=== PATIENT | female | born 1945 | race Caucasian/White ===

== ENCOUNTER 2019-06-15 16:19 | Inpatient (IN) | payer MEDICARE, OTHER ==
--- NOTE | 2019-06-15 16:42 | ED ---
General Adult HPI - General Chief complaint: Recheck/Abnormal Lab/Rx Stated complaint: Open wounds/sepsis Time Seen by Provider: 06/15/19 16:22 Source: patient, EMS Mode of arrival: EMS Limitations: physical limitation - History of Present Illness Initial comments: Dictation was produced using [employer] dictation software. please excuse any grammatical, word or spelling errors. Chief Complaint: 73-year-old with chronic debility presents with worsening decubitus ulcer. History of Present Illness: It is 73-year-old female she has past medical history of chronic debility. She was sent in for evaluation of decubitus ulcer. Patient is a history of cerebrovascular accident. She is bedbound. Patient is paraplegic secondary to cerebrovascular accident. She lives at home with his care with home healthcare nurse. Patient has no specific complaints at this time. She understands that she was sent from home for evaluation of decubitus ulcer wounds. He was reports that they were called for this concern. Chart review shows that patient was admitted to the hospital 3 years ago for decubitus ulcers of the oxygen area. The ROS documented in this emergency department record has been reviewed and confirmed by me. Those systems with pertinent positive or negative responses have been documented in the HPI. All other systems are other negative and/or noncontributory. PHYSICAL EXAM: General Impression: Alert and oriented x3, not in acute distress HEENT: Normocephalic atraumatic, extra-ocular movements intact, pupils equal and reactive to light bilaterally, mucous membranes moist. Cardiovascular: Tachycardic Chest: Lungs clear to auscultation bilaterally, no rhonchi, no wheeze, no rales Abdomen: Bowel sounds present, abdomen soft, non-tender, non-distended, no organomegaly Musculoskeletal: Pulses present and equal in all extremities, no peripheral edema Motor: no focal deficits noted Neurological: CN II-XII grossly intact, no focal motor or sensory deficits noted Skin: Intact with no visualized rashes Large area of pressure sores measuring approximately 12" x 12" with stage III and stage IV area of decubitus ulcers. There is stool that is contaminating the wound Psych: Normal affect and mood ED course: 73-year-old female with past medical history of decubitus ulcers, CVA chronic debility presents with concerns of worsening decubitus ulcer. Patient has no specific complaints upon initial evaluation. Upon arrival shows temperature 99.7, heart rate of 110, rest of vital signs are acceptable limits.Laboratory evaluation obtained. Leukocytosis of 18.6, rest of CBC unremarkable. Coag panel negative. Metabolic panel shows a patient of renal markers with a mild gap acidosis. She has a lactic acidosis 3.8 magnesium 1.3 C-reactive protein of 323.6 urinalysis is unremarkable. Pelvis x-ray showed findings concerning for possible osteomyelitis to the inferior right issue. Computed tomography scan of the abdomen and pelvis was obtained showing a large area of soft tissue air in the posterior sacral and buttock consistent with cellulitis and decubitus ulcer. At this point there is concern for significant stage IV decubitus ulcer. She does have findings to suggest sepsis. Given 1 L normal saline bolus. Patient given broad-spectrum antibiotics. Multiple attempts were made to contact Dr. Marr for inpatient admission he has not called back. Nonetheless patient will be admitted. We will place consult for general surgery and infectious disease. Decubitus ulcers was irrigated by nurse. Mon catheter was placed. EKG interpretation: Ventricular rate 112, sinus tachycardia,. Interval 150, QS 94, QTC 461. No [place] prolongation, no QTC prolongation, no ST or T-wave changes noted. Overall, this EKG is unremarkable - Related Data Home Medications Medication Instructions Recorded Confirmed Aspirin EC [Ecotrin] 325 mg PO DAILY 05/26/16 06/15/19 Lisinopril-Hctz 20-25 mg 1 tab PO DAILY 06/15/19 06/15/19 [Zestoretic 20-25] Loperamide HCl [Loperamide] 2 mg PO BID PRN 06/15/19 06/15/19 Metoprolol Succinate (ER) [Toprol 50 mg PO DAILY 06/15/19 06/15/19 Xl] hydrALAZINE HCL [Apresoline] 50 mg PO TID 06/15/19 06/15/19 Allergies Allergy/AdvReac Type Severity Reaction Status Date / Time No Known Allergies Allergy Verified 06/15/19 16:38 Review of Systems ROS Statement: Those systems with pertinent positive or pertinent negative responses have been documented in the HPI. ROS Other: All systems not noted in ROS Statement are negative. Past Medical History Past Medical History: CVA/TIA Additional Past Medical History / Comment(s): immobile History of Any Multi-Drug Resistant Organisms: None Reported Past Surgical History: No Surgical Hx Reported Past Psychological History: No Psychological Hx Reported Smoking Status: Never smoker Past Alcohol Use History: None Reported Past Drug Use History: None Reported - Past Family History Mother Family Medical History: Hypertension General Exam Limitations: physical limitation Course Vital Signs 06/15/19 06/15/19 06/15/19 16:21 17:30 18:37 Temperature 99.7 F H Pulse Rate 110 H 118 H 105 H Respiratory 18 18 18 Rate Blood Pressure 145/126 113/82 117/99 O2 Sat by Pulse 93 L 96 96 Oximetry 06/15/19 19:16 Temperature Pulse Rate 118 H Respiratory 20 Rate Blood Pressure 120/64 O2 Sat by Pulse 96 Oximetry Medical Decision Making - Lab Data Result diagrams: 06/15/19 16:52 06/15/19 16:52 Lab Results 06/15/19 06/15/19 06/15/19 Range/Units 16:52 16:52 16:52 WBC 18.6 H (3.8-10.6) k/uL RBC 3.77 L (3.80-5.40) m/uL Hgb 11.9 (11.4-16.0) gm/dL Hct 36.1 (34.0-46.0) % MCV 95.8 (80.0-100.0) fL MCH 31.5 (25.0-35.0) pg MCHC 32.8 (31.0-37.0) g/dL RDW 17.3 H (11.5-15.5) % Plt Count 416 (150-450) k/uL Neutrophils % 91 % Lymphocytes % 6 % Monocytes % 1 % Eosinophils % 0 % Basophils % 0 % Neutrophils # 17.0 H (1.3-7.7) k/uL Lymphocytes # 1.1 (1.0-4.8) k/uL Monocytes # 0.3 (0-1.0) k/uL Eosinophils # 0.1 (0-0.7) k/uL Basophils # 0.0 (0-0.2) k/uL Anisocytosis Slight Macrocytosis Slight ESR Cancelled PT (9.0-12.0) sec INR (<1.2) APTT (22.0-30.0) sec Sodium 136 L (137-145) mmol/L Potassium 4.5 (3.5-5.1) mmol/L Chloride 103 (98-107) mmol/L Carbon Dioxide 20 L (22-30) mmol/L Anion Gap 13 mmol/L BUN 61 H (7-17) mg/dL Creatinine 1.38 H (0.52-1.04) mg/dL Est GFR (CKD-EPI)AfAm 44 (>60 ml/min/1.73 sqM) Est GFR (CKD-EPI)NonAf 39 (>60 ml/min/1.73 sqM) Glucose 110 H (74-99) mg/dL Plasma Lactic Acid Jonathan 3.8 H* (0.7-2.0) mmol/L Calcium 7.8 L (8.4-10.2) mg/dL Magnesium 1.3 L (1.6-2.3) mg/dL Total Bilirubin 0.7 (0.2-1.3) mg/dL AST 40 H (14-36) U/L ALT 18 (9-52) U/L Alkaline Phosphatase 123 (38-126) U/L Creatine Kinase 220 H (30-135) U/L C-Reactive Protein 323.6 H (<10.0) mg/L Total Protein 6.4 (6.3-8.2) g/dL Albumin 2.8 L (3.5-5.0) g/dL Urine Color Urine Appearance (Clear) Urine pH (5.0-8.0) Ur Specific [place] (1.001-1.035) Urine Protein (Negative) Urine Glucose (UA) (Negative) Urine Ketones (Negative) Urine Blood (Negative) Urine Nitrite (Negative) Urine Bilirubin (Negative) Urine Urobilinogen (<2.0) mg/dL Ur Leukocyte Esterase (Negative) Urine WBC (0-5) /hpf Ur Squamous Epith Cells (0-4) /hpf Urine Bacteria (None) /hpf Urine Mucus (None) /hpf 06/15/19 06/15/19 Range/Units 16:52 17:28 WBC (3.8-10.6) k/uL RBC (3.80-5.40) m/uL Hgb (11.4-16.0) gm/dL Hct (34.0-46.0) % MCV (80.0-100.0) fL MCH (25.0-35.0) pg MCHC (31.0-37.0) g/dL RDW (11.5-15.5) % Plt Count (150-450) k/uL Neutrophils % % Lymphocytes % % Monocytes % % Eosinophils % % Basophils % % Neutrophils # (1.3-7.7) k/uL Lymphocytes # (1.0-4.8) k/uL Monocytes # (0-1.0) k/uL Eosinophils # (0-0.7) k/uL Basophils # (0-0.2) k/uL Anisocytosis Macrocytosis ESR PT 11.2 (9.0-12.0) sec INR 1.1 (<1.2) APTT 24.5 (22.0-30.0) sec Sodium (137-145) mmol/L Potassium (3.5-5.1) mmol/L Chloride (98-107) mmol/L Carbon Dioxide (22-30) mmol/L Anion Gap mmol/L BUN (7-17) mg/dL Creatinine (0.52-1.04) mg/dL Est GFR (CKD-EPI)AfAm (>60 ml/min/1.73 sqM) Est GFR (CKD-EPI)NonAf (>60 ml/min/1.73 sqM) Glucose (74-99) mg/dL Plasma Lactic Acid Jonathan (0.7-2.0) mmol/L Calcium (8.4-10.2) mg/dL Magnesium (1.6-2.3) mg/dL Total Bilirubin (0.2-1.3) mg/dL AST (14-36) U/L ALT (9-52) U/L Alkaline Phosphatase (38-126) U/L Creatine Kinase (30-135) U/L C-Reactive Protein (<10.0) mg/L Total Protein (6.3-8.2) g/dL Albumin (3.5-5.0) g/dL Urine Color Yellow Urine Appearance Cloudy H (Clear) Urine pH 5.0 (5.0-8.0) Ur Specific [place] 1.018 (1.001-1.035) Urine Protein Trace H (Negative) Urine Glucose (UA) Negative (Negative) Urine Ketones Negative (Negative) Urine Blood Negative (Negative) Urine Nitrite Negative (Negative) Urine Bilirubin Negative (Negative) Urine Urobilinogen 2.0 (<2.0) mg/dL Ur Leukocyte Esterase Moderate H (Negative) Urine WBC 3 (0-5) /hpf Ur Squamous Epith Cells 1 (0-4) /hpf Urine Bacteria Moderate H (None) /hpf Urine Mucus Rare H (None) /hpf Disposition Clinical Impression: Decubitus ulcer, Sepsis Disposition: ADMITTED IP TO THIS HOSP Condition: Fair Referrals: Charli Akbar MD [Primary Care Provider] - 1-2 days Decision Time: 20:13
[2019-06-15] MEDS ORDERED: SODIUM CHLORIDE 0.9% 1,000 ML IV STA (16:45)
[2019-06-15 17:18] LABS: Anisocytosis Slight; Basophils % (A) 0 %; Eosinophils # (A) 0.1 k/uL (0-0.7); Eosinophils % (A) 0 %; HCT 36.1 % (34.0-46.0); HGB 11.9 gm/dL (11.4-16.0); Lymphocytes # (A) 1.1 k/uL (1.0-4.8); Lymphocytes % (A) 6 %; MCH 31.5 pg (25.0-35.0); MCHC 32.8 g/dL (31.0-37.0); MCV 95.8 fL (80.0-100.0); Macrocytosis Slight; Mean Platelet Volume 8.2; Monocytes # (A) 0.3 k/uL (0-1.0); Monocytes % (A) 1 %; Neutrophils % (A) 91 %; Platelet Count 416 k/uL (150-450); RBC 3.77 m/uL (3.80-5.40); RDW 17.3 % (11.5-15.5); WBC 18.6 k/uL (3.8-10.6)
[2019-06-15 17:31] LABS: INR 1.1 (<1.2); Partial Thromboplastin Time 24.5 sec (22.0-30.0); Prothrombin Time 11.2 sec (9.0-12.0)
[2019-06-15 17:32] LABS: Albumin 2.8 g/dL (3.5-5.0); Calcium 7.8 mg/dL (8.4-10.2); Magnesium 1.3 mg/dL (1.6-2.3); Potassium 4.5 mmol/L (3.5-5.1); Total Bilirubin 0.7 mg/dL (0.2-1.3); Total Protein 6.4 g/dL (6.3-8.2)
[2019-06-15 17:47] LABS: Appearance,Urine Cloudy (Clear); Bacteria,Urine Moderate /hpf; Bilirubin,Urine Negative (Negative); Blood,Urine Negative (Negative); Color,Urine Yellow; Glucose,Urine (UA) Negative (Negative); Ketones,Urine Negative (Negative); Leukocyte Esterase,Urine Moderate (Negative); Mucus,Urine Rare /hpf; Nitrite,Urine Negative (Negative); Protein,Urine Trace (Negative); Specific Gravity,Urine 1.018 (1.001-1.035); Squamous Epithelial Cell,Urine 1 /hpf (0-4); WBC,Urine 3 /hpf (0-5)
[2019-06-15] MEDS ORDERED: VANCOMYCIN IV PER PHARMACY 1 EACH MISC MISCELLANE PRN (17:50)
--- NOTE | 2019-06-15 17:55 | XR ---
EXAMINATION TYPE: XR pelvis AP view DATE OF EXAM: 06/15/2019 COMPARISON: NONE HISTORY: Pain TECHNIQUE: Single view FINDINGS: Pelvic ring appears intact. I see no fracture. There is some lucency of the inferior right ischium that could relate to focal bone destruction. Proximal femurs are intact. IMPRESSION: Possible focal bone destruction of a small area of the inferior right ischium that could relate to focal osteomyelitis. No fracture.
[2019-06-15] MEDS ORDERED: CEFEPIME 2 GM in SODIUM CHLORIDE 0.9% 100 ML IVPB STA (17:57)
[2019-06-15] MEDS ORDERED: VANCOMYCIN 1,500 MG in SODIUM CHLORIDE 0.9% 250 ML IVPB STA (18:05)
[2019-06-15 18:14] LABS: C Reactive Protein 323.6 mg/L (<10.0)
[2019-06-15] MEDS: MAGNESIUM SULFATE-D5W PMX 1 GM in DEXTROSE/WATER 1 100ML.BAG IVPB SCH ×2 (19:05→20:19)
--- NOTE | 2019-06-15 19:06 | CT ---
EXAMINATION TYPE: CT abdomen pelvis wo con DATE OF EXAM: 06/15/2019 COMPARISON: None HISTORY: Pain, stage 4 decub ulscer w/sepsis. PT unable to raise arms. CT DLP: 1073.4 mGycm Automated exposure control for dose reduction was used. TECHNIQUE: Helical acquisition of images was performed from the lung bases through the pelvis. FINDINGS: Heart is enlarged. Lung bases are clear of consolidation. There is no pleural effusion. Exam is limit ed slightly by patient's size. There is small hiatal hernia. Liver shows no focal defect. Spleen is intact. There is no evidence of pancreatic mass. Gallbladder is not definitely seen. The bile ducts are not dilated. There is no adrenal mass. Kidneys have normal size. There is no hydronephrosis. There is no retroperi toneal adenopathy. There are multiple diverticula of the sigmoid colon. There is Mon catheter in th e urinary bladder. There is no free fluid in the pelvis. There is soft tissue air posteriorly extendi ng over a 15 cm area of the posterior sacrum and buttocks in the midline. There is no drainable fluid collection. There is subcutaneous mild edema. Air bubbles extend to the posterior perirectal soft ti ssues. I see no focal bone destruction. There is no evidence of pneumoperitoneum. There is no sign of a mechanical bowel obstruction. There is no ascites. Appendix appears to be present posteriorly and is not thickened. Lumbar spine is intact. Bony pelvis is intact. There is no evidence of a fracture. IMPRESSION: THERE IS LARGE AREA OF SOFT TISSUE AIR BUBBLES IN THE POSTERIOR SACRAL AND buttock REGION CONSISTENT WITH CELLULITIS AND DECUBITUS ULCERS. NO DRAINABLE ABSCESS.
[2019-06-15] MEDS ORDERED: ACETAMINOPHEN TAB 500 MG TAB PO STA (20:14)
[2019-06-15 21:38] LABS: Glucose,Whole Blood 150 mg/dL (75-99)
[2019-06-15] MEDS: HEPARIN SODIUM,PORCINE 5,000 UNIT/ML 1 ML VIAL SQ SCH (22:43)
[2019-06-15] MEDS ORDERED: LACTATED RINGERS 500 ML IV SCH (23:45)
[2019-06-16] MEDS: LACTATED RINGERS 1,000 ML IV SCH ×6 (00:11→23:51)
[2019-06-16] MEDS ORDERED: LACTATED RINGERS 1,000 ML IV SCH (02:45)
[2019-06-16] MEDS: NOREPINEPHRINE 4 MG in SODIUM CHLORIDE 0.9% 250 ML IV SCH ×2 (05:52→23:50)
[2019-06-16 07:22] LABS: Calcium 7.3 mg/dL (8.4-10.2); Potassium 3.1 mmol/L (3.5-5.1)
[2019-06-16] MEDS ORDERED: Potassium Replacement Protocol 1 EACH MISC MISCELLANE PRN (08:03)
[2019-06-16 08:13] LABS: Anisocytosis Slight; Basophils # (A) 0.1 k/uL (0-0.2); Basophils % (A) 1 %; Eosinophils # (A) 0.1 k/uL (0-0.7); Eosinophils % (A) 0 %; HCT 30.7 % (34.0-46.0); HGB 10.1 gm/dL (11.4-16.0); Lymphocytes # (A) 2.1 k/uL (1.0-4.8); Lymphocytes % (A) 11 %; MCH 31.5 pg (25.0-35.0); MCV 95.5 fL (80.0-100.0); Macrocytosis Slight; Monocytes # (A) 0.6 k/uL (0-1.0); Monocytes % (A) 3 %; Neutrophils # (A) 15.2 k/uL (1.3-7.7); Neutrophils % (A) 83 %; Platelet Count 314 k/uL (150-450); RBC 3.21 m/uL (3.80-5.40); RDW 17.6 % (11.5-15.5); WBC 18.4 k/uL (3.8-10.6)
[2019-06-16] MEDS: POTASSIUM CHLORIDE ER 20 MEQ TAB.ER PO SCH ×2 (08:43→09:53)
[2019-06-16] MEDS: HEPARIN SODIUM,PORCINE 5,000 UNIT/ML 1 ML VIAL SQ SCH ×3 (08:47→23:50)
[2019-06-16] MEDS: VANCOMYCIN 1,500 MG in SODIUM CHLORIDE 0.9% 250 ML IVPB SCH (13:39)
--- NOTE | 2019-06-16 13:39 | P.CNPUL ---
History of Present Illness Consult date: 06/16/19 Requesting physician: Ottoniel Marr Chief complaint: Stage IV decubitus ulcer wounds on sacrum with concern of infection History of present illness: This is a 73-year-old white female patient of Dr. Akbar, with past medical history of CVA, with impaired mobility, patient is basically bed bound, chronic sacral wounds, being followed by a home health care nurse and a visiting physician, who was brought into the emergency department on 06/15/2019 for evaluation of extensive stage IV decubitus ulcers on the sacrum, coccyx, bilateral posterior thighs, with evidence of extensive necrosis of subcutaneous tissues, and muscle tissues and possibly involving bony structures. Patient did not have any specific complaints, she does not have much feeling below the waist, denies any pain, no fever or chills. She is chronically incontinent of urine and bowel. Apparently she receives assistance from a healthcare nursing service, as well as [place] [facility] aging for ADLs. Lab work showed leukocytosis of 18.6, the rest of the CBC was unremarkable, coag panel was negative, metabolic panel showed elevated BUN and creatinine of 61 and 1.38 respectively, with a mild gap acidosis. Patient had a lactic acidosis of 3.8 on admission, urinalysis was unremarkable. CK was 220, CRP was 323 Pelvis x-ray showed a possible focal bone destruction of a small area of the inferior right ischium that could relate to focal osteomyelitis, no fracture. CT of abdomen and pelvis, showing a large area of soft tissue air bubbles in the posterior sacral and buttock region consistent with cellulitis and decubitus ulcers, no drainable abscess. Patient did become hypotensive in the emergency department after initially being normotensive, with the blood pressure down to 72/39, was tachycardic on presentation, EKG was negative for any acute ischemic changes, and febrile with a temp of 102F. She was fluid resuscitated, received a liter bolus, currently IV fluids are lactated Ringer's at a rate of 125 ML per hour, and she has been started on vancomycin and cefepime. Blood cultures and urine cultures have been sent, pending at this time. She denies any respiratory difficulty, denies any chest pain, denies any specific complaints, physical examination revealed extensive necrotic wounds involving sacrum, coccyx and posterior lower buttock area upper thigh. Surgical consultation has been requested for surgical debridement. ID service has been consulted, dietary and therapy department consulted Review of Systems All systems: negative Constitutional: Denies chills, Denies fever Eyes: denies blurred vision, denies pain Ears, nose, mouth and throat: Denies headache, Denies sore throat Cardiovascular: Denies chest pain, Denies shortness of breath Respiratory: Denies cough Gastrointestinal: Denies abdominal pain, Denies diarrhea, Denies nausea, Denies vomiting Genitourinary: Denies dysuria, Denies hematuria Musculoskeletal: Reports gait dysfunction, Reports limitation of motion, Denies myalgias Integumentary: Denies pruritus, Denies rash Neurological: Denies numbness, Denies weakness Psychiatric: Denies anxiety, Denies depression Endocrine: Denies fatigue, Denies weight change Past Medical History Past Medical History: CVA/TIA, Hypertension Additional Past Medical History / Comment(s): paraplegic History of Any Multi-Drug Resistant Organisms: None Reported Past Surgical History: No Surgical Hx Reported Past Anesthesia/Blood Transfusion Reactions: No Reported Reaction Past Psychological History: No Psychological Hx Reported Smoking Status: Never smoker Past Alcohol Use History: None Reported Past Drug Use History: None Reported - Past Family History Mother Family Medical History: Hypertension Medications and Allergies Home Medications Medication Instructions Recorded Confirmed Type Aspirin EC [Ecotrin] 325 mg PO DAILY 05/26/16 06/15/19 History Lisinopril-Hctz 20-25 mg 1 tab PO DAILY 06/15/19 06/15/19 History [Zestoretic 20-25] Loperamide HCl [Loperamide] 2 mg PO BID PRN 06/15/19 06/15/19 History Metoprolol Succinate (ER) [Toprol 50 mg PO DAILY 06/15/19 06/15/19 History Xl] hydrALAZINE HCL [Apresoline] 50 mg PO TID 06/15/19 06/15/19 History Allergies Allergy/AdvReac Type Severity Reaction Status Date / Time No Known Allergies Allergy Verified 06/15/19 16:38 Physical Exam Vitals: Vital Signs Temp Pulse Resp BP Pulse Ox 06/16/19 10:00 88 22 99/60 98 06/16/19 09:45 89 23 101/56 97 06/16/19 09:30 87 15 95/51 98 06/16/19 09:15 92 10 L 85/60 98 06/16/19 09:00 93 11 L 110/31 99 06/16/19 08:45 86 35 H 120/62 97 06/16/19 08:30 85 12 94/55 97 06/16/19 08:15 84 16 94/55 98 06/16/19 08:05 93 L 06/16/19 08:00 97.8 F 81 12 86/47 96 06/16/19 07:45 71 12 103/41 88 L 06/16/19 07:30 63 23 103/58 97 06/16/19 07:15 64 23 106/47 95 06/16/19 07:00 63 20 97/52 96 06/16/19 06:45 61 16 91/44 96 06/16/19 06:30 61 15 96/49 96 06/16/19 06:15 59 L 15 106/46 96 06/16/19 06:00 55 L 16 95/51 96 06/16/19 05:45 60 21 77/38 97 06/16/19 05:31 61 16 79/40 96 06/16/19 05:15 61 16 78/45 95 06/16/19 05:00 63 16 68/42 96 06/16/19 04:45 63 16 73/43 95 06/16/19 04:30 64 18 85/46 95 06/16/19 04:15 65 19 86/50 06/16/19 04:00 97.5 F L 64 12 83/50 06/16/19 03:45 65 18 84/48 96 06/16/19 03:30 65 16 85/53 06/16/19 03:15 68 15 89/49 95 06/16/19 03:00 68 10 L 82/52 96 06/16/19 02:45 68 14 88/48 94 L 06/16/19 02:30 70 12 92/47 95 06/16/19 02:15 72 11 L 81/46 06/16/19 02:00 74 21 77/45 94 L 06/16/19 01:45 73 14 87/46 86 L 06/16/19 01:30 98.5 F 76 18 80/44 95 06/16/19 01:15 74 24 97/37 95 06/16/19 01:00 78 22 90/37 95 06/16/19 00:45 80 35 H 86/35 94 L 06/16/19 00:30 80 22 80/39 92 L 06/16/19 00:15 85 20 82/39 94 L 06/16/19 00:00 99.5 F 88 18 73/42 06/15/19 23:45 89 17 72/39 95 06/15/19 23:30 95 12 81/42 94 L 06/15/19 23:15 94 22 94 L 06/15/19 23:00 93 18 95 06/15/19 22:45 106 H 10 L 85 L 06/15/19 22:30 101 H 40 H 97/57 96 06/15/19 21:40 100.5 F H 06/15/19 21:07 101.3 F H 101 H 20 89/52 98 06/15/19 20:05 102 F H 101 H 18 96/47 96 06/15/19 19:16 118 H 20 120/64 96 06/15/19 18:37 105 H 18 117/99 96 06/15/19 17:30 118 H 18 113/82 96 06/15/19 16:21 99.7 F H 110 H 18 145/126 93 L Intake and Output 06/15/19 06/16/19 06/16/19 22:59 06:59 14:59 Intake Total 3617.332 424.019 Output Total 300 660 165 Balance -300 2957.332 259.019 Intake: IV 250 Lactated Ringers 1,000 ml 250 @ 125 mls/hr IV .Q8H [facility] Rx#:[id number] Intake, IV Titration 3617.332 174.019 Amount Cefepime 2 gm In Sodium 100 Chloride 0.9% 100 ml @ 200 mls/hr IVPB ONCE STA Rx#:[id number] Lactated Ringers 1,000 ml 500 @ 1000 mls/hr IV .Q1H [facility] Rx#:[id number] Lactated Ringers 1,000 ml 565 125 @ 125 mls/hr IV .Q8H [facility] Rx#:[id number] Lactated Ringers 1,000 ml 1000 @ 999 mls/hr IV .Q1H1M [facility] Rx#:[id number] Magnesium Sulfate-D5w Pmx 200 1 gm In Dextrose/Water 1 100ml.bag @ 100 mls/hr IVPB Q1H [facility] Rx#: [id number] Norepinephrine 4 mg In 2.332 49.019 Sodium Chloride 0.9% 250 ml @ 0.05 MCG/KG/MIN 15. 545 mls/hr IV .[id number] [facility] Rx#:[id number] Sodium Chloride 0.9% 1, 1000 000 ml @ 999 mls/hr IV . Q1H1M [facility] Rx#:[id number] Vancomycin 1,500 mg In 250 Sodium Chloride 0.9% 250 ml @ 125 mls/hr IVPB Q24H [facility] Rx#:[id number] Output: Urine 300 660 165 Uretheral (Mon) 300 Other: Voiding Method Indwelling Catheter Indwelling Catheter Weight 81.601 kg 86.8 kg 86.8 kg GENERAL EXAM: Alert, pleasant, 73-year-old obese white female, comfortable in no apparent distress. HEAD: Normocephalic/atraumatic. EYES: Normal reaction of pupils, equal size. Conjunctiva pink, sclera white. NOSE: Clear with pink turbinates. THROAT: No erythema or exudates. NECK: No masses, no JVD, no thyroid enlargement, no adenopathy. CHEST: No chest wall deformity. Symmetrical expansion. LUNGS: Equal air entry with no crackles, wheeze, rhonchi or dullness. CVS: Regular rate and rhythm, normal S1 and S2, no gallops, no murmurs, no rubs ABDOMEN: Soft, nontender. No hepatosplenomegaly, normal bowel sounds, no guarding or rigidity. EXTREMITIES: No clubbing, no edema, no cyanosis, 2+ pulses and upper and lower extremities. MUSCULOSKELETAL: Patient has sensory loss involving the bilateral lower extremities, below the waist, and weakness of lower extremities, patient is unable to ambulate, she is bedbound, unable to move feet SPINE: No scoliosis or deformity SKIN: Patient has extensive necrotic wounds involving sacrum, coccyx, buttocks, and posterior upper thighs, with evidence of extensive necrosis with black tissue and slough in the wound bed with malodorous drainage CENTRAL NERVOUS SYSTEM: Alert and oriented -3. Sensory loss involving lower extremities, and sensory loss below the waist, patient has mild foot drop involving bilateral feet Results - Laboratory Findings CBC and BMP: 06/16/19 06:55 06/16/19 07:01 PT/INR, D-dimer PT 11.2 sec (9.0-12.0) 06/15/19 16:52 INR 1.1 (<1.2) 06/15/19 16:52 Abnormal lab findings: Abnormal Labs 06/15/19 06/15/19 06/15/19 16:52 16:52 16:52 WBC 18.6 H RBC 3.77 L Hgb Hct RDW 17.3 H Neutrophils # 17.0 H ESR Sodium 136 L Potassium Carbon Dioxide 20 L BUN 61 H Creatinine 1.38 H Glucose 110 H POC Glucose (mg/dL) Plasma Lactic Acid Jonathan 3.8 H* Calcium 7.8 L Magnesium 1.3 L AST 40 H Creatine Kinase 220 H C-Reactive Protein 323.6 H Albumin 2.8 L Urine Appearance Urine Protein Ur Leukocyte Esterase Urine Bacteria Urine Mucus 06/15/19 06/15/19 06/15/19 17:28 19:03 21:34 WBC RBC Hgb Hct RDW Neutrophils # ESR 58 H Sodium Potassium Carbon Dioxide BUN Creatinine Glucose POC Glucose (mg/dL) 150 H Plasma Lactic Acid Jonathan Calcium Magnesium AST Creatine Kinase C-Reactive Protein Albumin Urine Appearance Cloudy H Urine Protein Trace H Ur Leukocyte Esterase Moderate H Urine Bacteria Moderate H Urine Mucus Rare H 06/16/19 06/16/19 06:55 07:01 WBC 18.4 H RBC 3.21 L Hgb 10.1 L Hct 30.7 L RDW 17.6 H Neutrophils # 15.2 H ESR Sodium 136 L Potassium 3.1 L Carbon Dioxide 20 L BUN 47 H Creatinine Glucose 114 H POC Glucose (mg/dL) Plasma Lactic Acid Jonathan Calcium 7.3 L Magnesium AST Creatine Kinase C-Reactive Protein Albumin Urine Appearance Urine Protein Ur Leukocyte Esterase Urine Bacteria Urine Mucus - Diagnostic Findings Chest x-ray: report reviewed, image reviewed Additional studies: CT of abdomen and pelvis, EKG, pelvis x-ray Assessment and Plan Plan: Assessment: #1. Sepsis related to extensive stage IV necrotic decubitus ulcers involving the sacrum, coccyx, buttocks and upper posterior thighs. CT of abdomen and pelvis showing significant area of soft tissue air bubbles in the sacral and buttock area, but no evidence of focal bone destruction #2. Hypotension, possibly related to sepsis, septic shock, recovered, responded well to IV fluids. #3. Leukocytosis related to the above #4. History of CVA, impairing patient's mobility, patient is bedbound, and has sensory loss in her lower extremities #5. Acute kidney injury related to sepsis, improving #6. Chronic medical debility #7. Mild lactic acidosis, improved #8. Previous history of bilateral heel ulcers #9. Previous history of urinary tract infection #10. History of hypertension #11. History of congestive heart failure with preserved left ventricular systolic function with an EF of 50-55%, seems to be currently stable Plan: We'll continue with current antibiotics, ID service has been consulted, hemodynamically patient is stable, did not require vasopressor support, she has been fluid resuscitated, continue with IV fluids at a rate of 125 ML per hour, no fever or chills, no complaints of dyspnea. Surgery has been consulted for surgical debridement of the necrotic decubitus ulcers involving the sacrum. CT showed no evidence of focal bone destruction, but extensive significant soft tissue process, and soft tissue air bubbles. Continue close hemodynamic monitoring, urine output, fever pattern. GI and DVT prophylaxis, awaiting the results of the cultures. Patient will remain the intensive care unit I performed a history & physical examination of the patient and discussed their management with my nurse practitioner, Maria A Landaverde. I reviewed the nurse practitioner's note and agree with the documented findings and plan of care. Lung sounds are positive for clear breath sounds. The findings and the impression was discussed with the patient. I attest to the documentation by the nurse practitioner. Time with Patient: Greater than 30
[2019-06-16] MEDS ORDERED: VANCOMYCIN 1,500 MG in SODIUM CHLORIDE 0.9% 250 ML IVPB SCH ×4 (14:00)
[2019-06-16] MEDS ORDERED: DIPH,PERTUS(ACELL)TETVAC-LF 0.5 ML VIAL IM ONE (14:22)
--- NOTE | 2019-06-16 14:34 | P.CONS ---
History of Present Illness - Reason for Consult Sepsis - History of Present Illness This is a 73-year-old female who is currently living at home alone. She has history of CVA and has been bedbound for the past 3 years. Patient presented with stage IV decubitus ulcers to the sacrum,, coccyx, bilateral buttocks and posterior thighs with extensive necrosis. Unclear how long this has been going on. Patient presented with fever, tachycardia, hypotension, leukocytosis of 18.6, lactic acid 3.8. BUN 61 and creatinine 1.38. Sed rate 58, CRP 323.CAT scan of the abdomen and pelvis without contrast revealed large area of soft tissue air bubbles in the posterior sacral and buttocks region consistent with cellulitis and he was ulcers. No drainable abscess. No focal bone destruction. Patient was admitted into the intensive care unit. She is status post 20 of liters of IV fluid. Norepinephrine was discontinued at 8 AM this morning. Patient is currently hemodynamically stable. Dr. Osborne is on consult as well as Dr. Grimes with tentative plan for debridement of the decubitus ulcers. Blood cultures status received. Patient is currently on vancomycin. Patient is unaware of her last tetanus immunization. Review of Systems Constitutional: Reports fatigue, Denies chills, Denies fever Ears, nose, mouth and throat: Denies dysphagia, Denies headache, Denies nasal congestion, Denies nasal discharge, Denies vertigo Cardiovascular: Denies chest pain, Denies dyspnea on exertion, Denies edema, Denies leg edema, Denies lightheadedness, Denies syncope Respiratory: Denies cough, Denies cough with sputum, Denies dyspnea, Denies excessive sputum, Denies hemoptysis, Denies home oxygen, Denies wheezing Gastrointestinal: Denies abdominal pain, Denies diarrhea, Denies loss of appetite, Denies nausea, Denies vomiting Genitourinary: Denies dysuria, Denies urgency, Denies urinary frequency Musculoskeletal: Reports gait dysfunction, Reports muscle weakness, Denies myalgias Integumentary: Reports wounds, Denies pruritus, Denies rash Neurological: Reports weakness, Denies change in mentation, Denies change in speech, Denies seizures, Denies vertigo Psychiatric: Denies anxiety, Denies depression Past Medical History Past Medical History: CVA/TIA, Hypertension Additional Past Medical History / Comment(s): paraplegic History of Any Multi-Drug Resistant Organisms: None Reported Past Surgical History: No Surgical Hx Reported Past Anesthesia/Blood Transfusion Reactions: No Reported Reaction Past Psychological History: No Psychological Hx Reported Smoking Status: Never smoker Past Alcohol Use History: None Reported Additional Past Alcohol Use History / Comment(s): Patient is a lifelong nonsmoker. She denies any marijuana, street drug use or alcohol use. She lives at home and her 3 grandchildren live with her and assist her. She does have a caregiver that comes to the home 3 times per day through counseling on aging. Past Drug Use History: None Reported - Past Family History Mother Family Medical History: Hypertension Medications and Allergies Home Medications Medication Instructions Recorded Confirmed Type Aspirin EC [Ecotrin] 325 mg PO DAILY 05/26/16 06/15/19 History Lisinopril-Hctz 20-25 mg 1 tab PO DAILY 06/15/19 06/15/19 History [Zestoretic 20-25] Loperamide HCl [Loperamide] 2 mg PO BID PRN 06/15/19 06/15/19 History Metoprolol Succinate (ER) [Toprol 50 mg PO DAILY 06/15/19 06/15/19 History Xl] hydrALAZINE HCL [Apresoline] 50 mg PO TID 06/15/19 06/15/19 History Allergies Allergy/AdvReac Type Severity Reaction Status Date / Time No Known Allergies Allergy Verified 06/15/19 16:38 Physical Exam Vitals: Vital Signs Temp Pulse Resp BP Pulse Ox 06/16/19 13:30 82 19 97/57 92 L 06/16/19 13:00 85 24 114/46 95 06/16/19 12:30 81 18 110/67 93 L 06/16/19 12:00 97.7 F 77 14 98/54 97 06/16/19 11:30 80 16 96/64 97 06/16/19 11:00 78 21 117/72 06/16/19 10:30 73 18 101/51 98 06/16/19 10:00 88 22 99/60 98 06/16/19 09:45 89 23 101/56 97 06/16/19 09:30 87 15 95/51 98 06/16/19 09:15 92 10 L 85/60 98 06/16/19 09:00 93 11 L 110/31 99 06/16/19 08:45 86 35 H 120/62 97 06/16/19 08:30 85 12 94/55 97 06/16/19 08:15 84 16 94/55 98 06/16/19 08:05 93 L 06/16/19 08:00 97.8 F 81 12 86/47 96 06/16/19 07:45 71 12 103/41 88 L 06/16/19 07:30 63 23 103/58 97 06/16/19 07:15 64 23 106/47 95 06/16/19 07:00 63 20 97/52 96 06/16/19 06:45 61 16 91/44 96 06/16/19 06:30 61 15 96/49 96 06/16/19 06:15 59 L 15 106/46 96 06/16/19 06:00 55 L 16 95/51 96 06/16/19 05:45 60 21 77/38 97 06/16/19 05:31 61 16 79/40 96 06/16/19 05:15 61 16 78/45 95 06/16/19 05:00 63 16 68/42 96 06/16/19 04:45 63 16 73/43 95 06/16/19 04:30 64 18 85/46 95 06/16/19 04:15 65 19 86/50 06/16/19 04:00 97.5 F L 64 12 83/50 06/16/19 03:45 65 18 84/48 96 06/16/19 03:30 65 16 85/53 06/16/19 03:15 68 15 89/49 95 06/16/19 03:00 68 10 L 82/52 96 06/16/19 02:45 68 14 88/48 94 L 06/16/19 02:30 70 12 92/47 95 06/16/19 02:15 72 11 L 81/46 06/16/19 02:00 74 21 77/45 94 L 06/16/19 01:45 73 14 87/46 86 L 06/16/19 01:30 98.5 F 76 18 80/44 95 06/16/19 01:15 74 24 97/37 95 06/16/19 01:00 78 22 90/37 95 06/16/19 00:45 80 35 H 86/35 94 L 06/16/19 00:30 80 22 80/39 92 L 06/16/19 00:15 85 20 82/39 94 L 06/16/19 00:00 99.5 F 88 18 73/42 06/15/19 23:45 89 17 72/39 95 06/15/19 23:30 95 12 81/42 94 L 06/15/19 23:15 94 22 94 L 06/15/19 23:00 93 18 95 06/15/19 22:45 106 H 10 L 85 L 06/15/19 22:30 101 H 40 H 97/57 96 06/15/19 21:40 100.5 F H 06/15/19 21:07 101.3 F H 101 H 20 89/52 98 06/15/19 20:05 102 F H 101 H 18 96/47 96 06/15/19 19:16 118 H 20 120/64 96 06/15/19 18:37 105 H 18 117/99 96 06/15/19 17:30 118 H 18 113/82 96 06/15/19 16:21 99.7 F H 110 H 18 145/126 93 L Intake and Output 06/15/19 06/16/19 06/16/19 22:59 06:59 14:59 Intake Total 3617.332 424.019 Output Total 300 660 165 Balance -300 2957.332 259.019 Intake: IV 250 Lactated Ringers 1,000 ml 250 @ 125 mls/hr IV .Q8H SHARMAINE Rx#:[id number] Intake, IV Titration 3617.332 174.019 Amount Cefepime 2 gm In Sodium 100 Chloride 0.9% 100 ml @ 200 mls/hr IVPB ONCE STA Rx#:[id number] Lactated Ringers 1,000 ml 500 @ 1000 mls/hr IV .Q1H SHARMAINE Rx#:[id number] Lactated Ringers 1,000 ml 565 125 @ 125 mls/hr IV .Q8H SHARMAINE Rx#:[id number] Lactated Ringers 1,000 ml 1000 @ 999 mls/hr IV .Q1H1M [facility]MA[facility] Rx#:[id number] Magnesium Sulfate-D5w Pmx 200 1 gm In Dextrose/Water 1 100ml.bag @ 100 mls/hr IVPB Q1H [facility] Rx#: [id number] Norepinephrine 4 mg In 2.332 49.019 Sodium Chloride 0.9% 250 ml @ 0.05 MCG/KG/MIN 15. 545 mls/hr IV .[id number] SHARMAINE Rx#:[id number] Sodium Chloride 0.9% 1, 1000 000 ml @ 999 mls/hr IV . Q1H1M STA Rx#:[id number] Vancomycin 1,500 mg In 250 Sodium Chloride 0.9% 250 ml @ 125 mls/hr IVPB Q24H SHARMAINE Rx#:[id number] Output: Urine 300 660 165 Uretheral (Mon) 300 Other: Voiding Method Indwelling Catheter Indwelling Catheter Weight 81.601 kg 86.8 kg 86.8 kg Gen: This is a morbidly obese 73-year-old female. She is sitting up in the ICU bed and appears to be comfortable and in no acute distress. HEENT: Head is atraumatic, normocephalic. Pupils equal, round. Sclerae is anict salud. Conjunctiva pink. Oral mucous membranes are moist. Patient is edentulous. No thrush noted. NECK: Supple. No JVD. No lymphadenopathy. No thyromegaly. LUNGS: Clear to auscultation. No wheezes or rhonchi. No intercostal retractions. HEART: Regular rate and rhythm. No murmur. ABDOMEN: Soft. Bowel sounds are present. No masses. No tenderness. No redness under abdominal folds. Mon catheter draining clear timmy urine. EXTREMITIES: No pedal edema. Dorsalis pedis +2 bilaterally. NEUROLOGICAL: Patient is awake, alert and oriented x3. Patient has profound lower extremity weakness. Mild bilateral foot drop. Results CBC & Chem 7: 06/16/19 06:55 06/16/19 07:01 Labs: Abnormal Lab Results - Last 24 Hours (Table) 06/15/19 06/15/19 06/15/19 Range/Units 16:52 16:52 16:52 WBC 18.6 H (3.8-10.6) k/uL RBC 3.77 L (3.80-5.40) m/uL Hgb (11.4-16.0) gm/dL Hct (34.0-46.0) % RDW 17.3 H (11.5-15.5) % Neutrophils # 17.0 H (1.3-7.7) k/uL ESR (0-20) mm/hr Sodium 136 L (137-145) mmol/L Potassium (3.5-5.1) mmol/L Carbon Dioxide 20 L (22-30) mmol/L BUN 61 H (7-17) mg/dL Creatinine 1.38 H (0.52-1.04) mg/dL Glucose 110 H (74-99) mg/dL POC Glucose (mg/dL) (75-99) mg/dL Plasma Lactic Acid Jonathan 3.8 H* (0.7-2.0) mmol/L Calcium 7.8 L (8.4-10.2) mg/dL Magnesium 1.3 L (1.6-2.3) mg/dL AST 40 H (14-36) U/L Creatine Kinase 220 H (30-135) U/L C-Reactive Protein 323.6 H (<10.0) mg/L Albumin 2.8 L (3.5-5.0) g/dL Urine Appearance (Clear) Urine Protein (Negative) Ur Leukocyte Esterase (Negative) Urine Bacteria (None) /hpf Urine Mucus (None) /hpf 06/15/19 06/15/19 06/15/19 Range/Units 17:28 19:03 21:34 WBC (3.8-10.6) k/uL RBC (3.80-5.40) m/uL Hgb (11.4-16.0) gm/dL Hct (34.0-46.0) % RDW (11.5-15.5) % Neutrophils # (1.3-7.7) k/uL ESR 58 H (0-20) mm/hr Sodium (137-145) mmol/L Potassium (3.5-5.1) mmol/L Carbon Dioxide (22-30) mmol/L BUN (7-17) mg/dL Creatinine (0.52-1.04) mg/dL Glucose (74-99) mg/dL POC Glucose (mg/dL) 150 H (75-99) mg/dL Plasma Lactic Acid Jonathan (0.7-2.0) mmol/L Calcium (8.4-10.2) mg/dL Magnesium (1.6-2.3) mg/dL AST (14-36) U/L Creatine Kinase (30-135) U/L C-Reactive Protein (<10.0) mg/L Albumin (3.5-5.0) g/dL Urine Appearance Cloudy H (Clear) Urine Protein Trace H (Negative) Ur Leukocyte Esterase Moderate H (Negative) Urine Bacteria Moderate H (None) /hpf Urine Mucus Rare H (None) /hpf 06/16/19 06/16/19 Range/Units 06:55 07:01 WBC 18.4 H (3.8-10.6) k/uL RBC 3.21 L (3.80-5.40) m/uL Hgb 10.1 L (11.4-16.0) gm/dL Hct 30.7 L (34.0-46.0) % RDW 17.6 H (11.5-15.5) % Neutrophils # 15.2 H (1.3-7.7) k/uL ESR (0-20) mm/hr Sodium 136 L (137-145) mmol/L Potassium 3.1 L (3.5-5.1) mmol/L Carbon Dioxide 20 L (22-30) mmol/L BUN 47 H (7-17) mg/dL Creatinine (0.52-1.04) mg/dL Glucose 114 H (74-99) mg/dL POC Glucose (mg/dL) (75-99) mg/dL Plasma Lactic Acid Jonathan (0.7-2.0) mmol/L Calcium 7.3 L (8.4-10.2) mg/dL Magnesium (1.6-2.3) mg/dL AST (14-36) U/L Creatine Kinase (30-135) U/L C-Reactive Protein (<10.0) mg/L Albumin (3.5-5.0) g/dL Urine Appearance (Clear) Urine Protein (Negative) Ur Leukocyte Esterase (Negative) Urine Bacteria (None) /hpf Urine Mucus (None) /hpf Microbiology - Last 24 Hours (Table) 06/15/19 17:28 Urine Culture - Preliminary Urine,Voided Assessment and Plan Plan: This is a 73-year-old female who presented to the hospital with signs of severe sepsis with septic shock secondary to extensive stage IV decubitus ulcers to the sacrum, coccyx, bilateral posterior thighs, with evidence of extensive necrosis. Patient is currently hemodynamically stable and off vasopressors. We will culture and urine culture in progress. No wound culture has been obtained. Dr. Grimes is tentatively planning for debridement and will obtain cultures for us during the procedure. Patient is currently on vancomycin and Zosyn will be added for gram-negative coverage. Tetanus status will be updated. Continues supportive care. Further recommendations as patient p resses. The above dictated assessment and findings were discussed with Dr. Oro. The impression and plan of care have been directed as dictated. Jaquelin Carbajal nurse practitioner acting as scribe for Dr. Oro.
[2019-06-16] MEDS: PIPERACILLIN-TAZOBACTAM 3.375 GM in SODIUM CHLORIDE 0.9% 100 ML IVPB SCH ×2 (16:28→23:51)
--- NOTE | 2019-06-16 16:34 | P.GSCN ---
History of Present Illness Consult date: 06/16/19 Reason for Consult: Sacral decubitus ulcer History of present illness: We were consulted on this patient for a large infected sacral decubitus ulcer. Patient states she has been bedbound for the past 3 years or so. She does live at home. Patient was febrile and tachycardic with hypotension and leukocytosis in the ER. She was admitted to the ICU for further evaluation. Patient has been somewhat belligerent while in the ICU. She has stated on multiple occasions that she does not trust doctors. She has been refusing some of her treatment. The patient was started on IV antibiotics. She was seen by my nurse practitioner earlier today. Arrangements were made for the patient to go to the operating room for debridement of the necrotic tissue at the sacrum and additional decubitus ulcer locations. Unfortunately when I went to see the patient she was upset and continues to refuse surgical debridement. Patient states she has had heel ulcers that were as bad as this in the past that healed with local care only. Infectious disease has been consulted. Review of Systems The patient denies any acute changes in vision or hearing, no dysphagia or odynophagia, no chest pain or shortness of breath, no dysuria or hematuria, no headache, no runny nose, no rectal bleeding or melena, no unexplained weight loss Past Medical History Past Medical History: CVA/TIA, Hypertension Additional Past Medical History / Comment(s): paraplegic History of Any Multi-Drug Resistant Organisms: None Reported Past Surgical History: No Surgical Hx Reported Past Anesthesia/Blood Transfusion Reactions: No Reported Reaction Past Psychological History: No Psychological Hx Reported Smoking Status: Never smoker Past Alcohol Use History: None Reported Additional Past Alcohol Use History / Comment(s): Patient is a lifelong nonsmoker. She denies any marijuana, street drug use or alcohol use. She lives at home and her 3 grandchildren live with her and assist her. She does have a caregiver that comes to the home 3 times per day through counseling on aging. Past Drug Use History: None Reported - Past Family History Mother Family Medical History: Hypertension Medications and Allergies Home Medications Medication Instructions Recorded Confirmed Type Aspirin EC [Ecotrin] 325 mg PO DAILY 05/26/16 06/15/19 History Lisinopril-Hctz 20-25 mg 1 tab PO DAILY 06/15/19 06/15/19 History [Zestoretic 20-25] Loperamide HCl [Loperamide] 2 mg PO BID PRN 06/15/19 06/15/19 History Metoprolol Succinate (ER) [Toprol 50 mg PO DAILY 06/15/19 06/15/19 History Xl] hydrALAZINE HCL [Apresoline] 50 mg PO TID 06/15/19 06/15/19 History Allergies Allergy/AdvReac Type Severity Reaction Status Date / Time No Known Allergies Allergy Verified 06/15/19 16:38 Surgical - Exam Vital Signs Temp Pulse Resp BP Pulse Ox 99.7 F H 110 H 18 145/126 93 L 06/15/19 16:21 06/15/19 16:21 06/15/19 16:21 06/15/19 16:21 06/15/19 16:21 Physical exam: General: Well-developed, well-nourished HEENT: Normocephalic, sclerae nonicteric Abdomen: Nontender, nondistended Extremities: Lower extremity paresis, patient is refusing my examination. I was able to review pictures that my nurse practitioner took when she evaluated her earlier today. The patient has a large approximately 12 x 12" area of necrotic skin and subcutaneous fat. There is tunneling at the level of the coccyx. There is drainage present. This is mildly tender. This is malodorous and covered in stool. Neuro: Alert and oriented Results - Labs 06/16/19 06:55 06/16/19 07:01 Abnormal Lab Results - Last 24 Hours (Table) 06/15/19 06/15/19 06/15/19 Range/Units 16:52 16:52 16:52 WBC 18.6 H (3.8-10.6) k/uL RBC 3.77 L (3.80-5.40) m/uL Hgb (11.4-16.0) gm/dL Hct (34.0-46.0) % RDW 17.3 H (11.5-15.5) % Neutrophils # 17.0 H (1.3-7.7) k/uL ESR (0-20) mm/hr Sodium 136 L (137-145) mmol/L Potassium (3.5-5.1) mmol/L Carbon Dioxide 20 L (22-30) mmol/L BUN 61 H (7-17) mg/dL Creatinine 1.38 H (0.52-1.04) mg/dL Glucose 110 H (74-99) mg/dL POC Glucose (mg/dL) (75-99) mg/dL Plasma Lactic Acid Jonathan 3.8 H* (0.7-2.0) mmol/L Calcium 7.8 L (8.4-10.2) mg/dL Magnesium 1.3 L (1.6-2.3) mg/dL AST 40 H (14-36) U/L Creatine Kinase 220 H (30-135) U/L C-Reactive Protein 323.6 H (<10.0) mg/L Albumin 2.8 L (3.5-5.0) g/dL Urine Appearance (Clear) Urine Protein (Negative) Ur Leukocyte Esterase (Negative) Urine Bacteria (None) /hpf Urine Mucus (None) /hpf 06/15/19 06/15/19 06/15/19 Range/Units 17:28 19:03 21:34 WBC (3.8-10.6) k/uL RBC (3.80-5.40) m/uL Hgb (11.4-16.0) gm/dL Hct (34.0-46.0) % RDW (11.5-15.5) % Neutrophils # (1.3-7.7) k/uL ESR 58 H (0-20) mm/hr Sodium (137-145) mmol/L Potassium (3.5-5.1) mmol/L Carbon Dioxide (22-30) mmol/L BUN (7-17) mg/dL Creatinine (0.52-1.04) mg/dL Glucose (74-99) mg/dL POC Glucose (mg/dL) 150 H (75-99) mg/dL Plasma Lactic Acid Jonathan (0.7-2.0) mmol/L Calcium (8.4-10.2) mg/dL Magnesium (1.6-2.3) mg/dL AST (14-36) U/L Creatine Kinase (30-135) U/L C-Reactive Protein (<10.0) mg/L Albumin (3.5-5.0) g/dL Urine Appearance Cloudy H (Clear) Urine Protein Trace H (Negative) Ur Leukocyte Esterase Moderate H (Negative) Urine Bacteria Moderate H (None) /hpf Urine Mucus Rare H (None) /hpf 06/16/19 06/16/19 Range/Units 06:55 07:01 WBC 18.4 H (3.8-10.6) k/uL RBC 3.21 L (3.80-5.40) m/uL Hgb 10.1 L (11.4-16.0) gm/dL Hct 30.7 L (34.0-46.0) % RDW 17.6 H (11.5-15.5) % Neutrophils # 15.2 H (1.3-7.7) k/uL ESR (0-20) mm/hr Sodium 136 L (137-145) mmol/L Potassium 3.1 L (3.5-5.1) mmol/L Carbon Dioxide 20 L (22-30) mmol/L BUN 47 H (7-17) mg/dL Creatinine (0.52-1.04) mg/dL Glucose 114 H (74-99) mg/dL POC Glucose (mg/dL) (75-99) mg/dL Plasma Lactic Acid Jonathan (0.7-2.0) mmol/L Calcium 7.3 L (8.4-10.2) mg/dL Magnesium (1.6-2.3) mg/dL AST (14-36) U/L Creatine Kinase (30-135) U/L C-Reactive Protein (<10.0) mg/L Albumin (3.5-5.0) g/dL Urine Appearance (Clear) Urine Protein (Negative) Ur Leukocyte Esterase (Negative) Urine Bacteria (None) /hpf Urine Mucus (None) /hpf Microbiology - Last 24 Hours (Table) 06/15/19 17:28 Urine Culture - Preliminary Urine,Voided Diabetes panel 06/15/19 06/16/19 Range/Units 16:52 07:01 Sodium 136 L 136 L (137-145) mmol/L Potassium 4.5 3.1 L (3.5-5.1) mmol/L Chloride 103 106 (98-107) mmol/L Carbon Dioxide 20 L 20 L (22-30) mmol/L BUN 61 H 47 H (7-17) mg/dL Creatinine 1.38 H 1.02 (0.52-1.04) mg/dL Glucose 110 H 114 H (74-99) mg/dL Calcium 7.8 L 7.3 L (8.4-10.2) mg/dL AST 40 H (14-36) U/L ALT 18 (9-52) U/L Alkaline Phosphatase 123 (38-126) U/L Total Protein 6.4 (6.3-8.2) g/dL Albumin 2.8 L (3.5-5.0) g/dL Calcium panel 06/15/19 06/16/19 Range/Units 16:52 07:01 Calcium 7.8 L 7.3 L (8.4-10.2) mg/dL Albumin 2.8 L (3.5-5.0) g/dL Pituitary panel 06/15/19 06/16/19 Range/Units 16:52 07:01 Sodium 136 L 136 L (137-145) mmol/L Potassium 4.5 3.1 L (3.5-5.1) mmol/L Chloride 103 106 (98-107) mmol/L Carbon Dioxide 20 L 20 L (22-30) mmol/L BUN 61 H 47 H (7-17) mg/dL Creatinine 1.38 H 1.02 (0.52-1.04) mg/dL Glucose 110 H 114 H (74-99) mg/dL Calcium 7.8 L 7.3 L (8.4-10.2) mg/dL Adrenal panel 06/15/19 06/16/19 Range/Units 16:52 07:01 Sodium 136 L 136 L (137-145) mmol/L Potassium 4.5 3.1 L (3.5-5.1) mmol/L Chloride 103 106 (98-107) mmol/L Carbon Dioxide 20 L 20 L (22-30) mmol/L BUN 61 H 47 H (7-17) mg/dL Creatinine 1.38 H 1.02 (0.52-1.04) mg/dL Glucose 110 H 114 H (74-99) mg/dL Calcium 7.8 L 7.3 L (8.4-10.2) mg/dL Total Bilirubin 0.7 (0.2-1.3) mg/dL AST 40 H (14-36) U/L ALT 18 (9-52) U/L Alkaline Phosphatase 123 (38-126) U/L Total Protein 6.4 (6.3-8.2) g/dL Albumin 2.8 L (3.5-5.0) g/dL Assessment and Plan (1) Decubitus ulcer Narrative/Plan: 73-year-old female with large decubitus ulcer that has significant soft tissue necrosis. This is clearly contributing to the patient's presentation of sepsis. Continue IV antibiotics. Importance of debridement discussed with the patient. Despite that the patient continues to refuse surgical intervention. Continue local wound care. Will defer to infectious disease as to which enzymatic topical agent to utilize at this point. Will continue to see this patient and encourage surgical debridement. Current Visit: Yes Status: Acute Code(s): L89.90 - PRESSURE ULCER OF UNSPECIFIED SITE, UNSPECIFIED STAGE SNOMED Code(s): 273794685
--- NOTE | 2019-06-16 20:25 | P.HPIM ---
History of Present Illness H&P Date: 06/16/19 Chief Complaint: Decub wounds History of presenting complaint: This is a pleasant [address] Charli Prieto of visiting physicians. Because of a prior stroke patient's paraplegic. Has a wheelchair and oriented. Very much bedbound. Patient's 3 granddaughters live with her for several years. Patient does get home care. For last 1 month patient developed sacral decubitus ulcers. Progressively getting worse. Denies much pain. No discomfort is present. Appetite is okay. Not been changing in bowel or urine pattern. Denies any fever and chills. Patient presented to ER was found to be in renal failure hypertensive and was admitted with the fluid boluses. As blood pressure did not respond well patient is put on levo fed drip. Admitted to ICU with cube cutter consultation. He states that she does not like hospitals and doctors. and prefers to stay away. Also having fevers and sepsis on presentation Review of systems: GEN.: Tired EYES: None HEENT: None NECK: None RESPIRATORY: Minimal short of breath CARDIOVASCULAR: None GASTROINTESTINAL: None GENITOURINARY: Some incontinence MUSCULOSKELETAL: None LYMPHATICS: None HEMATOLOGICAL: None PSYCHIATRY: But anxious NEUROLOGICAL: [Chronic paraparesis Past medical history: Stroke, hypertension, paraplegia, medical debility Social history: Nonsmoker. Has 3 granddaughters in teenagers at home. No alcohol. No recreational drug. Patient has a caregiver that comes 3 times a week to the use from counseling of aging Physical examination: VITAL SIGNS: 102 to fever, 118, 20, 120/64, 93% room air GENERAL: BMI 37.4, propped up in bed, tired appearing. EYES: Pupils equal. Conjunctiva normal. HEENT: External appearance of nose and ears normal, oral cavity with dry. NECK: JVD unable to assess; masses not palpable. HEART: First and second heart sounds are normal; no edema. LUNGS: Respiratory rate normal; clear to auscultation. ABDOMEN: Soft, nontender, liver spleen not palpable, no masses palpable. PSYCH: Alert and oriented x3; mood and affect normal. NEUROLOGICAL: Cranial nerves grossly intact; no facial asymmetry, power lower extremity 1/5, with some sensation pleasant. LYMPHATICS: No lymph nodes palpable in the axilla and neck DERMATOLOGICAL: Sacral decubiti ulcers. Pictures in the chart INVESTIGATIONS, reviewed in the clinical context: White count 18.6 hemoglobin 11.9 platelets 416 potassium 4.5 bun 61 creatinine 1.38 Lactic acid 3.8 magnesium 1.3 C-reactive protein to 20 albumin 2.8 Computed tomography scan of the abdomen and pelvis-large area of soft tissue air bubbles on the posterior sacral and buttock. Assessment: -Acute sacral decubitus ulcer with secondary infection causing severe sepsis present on admission with septic shock -Lactic acidosis from sepsis -Normocytic anemia probably from infection -Essential hypertension -Chronic paraplegia from prior stroke -Medical debility -Obesity BMI 37.4 Plan: -Patient is better. Given fluid boluses. Patient blood pressure did not improve that I started the patient on levo fed drip patient admitted to the ICU. Wire Brusher was ordered. Other home medications resumed. Consultation is made to surgery for debridement of the wounds. Patient is not very keen to get these debrided. Did explain to her at length about the necessity of the same. ID was also consulted. Patient is in the ICU. Levo fed was discontinued late in the morning. Lovenox for DVT prophylaxis Past Medical History Past Medical History: CVA/TIA, Hypertension Additional Past Medical History / Comment(s): paraplegic History of Any Multi-Drug Resistant Organisms: None Reported Past Surgical History: No Surgical Hx Reported Past Anesthesia/Blood Transfusion Reactions: No Reported Reaction Past Psychological History: No Psychological Hx Reported Smoking Status: Never smoker Past Alcohol Use History: None Reported Additional Past Alcohol Use History / Comment(s): Patient is a lifelong nonsmoker. She denies any marijuana, street drug use or alcohol use. She lives at home and her 3 grandchildren live with her and assist her. She does have a caregiver that comes to the home 3 times per day through counseling on aging. Past Drug Use History: None Reported - Past Family History Mother Family Medical History: Hypertension Medications and Allergies Home Medications Medication Instructions Recorded Confirmed Type Aspirin EC [Ecotrin] 325 mg PO DAILY 05/26/16 06/15/19 History Lisinopril-Hctz 20-25 mg 1 tab PO DAILY 06/15/19 06/15/19 History [Zestoretic 20-25] Loperamide HCl [Loperamide] 2 mg PO BID PRN 06/15/19 06/15/19 History Metoprolol Succinate (ER) [Toprol 50 mg PO DAILY 06/15/19 06/15/19 History Xl] hydrALAZINE HCL [Apresoline] 50 mg PO TID 06/15/19 06/15/19 History Allergies Allergy/AdvReac Type Severity Reaction Status Date / Time No Known Allergies Allergy Verified 06/15/19 16:38 Physical Exam Vitals: Vital Signs Temp Pulse Resp BP Pulse Ox 06/16/19 17:00 82 24 102/63 92 L 06/16/19 16:00 97.8 F 87 22 89/47 93 L 06/16/19 15:00 87 17 116/106 93 L 06/16/19 14:00 88 32 H 113/60 96 06/16/19 13:30 82 19 97/57 92 L 06/16/19 13:00 85 24 114/46 95 06/16/19 12:30 81 18 110/67 93 L 06/16/19 12:00 97.7 F 77 14 98/54 97 06/16/19 11:30 80 16 96/64 97 06/16/19 11:00 78 21 117/72 06/16/19 10:30 73 18 101/51 98 06/16/19 10:00 88 22 99/60 98 06/16/19 09:45 89 23 101/56 97 06/16/19 09:30 87 15 95/51 98 06/16/19 09:15 92 10 L 85/60 98 06/16/19 09:00 93 11 L 110/31 99 06/16/19 08:45 86 35 H 120/62 97 06/16/19 08:30 85 12 94/55 97 06/16/19 08:15 84 16 94/55 98 06/16/19 08:05 93 L 06/16/19 08:00 97.8 F 81 12 86/47 96 06/16/19 07:45 71 12 103/41 88 L 06/16/19 07:30 63 23 103/58 97 06/16/19 07:15 64 23 106/47 95 06/16/19 07:00 63 20 97/52 96 06/16/19 06:45 61 16 91/44 96 06/16/19 06:30 61 15 96/49 96 06/16/19 06:15 59 L 15 106/46 96 06/16/19 06:00 55 L 16 95/51 96 06/16/19 05:45 60 21 77/38 97 06/16/19 05:31 61 16 79/40 96 06/16/19 05:15 61 16 78/45 95 06/16/19 05:00 63 16 68/42 96 06/16/19 04:45 63 16 73/43 95 06/16/19 04:30 64 18 85/46 95 06/16/19 04:15 65 19 86/50 06/16/19 04:00 97.5 F L 64 12 83/50 06/16/19 03:45 65 18 84/48 96 06/16/19 03:30 65 16 85/53 06/16/19 03:15 68 15 89/49 95 06/16/19 03:00 68 10 L 82/52 96 06/16/19 02:45 68 14 88/48 94 L 06/16/19 02:30 70 12 92/47 95 06/16/19 02:15 72 11 L 81/46 06/16/19 02:00 74 21 77/45 94 L 06/16/19 01:45 73 14 87/46 86 L 06/16/19 01:30 98.5 F 76 18 80/44 95 06/16/19 01:15 74 24 97/37 95 06/16/19 01:00 78 22 90/37 95 06/16/19 00:45 80 35 H 86/35 94 L 06/16/19 00:30 80 22 80/39 92 L 06/16/19 00:15 85 20 82/39 94 L 06/16/19 00:00 99.5 F 88 18 73/42 06/15/19 23:45 89 17 72/39 95 06/15/19 23:30 95 12 81/42 94 L 06/15/19 23:15 94 22 94 L 06/15/19 23:00 93 18 95 06/15/19 22:45 106 H 10 L 85 L 06/15/19 22:30 101 H 40 H 97/57 96 06/15/19 21:40 100.5 F H 06/15/19 21:07 101.3 F H 101 H 20 89/52 98 06/15/19 20:05 102 F H 101 H 18 96/47 96 Intake and Output 06/16/19 06/16/1906/16/19 06:59 14:59 22:59 Intake Total 3617.332 1299.019 225 Output Total 660 465 75 Balance 2957.332 834.019 150 Intake: IV 1125 225 Lactated Ringers 1,000 ml 875 125 @ 125 mls/hr IV .Q8H [facility] Rx#:[id number] Piperacillin-Tazobactam 3 100 .375 gm In Sodium Chloride 0.9% 100 ml @ 25 mls/hr IVPB Q8HR [facility] Rx# :[id number] Vancomycin 1,500 mg In 250 Sodium Chloride 0.9% 250 ml @ 125 mls/hr IVPB ONCE [facility] Rx#:[id number] Intake, IV Titration 3617.332 174.019 Amount Cefepime 2 gm In Sodium 100 Chloride 0.9% 100 ml @ 200 mls/hr IVPB ONCE [facility] Rx#:[id number] Lactated Ringers 1,000 ml 500 @ 1000 mls/hr IV .Q1H [facility] Rx#:[id number] Lactated Ringers 1,000 ml 565 125 @ 125 mls/hr IV .Q8H [facility] Rx#:[id number] Lactated Ringers 1,000 ml 1000 @ 999 mls/hr IV .Q1H1M [facility] Rx#:[id number] Magnesium Sulfate-D5w Pmx 200 1 gm In Dextrose/Water 1 100ml.bag @ 100 mls/hr IVPB Q1H [facility] Rx#: [id number] Norepinephrine 4 mg In 2.332 49.019 Sodium Chloride 0.9% 250 ml @ 0.05 MCG/KG/MIN 15. 545 mls/hr IV .[id number] [facility] Rx#:[id number] Sodium Chloride 0.9% 1, 1000 000 ml @ 999 mls/hr IV . Q1H1M [facility] Rx#:[id number] Vancomycin 1,500 mg In 250 Sodium Chloride 0.9% 250 ml @ 125 mls/hr IVPB Q24H [facility] Rx#:[id number] Output: Urine 660 465 75 Other: Voiding Method Indwelling Catheter Indwelling Catheter Weight 86.8 kg 86.8 kg Results CBC & Chem 7: 06/16/19 06:55 06/16/19 07:01 Labs: Abnormal Lab Results - Last 24 Hours (Table) 06/15/19 06/15/19 06/16/19 Range/Units 19:03 21:34 06:55 WBC 18.4 H (3.8-10.6) k/uL RBC 3.21 L (3.80-5.40) m/uL Hgb 10.1 L (11.4-16.0) gm/dL Hct 30.7 L (34.0-46.0) % RDW 17.6 H (11.5-15.5) % Neutrophils # 15.2 H (1.3-7.7) k/uL ESR 58 H (0-20) mm/hr Sodium (137-145) mmol/L Potassium (3.5-5.1) mmol/L Carbon Dioxide (22-30) mmol/L BUN (7-17) mg/dL Glucose (74-99) mg/dL POC Glucose (mg/dL) 150 H (75-99) mg/dL Calcium (8.4-10.2) mg/dL 06/16/19 Range/Units 07:01 WBC (3.8-10.6) k/uL RBC (3.80-5.40) m/uL Hgb (11.4-16.0) gm/dL Hct (34.0-46.0) % RDW (11.5-15.5) % Neutrophils # (1.3-7.7) k/uL ESR (0-20) mm/hr Sodium 136 L (137-145) mmol/L Potassium 3.1 L (3.5-5.1) mmol/L Carbon Dioxide 20 L (22-30) mmol/L BUN 47 H (7-17) mg/dL Glucose 114 H (74-99) mg/dL POC Glucose (mg/dL) (75-99) mg/dL Calcium 7.3 L (8.4-10.2) mg/dL Microbiology - Last 24 Hours (Table) 06/15/19 16:52 Blood Culture - Preliminary Blood No Growth after 24 hours 06/15/19 17:28 Urine Culture - Preliminary Urine,Voided Thrombosis Risk Factor Assmnt - Choose All That Apply Any of the Below Risk Factors Present?: Yes Each Factor Represents 1 point: Medical pt on bed rest, Obesity (BMI >25), Sepsis (< 1month), Swollen legs (current) Other Risk Factors: Yes Each Risk Factor Represents 2 Points: Age 61-74 years Thrombosis Risk Factor Assessment Total Risk Factor Score: 6 Thrombosis Risk Factor Assessment Level: High Risk
--- NOTE | 2019-06-16 23:37 | P.CON ---
Consult Note - . Consult date: 06/16/19 Assessment/Plan:: This is a 73-year-old female who is currently living at home alone. She has history of CVA and has been bedbound for the past 3 years. Patient presented with stage IV decubitus ulcers to the sacrum,, coccyx, bilateral buttocks and posterior thighs with extensive necrosis. Unclear how long this has been going on. Patient presented with fever, tachycardia, hypotension, leukocytosis of 18.6, lactic acid 3.8. BUN 61 and creatinine 1.38. Sed rate 58, CRP 323.CAT scan of the abdomen and pelvis without contrast revealed large area of soft tissue air bubbles in the posterior sacral and buttocks region consistent with cellulitis and he was ulcers. No drainable abscess. No focal bone destruction. Patient was admitted into the intensive care unit. She is status post 20 of liters of IV fluid. Norepinephrine was discontinued at 8 AM this morning. Patient is currently hemodynamically stable. Dr. Osborne is on consult as well as Dr. Grimes with tentative plan for debridement of the decubitus ulcers. Blood cultures status received. Patient is currently on vancomycin. Patient is unaware of her last tetanus immunization. Please see the consult is dictated by nurse practitioner Mrs. Jaquelin Carbajal. Before I entered the room the nursing staff relate to the difficulties that are occurring, in that the patient was seen by the surgeon, evidence of the extensive stage IV pressure ulcerations of the coccyx as well as sacral area with sukhwinder tissue necrosis occurring that was present on admission, she was offered surgical intervention and refused. As I enter the room I had a very positive attitude and the patient does communicate, however her face is down she does not look to the observer and she is evasive. She relates that she is tired and does not want anything to be done. She did have prior heel ulcerations that were black and eventually tissue fell off in her heels were completely recovered. She has not seen the extensive current ulcerations, and does not want to. We discussed the absolute need for surgical debridement, she still defers. At this time we will be able to offer some local care with Dakin solution to help reduce local or and possibly some local infection control. Intravenous antibiotic therapy with Zosyn and vancomycin being utilized.If the patient does not want extensive interventions which would include surgical intervention, would agree with the primary service that discharged home would be appropriate. Would then strongly consider hospice evaluation in that with this extensive amount of necrosis and infection sepsis and will occur. I agree with evaluation, assessment and plan as dictated by nurse practitioner Mrs. Jaquelin Carbajal.
[2019-06-17] MEDS: SODIUM HYPOCHLORITE 0.25% 480 ML BOT MISCELLANE SCH ×3 (01:28→23:05)
[2019-06-17] MEDS: VANCOMYCIN 1,500 MG in SODIUM CHLORIDE 0.9% 250 ML IVPB SCH ×2 (06:09→23:05)
[2019-06-17 06:16] LABS: Anisocytosis Slight; Basophils # (A) 0.2 k/uL (0-0.2); Basophils % (A) 1 %; Eosinophils # (A) 0.1 k/uL (0-0.7); Eosinophils % (A) 1 %; HCT 30.3 % (34.0-46.0); HGB 9.6 gm/dL (11.4-16.0); Lymphocytes % (A) 14 %; MCH 29.5 pg (25.0-35.0); MCHC 31.6 g/dL (31.0-37.0); MCV 93.4 fL (80.0-100.0); Mean Platelet Volume 8.3; Monocytes # (A) 0.5 k/uL (0-1.0); Monocytes % (A) 4 %; Neutrophils # (A) 11.1 k/uL (1.3-7.7); Neutrophils % (A) 78 %; Platelet Count 256 k/uL (150-450); RBC 3.25 m/uL (3.80-5.40); RDW 16.5 % (11.5-15.5); WBC 14.2 k/uL (3.8-10.6)
[2019-06-17 06:21] LABS: African American GFR (CKD) >90 (>60 ml/min/1.73 sqM); Anion Gap 9 mmol/L; Blood Urea Nitrogen 29 mg/dL (7-17); Calcium 7.5 mg/dL (8.4-10.2); Carbon Dioxide 21 mmol/L (22-30); Chloride 109 mmol/L (98-107); Glucose 89 mg/dL (74-99); Potassium 3.2 mmol/L (3.5-5.1); Sodium 139 mmol/L (137-145)
[2019-06-17] MEDS: POTASSIUM CHLORIDE ER 20 MEQ TAB.ER PO SCH ×2 (06:56→08:23)
[2019-06-17] MEDS: NOREPINEPHRINE 4 MG in SODIUM CHLORIDE 0.9% 250 ML IV SCH (08:02)
[2019-06-17] MEDS: HEPARIN SODIUM,PORCINE 5,000 UNIT/ML 1 ML VIAL SQ SCH ×3 (08:22→23:05)
[2019-06-17] MEDS: LACTATED RINGERS 1,000 ML IV SCH ×3 (08:23→23:06)
[2019-06-17] MEDS: PIPERACILLIN-TAZOBACTAM 3.375 GM in SODIUM CHLORIDE 0.9% 100 ML IVPB SCH ×2 (08:23→16:44)
--- NOTE | 2019-06-17 10:52 | P.PN ---
Progress Note - Text Progress Note Date: 06/17/19 The patient is resting comfortably in her bed. She is still refusing any surgical intervention. I explained the patient that she will need to be sedated in order to debride her wound. The patient is adamant and not having any surgical intervention done this time. I would recommend continuing local wound care.
--- NOTE | 2019-06-17 13:26 | P.PN ---
Subjective Progress Note Date: 06/17/19 This is a 73-year-old white female patient of Dr. Akbar, with past medical histor y of CVA, with impaired mobility, patient is basically bed bound, chronic sacral wounds, being followed by a home health care nurse and a visiting physician, who was brought into the emergency department on 06/15/2019 for evaluation of extensive stage IV decubitus ulcers on the sacrum, coccyx, bilateral posterior thighs, with evidence of extensive necrosis of subcutaneous tissues, and muscle tissues and possibly involving bony structures. Patient did not have any specific complaints, she does not have much feeling below the waist, denies any pain, no fever or chills. She is chronically incontinent of urine and bowel. Apparently she receives assistance from a healthcare nursing service, as well as [place] [facility] aging for ADLs. Lab work showed leukocytosis of 18.6, the rest of the CBC was unremarkable, coag panel was negative, metabolic panel showed elevated BUN and creatinine of 61 and 1.38 respectively, with a mild gap acidosis. Patient had a lactic acidosis of 3.8 on admission, urinalysis was unremarkable. CK was 220, CRP was 323 Pelvis x-ray showed a possible focal bone destruction of a small area of the inferior right ischium that could relate to focal osteomyelitis, no fracture. CT of abdomen and pelvis, showing a large area of soft tissue air bubbles in the posterior sacral and buttock region consistent with cellulitis and decubitus ulcers, no drainable abscess. Patient did become hypotensive in the emergency department after initially being normotensive, with the blood pressure down to 72/39, was tachycardic on presentation, EKG was negative for any acute ischemic changes, and febrile with a temp of 102F. She was fluid resuscitated, received a liter bolus, currently IV fluids are lactated Ringer's at a rate of 125 ML per hour, and she has been started on vancomycin and cefepime. Blood cultures and urine cultures have been sent, pending at this time. She denies any respiratory difficulty, denies any chest pain, denies any specific complaints, physical examination revealed extensive necrotic wounds involving sacrum, coccyx and posterior lower buttock area upper thigh. Surgical consultation has been requested for surgical debridement. ID service has been consulted, dietary and therapy department consulted On 06/17/2019 the patient is still in intensive care unit. She is hemodynamically stable. She has a very large stage IV wound in her sacral area extending to the bone with foul-smelling drainage. She has declined surgical debridement despite our recommendations. In fact I myself in addition to the surgeon and Dr. Marr talked to her and she declined. She is currently on antibiotics. She is hemodynamically stable. Local wound care is being applied. White cell count is down to 14.2. Urine culture is positive for gram-negative bacillus. Preliminary blood cultures also showing gram-negative bacillus. The patient remains on a combination of Zosyn and vancomycin. Hemodynamically stable pH is not on any pressors. She is tolerating her diet. Her renal function is normal at creatinine of 0.65. Objective - Vital Signs Vital signs: Vital Signs Temp 98.2 F 06/17/19 12:00 Pulse 91 06/17/19 13:00 Resp 24 06/17/19 12:00 BP 99/52 06/17/19 13:00 Pulse Ox 96 06/17/19 12:00 Intake & Output 06/16/19 06/17/19 06/17/19 18:59 06:59 18:59 Intake Total 3429.462 2476 1300 Output Total 715 580 466 Balance 1184.019 570 834 Weight 86.8 kg 87.5 kg Intake: IV 1725 1100 1100 Lactated Ringers 1,000 ml 1375 1000 750 @ 125 mls/hr IV .Q8H [facility] Rx#:[id number] Piperacillin-Tazobactam 3 100 100 100 .375 gm In Sodium Chloride 0.9% 100 ml @ 25 mls/hr IVPB Q8HR [facility] Rx# :[id number] Vancomycin 1,500 mg In 250 250 Sodium Chloride 0.9% 250 ml @ 125 mls/hr IVPB ONCE [facility] Rx#:[id number] Intake, IV Titration 174.019 Amount Lactated Ringers 1,000 ml 125 @ 125 mls/hr IV .Q8H [facility] Rx#:[id number] Norepinephrine 4 mg In 49.019 Sodium Chloride 0.9% 250 ml @ 0.05 MCG/KG/MIN 15. 545 mls/hr IV .[id number] [facility] Rx#:[id number] Oral 50 200 Output: Urine 715 580 466 Other: Voiding Method Indwelling Catheter Indwelling Catheter Indwelling Catheter - Exam GENERAL EXAM: Alert, pleasant, 73-year-old obese white female, comfortable in no apparent distress. HEAD: Normocephalic/atraumatic. EYES: Normal reaction of pupils, equal size. Conjunctiva pink, sclera white. NOSE: Clear with pink turbinates. THROAT: No erythema or exudates. NECK: No masses, no JVD, no thyroid enlargement, no adenopathy. CHEST: No chest wall deformity. Symmetrical expansion. LUNGS: Equal air entry with no crackles, wheeze, rhonchi or dullness. CVS: Regular rate and rhythm, normal S1 and S2, no gallops, no murmurs, no rubs ABDOMEN: Soft, nontender. No hepatosplenomegaly, normal bowel sounds, no guarding or rigidity. EXTREMITIES: No clubbing, no edema, no cyanosis, 2+ pulses and upper and lower extremities. MUSCULOSKELETAL: Patient has sensory loss involving the bilateral lower extremities, below the waist, and weakness of lower extremities, patient is unable to ambulate, she is bedbound, unable to move feet SPINE: No scoliosis or deformity SKIN: Patient has extensive necrotic wounds involving sacrum, coccyx, buttocks, and posterior upper thighs, with evidence of extensive necrosis with black tissue and slough in the wound bed with malodorous drainage CENTRAL NERVOUS SYSTEM: Alert and oriented -3. Sensory loss involving lower e xtremities, and sensory loss below the waist, patient has mild foot drop involving bilateral feet - Labs CBC & Chem 7: 06/17/19 05:43 06/17/19 09:00 Labs: Abnormal Lab Results - Last 24 Hours (Table) 06/17/19 06/17/19 Range/Units 05:43 05:43 WBC 14.2 H (3.8-10.6) k/uL RBC 3.25 L (3.80-5.40) m/uL Hgb 9.6 L (11.4-16.0) gm/dL Hct 30.3 L (34.0-46.0) % RDW 16.5 H (11.5-15.5) % Neutrophils # 11.1 H (1.3-7.7) k/uL Potassium 3.2 L (3.5-5.1) mmol/L Chloride 109 H (98-107) mmol/L Carbon Dioxide 21 L (22-30) mmol/L BUN 29 H (7-17) mg/dL Calcium 7.5 L (8.4-10.2) mg/dL Microbiology - Last 24 Hours (Table) 06/15/19 16:52 Blood Culture Gram Stain - Preliminary Blood 06/15/19 17:28 Urine Culture - Preliminary Urine,Voided Gram Neg Bacilli 06/15/19 16:52 Blood Culture - Final Blood Assessment and Plan Plan: #1. Sepsis related gram-negative bacteria as the primary blood cultures showing gram-negative bacillus as the patient has extensive stage IV necrotic decubitus ulcers involving the sacrum, coccyx, buttocks and upper posterior thighs. CT of abdomen and pelvis showing significant area of soft tissue air bubbles in the sacral and buttock area, but no evidence of focal bone destruction. In addition there is a concern of a gram-negative urine checked infection. #2. Hypotension, possibly related to sepsis, septic shock, recovered, responded well to IV fluids. The patient is currently off pressors. #3. Leukocytosis related to the above, improving #4. History of CVA, impairing patient's mobility, patient is bedbound, and has sensory loss in her lower extremities #5. Acute kidney injury related to sepsis, improving #6. Chronic medical debility #7. Mild lactic acidosis, improved #8. Previous history of bilateral heel ulcers #9. Previous history of urinary tract infection #10. History of hypertension #11. History of congestive heart failure with preserved left ventricular systolic function with an EF of 50-55%, seems to be currently stable Plan Continue same antibiotic coverage. Emphasized on the importance of surgical d ebridement. This was discussed with her in multiple occasions and the patient continued to decline. Awaiting final cultures and sensitivities. ID is on the case in general surgeries on the case. The patient can be transferred to medical surgical floor. Social workup needs to be evaluating at home living condition. Also involve block and case maker. We'll continue to follow.
--- NOTE | 2019-06-17 14:36 | P.PN ---
Progress Note - Text Progress Note Date: 06/17/19 Chief Complaint: Decub wounds Interval history: This is a pleasant [address] Charli Prieto of visiting physicians. Because of a prior stroke patient's paraplegic. Has a wheelchair and oriented. Very much bedbound. Patient's 3 granddaughters live with her for several years. Patient does get home care. For last 1 month patient developed sacral decubitus ulcers. Progressively getting worse. Denies much pain. No discomfort is present. Appetite is okay. Not been changing in bowel or urine pattern. Denies any fever and chills. Patient presented to ER was found to be in renal failure hypertensive and was admitted with the fluid boluses. As blood pressure did not respond well patient is put on levo fed drip. Admitted to ICU with pipe stem aligner consultation. He states that she does not like hospitals and doctors. and prefers to stay away. Also having fevers and sepsis on presentation Patient was admitted to the ICU. Was on fluids and levo fed. Levo fed was discontinued on June 16. Patient has refused any debrided of the wound. Today-remains in the ICU. Has refused any kind of debridement of the wounds. Spoken to by Dr. Osborne, the surgeon. I was informed by Dr. Osborne that social worker has taken the kids out of the house as it was in a filthy situation. Patient remains of levo fed. Doesn't like hospital food. Eating Jell-O. Still refusing all treatment. Review of systems: Was done for constitutional, cardiovascular, GI, pulmonary. relevant finding as above Active Medications Heparin Sodium (Porcine) (Heparin) 5,000 unit SQ Q8HR [facility] Last Admin: 06/17/19 08:22 Dose: 5,000 unit Documented by: Lactated Ringer's (Lactated Ringers) 1,000 mls @ 125 mls/hr IV .Q8H [facility] Last Admin: 06/17/19 08:23 Dose: 125 mls/hr Documented by: Piperacillin Sod/Tazobactam (Sod 3.375 gm/ Sodium Chloride) 100 mls @ 25 mls/hr IVPB Q8HR [facility] Last Admin: 06/17/19 08:23 Dose: 25 mls/hr Documented by: Vancomycin HCl 1,500 mg/ (Sodium Chloride) 250 mls @ 125 mls/hr IVPB Q16H [facility] Miscellaneous Information (Potassium Per Protocol) 1 each MISCELLANE DAILY PRN; Protocol PRN Reason: Per Protocol Sodium Hypochlorite (Dakin's 0.25% (Half Strength)) 50 ml MISCELLANE BID [facility] Last Admin: 06/17/19 08:24 Dose: 50 ml Documented by: Physical examination: VITAL SIGNS: 98.2, 78, 24, 94 x 47, 96% room air GENERAL: propped up in bed, awake EYES: Pupils equal. Conjunctiva normal. HEENT: External appearance of nose and ears normal, oral cavity with dry. NECK: JVD unable to assess; masses not palpable. HEART: First and second heart sounds are normal; no edema. LUNGS: Respiratory rate normal; clear to auscultation. ABDOMEN: Soft, nontender, liver spleen not palpable, no masses palpable. PSYCH: Alert and oriented x3; mood and affect normal. NEUROLOGICAL: Cranial nerves grossly intact; no facial asymmetry, power lower extremity 1/5, with some sensation pleasant. DERMATOLOGICAL: Sacral decubiti ulcers. Pictures in the chart INVESTIGATIONS, reviewed in the clinical context: White count 14.2 hemoglobin 9.6 potassium 3.2 bun 29 creatinine 0.65 Previous testing: White count 18.6 hemoglobin 11.9 platelets 416 potassium 4.5 bun 61 creatinine 1.38 Lactic acid 3.8 magnesium 1.3 C-reactive protein to 20 albumin 2.8 Computed tomography scan of the abdomen and pelvis-large area of soft tissue air bubbles on the posterior sacral and buttock. Assessment: -Acute sacral decubitus ulcer with secondary infection causing severe sepsis present on admission with septic shock. Patient refusing any debridement -Lactic acidosis from sepsis -Normocytic anemia probably from infection -Essential hypertension -Chronic paraplegia from prior stroke -Medical debility -Obesity BMI 37.4 Plan: At this point continue with antibiotics. I did try to speak to the patient. Refusing treatment.. She says of not feeling well. Don't talk to me. We'll talk to tomorrow. It is difficult to get through to her. This will pose a problem. Did speak to Dr. Osborne
[2019-06-18] MEDS: PIPERACILLIN-TAZOBACTAM 3.375 GM in SODIUM CHLORIDE 0.9% 100 ML IVPB SCH ×4 (00:30→23:33)
[2019-06-18 06:14] LABS: Anisocytosis Slight; Basophils % (A) 0 %; Eosinophils # (A) 0.1 k/uL (0-0.7); Eosinophils % (A) 1 %; HCT 25.7 % (34.0-46.0); HGB 8.4 gm/dL (11.4-16.0); Lymphocytes # (A) 1.6 k/uL (1.0-4.8); Lymphocytes % (A) 14 %; MCH 31.3 pg (25.0-35.0); MCHC 32.8 g/dL (31.0-37.0); MCV 95.4 fL (80.0-100.0); Mean Platelet Volume 7.5; Monocytes # (A) 0.4 k/uL (0-1.0); Monocytes % (A) 4 %; Neutrophils # (A) 8.8 k/uL (1.3-7.7); Neutrophils % (A) 79 %; Platelet Count 231 k/uL (150-450); RBC 2.69 m/uL (3.80-5.40); RDW 16.5 % (11.5-15.5); WBC 11.1 k/uL (3.8-10.6)
[2019-06-18 06:24] LABS: African American GFR (CKD) >90 (>60 ml/min/1.73 sqM); Anion Gap 4 mmol/L; Blood Urea Nitrogen 18 mg/dL (7-17); Calcium 7.1 mg/dL (8.4-10.2); Carbon Dioxide 25 mmol/L (22-30); Chloride 109 mmol/L (98-107); Glucose 85 mg/dL (74-99); Potassium 3.8 mmol/L (3.5-5.1); Sodium 138 mmol/L (137-145)
[2019-06-18] MEDS: HEPARIN SODIUM,PORCINE 5,000 UNIT/ML 1 ML VIAL SQ SCH ×3 (08:03→23:33)
[2019-06-18] MEDS: SODIUM HYPOCHLORITE 0.25% 480 ML BOT MISCELLANE SCH ×2 (08:03→22:05)
[2019-06-18] MEDS: LACTATED RINGERS 1,000 ML IV SCH ×2 (08:11→21:09)
--- NOTE | 2019-06-18 10:32 | P.PN ---
Progress Note - Text Progress Note Date: 06/18/19 The patient remains stable. She is still refusing any surgical intervention. The patient will continue local wound care for her decubitus ulcer.
--- NOTE | 2019-06-18 12:00 | P.PN ---
Subjective Progress Note Date: 06/18/19 This is a 73-year-old white female patient of Dr. Akbar, with past medical histor y of CVA, with impaired mobility, patient is basically bed bound, chronic sacral wounds, being followed by a home health care nurse and a visiting physician, who was brought into the emergency department on 06/15/2019 for evaluation of extensive stage IV decubitus ulcers on the sacrum, coccyx, bilateral posterior thighs, with evidence of extensive necrosis of subcutaneous tissues, and muscle tissues and possibly involving bony structures. Patient did not have any specific complaints, she does not have much feeling below the waist, denies any pain, no fever or chills. She is chronically incontinent of urine and bowel. Apparently she receives assistance from a healthcare nursing service, as well as [place] [facility] for ADLs. Lab work showed leukocytosis of 18.6, the rest of the CBC was unremarkable, coag panel was negative, metabolic panel showed elevated BUN and creatinine of 61 and 1.38 respectively, with a mild gap acidosis. Patient had a lactic acidosis of 3.8 on admission, urinalysis was unremarkable. CK was 220, CRP was 323 Pelvis x-ray showed a possible focal bone destruction of a small area of the inferior right ischium that could relate to focal osteomyelitis, no fracture. CT of abdomen and pelvis, showing a large area of soft tissue air bubbles in the posterior sacral and buttock region consistent with cellulitis and decubitus ulcers, no drainable abscess. Patient did become hypotensive in the emergency department after initially being normotensive, with the blood pressure down to 72/39, was tachycardic on presentation, EKG was negative for any acute ischemic changes, and febrile with a temp of 102F. She was fluid resuscitated, received a liter bolus, currently IV fluids are lactated Ringer's at a rate of 125 ML per hour, and she has been started on vancomycin and cefepime. Blood cultures and urine cultures have been sent, pending at this time. She denies any respiratory difficulty, denies any chest pain, denies any specific complaints, physical examination revealed extensive necrotic wounds involving sacrum, coccyx and posterior lower buttock area upper thigh. Surgical consultation has been requested for surgical debridement. ID service has been consulted, dietary and therapy department consulted On 06/17/2019 the patient is still in intensive care unit. She is hemodynamically stable. She has a very large stage IV wound in her sacral area extending to the bone with foul-smelling drainage. She has declined surgical debridement despite our recommendations. In fact I myself in addition to the surgeon and Dr. Marr talked to her and she declined. She is currently on antibiotics. She is hemodynamically stable. Local wound care is being applied. White cell count is down to 14.2. Urine culture is positive for gram-negative bacillus. Preliminary blood cultures also showing gram-negative bacillus. The patient remains on a combination of Zosyn and vancomycin. Hemodynamically stable pH is not on any pressors. She is tolerating her diet. Her renal function is normal at creatinine of 0.65. On 06/18/2019, the patient is still refusing her surgical debridement. She is septic and she is covered with antibiotics. She has E. coli in her blood and urine. She is on a combination of Zosyn and vancomycin. She is hemodynamically stable. We'll cut down the fluid down to 75 mL an hour. Altered mentation. The white cell count is improving is down to 11. Renal function is also stable with a creatinine of 0.6. We are applying Dakin solution to the sacral decubitus ulcer which is quite large and extensive and foul-smelling. Objective - Vital Signs Vital signs: Vital Signs Temp 98.6 F 06/18/19 08:00 Pulse 87 06/18/19 08:00 Resp 20 06/18/19 08:00 BP 123/46 06/18/19 08:00 Pulse Ox 93 L 06/18/19 08:00 Intake & Output 06/17/19 06/18/19 06/18/19 18:59 06:59 18:59 Intake Total 1425 1700 100 Output Total 706 390 150 Balance 719 1310 -50 Intake: IV 1225 1600 100 Lactated Ringers 1,000 ml 875 1250 @ 125 mls/hr IV .Q8H [facility] Rx#:[id number] Piperacillin-Tazobactam 3 100 100 100 .375 gm In Sodium Chloride 0.9% 100 ml @ 25 mls/hr IVPB Q8HR [facility] Rx# :[id number] Vancomycin 1,500 mg In 250 Sodium Chloride 0.9% 250 ml @ 125 mls/hr IVPB [facility] Rx#:[id number] Vancomycin 1,500 mg In 250 Sodium Chloride 0.9% 250 ml @ 125 mls/hr IVPB Q16H [facility] Rx#:[id number] Oral 200 100 Output: Urine 706 390 150 Other: Voiding Method Indwelling Catheter Indwelling Catheter Indwelling Catheter - Exam GENERAL EXAM: Alert, pleasant, 73-year-old obese white female, comfortable in no apparent distress. HEAD: Normocephalic/atraumatic. EYES: Normal reaction of pupils, equal size. Conjunctiva pink, sclera white. NOSE: Clear with pink turbinates. THROAT: No erythema or exudates. NECK: No masses, no JVD, no thyroid enlargement, no adenopathy. CHEST: No chest wall deformity. Symmetrical expansion. LUNGS: Equal air entry with no crackles, wheeze, rhonchi or dullness. CVS: Regular rate and rhythm, normal S1 and S2, no gallops, no murmurs, no rubs ABDOMEN: Soft, nontender. No hepatosplenomegaly, normal bowel sounds, no guarding or rigidity. EXTREMITIES: No clubbing, no edema, no cyanosis, 2+ pulses and upper and lower extremities. MUSCULOSKELETAL: Patient has sensory loss involving the bilateral lower extremities, below the waist, and weakness of lower extremities, patient is unable to ambulate, she is bedbound, unable to move feet SPINE: No scoliosis or deformity SKIN: Patient has extensive necrotic wounds involving sacrum, coccyx, buttocks, and posterior upper thighs, with evidence of extensive necrosis with black tissue and slough in the wound bed with malodorous drainage CENTRAL NERVOUS SYSTEM: Alert and oriented -3. Sensory loss involving lower extremities, and sensory loss below the waist, patient has mild foot drop in volving bilateral feet - Labs CBC & Chem 7: 06/18/19 05:45 06/18/19 05:45 Labs: Abnormal Lab Results - Last 24 Hours (Table) 06/18/19 06/18/19 Range/Units 05:45 05:45 WBC 11.1 H (3.8-10.6) k/uL RBC 2.69 L (3.80-5.40) m/uL Hgb 8.4 L (11.4-16.0) gm/dL Hct 25.7 L (34.0-46.0) % RDW 16.5 H (11.5-15.5) % Neutrophils # 8.8 H (1.3-7.7) k/uL Chloride 109 H (98-107) mmol/L BUN 18 H (7-17) mg/dL Calcium 7.1 L (8.4-10.2) mg/dL Microbiology - Last 24 Hours (Table) 06/15/19 16:52 Blood Culture Gram Stain - Preliminary Blood Blood Culture - Preliminary Gram Positive Bacilli Isolated 06/15/19 17:28 Urine Culture - Final Urine,Voided Escherichia coli Assessment and Plan Plan: #1. Sepsis related E. coli, as the patient has extensive stage IV necrotic decubitus ulcers involving the sacrum, coccyx, buttocks and upper posterior thighs. CT of abdomen and pelvis showing significant area of soft tissue air bubbles in the sacral and buttock area, but no evidence of focal bone dest ruction. Patient is on a combination of Zosyn and vancomycin. The patient was resuscitated IV fluids. The patient is on no pressors for now. #2. Hypotension, possibly related to sepsis, septic shock, recovered, responded well to IV fluids. The patient is currently off pressors. #3. Leukocytosis related to the above, improving #4. History of CVA, impairing patient's mobility, patient is bedbound, and has sensory loss in her lower extremities #5. Acute kidney injury related to sepsis, improving #6. Chronic medical debility #7. Mild lactic acidosis, improved #8. Previous history of bilateral heel ulcers #9. Previous history of urinary tract infection #10. History of hypertension #11. History of congestive heart failure with preserved left ventricular systolic function with an EF of 50-55%, seems to be currently stable Plan We will reemphasize the importance of a surgical debridement. Continue asa and solution. Continue same antibiotic coverage. Neck. The finger down to 75 mL's an hour. Diet. Prognosis poor. We'll continue to follow. She has of the pat jada to a medical surgical floor
[2019-06-18] MEDS ORDERED: VANCOMYCIN TROUGH DUE 1 EACH MISC MISCELLANE ONE (13:00)
[2019-06-18] MEDS: VANCOMYCIN 1,500 MG in SODIUM CHLORIDE 0.9% 250 ML IVPB SCH ×2 (14:35→23:33)
--- NOTE | 2019-06-18 16:24 | P.PN ---
Progress Note - Text Progress Note Date: 06/18/19 Chief Complaint: Decub wounds Interval history: This is a pleasant [address] Charli Prieto of visiting physicians. Because of a prior stroke patient's paraplegic. Has a wheelchair and oriented. Very much bedbound. Patient's 3 granddaughters live with her for several years. Patient does get home care. For last 1 month patient developed sacral decubitus ulcers. Progressively getting worse. Denies much pain. No discomfort is present. Appetite is okay. Not been changing in bowel or urine pattern. Denies any fever and chills. Patient presented to ER was found to be in renal failure hypertensive and was admitted with the fluid boluses. As blood pressure did not respond well patient is put on levo fed drip. Admitted to ICU with utilization specialist consultation. He states that she does not like hospitals and doctors. and prefers to stay away. Also having fevers and sepsis on presentation Patient was admitted to the ICU. Was on fluids and levo fed. Levo fed was discontinued on June 16. Patient has refused any debrided of the wound. Today-in the ICU. Getting IV antibiotics. Still refusing debridement of the wounds. Review of systems: Was done for constitutional, cardiovascular, GI, pulmonary. relevant finding as above Active Medications Heparin Sodium (Porcine) (Heparin) 5,000 unit SQ Q8HR [facility] Last Admin: 06/18/19 08:03 Dose: 5,000 unit Documented by: Lactated Ringer's (Lactated Ringers) 1,000 mls @ 75 mls/hr IV .[id number] [facility] Last Admin: 06/18/19 08:11 Dose: 125 mls/hr Documented by: Piperacillin Sod/Tazobactam (Sod 3.375 gm/ Sodium Chloride) 100 mls @ 25 mls/hr IVPB Q8HR [facility] Last Admin: 06/18/19 08:02 Dose: 25 mls/hr Documented by: Vancomycin HCl 1,500 mg/ (Sodium Chloride) 250 mls @ 125 mls/hr IVPB Q24H [facility] Miscellaneous Information (Potassium Per Protocol) 1 each MISCELLANE DAILY PRN; Protocol PRN Reason: Per Protocol Sodium Hypochlorite (Dakin's 0.25% (Half Strength)) 50 ml MISCELLANE BID [facility] Last Admin: 06/18/19 08:03 Dose: 50 ml Documented by: Physical examination: VITAL SIGNS: 98.6, 87, 20, 123/46, 93% on room air GENERAL: Sitting up in the bed, tired appearing awake EYES: Pupils equal. Conjunctiva normal. HEENT: External appearance of nose and ears normal, oral cavity with dry. NECK: JVD unable to assess; masses not palpable. HEART: First and second heart sounds are normal; no edema. LUNGS: Respiratory rate normal; clear to auscultation. ABDOMEN: Soft, nontender, liver spleen not palpable, no masses palpable. PSYCH: Alert and oriented x3; mood and affect normal. NEUROLOGICAL: Cranial nerves grossly intact; no facial asymmetry, power lower extremity 1/5, with some sensation pleasant. DERMATOLOGICAL: Sacral decubiti ulcers. Pictures in the chart INVESTIGATIONS, reviewed in the clinical context: White count 11.1 hemoglobin 8.4 potassium 3.8 creatine 0.6 Previous testing: White count 18.6 hemoglobin 11.9 platelets 416 potassium 4.5 bun 61 creatinine 1.38 Lactic acid 3.8 magnesium 1.3 C-reactive protein to 20 albumin 2.8 Computed tomography scan of the abdomen and pelvis-large area of soft tissue air bubbles on the posterior sacral and buttock. Assessment: -Acute sacral decubitus ulcer with secondary infection causing severe sepsis present on admission with septic shock. Patient refusing any surgical debridement -Lactic acidosis from sepsis -Normocytic anemia probably from infection -Essential hypertension -Chronic paraplegia from prior stroke -Medical debility -Obesity BMI 37.4 Plan: Did try to talk to patient about a surgical intervention. Patient is refusing the same. Repeat set her family didn't have a good experience with Drs. I did explain to her again that antibiotics per itself not be useful. She wants be to leave her alone. But to ask the same question. I did try to address the [employer] [place] with her. She does not want to discuss the same. I did inform up by default she'll be intubated if need be. Given the severity of her wounds it is very highly possible that that could happen. Patient does not want to talk about it again. I'm putting in a consult for ethics committee. Psychiatry will also be consulted.
[2019-06-19] MEDS: LACTATED RINGERS 1,000 ML IV SCH ×2 (05:50→20:05)
[2019-06-19 07:42] LABS: Anisocytosis Slight; Basophils # (A) 0.1 k/uL (0-0.2); Basophils % (A) 1 %; Eosinophils # (A) 0.2 k/uL (0-0.7); Eosinophils % (A) 2 %; HCT 25.1 % (34.0-46.0); HGB 8.4 gm/dL (11.4-16.0); Lymphocytes # (A) 1.8 k/uL (1.0-4.8); Lymphocytes % (A) 15 %; MCH 31.1 pg (25.0-35.0); MCHC 33.4 g/dL (31.0-37.0); MCV 93.2 fL (80.0-100.0); Mean Platelet Volume 10.1; Monocytes # (A) 0.5 k/uL (0-1.0); Monocytes % (A) 4 %; Neutrophils # (A) 9.5 k/uL (1.3-7.7); Neutrophils % (A) 77 %; Platelet Count 205 k/uL (150-450); RBC 2.69 m/uL (3.80-5.40); RDW 16.7 % (11.5-15.5); WBC 12.3 k/uL (3.8-10.6)
[2019-06-19 07:50] LABS: African American GFR (CKD) >90 (>60 ml/min/1.73 sqM); Anion Gap 6 mmol/L; Blood Urea Nitrogen 12 mg/dL (7-17); Carbon Dioxide 23 mmol/L (22-30); Chloride 110 mmol/L (98-107); Glucose 81 mg/dL (74-99); Potassium 3.9 mmol/L (3.5-5.1); Sodium 139 mmol/L (137-145)
[2019-06-19] MEDS: PIPERACILLIN-TAZOBACTAM 3.375 GM in SODIUM CHLORIDE 0.9% 100 ML IVPB SCH ×2 (08:53→16:09)
[2019-06-19] MEDS: HEPARIN SODIUM,PORCINE 5,000 UNIT/ML 1 ML VIAL SQ SCH ×2 (08:53→16:09)
--- NOTE | 2019-06-19 10:48 | P.PN ---
Progress Note - Text Progress Note Date: 06/19/19 Patient continues to refuse surgical debridement and examination of decubitus wounds. Continue local wound care with Dakins per infectious disease recommendations. Continue IV antibiotics. We will follow on an as-needed basis. Please re-consult if patient decides to proceed with surgical intervention.
--- NOTE | 2019-06-19 12:33 | P.PN ---
Subjective Progress Note Date: 06/19/19 Principal diagnosis: Sepsis related to E. coli urinary tract infection, and extensive necrotic stage IV decubitus ulcers involving the sacrum This is a 73-year-old white female patient of Dr. Akbar, with past medical history of CVA, with impaired mobility, patient is basically bed bound, chronic sacral wounds, being followed by a home health care nurse and a visiting physician, who was brought into the emergency department on 06/15/2019 for evaluation of extensive stage IV decubitus ulcers on the sacrum, coccyx, bilateral posterior thighs, with evidence of extensive necrosis of subcutaneous tissues, and muscle tissues and possibly involving bony structures. Patient did not have any specific complaints, she does not have much feeling below the waist, denies any pain, no fever or chills. She is chronically incontinent of urine and bowel. Apparently she receives assistance from a healthcare nursing service, as well as [place] [facility] for ADLs. Lab work showed leukocytosis of 18.6, the rest of the CBC was unremarkable, coag panel was negative, metabolic panel showed elevated BUN and creatinine of 61 and 1.38 respectively, with a mild gap acidosis. Patient had a lactic acidosis of 3.8 on admission, urinalysis was unremarkable. CK was 220, CRP was 323 Pelvis x-ray showed a possible focal bone destruction of a small area of the inferior right ischium that could relate to focal osteomyelitis, no fracture. CT of abdomen and pelvis, showing a large area of soft tissue air bubbles in the posterior sacral and buttock region consistent with cellulitis and decubitus ulcers, no drainable abscess. Patient did become hypotensive in the emergency department after initially being normotensive, with the blood pressure down to 72/39, was tachycardic on presentation, EKG was negative for any acute ischemic changes, and febrile with a temp of 102F. She was fluid resuscitated, received a liter bolus, currently IV fluids are lactated Ringer's at a rate of 125 ML per hour, and she has been started on vancomycin and cefepime. Blood cultures and urine cultures have been sent, pending at this time. She denies any respiratory difficulty, denies any chest pain, denies any specific complaints, physical examination revealed extensive necrotic wounds involving sacrum, coccyx and posterior lower buttock area upper thigh. Surgical consultation has been reques ariana for surgical debridement. ID service has been consulted, dietary and therapy department consulted On 06/17/2019 the patient is still in intensive care unit. She is hemodynamically stable. She has a very large stage IV wound in her sacral area extending to the bone with foul-smelling drainage. She has declined surgical debridement despite our recommendations. In fact I myself in addition to the surgeon and Dr. Marr talked to her and she declined. She is currently on antibiotics. She is hemodynamically stable. Local wound care is being applied. White cell count is down to 14.2. Urine culture is positive for gram-negative bacillus. Preliminary blood cultures also showing gram-negative bacillus. The patient remains on a combination of Zosyn and vancomycin. Hemodynamically stable pH is not on any pressors. She is tolerating her diet. Her renal function is normal at creatinine of 0.65. On 06/18/2019, the patient is still refusing her surgical debridement. She is septic and she is covered with antibiotics. She has E. coli in her blood and urine. She is on a combination of Zosyn and vancomycin. She is hemodynamically stable. We'll cut down the fluid down to 75 mL an hour. Altered mentation. The white cell count is improving is down to 11. Renal function is also stable with a creatinine of 0.6. We are applying Dakin solution to the sacral decubitus ulcer which is quite large and extensive and foul-smelling. On 06/19/2019 patient seen in follow-up on medical surgical floor. She is weak and alert, in no acute distress, she denies any specific complaints, denies any shortness of breath, chest pain, denies any pain. Patient has declined surgical debridement for her necrotic sacral wounds, he is receiving local wound care with Dakin solution. ID service is following, patient was found to have E. coli in her urine cultures, and her wound cultures were positive for anaerobic gram- negative bacilli, and Carynebacterium accolens. She is on a combination of Zosyn and vancomycin. No fever or chills. Lung sounds are clear to auscultation. Objective - Vital Signs Vital signs: Vital Signs Temp 98.6 F 06/19/19 07:00 Pulse 63 06/19/19 07:00 Resp 17 06/19/19 07:00 BP 154/74 06/19/19 07:00 Pulse Ox 98 06/19/19 07:00 Intake & Output 06/18/19 06/19/19 06/19/19 18:59 06:59 18:59 Intake Total 100 300 Output Total 550 Balance -450 300 Intake: IV 100 Piperacillin-Tazobactam 3 100 .375 gm In Sodium Chloride 0.9% 100 ml @ 25 mls/hr IVPB Q8HR [facility] Rx# :[id number] Oral 300 Output: Urine 550 Other: Voiding Method Indwelling Catheter Indwelling Catheter Indwelling Catheter - Exam GENERAL EXAM: Alert, pleasant, 73-year-old obese white female, comfortable in no apparent distress. HEAD: Normocephalic/atraumatic. EYES: Normal reaction of pupils, equal size. Conjunctiva pink, sclera white. NOSE: Clear with pink turbinates. THROAT: No erythema or exudates. NECK: No masses, no JVD, no thyroid enlargement, no adenopathy. CHEST: No chest wall deformity. Symmetrical expansion. LUNGS: Equal air entry with no crackles, wheeze, rhonchi or dullness. CVS: Regular rate and rhythm, normal S1 and S2, no gallops, no murmurs, no rubs ABDOMEN: Soft, nontender. No hepatosplenomegaly, normal bowel sounds, no guarding or rigidity. EXTREMITIES: No clubbing, no edema, no cyanosis, 2+ pulses and upper and lower extremities. MUSCULOSKELETAL: Patient has sensory loss involving the bilateral lower extremities, below the waist, and weakness of lower extremities, patient is unable to ambulate, she is bedbound, unable to move feet SPINE: No scoliosis or deformity SKIN: Patient has extensive necrotic wounds involving sacrum, coccyx, buttocks, and posterior upper thighs, with evidence of extensive necrosis with black tissue and slough in the wound bed with malodorous drainage CENTRAL NERVOUS SYSTEM: Alert and oriented -3. Sensory loss involving lower extremities, and sensory loss below the waist, patient has mild foot drop involving bilateral feet - Labs CBC & Chem 7: 06/19/19 06:32 06/19/19 06:32 Labs: Abnormal Lab Results - Last 24 Hours (Table) 06/19/19 06/19/19 Range/Units 06:32 06:32 WBC 12.3 H (3.8-10.6) k/uL RBC 2.69 L (3.80-5.40) m/uL Hgb 8.4 L (11.4-16.0) gm/dL Hct 25.1 L (34.0-46.0) % RDW 16.7 H (11.5-15.5) % Neutrophils # 9.5 H (1.3-7.7) k/uL Chloride 110 H (98-107) mmol/L Calcium 7.0 L (8.4-10.2) mg/dL Microbiology - Last 24 Hours (Table) 06/15/19 16:52 Blood Culture Gram Stain - Preliminary Blood Blood Culture - Preliminary Anaerobic Gm Negative Bacilli Carynebacterium accolens 06/15/19 16:52 Blood Culture - Final Blood Assessment and Plan Plan: Assessment: #1. Sepsis related E. coli, as the patient has extensive stage IV necrotic decubitus ulcers involving the sacrum, coccyx, buttocks and upper posterior thighs. CT of abdomen and pelvis showing significant area of soft tissue air bubbles in the sacral and buttock area, but no evidence of focal bone destruction. Patient is on a combination of Zosyn and vancomycin. The patient was resuscitated IV fluids. The patient is on no pressors for now. #2. Hypotension, possibly related to sepsis, septic shock, recovered, responded well to IV fluids. #3. Leukocytosis related to the above #4. History of CVA, impairing patient's mobility, patient is bedbound, and has sensory loss in her lower extremities #5. Acute kidney injury related to sepsis, improving #6. Chronic medical debility #7. Mild lactic acidosis, improved #8. Previous history of bilateral heel ulcers #9. Previous history of urinary tract infection #10. History of hypertension #11. History of congestive heart failure with preserved left ventricular systolic function with an EF of 50-55%, seems to be currently stable Plan: Stable from pulmonary/critical care standpoint, continues to refuse surgical debridement, continue antibiotics and local wound care per ID service recommendations, no acute events overnight, no fever or chills. We'll follow on as-needed basis. I performed a history & physical examination of the patient and discussed their management with my nurse practitioner, Maria A Landaverde. I reviewed the nurse practitioner's note and agree with the documented findings and plan of care. Lung sounds are positive for clear breath sounds. The findings and the impression was discussed with the patient. I attest to the documentation by the nurse practitioner. Time with Patient: Less than 30
[2019-06-19] MEDS: SODIUM HYPOCHLORITE 0.25% 480 ML BOT MISCELLANE SCH ×2 (16:10→20:06)
--- NOTE | 2019-06-19 16:58 | P.CN ---
Psychiatric Consult - . Consult date: 06/19/19 Consult:: 06/19/19 16:45 IDENTIFYING DATA: This patient is a 73-year-old female with chronic comorbidities and is currently bedbound who lives at home visited by home health care nurses is and taking care of her grandchildren. HISTORY OF PRESENT ILLNESS: The patient was brought into the hospital for evaluation of her decubitus ulcers as she is currently bedbound. Patient has been treated with antibiotics and it was recommended the patient has/undergoes surgical debridement for progressive ulcers however patient has declined several days in a row to undergo the procedure. Patient is having an increase in her infection and is now septic with hypotension. Psychiatry was consulted for decision making capacity. Patient was seen this afternoon at bedside who had her son decider who was going through envelopes and different documentation however was agreeable to give patient privacy during the evaluation. Patient appeared and somewhat defensive/guarded when marketing underwriter asked patient how she was feeling with regards to the treatment. Patient claims that she has a general mistrust of most doctors does not like seeing them however states that she is feeling scared for the surgery and is now claiming that she is agreeable to undergo surgery and wants to sign consent for the procedure. Patient claims that he's never had surgery before on this so it is scaring her and claims that people are aggravating her in the hospital. When asked to describe the procedure patient spoke about "scraping off tissue" however is able to claim that the infection will progress and she will become septic and could possibly be fatal for her if she does not undergo this procedure. Patient claims that her mood is "alright" and admits to feeling irritable and denies any depressive symptoms and any manic symptoms at this time. Patient claims that her sleep is good at this time and denies any problems with appetite. At this time patient denies any suicidal or homical ideations, intent or plan. Patient denies any auditory, visual hallucinations and denies any paranoia or delusions. PAST PSYCHIATRIC HISTORY: Denies any previous history of psychiatric hospitalizations suicide attempts or being on any psychotropic medications. PAST MEDICAL HISTORY: Patient has a history of CVA 3 years ago, paraplegia with chronic sacral wounds. ALLERGIES: No known drug allergies. CHEMICAL DEPENDENCY HISTORY: denies. FAMILY PSYCHIATRIC/SUBSTANCE USE HISTORY: denies. SOCIAL HISTORY: Patient states that she lives in [facility] with her grandchildren and her house is chronically bedbound. She states that she completed high school and worked many odd jobs in the past. Patient is a has 3 grandkids and 3 children of her own. MENTAL STATUS EXAM: General Appearance: Patient appears to be older than stated age is alert, guarded/irritable at times however is directable during interview. Patient has poor hygiene and grooming. Patient is obese Behavior: Patient is lying in bed without any agitated behavior. Speech: Patient's speech is fluent and nonpressured. Mood/Affect: Patient reports their mood is "fine", affect is congruent and irritable Suicidality/Homicidality: Patient denies having any suicidal or homicidal ideation intent or plan. Perceptions: Patient denies any auditory or visual hallucinations. Though content/process: There is no evidence of any delusional thought content and thought process is linear and goal-directed. Memory and concentration: AOX3, grossly intact for the purposes of this session. Can spell "WORLD" backwards Judgment and insight: Fair IMPRESSIONS: Mood disorder unspecified PLAN: -At this time patient patient does NOT meet criteria for inpatient psychiatric admission. -Patient DOES have decision making capacity at this time to agree to the surgery/procedure. Patient is able to reason through and communicate/appreciate some of the risks, benefits and alternatives to treatment. The procedure/surgery is required in order to prevent sepsis which can lead to further complications including fatality and patient is agreeable to sign at this time for consent to proceed with surgery. -Would recommend that surgical team or primary care team discuss with patient further/more details of the surgery to help with patient's worry about the surgery and be willing to answer any questions further she may have. -Would recommend the following medication changes/additions: No recommendations on medication changes. -Psychiatry will sign off at this point. Please contact psychiatry with any questions if needed. Thank you for the consult
--- NOTE | 2019-06-19 18:40 | P.PN ---
Progress Note - Text Progress Note Date: 06/19/19 Chief Complaint: Decub wounds Interval history: This is a pleasant [address] Charli Prieto of visiting physicians. Because of a prior stroke patient's paraplegic. Has a wheelchair and oriented. Very much bedbound. Patient's 3 granddaughters live with her for several years. Patient does get home care. For last 1 month patient developed sacral decubitus ulcers. Progressively getting worse. Denies much pain. No discomfort is present. Appetite is okay. Not been changing in bowel or urine pattern. Denies any fever and chills. Patient presented to ER was found to be in renal failure hypertensive and was admitted with the fluid boluses. As blood pressure did not respond well patient is put on levo fed drip. Admitted to ICU with utilization management manager consultation. He states that she does not like hospitals and doctors. and prefers to stay away. Also having fevers and sepsis on presentation Patient was admitted to the ICU. Was on fluids and levo fed. Levo fed was discontinued on June 16. Patient has refused any debridement of the wound. Today-patient of the medical floor. Ethics consult was called this morning. Psychiatry was consulted. Patient this morning was still refusing any surgical intervention. Review of systems: Was done for constitutional, cardiovascular, GI, pulmonary. relevant finding as above Active Medications Enoxaparin Sodium (Lovenox) 40 mg SQ DAILY [facility] Lactated Ringer's (Lactated Ringers) 1,000 mls @ 75 mls/hr IV .[id number] [facility] Last Admin: 06/19/19 05:50 Dose: Not Given Documented by: Piperacillin Sod/Tazobactam (Sod 3.375 gm/ Sodium Chloride) 100 mls @ 25 mls/hr IVPB Q8HR [facility] Last Admin: 06/19/19 16:09 Dose: 25 mls/hr Documented by: Vancomycin HCl 1,500 mg/ (Sodium Chloride) 250 mls @ 125 mls/hr IVPB Q24H [facility] Last Admin: 06/18/19 23:33 Dose: 125 mls/hr Documented by: Miscellaneous Information (Potassium Per Protocol) 1 each MISCELLANE DAILY PRN; Protocol PRN Reason: Per Protocol Miscellaneous Information (Vancomycin Trough Due) 0 each MISCELLANE DIRECTED ONE Stop: 06/20/19 23:01 Sodium Hypochlorite (Dakin's 0.25% (Half Strength)) 50 ml MISCELLANE BID [facility] Last Admin: 06/19/19 16:10 Dose: 50 ml Documented by: Physical examination: VITAL SIGNS: 98.6, 63, 17, and 50/74, 98% room air GENERAL: Sitting up in the bed, awake EYES: Pupils equal. Conjunctiva normal. HEENT: External appearance of nose and ears normal, oral cavity with dry. NECK: JVD unable to assess; masses not palpable. HEART: First and second heart sounds are normal; no edema. LUNGS: Respiratory rate normal; clear to auscultation. ABDOMEN: Soft, nontender, liver spleen not palpable, no masses palpable. PSYCH: Alert and oriented x3; mood and affect normal. NEUROLOGICAL: Cranial nerves grossly intact; no facial asymmetry, power lower extremity 1/5, with some sensation pleasant. DERMATOLOGICAL: Sacral decubiti ulcers. Pictures in the chart INVESTIGATIONS, reviewed in the clinical context: White count 12.3 hemoglobin 8.4 potassium 3.9 creatinine 0.61 Previous testing: White count 18.6 hemoglobin 11.9 platelets 416 potassium 4.5 bun 61 creatinine 1.38 Lactic acid 3.8 magnesium 1.3 C-reactive protein to 20 albumin 2.8 Computed tomography scan of the abdomen and pelvis-large area of soft tissue air bubbles on the posterior sacral and buttock. Assessment: -Acute sacral decubitus ulcer with secondary infection causing severe sepsis present on admission with septic shock. Patient refusing any surgical debridement -Lactic acidosis from sepsis -Normocytic anemia probably from infection -Essential hypertension -Chronic paraplegia from prior stroke -Medical debility -Obesity BMI 37.4 Plan: Spoke to the nurse this morning. Patient still refusing surgery. Spoke to Sukjhinder from the ethics team and he did get in touch with Dr. Singh Merrill. Also spoke to david from social media director was on the ethics committee. Continue antibiotics. Spoke to Dr. Carroll from psychiatry later today. We discussed the case. Patient did tell him that she is consenting to proceed with surgery. Earlier today was informed patient had a agreed for the surgery. Surgical team was contacted. At this point it is my opinion that patient's able to make decisions, but not taking the right decisions. Dr. Carroll at this point is of the same impression. Total time spent today about was 45 minutes for over 30 minutes of discussion
[2019-06-19] MEDS: ENOXAPARIN 40 MG/0.4 ML SYRINGE SQ SCH (20:05)
--- NOTE | 2019-06-19 22:50 | P.PN ---
Subjective Progress Note Date: 06/19/19 This is a 73-year-old female who is currently living at home alone. She has history of CVA and has been bedbound for the past 3 years. Patient presented with stage IV decubitus ulcers to the sacrum,, coccyx, bilateral buttocks and posterior thighs with extensive necrosis. Unclear how long this has been going on. Patient presented with fever, tachycardia, hypotension, leukocytosis of 18.6, lactic acid 3.8. BUN 61 and creatinine 1.38. Sed rate 58, CRP 323.CAT scan of the abdomen and pelvis without contrast revealed large area of soft tissue air bubbles in the posterior sacral and buttocks region consistent with cellulitis and he was ulcers. No drainable abscess. No focal bone destruction. Patient was admitted into the intensive care unit. She is status post 20 of liters of IV fluid. Norepinephrine was discontinued at 8 AM this morning. Patient is currently hemodynamically stable. Dr. Osborne is on consult as well as Dr. Grimes with tentative plan for debridement of the d ecubitus ulcers. Blood cultures status received. Patient is currently on vancomycin. Patient is unaware of her last tetanus immunization. 06/19/2019 the patient is now agreeable to surgical intervention. It appears she understands the significance of her situation. We did relate that she has an extensive infection that is understandable terms of aerobic anaerobic and necrotizing resulting in bacteremia and sepsis. Without surgical debridement I would not expect her to survive. Objective - Vital Signs Vital signs: Vital Signs Temp 99.1 F 06/19/19 15:22 Pulse 107 H 06/19/19 15:22 Resp 14 06/19/19 15:22 BP 129/78 06/19/19 15:22 Pulse Ox 95 06/19/19 15:22 Intake & Output 06/19/19 06/19/19 06/20/19 06:59 18:59 06:59 Intake Total 300 Output Total 140 Balance 300 -140 Intake: Oral 300 Output: Urine 140 Other: Voiding Method Indwelling Catheter Indwelling Catheter - Exam Gen: This is a morbidly obese 73-year-old female. She is sitting up in the ICU bed and appears to be comfortable and in no acute distress. HEENT: Head is atraumatic, normocephalic. Pupils equal, round. Sclerae is anicteric. Conjunctiva pink. Oral mucous membranes are moist. Patient is edentulous. No thrush noted. NECK: Supple. No JVD. No lymphadenopathy. No thyromegaly. LUNGS: Clear to auscultation. No wheezes or rhonchi. No intercostal retractions. HEART: Regular rate and rhythm. No murmur. ABDOMEN: Soft. Bowel sounds are present. No masses. No tenderness. No redness under abdominal folds. Mon catheter draining clear timmy urine. EXTREMITIES: No pedal edema. Dorsalis pedis +2 bilaterally. NEUROLOGICAL: Patient is awake, alert and oriented x3. Patient has profound lower extremity weakness. Mild bilateral foot drop. - EENT EENT Comment(s): Gen: This is a morbidly obese 73-year-old female. She is sitting up in the ICU bed and appears to be comfortable and in no acute distress. HEENT: Head is atraumatic, normocephalic. Pupils equal, round. Sclerae is a nicteric. Conjunctiva pink. Oral mucous membranes are moist. Patient is edentulous. No thrush noted. NECK: Supple. No JVD. No lymphadenopathy. No thyromegaly. LUNGS: Clear to auscultation. No wheezes or rhonchi. No intercostal retractions. HEART: Regular rate and rhythm. No murmur. ABDOMEN: Soft. Bowel sounds are present. No masses. No tenderness. No redness under abdominal folds. Mon catheter draining clear timmy urine. EXTREMITIES: No pedal edema. Dorsalis pedis +2 bilaterally. NEUROLOGICAL: Patient is awake, alert and oriented x3. Patient has profound lower extremity weakness. Mild bilateral foot drop. - Labs CBC & Chem 7: 06/19/19 06:32 06/19/19 06:32 Labs: Abnormal Lab Results - Last 24 Hours (Table) 06/19/19 06/19/19 Range/Units 06:32 06:32 WBC 12.3 H (3.8-10.6) k/uL RBC 2.69 L (3.80-5.40) m/uL Hgb 8.4 L (11.4-16.0) gm/dL Hct 25.1 L (34.0-46.0) % RDW 16.7 H (11.5-15.5) % Neutrophils # 9.5 H (1.3-7.7) k/uL Chloride 110 H (98-107) mmol/L Calcium 7.0 L (8.4-10.2) mg/dL Microbiology - Last 24 Hours (Table) 06/15/19 16:52 Blood Culture Gram Stain - Preliminary Blood Blood Culture - Preliminary Anaerobic Gm Negative Bacilli Carynebacterium accolens 06/15/19 16:52 Blood Culture - Final Blood Laboratory Results WBC 12.3 k/uL (3.8-10.6) H 06/19/19 06:32 RBC 2.69 m/uL (3.80-5.40) L 06/19/19 06:32 Hgb 8.4 gm/dL (11.4-16.0) L 06/19/19 06:32 Hct 25.1 % (34.0-46.0) L 06/19/19 06:32 MCV 93.2 fL (80.0-100.0) 06/19/19 06:32 MCH 31.1 pg (25.0-35.0) 06/19/19 06:32 MCHC 33.4 g/dL (31.0-37.0) 06/19/19 06:32 RDW 16.7 % (11.5-15.5) H 06/19/19 06:32 Plt Count 205 k/uL (150-450) 06/19/19 06:32 Neutrophils % 77 % 06/19/19 06:32 Lymphocytes % 15 % 06/19/19 06:32 Monocytes % 4 % 06/19/19 06:32 Eosinophils % 2 % 06/19/19 06:32 Basophils % 1 % 06/19/19 06:32 Neutrophils # 9.5 k/uL (1.3-7.7) H 06/19/19 06:32 Lymphocytes # 1.8 k/uL (1.0-4.8) 06/19/19 06:32 Monocytes # 0.5 k/uL (0-1.0) 06/19/19 06:32 Eosinophils # 0.2 k/uL (0-0.7) 06/19/19 06:32 Basophils # 0.1 k/uL (0-0.2) 06/19/19 06:32 Anisocytosis Slight 06/19/19 06:32 Macrocytosis Slight 06/16/19 06:55 ESR 58 mm/hr (0-20) H 06/15/19 19:03 PT 11.2 sec (9.0-12.0) 06/15/19 16:52 INR 1.1 (<1.2) 06/15/19 16:52 APTT 24.5 sec (22.0-30.0) 06/15/19 16:52 Sodium 139 mmol/L (137-145) 06/19/19 06:32 Potassium 3.9 mmol/L (3.5-5.1) 06/19/19 06:32 Chloride 110 mmol/L (98-107) H 06/19/19 06:32 Carbon Dioxide 23 mmol/L (22-30) 06/19/19 06:32 Anion Gap 6 mmol/L 06/19/19 06:32 BUN 12 mg/dL (7-17) 06/19/19 06:32 Creatinine 0.61 mg/dL (0.52-1.04) 06/19/19 06:32 Est GFR (CKD-EPI)AfAm >90 (>60 ml/min/1.73 sqM) 06/19/19 06:32 Est GFR (CKD-EPI)NonAf >90 (>60 ml/min/1.73 sqM) 06/19/19 06:32 Glucose 81 mg/dL (74-99) 06/19/19 06:32 POC Glucose (mg/dL) 150 mg/dL (75-99) H 06/15/19 21:34 POC Glu Engineering Director Rashi Good 06/15/19 21:34 Lactic Ac Sepsis Rflx Y 06/15/19 17:48 Plasma Lactic Acid Jonathan 1.3 mmol/L (0.7-2.0) 06/15/19 22:28 Calcium 7.0 mg/dL (8.4-10.2) L 06/19/19 06:32 Magnesium 1.3 mg/dL (1.6-2.3) L 06/15/19 16:52 Total Bilirubin 0.7 mg/dL (0.2-1.3) 06/15/19 16:52 AST 40 U/L (14-36) H 06/15/19 16:52 ALT 18 U/L (9-52) 06/15/19 16:52 Alkaline Phosphatase 123 U/L (38-126) 06/15/19 16:52 Creatine Kinase 220 U/L (30-135) H 06/15/19 16:52 C-Reactive Protein 323.6 mg/L (<10.0) H 06/15/19 16:52 Total Protein 6.4 g/dL (6.3-8.2) 06/15/19 16:52 Albumin 2.8 g/dL (3.5-5.0) L 06/15/19 16:52 Urine Color Yellow 06/15/19 17:28 Urine Appearance Cloudy (Clear) H 06/15/19 17:28 Urine pH 5.0 (5.0-8.0) 06/15/19 17:28 Ur Specific Pickerel 1.018 (1.001-1.035) 06/15/19 17:28 Urine Protein Trace (Negative) H 06/15/19 17:28 Urine Glucose (UA) Negative (Negative) 06/15/19 17:28 Urine Ketones Negative (Negative) 06/15/19 17:28 Urine Blood Negative (Negative) 06/15/19 17:28 Urine Nitrite Negative (Negative) 06/15/19 17:28 Urine Bilirubin Negative (Negative) 06/15/19 17:28 Urine Urobilinogen 2.0 mg/dL (<2.0) 06/15/19 17:28 Ur Leukocyte Esterase Moderate (Negative) H 06/15/19 17:28 Urine WBC 3 /hpf (0-5) 06/15/19 17:28 Ur Squamous Epith Cells 1 /hpf (0-4) 06/15/19 17:28 Urine Bacteria Moderate /hpf (None) H 06/15/19 17:28 Urine Mucus Rare /hpf (None) H 06/15/19 17:28 Vancomycin Trough 27.2 ug/mL 06/18/19 13:43 Laboratory Results WBC 12.3 k/uL (3.8-10.6) H 06/19/19 06:32 RBC 2.69 m/uL (3.80-5.40) L 06/19/19 06:32 Hgb 8.4 gm/dL (11.4-16.0) L 06/19/19 06:32 Hct 25.1 % (34.0-46.0) L 06/19/19 06:32 MCV 93.2 fL (80.0-100.0) 06/19/19 06:32 MCH 31.1 pg (25.0-35.0) 06/19/19 06:32 MCHC 33.4 g/dL (31.0-37.0) 06/19/19 06:32 RDW 16.7 % (11.5-15.5) H 06/19/19 06:32 Plt Count 205 k/uL (150-450) 06/19/19 06:32 Neutrophils % 77 % 06/19/19 06:32 Lymphocytes % 15 % 06/19/19 06:32 Monocytes % 4 % 06/19/19 06:32 Eosinophils % 2 % 06/19/19 06:32 Basophils % 1 % 06/19/19 06:32 Neutrophils # 9.5 k/uL (1.3-7.7) H 06/19/19 06:32 Lymphocytes # 1.8 k/uL (1.0-4.8) 06/19/19 06:32 Monocytes # 0.5 k/uL (0-1.0) 06/19/19 06:32 Eosinophils # 0.2 k/uL (0-0.7) 06/19/19 06:32 Basophils # 0.1 k/uL (0-0.2) 06/19/19 06:32 Anisocytosis Slight 06/19/19 06:32 Macrocytosis Slight 06/16/19 06:55 ESR 58 mm/hr (0-20) H 06/15/19 19:03 PT 11.2 sec (9.0-12.0) 06/15/19 16:52 INR 1.1 (<1.2) 06/15/19 16:52 APTT 24.5 sec (22.0-30.0) 06/15/19 16:52 Sodium 139 mmol/L (137-145) 06/19/19 06:32 Potassium 3.9 mmol/L (3.5-5.1) 06/19/19 06:32 Chloride 110 mmol/L (98-107) H 06/19/19 06:32 Carbon Dioxide 23 mmol/L (22-30) 06/19/19 06:32 Anion Gap 6 mmol/L 06/19/19 06:32 BUN 12 mg/dL (7-17) 06/19/19 06:32 Creatinine 0.61 mg/dL (0.52-1.04) 06/19/19 06:32 Est GFR (CKD-EPI)AfAm >90 (>60 ml/min/1.73 sqM) 06/19/19 06:32 Est GFR (CKD-EPI)NonAf >90 (>60 ml/min/1.73 sqM) 06/19/19 06:32 Glucose 81 mg/dL (74-99) 06/19/19 06:32 POC Glucose (mg/dL) 150 mg/dL (75-99) H 06/15/19 21:34 POC Glu Engineering Director Rashi Good 06/15/19 21:34 Lactic Ac Sepsis Rflx Y 06/15/19 17:48 Plasma Lactic Acid Jonathan 1.3 mmol/L (0.7-2.0) 06/15/19 22:28 Calcium 7.0 mg/dL (8.4-10.2) L 06/19/19 06:32 Magnesium 1.3 mg/dL (1.6-2.3) L 06/15/19 16:52 Total Bilirubin 0.7 mg/dL (0.2-1.3) 06/15/19 16:52 AST 40 U/L (14-36) H 06/15/19 16:52 ALT 18 U/L (9-52) 06/15/19 16:52 Alkaline Phosphatase 123 U/L (38-126) 06/15/19 16:52 Creatine Kinase 220 U/L (30-135) H 06/15/19 16:52 C-Reactive Protein 323.6 mg/L (<10.0) H 06/15/19 16:52 Total Protein 6.4 g/dL (6.3-8.2) 06/15/19 16:52 Albumin 2.8 g/dL (3.5-5.0) L 06/15/19 16:52 Urine Color Yellow 06/15/19 17:28 Urine Appearance Cloudy (Clear) H 06/15/19 17:28 Urine pH 5.0 (5.0-8.0) 06/15/19 17:28 Ur Specific Pickerel 1.018 (1.001-1.035) 06/15/19 17:28 Urine Protein Trace (Negative) H 06/15/19 17:28 Urine Glucose (UA) Negative (Negative) 06/15/19 17:28 Urine Ketones Negative (Negative) 06/15/19 17:28 Urine Blood Negative (Negative) 06/15/19 17:28 Urine Nitrite Negative (Negative) 06/15/19 17:28 Urine Bilirubin Negative (Negative) 06/15/19 17:28 Urine Urobilinogen 2.0 mg/dL (<2.0) 06/15/19 17:28 Ur Leukocyte Esterase Moderate (Negative) H 06/15/19 17:28 Urine WBC 3 /hpf (0-5) 06/15/19 17:28 Ur Squamous Epith Cells 1 /hpf (0-4) 06/15/19 17:28 Urine Bacteria Moderate /hpf (None) H 06/15/19 17:28 Urine Mucus Rare /hpf (None) H 06/15/19 17:28 Vancomycin Trough 27.2 ug/mL 06/18/19 13:43 Laboratory Results WBC 12.3 k/uL (3.8-10.6) H 06/19/19 06:32 RBC 2.69 m/uL (3.80-5.40) L 06/19/19 06:32 Hgb 8.4 gm/dL (11.4-16.0) L 06/19/19 06:32 Hct 25.1 % (34.0-46.0) L 06/19/19 06:32 MCV 93.2 fL (80.0-100.0) 06/19/19 06:32 MCH 31.1 pg (25.0-35.0) 06/19/19 06:32 MCHC 33.4 g/dL (31.0-37.0) 06/19/19 06:32 RDW 16.7 % (11.5-15.5) H 06/19/19 06:32 Plt Count 205 k/uL (150-450) 06/19/19 06:32 Neutrophils % 77 % 06/19/19 06:32 Lymphocytes % 15 % 06/19/19 06:32 Monocytes % 4 % 06/19/19 06:32 Eosinophils % 2 % 06/19/19 06:32 Basophils % 1 % 06/19/19 06:32 Neutrophils # 9.5 k/uL (1.3-7.7) H 06/19/19 06:32 Lymphocytes # 1.8 k/uL (1.0-4.8) 06/19/19 06:32 Monocytes # 0.5 k/uL (0-1.0) 06/19/19 06:32 Eosinophils # 0.2 k/uL (0-0.7) 06/19/19 06:32 Basophils # 0.1 k/uL (0-0.2) 06/19/19 06:32 Anisocytosis Slight 06/19/19 06:32 Macrocytosis Slight 06/16/19 06:55 ESR 58 mm/hr (0-20) H 06/15/19 19:03 PT 11.2 sec (9.0-12.0) 06/15/19 16:52 INR 1.1 (<1.2) 06/15/19 16:52 APTT 24.5 sec (22.0-30.0) 06/15/19 16:52 Sodium 139 mmol/L (137-145) 06/19/19 06:32 Potassium 3.9 mmol/L (3.5-5.1) 06/19/19 06:32 Chloride 110 mmol/L (98-107) H 06/19/19 06:32 Carbon Dioxide 23 mmol/L (22-30) 06/19/19 06:32 Anion Gap 6 mmol/L 06/19/19 06:32 BUN 12 mg/dL (7-17) 06/19/19 06:32 Creatinine 0.61 mg/dL (0.52-1.04) 06/19/19 06:32 Est GFR (CKD-EPI)AfAm >90 (>60 ml/min/1.73 sqM) 06/19/19 06:32 Est GFR (CKD-EPI)NonAf >90 (>60 ml/min/1.73 sqM) 06/19/19 06:32 Glucose 81 mg/dL (74-99) 06/19/19 06:32 POC Glucose (mg/dL) 150 mg/dL (75-99) H 06/15/19 21:34 POC Glu Engineering Director PHIL Rashi Todd 06/15/19 21:34 Lactic Ac Sepsis Rflx Y 06/15/19 17:48 Plasma Lactic Acid Jonathan 1.3 mmol/L (0.7-2.0) 06/15/19 22:28 Calcium 7.0 mg/dL (8.4-10.2) L 06/19/19 06:32 Magnesium 1.3 mg/dL (1.6-2.3) L 06/15/19 16:52 Total Bilirubin 0.7 mg/dL (0.2-1.3) 06/15/19 16:52 AST 40 U/L (14-36) H 06/15/19 16:52 ALT 18 U/L (9-52) 06/15/19 16:52 Alkaline Phosphatase 123 U/L (38-126) 06/15/19 16:52 Creatine Kinase 220 U/L (30-135) H 06/15/19 16:52 C-Reactive Protein 323.6 mg/L (<10.0) H 06/15/19 16:52 Total Protein 6.4 g/dL (6.3-8.2) 06/15/19 16:52 Albumin 2.8 g/dL (3.5-5.0) L 06/15/19 16:52 Urine Color Yellow 06/15/19 17:28 Urine Appearance Cloudy (Clear) H 06/15/19 17:28 Urine pH 5.0 (5.0-8.0) 06/15/19 17:28 Ur Specific Pickerel 1.018 (1.001-1.035) 06/15/19 17:28 Urine Protein Trace (Negative) H 06/15/19 17:28 Urine Glucose (UA) Negative (Negative) 06/15/19 17:28 Urine Ketones Negative (Negative) 06/15/19 17:28 Urine Blood Negative (Negative) 06/15/19 17:28 Urine Nitrite Negative (Negative) 06/15/19 17:28 Urine Bilirubin Negative (Negative) 06/15/19 17:28 Urine Urobilinogen 2.0 mg/dL (<2.0) 06/15/19 17:28 Ur Leukocyte Esterase Moderate (Negative) H 06/15/19 17:28 Urine WBC 3 /hpf (0-5) 06/15/19 17:28 Ur Squamous Epith Cells 1 /hpf (0-4) 06/15/19 17:28 Urine Bacteria Moderate /hpf (None) H 06/15/19 17:28 Urine Mucus Rare /hpf (None) H 06/15/19 17:28 Vancomycin Trough 27.2 ug/mL 06/18/19 13:43 Microbiology 06/15/19 16:52 Blood Blood Culture Gram Stain - Preliminary 06/15/19 16:52 Blood Blood Culture - Preliminary Anaerobic Gm Negative Bacilli Carynebacterium accolens 06/15/19 16:52 Blood Blood Culture - Final 06/15/19 17:28 Urine,Voided Urine Culture - Final Escherichia coli Assessment and Plan (1) Decubitus ulcer Current Visit: Yes Status: Acute Code(s): L89.90 - PRESSURE ULCER OF UNSPECIFIED SITE, UNSPECIFIED STAGE SNOMED Code(s): 382654332 (2) Sepsis Current Visit: Yes Status: Acute Code(s): A41.9 - SEPSIS, UNSPECIFIED ORGANISM SNOMED Code(s): 68066183 (3) Infection due to gram-negative anaerobic organism Narrative/Plan: Before I entered the room the nursing staff relate to the difficulties that are occurring, in that the patient was seen by the surgeon, evidence of the extensive stage IV pressure ulcerations of the coccyx as well as sacral area with sukhwinder tissue necrosis occurring that was present on admission, she was offered surgical intervention and refused. As I enter the room I had a very positive attitude and the patient does communicate, however her face is down she does not look to the observer and she is evasive. She relates that she is tired and does not want anything to be done. She did have prior heel ulcerations that were black and eventually tissue fell off in her heels were completely recovered. She has not seen the extensive current ulcerations, and does not want to. We discussed the absolute need for surgical debridement, she still defers. At this time we will be able to offer some local care with Dakin solution to help reduce local or and possibly some local infection control. Intravenous antibiotic therapy with Zosyn and vancomycin being utilized.If the patient does not want extensive interventions which would include surgical intervention, would agree with the primary service that discharged home would be appropriate. Would then strongly consider hospice evaluation in that with this extensive amount of necrosis and infection sepsis and will occur. 06/19/2018 the patient is not related to his surgical intervention which will be an extensive debridement of necrotic material over the coccyx and buttocks. The Dakin solution is allowed some improvement of the putrid odor. It appears she'll surgical plan the debridement tomorrow. Postoperatively needs to be an air mattress, we'll also need to have this to the service to wherever she is discharged to. This extensive infection including anaerobic bacteremic infection urinary infection will require a course of ongoing intravenous antibiotic therapy currently with Zosyn which we'll plan to continue in the future. We'll need IV access also. Patient is instructed on the importance of the surgical debridement, without the debridement with this extensive amount of infection would not expect her to survive. Current Visit: Yes Status: Acute Code(s): A49.8 - OTHER BACTERIAL INFECTIONS OF UNSPECIFIED SITE SNOMED Code(s): 858606778
[2019-06-20] MEDS: PIPERACILLIN-TAZOBACTAM 3.375 GM in SODIUM CHLORIDE 0.9% 100 ML IVPB SCH ×4 (00:03→23:57)
[2019-06-20] MEDS: VANCOMYCIN 1,500 MG in SODIUM CHLORIDE 0.9% 250 ML IVPB SCH ×2 (00:04→23:57)
[2019-06-20] MEDS: ENOXAPARIN 40 MG/0.4 ML SYRINGE SQ SCH (08:42)
[2019-06-20] MEDS: SODIUM HYPOCHLORITE 0.25% 480 ML BOT MISCELLANE SCH (08:44)
[2019-06-20] MEDS: LACTATED RINGERS 1,000 ML IV SCH ×2 (08:47→21:19)
--- NOTE | 2019-06-20 20:13 | P.PN ---
Progress Note - Text Progress Note Date: 06/20/19 Chief Complaint: Decub wounds Interval history: This is a pleasant [address] Charli Prieto of visiting physicians. Because of a prior stroke patient's paraplegic. Has a wheelchair and oriented. Very much bedbound. Patient's 3 granddaughters live with her for several years. Patient does get home care. For last 1 month patient developed sacral decubitus ulcers. Progressively getting worse. Denies much pain. No discomfort is present. Appetite is okay. Not been changing in bowel or urine pattern. Denies any fever and chills. Patient presented to ER was found to be in renal failure hypertensive and was admitted with the fluid boluses. As blood pressure did not respond well patient is put on levo fed drip. Admitted to ICU with brand executive consultation. He states that she does not like hospitals and doctors. and prefers to stay away. Also having fevers and sepsis on presentation Patient was admitted to the ICU. Was on fluids and levo fed. Levo fed was discontinued on June 16. Patient has refused any debridement of the wound. Today-laying in bed. No new issues. This afternoon was due to go down to the surgery for debridement Review of systems: Was done for constitutional, cardiovascular, GI, pulmonary. relevant finding as above Active Medications Enoxaparin Sodium (Lovenox) 40 mg SQ DAILY [facility] Last Admin: 06/20/19 08:42 Dose: Not Given Documented by: Lactated Ringer's (Lactated Ringers) 1,000 mls @ 75 mls/hr IV .[id number] [facility] Last Admin: 06/20/19 08:47 Dose: 75 mls/hr Documented by: Piperacillin Sod/Tazobactam (Sod 3.375 gm/ Sodium Chloride) 100 mls @ 25 mls/hr IVPB Q8HR [facility] Last Admin: 06/20/19 16:00 Dose: 25 mls/hr Documented by: Vancomycin HCl 1,500 mg/ (Sodium Chloride) 250 mls @ 125 mls/hr IVPB Q24H [facility] Last Admin: 06/20/19 00:04 Dose: 125 mls/hr Documented by: Miscellaneous Information (Potassium Per Protocol) 1 each MISCELLANE DAILY PRN; Protocol PRN Reason: Per Protocol Miscellaneous Information (Vancomycin Trough Due) 0 each MISCELLANE DIRECTED ONE Stop: 06/20/19 23:01 Sodium Hypochlorite (Dakin's 0.25% (Half Strength)) 50 ml MISCELLANE BID [facility] Last Admin: 06/20/19 08:44 Dose: Not Given Documented by: Physical examination: VITAL SIGNS: 98.3, 85, 20, 138/81, 100% room air GENERAL: Laying in bed, comfortable EYES: Pupils equal. Conjunctiva normal. HEENT: External appearance of nose and ears normal, oral cavity with dry. NECK: JVD unable to assess; masses not palpable. HEART: First and second heart sounds are normal; no edema. LUNGS: Respiratory rate normal; clear to auscultation. ABDOMEN: Soft, nontender, liver spleen not palpable, no masses palpable. PSYCH: Alert and oriented x3; mood and affect normal. NEUROLOGICAL: Cranial nerves grossly intact; no facial asymmetry, power lower extremity 1/5, with some sensation pleasant. DERMATOLOGICAL: Sacral decubiti ulcers. Pictures in the chart INVESTIGATIONS, reviewed in the clinical context: White count 12.3 hemoglobin 8.4 potassium 3.9 creatinine 0.61 Previous testing: White count 18.6 hemoglobin 11.9 platelets 416 potassium 4.5 bun 61 creatinine 1.38 Lactic acid 3.8 magnesium 1.3 C-reactive protein to 20 albumin 2.8 Computed tomography scan of the abdomen and pelvis-large area of soft tissue air bubbles on the posterior sacral and buttock. Assessment: -Acute sacral decubitus ulcer with secondary infection causing severe sepsis present on admission with septic shock. Pending surgical debridement -Lactic acidosis from sepsis -Normocytic anemia probably from infection -Essential hypertension -Chronic paraplegia from prior stroke -Medical debility -Obesity BMI 37.4 Plan: Patient is due to go down late this afternoon for surgical debridement. I was informed surgery did not happen today, and patient returned from the preop...
[2019-06-20] MEDS ORDERED: VANCOMYCIN TROUGH DUE 1 EACH MISC MISCELLANE ONE (23:00)
--- NOTE | 2019-06-20 23:12 | P.PN ---
Subjective Progress Note Date: 06/20/19 This is a 73-year-old female who is currently living at home alone. She has history of CVA and has been bedbound for the past 3 years. Patient presented with stage IV decubitus ulcers to the sacrum,, coccyx, bilateral buttocks and posterior thighs with extensive necrosis. Unclear how long this has been going on. Patient presented with fever, tachycardia, hypotension, leukocytosis of 18.6, lactic acid 3.8. BUN 61 and creatinine 1.38. Sed rate 58, CRP 323.CAT scan of the abdomen and pelvis without contrast revealed large area of soft tissue air bubbles in the posterior sacral and buttocks region consistent with cellulitis and he was ulcers. No drainable abscess. No focal bone destruction. Patient was admitted into the intensive care unit. She is status post 20 of liters of IV fluid. Norepinephrine was discontinued at 8 AM this morning. Patient is currently hemodynamically stable. Dr. Osborne is on consult as well as Dr. Grimes with tentative plan for debridement of the d ecubitus ulcers. Blood cultures status received. Patient is currently on vancomycin. Patient is unaware of her last tetanus immunization. 06/19/2019 the patient is now agreeable to surgical intervention. It appears she understands the significance of her situation. We did relate that she has an extensive infection that is understandable terms of aerobic anaerobic and necrotizing resulting in bacteremia and sepsis. Without surgical debridement I would not expect her to survive. 06/20/2019 the patient was to go to the operating room today however the surgical schedule would not allow it. With the nursing team the necrotic ulcerations or cleansed with a Dakin solution and the ulcerations are packed and dressings are put into place. She did have an extensive bowel movement. Was not malodorous such as C. diff. No evidence of any significant blood in the stool. She remains very anxious about the overall situation. Seems to have great distust to the overall medical system. Objective - Vital Signs Vital signs: Vital Signs Temp 98.5 F 06/20/19 19:37 Pulse 79 06/20/19 19:37 Resp 16 06/20/19 19:37 BP 147/65 06/20/19 19:37 Pulse Ox 95 06/20/19 19:37 Intake & Output 09/10/19 09/10/19 09/11/19 06:59 18:59 06:59 Intake Total 100 240 Output Total 200 Balance 100 40 Weight 87.5 kg Intake: Oral 100 240 Output: Urine 200 Other: Voiding Method Indwelling Catheter Indwelling Catheter Indwelling Catheter - Exam Gen: This is a morbidly obese 73-year-old female. She is sitting up in the ICU bed and appears to be comfortable and in no acute distress. HEENT: Head is atraumatic, normocephalic. Pupils equal, round. Sclerae is anicteric. Conjunctiva pink. Oral mucous membranes are moist. Patient is edentulous. No thrush noted. NECK: Supple. No JVD. No lymphadenopathy. No thyromegaly. LUNGS: Clear to auscultation. No wheezes or rhonchi. No intercostal retractions. HEART: Regular rate and rhythm. No murmur. ABDOMEN: Soft. Bowel sounds are present. No masses. No tenderness. No redness under abdominal folds. Mon catheter draining clear timmy urine. EXTREMITIES: No pedal edema. Dorsalis pedis +2 bilaterally. NEUROLOGICAL: Patient is awake, alert and oriented x3. Patient has profound lower extremity weakness. Mild bilateral foot drop. - Labs CBC & Chem 7: 06/19/19 06:32 06/20/19 06:01 Labs: Laboratory Results WBC 12.3 k/uL (3.8-10.6) H 06/19/19 06:32 RBC 2.69 m/uL (3.80-5.40) L 06/19/19 06:32 Hgb 8.4 gm/dL (11.4-16.0) L 06/19/19 06:32 Hct 25.1 % (34.0-46.0) L 06/19/19 06:32 MCV 93.2 fL (80.0-100.0) 06/19/19 06:32 MCH 31.1 pg (25.0-35.0) 06/19/19 06:32 MCHC 33.4 g/dL (31.0-37.0) 06/19/19 06:32 RDW 16.7 % (11.5-15.5) H 06/19/19 06:32 Plt Count 205 k/uL (150-450) 06/19/19 06:32 Neutrophils % 77 % 06/19/19 06:32 Lymphocytes % 15 % 06/19/19 06:32 Monocytes % 4 % 06/19/19 06:32 Eosinophils % 2 % 06/19/19 06:32 Basophils % 1 % 06/19/19 06:32 Neutrophils # 9.5 k/uL (1.3-7.7) H 06/19/19 06:32 Lymphocytes # 1.8 k/uL (1.0-4.8) 06/19/19 06:32 Monocytes # 0.5 k/uL (0-1.0) 06/19/19 06:32 Eosinophils # 0.2 k/uL (0-0.7) 06/19/19 06:32 Basophils # 0.1 k/uL (0-0.2) 06/19/19 06:32 Anisocytosis Slight 06/19/19 06:32 Macrocytosis Slight 06/16/19 06:55 ESR 58 mm/hr (0-20) H 06/15/19 19:03 PT 11.2 sec (9.0-12.0) 06/15/19 16:52 INR 1.1 (<1.2) 06/15/19 16:52 APTT 24.5 sec (22.0-30.0) 06/15/19 16:52 Sodium 139 mmol/L (137-145) 06/19/19 06:32 Potassium 3.9 mmol/L (3.5-5.1) 06/19/19 06:32 Chloride 110 mmol/L (98-107) H 06/19/19 06:32 Carbon Dioxide 23 mmol/L (22-30) 06/19/19 06:32 Anion Gap 6 mmol/L 06/19/19 06:32 BUN 12 mg/dL (7-17) 06/19/19 06:32 Creatinine 0.81 mg/dL (0.52-1.04) 06/20/19 06:01 Est GFR (CKD-EPI)AfAm 85 (>60 ml/min/1.73 sqM) 06/20/19 06:01 Est GFR (CKD-EPI)NonAf 74 (>60 ml/min/1.73 sqM) 06/20/19 06:01 Glucose 81 mg/dL (74-99) 06/19/19 06:32 POC Glucose (mg/dL) 150 mg/dL (75-99) H 06/15/19 21:34 POC Glu Product Managent Intern ID Rashi Todd 06/15/19 21:34 Lactic Ac Sepsis Rflx Y 06/15/19 17:48 Plasma Lactic Acid Jonathan 1.3 mmol/L (0.7-2.0) 06/15/19 22:28 Calcium 7.0 mg/dL (8.4-10.2) L 06/19/19 06:32 Magnesium 1.3 mg/dL (1.6-2.3) L 06/15/19 16:52 Total Bilirubin 0.7 mg/dL (0.2-1.3) 06/15/19 16:52 AST 40 U/L (14-36) H 06/15/19 16:52 ALT 18 U/L (9-52) 06/15/19 16:52 Alkaline Phosphatase 123 U/L (38-126) 06/15/19 16:52 Creatine Kinase 220 U/L (30-135) H 06/15/19 16:52 C-Reactive Protein 323.6 mg/L (<10.0) H 06/15/19 16:52 Total Protein 6.4 g/dL (6.3-8.2) 06/15/19 16:52 Albumin 2.8 g/dL (3.5-5.0) L 06/15/19 16:52 Urine Color Yellow 06/15/19 17:28 Urine Appearance Cloudy (Clear) H 06/15/19 17:28 Urine pH 5.0 (5.0-8.0) 06/15/19 17:28 Ur Specific [place] 1.018 (1.001-1.035) 06/15/19 17:28 Urine Protein Trace (Negative) H 06/15/19 17:28 Urine Glucose (UA) Negative (Negative) 06/15/19 17:28 Urine Ketones Negative (Negative) 06/15/19 17:28 Urine Blood Negative (Negative) 06/15/19 17:28 Urine Nitrite Negative (Negative) 06/15/19 17:28 Urine Bilirubin Negative (Negative) 06/15/19 17:28 Urine Urobilinogen 2.0 mg/dL (<2.0) 06/15/19 17:28 Ur Leukocyte Esterase Moderate (Negative) H 06/15/19 17:28 Urine WBC 3 /hpf (0-5) 06/15/19 17:28 Ur Squamous Epith Cells 1 /hpf (0-4) 06/15/19 17:28 Urine Bacteria Moderate /hpf (None) H 06/15/19 17:28 Urine Mucus Rare /hpf (None) H 06/15/19 17:28 Vancomycin Trough 24.5 ug/mL 06/20/19 22:33 Microbiology 06/15/19 16:52 Blood Blood Culture Gram Stain - Preliminary 06/15/19 16:52 Blood Blood Culture - Preliminary Anaerobic Gm Negative Bacilli Carynebacterium accolens 06/15/19 16:52 Blood Blood Culture - Final 06/15/19 17:28 Urine,Voided Urine Culture - Final Escherichia coli Assessment and Plan (1) Decubitus ulcer Current Visit: Yes Status: Acute Code(s): L89.90 - PRESSURE ULCER OF UNSPECIFIED SITE, UNSPECIFIED STAGE SNOMED Code(s): 694446523 (2) Sepsis Current Visit: Yes Status: Acute Code(s): A41.9 - SEPSIS, UNSPECIFIED ORGANISM SNOMED Code(s): 01339653 (3) Infection due to gram-negative anaerobic organism Narrative/Plan: Before I entered the room the nursing staff relate to the difficulties that are occurring, in that the patient was seen by the surgeon, evidence of the extensive stage IV pressure ulcerations of the coccyx as well as sacral area with sukhwinder tissue necrosis occurring that was present on admission, she was offered surgical intervention and refused. As I enter the room I had a very positive attitude and the patient does communicate, however her face is down she does not look to the observer and she is evasive. She relates that she is tired and does not want anything to be done. She did have prior heel ulcerations that were black and eventually tissue fell off in her heels were completely recovered. She has not seen the extensive current ulcerations, and does not want to. We discussed the absolute need for surgical debridement, she still defers. At this time we will be able to offer some local care with Dakin solution to help reduce local or and possibly some local infection control. Intravenous antibiotic therapy with Zosyn and vancomycin being utilized.If the patient does not want extensive interventions which would include surgical intervention, would agree with the primary service that discharged home would be appropriate. Would then strongly consider hospice evaluation in that with this extensive amount of necrosis and infection sepsis and will occur. 06/19/2018 the patient is not related to his surgical intervention which will be an extensive debridement of necrotic material over the coccyx and buttocks. The Dakin solution is allowed some improvement of the putrid odor. It appears she'll surgical plan the debridement tomorrow. Postoperatively needs to be an air mattress, we'll also need to have this to the service to wherever she is discharged to. This extensive infection including anaerobic bacteremic infection urinary infection will require a course of ongoing intravenous antibiotic therapy currently with Zosyn which we'll plan to continue in the future. We'll need IV access also. Patient is instructed on the importance of the surgical debridement, without the debridement with this extensive amount of infection would not expect her to survive 06/20/2019 the patient had agreed to present for surgery but the surgical schedule did not allow of the extensive debridement to occur. Is scheduled for tomorrow. We'll continue the antibiotic therapy was 07 which would give coverage for all the isolate pathogens that have been found so far. IV access in long-term IV antibiotic therapy is planned for time of her discharge. Once the necrotic material has been removed and hemostasis is obtained would likely be utilizing a negative pressure therapy system to try to heal this extensive ulceration. Improve nutrition is also discussed. Current Visit: Yes Status: Acute Code(s): A49.8 - OTHER BACTERIAL INFECTIONS OF UNSPECIFIED SITE SNOMED Code(s): 252518548
[2019-06-21] MEDS: LACTATED RINGERS 1,000 ML IV SCH (04:10)
[2019-06-21] MEDS: ENOXAPARIN 40 MG/0.4 ML SYRINGE SQ SCH (07:46)
[2019-06-21] MEDS: SODIUM HYPOCHLORITE 0.25% 480 ML BOT MISCELLANE SCH ×3 (08:44→19:14)
[2019-06-21] MEDS: METOPROLOL SUCCINATE (ER) 50 MG TAB.ER.24H PO SCH (08:45)
[2019-06-21] MEDS: hydrALAZINE HCL 50 MG TAB PO SCH ×3 (08:45→20:00)
[2019-06-21] MEDS: PIPERACILLIN-TAZOBACTAM 3.375 GM in SODIUM CHLORIDE 0.9% 100 ML IVPB SCH ×3 (08:48→23:25)
[2019-06-21] MEDS: LISINOPRIL-HCTZ 20-25 MG 1 EACH TAB PO SCH (09:27)
[2019-06-21] MEDS ORDERED: LACTATED RINGERS 1,000 ML IV ONE (15:41)
[2019-06-21] MEDS ORDERED: ONDANSETRON 4 MG/2 ML VIAL IVP ONE (15:54)
--- NOTE | 2019-06-21 16:31 | P.PN ---
Progress Note - Text Progress Note Date: 06/21/19 The patient will undergo surgical debridement of her decubitus ulcers today.
[2019-06-21] MEDS ORDERED: HEPARIN SODIUM,PORCINE 5,000 UNIT/ML 1 ML VIAL SQ ONE (16:45)
[2019-06-21] MEDS ORDERED: PROPOFOL 10 MG/ML 20 ML VIAL IV ONE (16:54)
[2019-06-21] MEDS ORDERED: fentaNYL (PF) 50 MCG/ML 2 ML AMP ONE (16:54)
[2019-06-21] MEDS ORDERED: SUCCINYLCHOLINE CHLORIDE 100 MG/5 ML SYR IV ONE (16:54)
[2019-06-21] MEDS ORDERED: MIDAZOLAM 2 MG/2 ML VIAL ONE (16:54)
[2019-06-21] MEDS ORDERED: LIDOCAINE 1% INJ 10MG/ML (20 ML MDV) ONE (16:54)
--- NOTE | 2019-06-21 17:40 | P.OP ---
Date of Procedure: 06/21/19 Preoperative Diagnosis: Sacral decubitus ulcer Postoperative Diagnosis: Sacral decubitus ulcer Procedure(s) Performed: Debridement of decubitus ulcer Anesthesia: SOURAV Surgeon: Grey Puente Estimated Blood Loss (ml): 30 Pathology: other (Devitalized skin and fat and muscle) Condition: stable Disposition: PACU Description of Procedure: The patient was placed the operative table in the supine position. She received general anesthesia and then was placed in the prone position. Patient had a very large sacral decubitus ulcer. There is extensive tissue necrosis and skin loss. The sacral decub's ulcer was sharply debrided using a 15 blade. The skin fat and devitalized muscle was excised. The decubitus ulcer measured approximately 20 x 20 x 6 cm deep. The decub ulcer extended all the way to the anus. Hemostasis was achieved with the Bovie. The wound was packed with wet-to-dry Kerlix dressing. Patient top procedure well.
[2019-06-21] MEDS: ACETAMINOPHEN TAB 500 MG TAB PO PRN (19:59)
--- NOTE | 2019-06-21 22:16 | P.PN ---
Progress Note - Text Progress Note Date: 06/21/19 Chief Complaint: Decub wounds Interval history: This is a pleasant [address] Charli Prieto of visiting physicians. Because of a prior stroke patient's paraplegic. Has a wheelchair and oriented. Very much bedbound. Patient's 3 granddaughters live with her for several years. Patient does get home care. For last 1 month patient developed sacral decubitus ulcers. Progressively getting worse. Denies much pain. No discomfort is present. Appetite is okay. Not been changing in bowel or urine pattern. Denies any fever and chills. Patient presented to ER was found to be in renal failure hypertensive and was admitted with the fluid boluses. As blood pressure did not respond well patient is put on levo fed drip. Admitted to ICU with junk removal specialist consultation. He states that she does not like hospitals and doctors. and prefers to stay away. Also having fevers and sepsis on presentation Patient was admitted to the ICU. Was on fluids and levo fed. Levo fed was discontinued on June 16. Patient initially had refused any debridement of the wound. Finally agreed for the same. Patient was seen by psychiatry. Deemed competent to make the decisions. Because of initial refusal for treatment Ethics committee had been consulted. Today-sinus patient this morning. Pending to go down to the OR. Otherwise laying in bed. No new issues. Review of systems: Was done for constitutional, cardiovascular, GI, pulmonary. relevant finding as above Active Medications Acetaminophen (Tylenol Tab) 500 mg PO Q6HR PRN PRN Reason: Fever and/ or Pain Last Admin: 06/21/19 19:59 Dose: 500 mg Documented by: Enoxaparin Sodium (Lovenox) 40 mg SQ DAILY [facility] Last Admin: 06/21/19 07:46 Dose: Not Given Documented by: Lisinopril/HCTZ (Zestoretic 20-25) 1 each PO DAILY [facility] Last Admin: 06/21/19 09:27 Dose: Not Given Documented by: Hydralazine HCl (Apresoline) 50 mg PO TID [facility] Last Admin: 06/21/19 20:00 Dose: 50 mg Documented by: Lactated Ringer's (Lactated Ringers) 1,000 mls @ 75 mls/hr IV .[id number] [facility] Last Admin: 06/21/19 04:10 Dose: 75 mls/hr Documented by: Piperacillin Sod/Tazobactam (Sod 3.375 gm/ Sodium Chloride) 100 mls @ 25 mls/hr IVPB Q8HR [facility] Last Admin: 06/21/19 19:13 Dose: Not Given Documented by: Vancomycin HCl 1,250 mg/ (Sodium Chloride) 250 mls @ 125 mls/hr IVPB Q24H [facility] Metoprolol Succinate (Toprol Xl) 50 mg PO DAILY [facility] Last Admin: 06/21/19 08:45 Dose: 50 mg Documented by: Miscellaneous Information (Potassium Per Protocol) 1 each MISCELLANE DAILY PRN; Protocol PRN Reason: Per Protocol Sodium Hypochlorite (Dakin's 0.25% (Half Strength)) 50 ml MISCELLANE BID [facility] Last Admin: 06/21/19 19:14 Dose: Not Given Documented by: Physical examination: VITAL SIGNS: 98.1, 64, 16, 151/85, 98% room air GENERAL: Laying in bed, awake EYES: Pupils equal. Conjunctiva normal. HEENT: External appearance of nose and ears normal, oral cavity with dry. NECK: JVD unable to assess; masses not palpable. HEART: First and second heart sounds are normal; no edema. LUNGS: Respiratory rate normal; clear to auscultation. ABDOMEN: Soft, nontender, liver spleen not palpable, no masses palpable. PSYCH: Alert and oriented x3; mood and affect normal. NEUROLOGICAL: Cranial nerves grossly intact; no facial asymmetry, power lower extremity 1/5, with some sensation pleasant. DERMATOLOGICAL: Sacral decubiti ulcers. Pictures in the chart INVESTIGATIONS, reviewed in the clinical context: White count 12.3 hemoglobin 8.4 potassium 3.9 creatinine 0.61 Previous testing: White count 18.6 hemoglobin 11.9 platelets 416 potassium 4.5 bun 61 creatinine 1.38 Lactic acid 3.8 magnesium 1.3 C-reactive protein to 20 albumin 2.8 Computed tomography scan of the abdomen and pelvis-large area of soft tissue air bubbles on the posterior sacral and buttock. Assessment: -Acute sacral decubitus ulcer with secondary infection causing severe sepsis present on admission with septic shock. Status post debridement -Lactic acidosis from sepsis -Normocytic anemia probably from infection -Essential hypertension -Chronic paraplegia from prior stroke -Medical debility -Obesity BMI 37.4 Plan: In the evening today Dr. Bhesania call me. He did carry out to debridement. Patient will need a higher level of care. He'll be talking to her surgical team/plastic surgical team from a tertiary center and then patient probably will be transferred.
[2019-06-22] MEDS: LACTATED RINGERS 1,000 ML IV SCH ×2 (00:31→17:29)
[2019-06-22] MEDS: VANCOMYCIN 1,250 MG in SODIUM CHLORIDE 0.9% 250 ML IVPB SCH (06:16)
[2019-06-22] MEDS: ACETAMINOPHEN TAB 500 MG TAB PO PRN ×2 (08:57→17:31)
[2019-06-22] MEDS: hydrALAZINE HCL 50 MG TAB PO SCH ×2 (08:57→17:29)
[2019-06-22] MEDS: LISINOPRIL-HCTZ 20-25 MG 1 EACH TAB PO SCH (08:58)
[2019-06-22] MEDS: ENOXAPARIN 40 MG/0.4 ML SYRINGE SQ SCH (08:58)
[2019-06-22] MEDS: METOPROLOL SUCCINATE (ER) 50 MG TAB.ER.24H PO SCH (08:58)
[2019-06-22] MEDS: PIPERACILLIN-TAZOBACTAM 3.375 GM in SODIUM CHLORIDE 0.9% 100 ML IVPB SCH ×2 (08:58→19:28)
[2019-06-22] MEDS: SODIUM HYPOCHLORITE 0.25% 480 ML BOT MISCELLANE SCH (08:59)
--- NOTE | 2019-06-22 12:40 | P.PN ---
Subjective Progress Note Date: 06/22/19 CHIEF COMPLAINT: Decubitus ulcer HISTORY OF PRESENT ILLNESS: Patient is status post debridement of stage IV sacral decubitus ulcer. Postop day #1. Patient examined at the bedside. Dressings changed during examination. Patient having loose stools and contaminating the wound bed. PHYSICAL EXAM: VITAL SIGNS: Reviewed. GENERAL: Well-developed in no acute distress. HEENT: No sclera icterus. Extraocular movements grossly intact. Moist buccal mucosa. Head is atraumatic, normocephalic. ABDOMEN: Soft. Nondistended. Nontender. NEUROLOGIC: Alert and oriented. Cranial nerves II through XII grossly intact. SKIN: Large sacral decubitus ulcer. Packed with kerlex. ASSESSMENT: 1. Stage IV sacral decubitus ulcer, status post debridement PLAN: 1. Continue local wound care per infectious disease recommendations 2. Dr. Puente recommending colostomy for optimal wound healing as patient is h aving loose stools that are contaminating wound bed. Discussed in detail with the patient at the bedside who immediately became agitated and said 'No, im not having anything else done. I don't want any more surgery. I wish all you doctors would leave me alone". Re-inforced the importance of colostomy for wound healing but patient stated "I'm not talking about this anymore". Will continue to discus s with patient daily if she is willing to participate in discussions with surgical team. Dr. Puente also recommending transfer downtown on Wednesday possibly to be evaluated by plastic surgeon. Patient also refusing transfer at this time. 3. Case discussed with Dr. Marr. Dr. Marr states he is pursuing a public guardian for the patient. Nurse practitioner note has been reviewed by physician. Signing provider agrees with the documented findings, assessment, and plan of care. Objective - Vital Signs Vital signs: Vital Signs Temp 98.7 F 06/22/19 09:12 Pulse 65 06/22/19 09:12 Resp 16 06/22/19 09:12 BP 110/59 06/22/19 09:12 Pulse Ox 97 06/22/19 09:12 Intake & Output 06/21/19 06/22/19 06/22/19 18:59 06:59 18:59 Intake Total 600 1150 Output Total 10 450 Balance 590 700 Weight 87.09 kg Intake: IV 600 850 Lactated Ringers 1,000 ml 750 @ 75 mls/hr IV .[id number] [facility] Rx#:[id number] Piperacillin-Tazobactam 3 100 .375 gm In Sodium Chloride 0.9% 100 ml @ 25 mls/hr IVPB Q8HR [facility] Rx# :[id number] Oral 300 Output: Urine 450 Uretheral (Mon) 450 Estimated Blood Loss 10 Other: Voiding Method Indwelling Catheter Indwelling Catheter Indwelling Catheter # Voids 150 - Labs CBC & Chem 7: 06/19/19 06:32 06/22/19 06:52
--- NOTE | 2019-06-22 22:34 | P.PN ---
Progress Note - Text Progress Note Date: 06/22/19 Chief Complaint: Decub wounds Interval history: This is a pleasant [address] Charli Prieto of visiting [facility]. Because of a prior stroke patient's paraplegic. Has a wheelchair and oriented. Very much bedbound. Patient's 3 granddaughters live with her for several years. Patient does get home care. For last 1 month patient developed sacral decubitus ulcers. Progressively getting worse. Denies much pain. No discomfort is present. Appetite is okay. Not been changing in bowel or urine pattern. Denies any fever and chills. Patient presented to ER was found to be in renal failure hypertensive and was admitted with the fluid boluses. As blood pressure did not respond well patient is put on levo fed drip. Admitted to ICU with refurbish technician consultation. He states that she does not like hospitals and doctors. and prefers to stay away. Also having fevers and sepsis on presentation Patient was admitted to the ICU. Was on fluids and levo fed. Levo fed was discontinued on June 16. Patient initially had refused any debridement of the wound. Finally agreed for the same. Patient was seen by psychiatry. Deemed competent to make the decisions. Because of initial refusal for treatment Ethics committee had been consulted. On June 21 patient was taken to the OR per Dr. Puente and he did carry her to debridement after patient consented for the same. Today-Dr. Ruiz called me last night and also spoke to me this morning. He is offered a patient with colostomy. And he also spoke to Dr. Stern the plastic surgeon who would accept the patient after the colostomy is done done. I did speak to patient couple of times again today at length and explained to her very specifically that she might guess this treatment done, otherwise she is bound to get very infected septic that'll most likely if not treated surgically we'll proceed serious consequences including . The last test spoke to the patient today patient still not made up her mind, now which she wanted to talk about the surgery. Review of systems: Was done for constitutional, cardiovascular, GI, pulmonary. relevant finding as above Active Medications Acetaminophen (Tylenol Tab) 500 mg PO Q6HR PRN PRN Reason: Fever and/ or Pain Last Admin: 06/22/19 17:31 Dose: 500 mg Documented by: Enoxaparin Sodium (Lovenox) 40 mg SQ DAILY [facility] Last Admin: 06/22/19 08:58 Dose: 40 mg Documented by: Lisinopril/HCTZ (Zestoretic 20-25) 1 each PO DAILY [facility] Last Admin: 06/22/19 08:58 Dose: 1 each Documented by: Hydralazine HCl (Apresoline) 50 mg PO TID [facility] Last Admin: 06/22/19 17:29 Dose: 50 mg Documented by: Lactated Ringer's (Lactated Ringers) 1,000 mls @ 75 mls/hr IV .[id number] [facility] Last Admin: 06/22/19 17:29 Dose: Not Given Documented by: Piperacillin Sod/Tazobactam (Sod 3.375 gm/ Sodium Chloride) 100 mls @ 25 mls/hr IVPB Q8HR [facility] Last Admin: 06/22/19 19:28 Dose: Not Given Documented by: Vancomycin HCl 1,250 mg/ (Sodium Chloride) 250 mls @ 125 mls/hr IVPB Q24H [facility] Last Admin: 06/22/19 06:16 Dose: 125 mls/hr Documented by: Metoprolol Succinate (Toprol Xl) 50 mg PO DAILY [facility] Last Admin: 06/22/19 08:58 Dose: 50 mg Documented by: Miscellaneous Information (Potassium Per Protocol) 1 each MISCELLANE DAILY PRN; Protocol PRN Reason: Per Protocol Sodium Hypochlorite (Dakin's 0.25% (Half Strength)) 50 ml MISCELLANE BID [facility] Last Admin: 06/22/19 08:59 Dose: 50 ml Documented by: Physical examination: VITAL SIGNS: 98.7, 65, 16, 110/59, 97% room air GENERAL: Laying in bed, awake EYES: Pupils equal. Conjunctiva normal. HEENT: External appearance of nose and ears normal, oral cavity with dry. NECK: JVD unable to assess; masses not palpable. HEART: First and second heart sounds are normal; no edema. LUNGS: Respiratory rate normal; clear to auscultation. ABDOMEN: Soft, nontender, liver spleen not palpable, no masses palpable. PSYCH: Alert and oriented x3; mood and affect normal. NEUROLOGICAL: Cranial nerves grossly intact; no facial asymmetry, power lower ex tremity 1/5, with some sensation pleasant. DERMATOLOGICAL: Sacral decubiti ulcers. Pictures in the chart INVESTIGATIONS, reviewed in the clinical context: White count 12.3 hemoglobin 8.4 potassium 3.9 creatinine 0.61 Previous testing: White count 18.6 hemoglobin 11.9 platelets 416 potassium 4.5 bun 61 creatinine 1.38 Lactic acid 3.8 magnesium 1.3 C-reactive protein to 20 albumin 2.8 Computed tomography scan of the abdomen and pelvis-large area of soft tissue air bubbles on the posterior sacral and buttock. Assessment: -Acute sacral decubitus ulcer with secondary infection causing severe sepsis present on admission with septic shock. Status post debridement on June 21. -Lactic acidosis from sepsis -Normocytic anemia probably from infection -Essential hypertension -Chronic paraplegia from prior stroke -Medical debility -Obesity BMI 37.4 Plan: Spoke to Dr. Puente. He did talk to patient about colostomy tomorrow. She had not consented for the same till later today.. When I talked to her she did not want to talk about the same. Did try twice at least. Gary, the elementary school social worker Called me earlier in the day to do a multidisciplinary meeting. I told him I'll be available in the hospital physically and we must have Dr. Puente who can talk about the surgery if that's what the ethics committee wants. Other members on the case including Dr. Oro's and Dr. Carroll from psychiatry will also be contacted by Gary. I did inform Gary (who is also on ethics committee), that my concern is that patient is deemed medically competent both by me and Dr. Carroll the psychiatrist. Patient's failing to make reasonable decisions about herself endangering her life. I want to make sure that we have tried every aspect to protect patient's life. That would include a formal decision from ethics committee in terms of what to do. Also the option of taking the matter to the court and that the boiler helper decide in this matter to see if a guardian would be appropriate since patient is not taking reasonable decisions about herself and endangering her life. I told Gary to have the ethics committee put something down in writing so that we can take it the court if needed. Later Gary called me to inform me that the ethics committee will be meeting tomorrow morning. I also informed Gary that I'll be getting off my service tomorrow and [facility] will be taking over the care of my patient. Did call Dr. Rosenthal this evening and give an update of this case. Total time spent today was more than 1 hour including more than 45 minutes of discussion.
[2019-06-23] MEDS: SODIUM HYPOCHLORITE 0.25% 480 ML BOT MISCELLANE SCH ×3 (00:01→21:27)
[2019-06-23] MEDS: LACTATED RINGERS 1,000 ML IV SCH ×2 (06:06→16:14)
[2019-06-23] MEDS: VANCOMYCIN 1,250 MG in SODIUM CHLORIDE 0.9% 250 ML IVPB SCH (06:09)
[2019-06-23 07:44] LABS: Calcium 6.9 mg/dL (8.4-10.2); Potassium 3.9 mmol/L (3.5-5.1)
[2019-06-23] MEDS ORDERED: ACETAMINOPHEN IV (For NPO) 1,000 MG in EMPTY BAG 1 BAG IVPB ONE (08:49)
[2019-06-23 08:52] LABS: Anisocytosis Slight; Basophils % (A) 0 %; Eosinophils # (A) 0.3 k/uL (0-0.7); Eosinophils % (A) 2 %; HCT 29.8 % (34.0-46.0); HGB 9.7 gm/dL (11.4-16.0); Lymphocytes # (A) 1.3 k/uL (1.0-4.8); Lymphocytes % (A) 10 %; MCH 31.1 pg (25.0-35.0); MCHC 32.6 g/dL (31.0-37.0); MCV 95.3 fL (80.0-100.0); Macrocytosis Slight; Mean Platelet Volume 8.4; Monocytes # (A) 0.5 k/uL (0-1.0); Monocytes % (A) 4 %; Neutrophils # (A) 11.1 k/uL (1.3-7.7); Neutrophils % (A) 83 %; RBC 3.13 m/uL (3.80-5.40); RDW 17.7 % (11.5-15.5); WBC 13.4 k/uL (3.8-10.6)
[2019-06-23 09:06] LABS: Platelet Count 509 k/uL (150-450)
[2019-06-23] MEDS: METOPROLOL SUCCINATE (ER) 50 MG TAB.ER.24H PO SCH (10:09)
[2019-06-23] MEDS: PIPERACILLIN-TAZOBACTAM 3.375 GM in SODIUM CHLORIDE 0.9% 100 ML IVPB SCH ×4 (10:10→16:58)
[2019-06-23] MEDS: hydrALAZINE HCL 50 MG TAB PO SCH ×4 (10:11→21:28)
[2019-06-23] MEDS: LISINOPRIL-HCTZ 20-25 MG 1 EACH TAB PO SCH (10:11)
[2019-06-23] MEDS: ENOXAPARIN 40 MG/0.4 ML SYRINGE SQ SCH (10:11)
--- NOTE | 2019-06-23 10:18 | P.PN ---
Progress Note - Text Progress Note Date: 06/23/19 This provider had a long discussion with patient this morning regarding need for colostomy secondary to extensive stage IV sacral decubitis ulcer. Patient expressed feelings of fear regarding another surgical procedure. She is afraid of general anesthesia and afraid she will not wake up after surgery. She is afraid she is too weak to undergo surgery. Explained procedure to patient, recovery, risks, benefits, etc to patient. She did verbalize understanding. She was able to repeat back to me why she needs the colostomy performed and was accurate in her description of why she needs colostomy. Discussed with patient that ethics meeting was being held today regarding a possible guardian for the patient as well. After further discussion with the patient, she reports not wanting a guardian and is afraid of someone else making decisions for her. She believes she is competent to make her own decisions and at this time, I believe the patient is competent to make decisions. She states she does not like being rushed into making decisions or feeling pressured, which likely explains why she was so resistant yesterday when myself and Dr. Puente discussed the need for colostomy. Patient then asked questions about how to care for the colostomy afterwards and what kind of foods she would be able to eat, which makes me further think the patient is competent in her decision making ability and is understanding and processing the information I am providing her with. Will also have ostomy resource nurse meet with patient postoperatively for teaching. Dietitian will be consulted as well for further education and reinforcement of postoperative diet. It is to be noted that the patient does take extra time to process the information and does need extra time to make these medical decisions which is understandable. She also has a general mistrust towards medical providers and it takes the patient some time to develop a rapport with providers to trust them and their recommendations. After extensive discussion with the patient, she is agreeable to colostomy today with Dr. Puente. This provider attended Ethics meeting this morning and relayed that patient is now agreeable to colostomy today. Guardianship will not be pursued at this time.
--- NOTE | 2019-06-23 11:21 | P.PN ---
Subjective On-call hospitalist covering for Dr. Marr starting on 06/23/2019. This is a pleasant 73 years old female with past medical history of CVA/TIA and she is paraplegic, hypertension. who presents because of severe sepsis secondary to pressure ulcer, patient started on Levophed up on admission and she was in the intensive care unit, however is improving with IV antibiotics and now she is off pressors. She is a status post debridement of her pressure ulcer by the surgical team. Also surgical team were recommended colostomy to however patient was declining. Previous primary and psychiatric team deemed the patient is capable of making her on medical decisions. However because of her persistent refusal for the recommended surgery, ethics committee were contacted for evaluation the patient. However as it was going this morning to see the patient, the bedside nurse told me the patient has already agreed for surgery and she signed a consent. When it went into the room the patient also confirmed to me she is agreeable to surgery and she has already consented for it. Patient denies chest pain or dyspnea. No abdominal pain. No nausea vomiting. Hemodynamically stable. leukocytosis of 13.4 k, hemoglobin 9.7, platelets 519, creatinine 0.98 electrolytes within normal limits. Review of systems CONSTITUTIONAL: No fever, no malaise, no fatigue. HEENT: No recent visual problems or hearing problems. Denied any sore throat. CARDIOVASCULAR: No orthopnea, PND, no palpitations, no syncope. PULMONARY: No shortness of breath, no cough, no hemoptysis. GASTROINTESTINAL: No diarrhea, no nausea, no vomiting, no abdominal pain. Normoactive bowel sounds. NEUROLOGICAL: No headaches, no weakness, no numbness. HEMATOLOGICAL: Denies any bleeding or petechiae. GENITOURINARY: Denies any burning micturition, frequency, or urgency. MUSCULOSKELETAL/RHEUMATOLOGICAL: Denies any joint pain, swelling, or any muscle pain. ENDOCRINE: Denies any polyuria or polydipsia. Active Medications Generic Name Dose Route Start Last Admin Trade Name Freq PRN Reason Stop Dose Admin Acetaminophen 500 mg 06/21/19 19:41 06/22/19 17:31 Tylenol Tab PO 500 mg Q6HR PRN Administration Fever and/ or Pain Enoxaparin Sodium 40 mg 06/19/19 18:30 06/23/19 10:11 Lovenox SQ Not Given DAILY [facility] Famotidine 20 mg 06/23/19 21:00 Pepcid IV Q12HR [facility] Lisinopril/HCTZ 1 each 06/21/19 09:00 06/23/19 10:11 Zestoretic 20-25 PO Not Given DAILY [facility] Hydralazine HCl 50 mg 06/21/19 09:00 06/23/19 10:11 Apresoline PO Not Given TID [facility] Lactated Ringer's 1,000 mls @ 75 mls/hr 06/16/19 00:00 06/23/19 06:06 Lactated Ringers IV Not Given .[id number] [facility] Piperacillin Sod/Tazobactam 100 mls @ 25 mls/hr 06/16/19 16:00 06/23/19 10:10 Sod 3.375 gm/ Sodium Chloride IVPB 25 mls/hr Q8HR [facility] Administration Vancomycin HCl 1,250 mg/ 250 mls @ 125 mls/hr 06/22/19 07:00 06/23/19 06:09 Sodium Chloride IVPB 125 mls/hr Q24H [facility] Administration Metoprolol Succinate 50 mg 06/21/19 09:00 06/23/19 10:09 Toprol Xl PO 50 mg DAILY [facility] Administration Miscellaneous Information 1 each 06/16/19 08:03 Potassium Per Protocol MISCELLANE DAILY PRN Per Protocol Protocol Miscellaneous Information 1 each 06/25/19 06:00 Vancomycin Trough Due MISCELLANE 06/25/19 06:01 ONCE ONE Sodium Hypochlorite 50 ml 06/17/19 00:00 06/23/19 00:01 Dakin's 0.25% (Half Strength) MISCELLANE 50 ml BID [facility] Administration Objective - Vital Signs Vital signs: Vital Signs Temp 97.7 F 06/23/19 07:13 Pulse 70 06/23/19 07:13 Resp 16 06/23/19 07:13 BP 118/74 06/23/19 07:13 Pulse Ox 97 06/23/19 07:13 Intake & Output 06/22/19 06/23/19 06/23/19 18:59 06:59 18:59 Output Total 400 Balance -400 Output: Urine 400 Other: Voiding Method Indwelling Catheter Indwelling Catheter # Bowel Movements 2 - Exam GENERAL: The patient is alert and oriented x3, not in any acute distress. Well developed, well nourished. HEENT: Pupils are round and equally reacting to light. EOMI. No scleral icterus. No conjunctival pallor. Normocephalic, atraumatic. No pharyngeal erythema. No thyromegaly. CARDIOVASCULAR: S1 and S2 present. No murmurs, rubs, or gallops. PULMONARY: Chest is clear to auscultation, no wheezing or crackles. ABDOMEN: Soft, nontender, nondistended, normoactive bowel sounds. No palpable organomegaly. -MUSCULOSKELETAL: No joint swelling or deformity. Sacral pressure ulcer, status post debridement. Dressing is in place EXTREMITIES: No cyanosis, clubbing, or pedal edema. NEUROLOGICAL: Gross neurological examination did not reveal any focal deficits. SKIN: No rashes. - Labs CBC & Chem 7: 06/23/19 07:42 06/23/19 06:54 Labs: Abnormal Lab Results - Last 24 Hours (Table) 06/23/19 06/23/19 Range/Units 06:54 07:42 WBC 13.4 H (3.8-10.6) k/uL RBC 3.13 L (3.80-5.40) m/uL Hgb 9.7 L (11.4-16.0) gm/dL Hct 29.8 L (34.0-46.0) % RDW 17.7 H (11.5-15.5) % Plt Count 509 H D (150-450) k/uL Neutrophils # 11.1 H (1.3-7.7) k/uL Chloride 112 H (98-107) mmol/L Carbon Dioxide 21 L (22-30) mmol/L Glucose 64 L (74-99) mg/dL Calcium 6.9 L (8.4-10.2) mg/dL Microbiology - Last 24 Hours (Table) 06/15/19 16:52 Blood Culture Gram Stain - Final Blood Blood Culture - Final Bacteroides ovatus Carynebacterium accolens Anaerobic Gm Negative Bacilli Coagulase Negative Staph Assessment and Plan Assessment: -Severe sepsis secondary to sacral pressure ulcer. Status post septic shock. Status post surgical debridement on 06/21/2019. Patient is recommended to go for cholecystectomy by the surgical team. Patient agreed for the surgery this morning. With the preOP evaluation -Lactic acidosis and acidemia, secondary to infection. Soft. -Chronic anemia -Essential hypertension -Chronic paraplegia secondary to stroke -Obesity with BMI 37.4 -Medical debility Plan: This is a pleasant 73 years old female who was presented for severe sepsis secondary to pressure ulcer, ulcers were divided to provide however surgical team recommended colostomy to which the patient is agreeable to this morning as confirmed to me by the staff and the patient herself. Continue with antibiotics and IV fluids. Follow-up recommendation from the infectious disease and surgi della team. Follow-up labs including WBC. Patient is a stable however she is at some risk for surgery. Labs and medication were reviewed.. Continue same treatment. Continue with symptomatic treatment. Resume home medication. Monitor lytes and vitals. DVT and GI prophylaxis. Further recommendations of the clinical course of the patient DVT prophylaxis: Subcutaneous Lovenox GI Prophylaxis: Pepcid Prognosis is guarded
--- NOTE | 2019-06-23 12:41 | P.PN ---
Progress Note - Text Progress Note Date: 06/23/19 Patient has a large decubitus ulcer extending to her anus. She'll undergo diverting colostomy today.
[2019-06-23] MEDS: FAMOTIDINE 20 MG/2 ML VIAL IV SCH (15:30)
[2019-06-23] MEDS ORDERED: ONDANSETRON 4 MG/2 ML VIAL IVP ONE (16:25)
[2019-06-23] MEDS ORDERED: MIDAZOLAM (PF) 2 MG/2 ML VIAL IV ONE (16:55)
[2019-06-23] MEDS ORDERED: NEOSTIGMINE 1 MG/ML 10 ML VIAL ONE (17:15)
[2019-06-23] MEDS ORDERED: HYDROmorphone (PF) 1 MG/ML ONE (17:15)
[2019-06-23] MEDS ORDERED: ePHEDrine SULFATE/0.9% NACL/PF 50 MG/5 ML SYRINGE IV ONE (17:15)
[2019-06-23] MEDS ORDERED: fentaNYL (PF) 50 MCG/ML 2 ML AMP ONE (17:15)
[2019-06-23] MEDS ORDERED: PROPOFOL 10 MG/ML 20 ML VIAL IV ONE (17:15)
[2019-06-23] MEDS ORDERED: SUCCINYLCHOLINE CHLORIDE 100 MG/5 ML SYR IV ONE (17:15)
[2019-06-23] MEDS ORDERED: MIDAZOLAM 2 MG/2 ML VIAL ONE (17:15)
[2019-06-23] MEDS ORDERED: ROCURONIUM BROMIDE 10 MG/ML 10 ML VIAL IV ONE (17:15)
[2019-06-23] MEDS ORDERED: PHENYLEPHRINE-0.9% NACL SYG 1 MG/10 ML SYRINGE ONE (17:15)
[2019-06-23] MEDS ORDERED: GLYCOPYRROLATE 0.2 MG/ML 2 ML VIAL ONE (17:15)
[2019-06-23] MEDS ORDERED: LACTATED RINGERS 1,000 ML IV ONE ×2 (17:20)
--- NOTE | 2019-06-23 18:16 | P.OP ---
Date of Procedure: 06/23/19 Preoperative Diagnosis: Sacral decubitus ulcer Postoperative Diagnosis: Decubitus ulcer Procedure(s) Performed: Diverting sigmoid colostomy Anesthesia: SOURAV Surgeon: Grey Puente Estimated Blood Loss (ml): 5 Pathology: none sent Condition: stable Disposition: PACU Description of Procedure: Patient's placed the operative table in supine position. She received just H. Her abdomen was prepped and draped usual sterile fashion. The abdomen was entered through a midline incision. The sigmoid colon was visualized. There were diverticular changes sigmoid colon. The sigmoid colon was transected and then the; was mobilized proximally. A length of colon was mobilized to bring up the colostomy. At this point a spot on the abdominal wall was chosen for the colostomy site. Using a 15 blade the skin was incised and then using a large cautery the fascia was divided over the rectus muscle. The colon was brought up through the colostomy site. The abdomen was closed with looped #1 PDS suture. Skin was closed sara. The colostomy matured with #0 Vicryl. Patient top she will well.
[2019-06-23] MEDS ORDERED: HYDROmorphone 1 MG/ML 1 ML SYRINGE IVP ONE (19:21)
--- NOTE | 2019-06-23 22:34 | P.PN ---
Subjective Progress Note Date: 06/23/19 This is a 73-year-old female who is currently living at home alone. She has history of CVA and has been bedbound for the past 3 years. Patient presented with stage IV decubitus ulcers to the sacrum,, coccyx, bilateral buttocks and posterior thighs with extensive necrosis. Unclear how long this has been going on. Patient presented with fever, tachycardia, hypotension, leukocytosis of 18.6, lactic acid 3.8. BUN 61 and creatinine 1.38. Sed rate 58, CRP 323.CAT scan of the abdomen and pelvis without contrast revealed large area of soft tissue air bubbles in the posterior sacral and buttocks region consistent with cellulitis and he was ulcers. No drainable abscess. No focal bone destruction. Patient was admitted into the intensive care unit. She is status post 20 of liters of IV fluid. Norepinephrine was discontinued at 8 AM this morning. Patient is currently hemodynamically stable. Dr. Osborne is on consult as well as Dr. Grimes with tentative plan for debridement of the d ecubitus ulcers. Blood cultures status received. Patient is currently on vancomycin. Patient is unaware of her last tetanus immunization. 06/19/2019 the patient is now agreeable to surgical intervention. It appears she understands the significance of her situation. We did relate that she has an extensive infection that is understandable terms of aerobic anaerobic and necrotizing resulting in bacteremia and sepsis. Without surgical debridement I would not expect her to survive. 06/20/2019 the patient was to go to the operating room today however the surgical schedule would not allow it. With the nursing team the necrotic ulcerations or cleansed with a Dakin solution and the ulcerations are packed and dressings are put into place. She did have an extensive bowel movement. Was not malodorous such as C. diff. No evidence of any significant blood in the stool. She remains very anxious about the overall situation. Seems to have great distust to the overall medical system. 06/23/2019 patient the operating room today for the diverting colostomy. Ethics committee meeting did happen earlier in the day. Objective - Vital Signs Vital signs: Vital Signs Temp 96.8 F L 06/23/19 18:40 Pulse 93 06/23/19 19:25 Resp 16 06/23/19 19:25 BP 130/81 06/23/19 19:25 Pulse Ox 99 06/23/19 19:25 Intake & Output 06/23/19 06/23/19 06/24/19 06:59 18:59 06:59 Intake Total 400 200 Output Total 400 970 30 Balance -400 -570 170 Intake: IV 400 200 Output: Urine 400 950 30 Estimated Blood Loss 20 Other: Voiding Method Indwelling Catheter Indwelling Catheter # Voids 150 # Bowel Movements 2 - Exam Gen: This is a morbidly obese 73-year-old female. She is sitting up in the ICU bed and appears to be comfortable and in no acute distress. HEENT: Head is atraumatic, normocephalic. Pupils equal, round. Sclerae is anicteric. Conjunctiva pink. Oral mucous membranes are moist. Patient is edentulous. No thrush noted. NECK: Supple. No JVD. No lymphadenopathy. No thyromegaly. LUNGS: Clear to auscultation. No wheezes or rhonchi. No intercostal retractions. HEART: Regular rate and rhythm. No murmur. ABDOMEN: Soft. Bowel sounds are present. No masses. No tenderness. No redness under abdominal folds. Mon catheter draining clear timmy urine. EXTREMITIES: No pedal edema. Dorsalis pedis +2 bilaterally. NEUROLOGICAL: Patient is awake, alert and oriented both withdrawn lower extremity weakness foot drop - Labs CBC & Chem 7: 06/23/19 07:42 06/23/19 06:54 Labs: Abnormal Lab Results - Last 24 Hours (Table) 06/23/19 06/23/19 Range/Units 06:54 07:42 WBC 13.4 H (3.8-10.6) k/uL RBC 3.13 L (3.80-5.40) m/uL Hgb 9.7 L (11.4-16.0) gm/dL Hct 29.8 L (34.0-46.0) % RDW 17.7 H (11.5-15.5) % Plt Count 509 H D (150-450) k/uL Neutrophils # 11.1 H (1.3-7.7) k/uL Chloride 112 H (98-107) mmol/L Carbon Dioxide 21 L (22-30) mmol/L Glucose 64 L (74-99) mg/dL Calcium 6.9 L (8.4-10.2) mg/dL Microbiology - Last 24 Hours (Table) 06/15/19 16:52 Blood Culture Gram Stain - Final Blood Blood Culture - Final Bacteroides ovatus Carynebacterium accolens Anaerobic Gm Negative Bacilli Coagulase Negative Staph Laboratory Results WBC 13.4 k/uL (3.8-10.6) H 06/23/19 07:42 RBC 3.13 m/uL (3.80-5.40) L 06/23/19 07:42 Hgb 9.7 gm/dL (11.4-16.0) L 06/23/19 07:42 Hct 29.8 % (34.0-46.0) L 06/23/19 07:42 MCV 95.3 fL (80.0-100.0) 06/23/19 07:42 MCH 31.1 pg (25.0-35.0) 06/23/19 07:42 MCHC 32.6 g/dL (31.0-37.0) 06/23/19 07:42 RDW 17.7 % (11.5-15.5) H 06/23/19 07:42 Plt Count 509 k/uL (150-450) H D 06/23/19 07:42 Neutrophils % 83 % 06/23/19 07:42 Lymphocytes % 10 % 06/23/19 07:42 Monocytes % 4 % 06/23/19 07:42 Eosinophils % 2 % 06/23/19 07:42 Basophils % 0 % 06/23/19 07:42 Neutrophils # 11.1 k/uL (1.3-7.7) H 06/23/19 07:42 Lymphocytes # 1.3 k/uL (1.0-4.8) 06/23/19 07:42 Monocytes # 0.5 k/uL (0-1.0) 06/23/19 07:42 Eosinophils # 0.3 k/uL (0-0.7) 06/23/19 07:42 Basophils # 0.0 k/uL (0-0.2) 06/23/19 07:42 Anisocytosis Slight 06/23/19 07:42 Macrocytosis Slight 06/23/19 07:42 ESR 58 mm/hr (0-20) H 06/15/19 19:03 PT 11.2 sec (9.0-12.0) 06/15/19 16:52 INR 1.1 (<1.2) 06/15/19 16:52 APTT 24.5 sec (22.0-30.0) 06/15/19 16:52 Sodium 141 mmol/L (137-145) 06/23/19 06:54 Potassium 3.9 mmol/L (3.5-5.1) 06/23/19 06:54 Chloride 112 mmol/L (98-107) H 06/23/19 06:54 Carbon Dioxide 21 mmol/L (22-30) L 06/23/19 06:54 Anion Gap 8 mmol/L 06/23/19 06:54 BUN 11 mg/dL (7-17) 06/23/19 06:54 Creatinine 0.98 mg/dL (0.52-1.04) 06/23/19 06:54 Est GFR (CKD-EPI)AfAm 67 (>60 ml/min/1.73 sqM) 06/23/19 06:54 Est GFR (CKD-EPI)NonAf 58 (>60 ml/min/1.73 sqM) 06/23/19 06:54 Glucose 64 mg/dL (74-99) L 06/23/19 06:54 POC Glucose (mg/dL) 150 mg/dL (75-99) H 06/15/19 21:34 POC Glu Cover Machine Operator Rashi Good 06/15/19 21:34 Lactic Ac Sepsis Rflx Y 06/15/19 17:48 Plasma Lactic Acid Jonathan 1.3 mmol/L (0.7-2.0) 06/15/19 22:28 Calcium 6.9 mg/dL (8.4-10.2) L 06/23/19 06:54 Magnesium 1.3 mg/dL (1.6-2.3) L 06/15/19 16:52 Total Bilirubin 0.7 mg/dL (0.2-1.3) 06/15/19 16:52 AST 40 U/L (14-36) H 06/15/19 16:52 ALT 18 U/L (9-52) 06/15/19 16:52 Alkaline Phosphatase 123 U/L (38-126) 06/15/19 16:52 Creatine Kinase 220 U/L (30-135) H 06/15/19 16:52 C-Reactive Protein 323.6 mg/L (<10.0) H 06/15/19 16:52 Total Protein 6.4 g/dL (6.3-8.2) 06/15/19 16:52 Albumin 2.8 g/dL (3.5-5.0) L 06/15/19 16:52 Urine Color Yellow 06/15/19 17:28 Urine Appearance Cloudy (Clear) H 06/15/19 17:28 Urine pH 5.0 (5.0-8.0) 06/15/19 17:28 Ur Specific [place] 1.018 (1.001-1.035) 06/15/19 17:28 Urine Protein Trace (Negative) H 06/15/19 17:28 Urine Glucose (UA) Negative (Negative) 06/15/19 17:28 Urine Ketones Negative (Negative) 06/15/19 17:28 Urine Blood Negative (Negative) 06/15/19 17:28 Urine Nitrite Negative (Negative) 06/15/19 17:28 Urine Bilirubin Negative (Negative) 06/15/19 17:28 Urine Urobilinogen 2.0 mg/dL (<2.0) 06/15/19 17:28 Ur Leukocyte Esterase Moderate (Negative) H 06/15/19 17:28 Urine WBC 3 /hpf (0-5) 06/15/19 17:28 Ur Squamous Epith Cells 1 /hpf (0-4) 06/15/19 17:28 Urine Bacteria Moderate /hpf (None) H 06/15/19 17:28 Urine Mucus Rare /hpf (None) H 06/15/19 17:28 Vancomycin Trough 24.5 ug/mL 06/20/19 22:33 Blood Type O Positive 06/23/19 10:59 Blood Type Confirm O Positive 06/23/19 07:42 Blood Type Recheck No Previous Record 06/23/19 10:59 Bld Type Recheck Status CABO Indicated 06/23/19 10:59 Antibody Screen NEGATIVE 06/23/19 10:59 Spec Expiration Date 06/26/2019 - 3689 06/23/19 10:59 Microbiology 06/15/19 16:52 Blood Blood Culture Gram Stain - Final 06/15/19 16:52 Blood Blood Culture - Final Bacteroides ovatus Carynebacterium accolens Anaerobic Gm Negative Bacilli Coagulase Negative Staph 06/15/19 16:52 Blood Blood Culture - Final 06/15/19 17:28 Urine,Voided Urine Culture - Final Escherichia coli Assessment and Plan (1) Decubitus ulcer Current Visit: Yes Status: Acute Code(s): L89.90 - PRESSURE ULCER OF UNSPECIFIED SITE, UNSPECIFIED STAGE SNOMED Code(s): 285235677 (2) Sepsis Current Visit: Yes Status: Acute Code(s): A41.9 - SEPSIS, UNSPECIFIED ORGANISM SNOMED Code(s): 10467346 (3) Infection due to gram-negative anaerobic organism Narrative/Plan: Before I entered the room the nursing staff relate to the difficulties that are occurring, in that the patient was seen by the surgeon, evidence of the extensive stage IV pressure ulcerations of the coccyx as well as sacral area with sukhwinder tissue necrosis occurring that was present on admission, she was offered surgical intervention and refused. As I enter the room I had a very positive attitude and the patient does communicate, however her face is down she does not look to the observer and she is evasive. She relates that she is tired and does not want anything to be done. She did have prior heel ulcerations that were black and eventually tissue fell off in her heels were completely recovered. She has not seen the extensive current ulcerations, and does not w ant to. We discussed the absolute need for surgical debridement, she still defers. At this time we will be able to offer some local care with Dakin solution to help reduce local or and possibly some local infection control. Intravenous antibiotic therapy with Zosyn and vancomycin being utilized.If the patient does not want extensive interventions which would include surgical intervention, would agree with the primary service that discharged home would be appropriate. Would then strongly consider hospice evaluation in that with this extensive amount of necrosis and infection sepsis and will occur. 06/19/2018 the patient is not related to his surgical intervention which will be an extensive debridement of necrotic material over the coccyx and buttocks. The Dakin solution is allowed some improvement of the putrid odor. It appears she'll surgical plan the debridement tomorrow. Postoperatively needs to be an air mattress, we'll also need to have this to the service to wherever she is discharged to. This extensive infection including anaerobic bacteremic infection urinary infection will require a course of ongoing intravenous antibiotic therapy currently with Zosyn which we'll plan to continue in the future. We'll need IV access also. Patient is instructed on the importance of the surgical debridement, without the debridement with this extensive amount of infection would not expect her to survive 06/20/2019 the patient had agreed to present for surgery but the surgical schedule did not allow of the extensive debridement to occur. Is scheduled for tomorrow. We'll continue the antibiotic therapy was 07 which would give coverage for all the isolate pathogens that have been found so far. IV access in long-term IV antibiotic therapy is planned for time of her discharge. Once the necrotic material has been removed and hemostasis is obtained would likely be utilizing a negative pressure therapy system to try to heal this extensive ulceration. Improve nutrition is also discussed. 06/23/2019 the patient will go to the operating him today for the diverting c olostomy. She will not be able to return to room sitting for a while until she has improvement of her strength and resolution of her significant sepsis and bacteremia. Large defect will be left and when she is more stable negative pressure therapy will hopefully be applied to that area. Eventually will need plastic surgery evaluations.will require a many week intravenous antibiotic therapy Current Visit: Yes Status: Acute Code(s): A49.8 - OTHER BACTERIAL INFECTIONS OF UNSPECIFIED SITE SNOMED Code(s): 682891830
--- NOTE | 2019-06-23 23:36 | XR ---
EXAMINATION TYPE: XR chest 1V DATE OF EXAM: 06/23/2019 COMPARISON: NONE HISTORY: Central line placement TECHNIQUE: Single frontal view of the chest is obtained. FINDINGS: Interval placement of left subclavian venous catheter with the tip projecting over the cav oatrial junction. No visible pneumothorax. Low lung volumes. Left lower lung opacity developed in the interim which may be due to atelectasis, p leural effusion, with the possibility of an infectious process not excluded. Right basilar atelectasi s, otherwise clear. Advanced degenerative changes of the glenohumeral joints. Remote bilateral rib fr actures. IMPRESSION: 1. Left subclavian venous catheter placement, no visible pneumothorax. 2. Left lower lung opacity is nonspecific and may represent pleural effusion, atelectasis, and/or an infectious process.
[2019-06-24] MEDS: MORPHINE SULFATE 4 MG/ML SYRINGE IVP PRN ×3 (01:06→16:10)
[2019-06-24] MEDS: LACTATED RINGERS 1,000 ML IV SCH ×2 (01:08→20:29)
[2019-06-24] MEDS: FAMOTIDINE 20 MG/2 ML VIAL IV SCH (07:27)
[2019-06-24] MEDS: VANCOMYCIN 1,250 MG in SODIUM CHLORIDE 0.9% 250 ML IVPB SCH (07:27)
[2019-06-24] MEDS: METOPROLOL SUCCINATE (ER) 50 MG TAB.ER.24H PO SCH (09:13)
[2019-06-24] MEDS: hydrALAZINE HCL 50 MG TAB PO SCH ×3 (09:13→21:42)
[2019-06-24] MEDS: LISINOPRIL-HCTZ 20-25 MG 1 EACH TAB PO SCH (09:13)
[2019-06-24] MEDS: ENOXAPARIN 40 MG/0.4 ML SYRINGE SQ SCH (09:29)
[2019-06-24 11:06] LABS: Anisocytosis Slight; Basophils # (A) 0.1 k/uL (0-0.2); Basophils % (A) 0 %; Eosinophils # (A) 0.1 k/uL (0-0.7); Eosinophils % (A) 1 %; HCT 31.9 % (34.0-46.0); HGB 9.7 gm/dL (11.4-16.0); Hypochromasia Moderate; Lymphocytes # (A) 1.6 k/uL (1.0-4.8); Lymphocytes % (A) 9 %; MCH 30.1 pg (25.0-35.0); MCHC 30.6 g/dL (31.0-37.0); MCV 98.5 fL (80.0-100.0); Macrocytosis Slight; Mean Platelet Volume 7.4; Monocytes # (A) 0.5 k/uL (0-1.0); Monocytes % (A) 3 %; Neutrophils # (A) 14.9 k/uL (1.3-7.7); Neutrophils % (A) 86 %; Platelet Count 454 k/uL (150-450); RBC 3.24 m/uL (3.80-5.40); WBC 17.4 k/uL (3.8-10.6)
--- NOTE | 2019-06-24 11:52 | P.PN ---
Subjective On-call hospitalist covering for Dr. Marr starting on 06/23/2019. This is a pleasant 73 years old female with past medical history of CVA/TIA and she is paraplegic, hypertension. who presents because of severe sepsis secondary to pressure ulcer, patient started on Levophed up on admission and she was in the intensive care unit, however is improving with IV antibiotics and now she is off pressors. She is a status post debridement of her pressure ulcer by the surgical team. Also surgical team were recommended colostomy to however patient was declining. Previous primary and psychiatric team deemed the patient is capable of making her on medical decisions. However because of her persistent refusal for the recommended surgery, ethics committee were contacted for evaluation the patient. However as it was going this morning to see the patient, the bedside nurse told me the patient has already agreed for surgery and she signed a consent. When it went into the room the patient also confirmed to me she is agreeable to surgery and she has already consented for it. Patient denies chest pain or dyspnea. No abdominal pain. No nausea vomiting. Hemodynamically stable. leukocytosis of 13.4 k, hemoglobin 9.7, platelets 519, creatinine 0.98 electrolytes within normal limits. 06/24/2019 Patient is status post diverticular colostomy yesterday and today is postoperative day #1. Patient is fully awake and oriented with no chest pain or dyspnea. She returned breakfast this morning with no problems. Colostomy back is in place with 2 drops of blood in it. Patient has expected pain and tenderness of the surgery site. Patient is afebrile and blood pressure is 88/63. WBC is 17.4 K, hemoglobin 9.7,creatinine is 1.0. Repeat chest x-ray showing possible left lower lung opacity which is not a specific could be atelectasis versus infectious process. Patient is already on vancomycin and infectious disease team R following the case closely. Her Zosyn was recently discontinued. Objective - Vital Signs Vital signs: Vital Signs Temp 97.6 F 06/24/19 08:32 Pulse 84 06/24/19 08:32 Resp 16 06/24/19 08:32 BP 88/63 06/24/19 08:32 Pulse Ox 100 06/24/19 08:32 Intake & Output 06/23/19 06/24/19 06/24/19 18:59 06:59 18:59 Intake Total 400 230 Output Total 970 280 Balance -570 -50 Intake: IV 400 200 Oral 30 Output: Urine 950 280 Estimated Blood Loss 20 Other: Voiding Method Indwelling Catheter Indwelling Catheter Indwelling Catheter # Voids 150 # Bowel Movements 2 - Exam GENERAL: The patient is alert and oriented x3, not in any acute distress. Well developed, well nourished. HEENT: Pupils are round and equally reacting to light. EOMI. No scleral icterus. No conjunctival pallor. Normocephalic, atraumatic. No pharyngeal erythema. No thyromegaly. CARDIOVASCULAR: S1 and S2 present. No murmurs, rubs, or gallops. PULMONARY: Chest is clear to auscultation, no wheezing or crackles. ABDOMEN: Soft, nontender, nondistended, normoactive bowel sounds. No palpable organomegaly. -MUSCULOSKELETAL: No joint swelling or deformity. Sacral pressure ulcer, status post debridement. Dressing is in place EXTREMITIES: No cyanosis, clubbing, or pedal edema. NEUROLOGICAL: Gross neurological examination did not reveal any focal deficits. SKIN: No rashes. - Labs CBC & Chem 7: 06/24/19 10:20 06/24/19 07:25 Labs: Abnormal Lab Results - Last 24 Hours (Table) 06/24/19 Range/Units 10:20 WBC 17.4 H (3.8-10.6) k/uL RBC 3.24 L (3.80-5.40) m/uL Hgb 9.7 L (11.4-16.0) gm/dL Hct 31.9 L (34.0-46.0) % MCHC 30.6 L (31.0-37.0) g/dL RDW 17.0 H (11.5-15.5) % Plt Count 454 H (150-450) k/uL Neutrophils # 14.9 H (1.3-7.7) k/uL Microbiology - Last 24 Hours (Table) 06/15/19 16:52 Blood Culture Gram Stain - Final Blood Blood Culture - Final Bacteroides ovatus Carynebacterium accolens Anaerobic Gm Negative Bacilli Coagulase Negative Staph Assessment and Plan Assessment: -Severe sepsis secondary to sacral pressure ulcer. Status post septic shock. Status post surgical debridement on 06/21/2019. Status post diverticulum colostomy on 06/23/2019. -Lactic acidosis and acidemia, secondary to infection. resolved -Chronic anemia -Essential hypertension -Chronic paraplegia secondary to stroke -Obesity with BMI 37.4 -Medical debility Plan: This is a pleasant 73 years old female who was presented for severe sepsis secondary to pressure ulcer, status post debridement and direct and colostomy. Also patient is on antibiotics by ID team for her infection including pressure ulcers. Continue with antibiotics and IV fluids. Follow-up recommendation from the infectious disease and surgical team. Follow-up labs including WBC. Patient is a stable however she is at some risk for surgery. Labs and medication were reviewed.. Continue same treatment. Continue with symptomatic treatment. Resume home medication. Monitor lytes and vitals. DVT and GI prophylaxis. Further recommendations of the clinical course of the patient DVT prophylaxis: Subcutaneous Lovenox GI Prophylaxis: Pepcid Prognosis is guarded
--- NOTE | 2019-06-24 13:15 | P.PN ---
Subjective Progress Note Date: 06/24/19 CHIEF COMPLAINT: Sacral decubiti ulcer HISTORY OF PRESENT ILLNESS: The patient is a 73-year-old female postop day 1 status post diverting colostomy, 06/23/2019, for severe sacral decubiti ulcer, stage IV. No new complaints. She is on liquid diet and tolerating. ROS: No reports of nausea and vomiting. No bowel movements. No fevers or chills. No new chest pain. No productive sputum PHYSICAL EXAM: VITAL SIGNS: Reviewed CONSTITUTIONAL: Well developed and in no acute distress. EYES: Conjuctivae without sclera icterus. Extraocular movements grossly intact. HEAD, EARS, NOSE, THROAT: Moist buccal mucosa. Head is atraumatic, normocephalic. Hears conversational speech. No nasal drainage. NECK: Supple. No thyroidomegaly. RESPIRATORY: Non-labored respirations and equal bilateral excursions. CARDIOVASCULAR: Palpable 2+ radial pulses. Regular rate. Regular rhythm. ABDOMEN: Dressing clean dry and intact. Soft. No peritonitis. Ostomy pink without flatus or stool. MUSCULOSKELETAL: No clubbing. No cyanosis. SKIN: Good skin turgor. Well perfused. NEUROLOGIC: Cranial nerves I through XII grossly intact. No focal or lateralizing signs. PSYCH: Appropriate affect. Alert and oriented to person, place and time. CLINCAL LABS: White blood cell count 17,000. Hemoglobin 9.7. Platelet count over 500. ASSESSMENT: 1. Sacral decubiti ulcer, severe, chronic, stage IV 2. New ostomy status 3. Morbid obesity PLAN: 1. Continue diet 2. Leukocytosis is reactive will monitor Objective - Vital Signs Vital signs: Vital Signs Temp 97.6 F 06/24/19 08:32 Pulse 84 06/24/19 08:32 Resp 16 06/24/19 08:32 BP 88/63 06/24/19 08:32 Pulse Ox 100 06/24/19 08:32 Intake & Output 06/23/19 06/24/19 06/24/19 18:59 06:59 18:59 Intake Total 400 230 Output Total 970 280 Balance -570 -50 Intake: IV 400 200 Oral 30 Output: Urine 950 280 Estimated Blood Loss 20 Other: Voiding Method Indwelling Catheter Indwelling Catheter Indwelling Catheter # Voids 150 # Bowel Movements 2 - Labs CBC & Chem 7: 06/24/19 10:20 06/24/19 07:25 Labs: Abnormal Lab Results - Last 24 Hours (Table) 06/24/19 Range/Units 10:20 WBC 17.4 H (3.8-10.6) k/uL RBC 3.24 L (3.80-5.40) m/uL Hgb 9.7 L (11.4-16.0) gm/dL Hct 31.9 L (34.0-46.0) % MCHC 30.6 L (31.0-37.0) g/dL RDW 17.0 H (11.5-15.5) % Plt Count 454 H (150-450) k/uL Neutrophils # 14.9 H (1.3-7.7) k/uL Microbiology - Last 24 Hours (Table) 06/15/19 16:52 Blood Culture Gram Stain - Final Blood Blood Culture - Final Bacteroides ovatus Carynebacterium accolens Anaerobic Gm Negative Bacilli Coagulase Negative Staph Assessment and Plan (1) History of creation of ostomy Current Visit: Yes Status: Acute Code(s): Z93.9 - ARTIFICIAL OPENING STATUS, UNSPECIFIED SNOMED Code(s): 568048042 (2) BMI 37.0-37.9, adult Current Visit: Yes Status: Acute Code(s): Z68.37 - BODY MASS INDEX (BMI) 37.0-37.9, ADULT SNOMED Code(s): 433044250 (3) Decubitus ulcer Current Visit: Yes Status: Acute Code(s): L89.90 - PRESSURE ULCER OF UNSPECIFIED SITE, UNSPECIFIED STAGE SNOMED Code(s): 211843056 (4) Sepsis Current Visit: Yes Status: Acute Code(s): A41.9 - SEPSIS, UNSPECIFIED ORGANISM SNOMED Code(s): 07882527 (5) Morbid obesity Current Visit: No Status: Acute Code(s): E66.01 - MORBID (SEVERE) OBESITY DUE TO EXCESS CALORIES SNOMED Code(s): 641245710
[2019-06-24 13:29] VITALS: BMI 37.5
[2019-06-24] MEDS: SODIUM HYPOCHLORITE 0.25% 480 ML BOT MISCELLANE SCH ×2 (16:35→20:58)
[2019-06-24] MEDS ORDERED: FUROSEMIDE 10 MG/ML 4 ML VIAL IV STA (16:55)
[2019-06-25] MEDS: MORPHINE SULFATE 4 MG/ML SYRINGE IVP PRN ×2 (05:15→16:16)
[2019-06-25] MEDS ORDERED: VANCOMYCIN TROUGH DUE 1 EACH MISC MISCELLANE ONE (06:00)
[2019-06-25 07:11] LABS: Anisocytosis Slight; Basophils # (A) 0.1 k/uL (0-0.2); Basophils % (A) 0 %; Eosinophils # (A) 0.3 k/uL (0-0.7); Eosinophils % (A) 2 %; HCT 30.4 % (34.0-46.0); HGB 9.8 gm/dL (11.4-16.0); Hypochromasia Slight; Lymphocytes # (A) 0.9 k/uL (1.0-4.8); Lymphocytes % (A) 4 %; MCH 31.7 pg (25.0-35.0); MCHC 32.3 g/dL (31.0-37.0); MCV 98.4 fL (80.0-100.0); Macrocytosis Slight; Mean Platelet Volume 7.6; Monocytes # (A) 0.6 k/uL (0-1.0); Monocytes % (A) 3 %; Neutrophils # (A) 19.4 k/uL (1.3-7.7); Neutrophils % (A) 90 %; Platelet Count 379 k/uL (150-450); RBC 3.09 m/uL (3.80-5.40); WBC 21.5 k/uL (3.8-10.6)
[2019-06-25 07:18] LABS: Calcium 7.1 mg/dL (8.4-10.2); Potassium 3.5 mmol/L (3.5-5.1)
[2019-06-25] MEDS: METOPROLOL SUCCINATE (ER) 50 MG TAB.ER.24H PO SCH (08:50)
[2019-06-25] MEDS: FAMOTIDINE 20 MG TAB PO SCH (08:50)
[2019-06-25] MEDS: VANCOMYCIN 1,250 MG in SODIUM CHLORIDE 0.9% 250 ML IVPB SCH (08:50)
[2019-06-25] MEDS: hydrALAZINE HCL 50 MG TAB PO SCH ×3 (08:50→22:29)
[2019-06-25] MEDS: LISINOPRIL-HCTZ 20-25 MG 1 EACH TAB PO SCH (08:50)
[2019-06-25] MEDS: ENOXAPARIN 40 MG/0.4 ML SYRINGE SQ SCH (08:50)
[2019-06-25] MEDS: SODIUM HYPOCHLORITE 0.25% 480 ML BOT MISCELLANE SCH ×2 (08:51→19:57)
--- NOTE | 2019-06-25 11:01 | P.PN ---
Subjective On-call hospitalist covering for Dr. Marr starting on 06/23/2019. This is a pleasant 73 years old female with past medical history of CVA/TIA and she is paraplegic, hypertension. who presents because of severe sepsis secondary to pressure ulcer, patient started on Levophed up on admission and she was in the intensive care unit, however is improving with IV antibiotics and now she is off pressors. She is a status post debridement of her pressure ulcer by the surgical team. Also surgical team were recommended colostomy to however patient was declining. Previous primary and psychiatric team deemed the patient is capable of making her on medical decisions. However because of her persistent refusal for the recommended surgery, ethics committee were contacted for evaluation the patient. However as it was going this morning to see the patient, the bedside nurse told me the patient has already agreed for surgery and she signed a consent. When it went into the room the patient also confirmed to me she is agreeable to surgery and she has already consented for it. Patient denies chest pain or dyspnea. No abdominal pain. No nausea vomiting. Hemodynamically stable. leukocytosis of 13.4 k, hemoglobin 9.7, platelets 519, creatinine 0.98 electrolytes within normal limits. 06/24/2019 Patient is status post diverticular colostomy yesterday and today is postoperative day #1. Patient is fully awake and oriented with no chest pain or dyspnea. She returned breakfast this morning with no problems. Colostomy back is in place with 2 drops of blood in it. Patient has expected pain and tenderness of the surgery site. Patient is afebrile and blood pressure is 88/63. WBC is 17.4 K, hemoglobin 9.7,creatinine is 1.0. Repeat chest x-ray showing possible left lower lung opacity which is not a specific could be atelectasis versus infectious process. Patient is already on vancomycin and infectious disease team R following the case closely. Her Zosyn was recently discontinued. 06/25/2019 Patient is awake and alert, lying in bed comfortable no distress, she still noticed her breakfast this morning. No worsening abdominal pain or nausea vomiting. Her colostomy back is still empty. She has more swelling in her extremities. Patient is afebrile, mildly tachycardic. Blood pressure 123/84. No labored breathing and at 14-16 breaths per minute. She has worsening leukocytosis at 21.5K and kidney function with creatinine at 1.4. We'll discontinue the IV fluid and call nephrology consult. Patient is currently on vancomycin as per infectious disease team. We will ask infectious disease for follow-up today. Patient has Mon catheter which is draining clear urine. We aren't going to repeat urine analysis. Discussed with the staff Review of systems CONSTITUTIONAL: No fever, no malaise, no fatigue. HEENT: No recent visual problems or hearing problems. Denied any sore throat. CARDIOVASCULAR: No orthopnea, PND, no palpitations, no syncope. PULMONARY: No shortness of breath, no cough, no hemoptysis. GASTROINTESTINAL: No diarrhea, no nausea, no vomiting, Normoactive bowel sounds. NEUROLOGICAL: No headaches, no weakness, no numbness. HEMATOLOGICAL: Denies any bleeding or petechiae. GENITOURINARY: Denies any burning micturition, frequency, or urgency. MUSCULOSKELETAL/RHEUMATOLOGICAL: Denies any joint pain, swelling, or any muscle pain. ENDOCRINE: Denies any polyuria or polydipsia. Active Medications Generic Name Dose Route Start Last Admin Trade Name Freq PRN Reason Stop Dose Admin Acetaminophen 500 mg 06/21/19 19:41 06/22/19 17:31 Tylenol Tab PO 500 mg Q6HR PRN Administration Fever and/ or MILD Pain Enoxaparin Sodium 40 mg 06/19/19 18:30 06/25/19 08:50 Lovenox SQ 40 mg DAILY SHARMAINE Administration Famotidine 20 mg 06/25/19 09:00 06/25/19 08:50 Pepcid PO 20 mg DAILY SHARMAINE Administration Lisinopril/HCTZ 1 each 06/21/19 09:00 06/25/19 08:50 Zestoretic 20-25 PO 1 each DAILY SHARMAINE Administration Hydralazine HCl 50 mg 06/21/19 09:00 06/25/19 08:50 Apresoline PO 50 mg TID SHARMAINE Administration Vancomycin HCl 1,250 mg/ 250 mls @ 125 mls/hr 06/22/19 07:00 06/25/19 08:50 Sodium Chloride IVPB 125 mls/hr Q24H SHARMAINE Administration Metoprolol Succinate 50 mg 06/21/19 09:00 06/25/19 08:50 Toprol Xl PO 50 mg DAILY SHARMAINE Administration Miscellaneous Information 1 each 06/16/19 08:03 Potassium Per Protocol MISCELLANE DAILY PRN Per Protocol Protocol Morphine Sulfate 4 mg 06/23/19 18:16 06/25/19 05:15 Morphine Sulfate (Inj) IVP 4 mg Q4HR PRN Administration SEVERE Pain Sodium Hypochlorite 50 ml 06/17/19 00:00 06/25/19 08:51 Dakin's 0.25% (Half Strength) MISCELLANE 50 ml BID SHARMAINE Administration Objective - Vital Signs Vital signs: Vital Signs Temp 98.0 F 06/25/19 08:26 Pulse 108 H 06/25/19 08:26 Resp 16 06/25/19 08:26 BP 123/84 06/25/19 08:26 Pulse Ox 92 L 06/25/19 08:26 Intake & Output 06/24/19 06/25/19 06/25/19 18:59 06:59 18:59 Intake Total 250 825 240 Output Total 200 Balance 250 625 240 Weight 87.09 kg Intake: Intake, IV Titration 250 825 Amount Lactated Ringers 1,000 ml 75 @ 0 mls/hr IV .[facility] Rx#:[id number] Lactated Ringers 1,000 ml 750 @ 75 mls/hr IV .[id number] [facility] Rx#:[id number] Vancomycin 1,250 mg In 250 Sodium Chloride 0.9% 250 ml @ 125 mls/hr IVPB Q24H [facility] Rx#:[id number] Oral 240 Output: Urine 200 Other: Voiding Method Indwelling Catheter Indwelling Catheter - Exam GENERAL: The patient is alert and oriented x3, not in any acute distress. Well developed, well nourished. HEENT: Pupils are round and equally reacting to light. EOMI. No scleral icterus. No conjunctival pallor. Normocephalic, atraumatic. No pharyngeal erythema. No thyromegaly. CARDIOVASCULAR: S1 and S2 present. No murmurs, rubs, or gallops. PULMONARY: Chest is clear to auscultation, no wheezing or crackles. ABDOMEN: Soft, nontender, nondistended, normoactive bowel sounds. No palpable organomegaly. -MUSCULOSKELETAL: No joint swelling or deformity. Sacral pressure ulcer, status post debridement. Dressing is in place EXTREMITIES: No cyanosis, clubbing, worsening swelling of extremities including hands NEUROLOGICAL: Gross neurological examination did not reveal any focal deficits. SKIN: No rashes. - Labs CBC & Chem 7: 06/25/19 06:44 06/25/19 06:44 Labs: Abnormal Lab Results - Last 24 Hours (Table) 06/24/19 06/25/19 06/25/19 Range/Units 10:20 06:44 06:44 WBC 17.4 H 21.5 H (3.8-10.6) k/uL RBC 3.24 L 3.09 L (3.80-5.40) m/uL Hgb 9.7 L 9.8 L (11.4-16.0) gm/dL Hct 31.9 L 30.4 L (34.0-46.0) % MCHC 30.6 L (31.0-37.0) g/dL RDW 17.0 H 18.0 H (11.5-15.5) % Plt Count 454 H (150-450) k/uL Neutrophils # 14.9 H 19.4 H (1.3-7.7) k/uL Lymphocytes # 0.9 L (1.0-4.8) k/uL Chloride 108 H (98-107) mmol/L Creatinine 1.47 H (0.52-1.04) mg/dL Glucose 68 L (74-99) mg/dL Calcium 7.1 L (8.4-10.2) mg/dL Assessment and Plan Assessment: -Severe sepsis secondary to sacral pressure ulcer. Status post septic shock. Status post surgical debridement on 06/21/2019. Status post diverticulum colostomy on 06/23/2019. -Acute kidney injury with worsening edema -Worsening leukocytosis -Lactic acidosis and acidemia, secondary to infection. resolved -Chronic anemia -Essential hypertension -Chronic paraplegia secondary to stroke -Obesity with BMI 37.4 -Medical debility Plan: This is a pleasant 73 years old female who was presented for severe sepsis secondary to pressure ulcer, status post debridement and direct and colostomy. Also patient is on antibiotics by ID team for her infection including pressure ulcers. Continue with antibiotics. Discontinue IV fluids. Follow-up recommendation from the infectious disease and surgical team. Follow-up labs including WBC and creatinine. Call nephrology consult. Check urine analysis Labs and medication were reviewed.. Continue same treatment. Continue with symptomatic treatment. Resume home medication. Monitor lytes and vitals. DVT and GI prophylaxis. Further recommendations of the clinical course of the patient DVT prophylaxis: Subcutaneous Lovenox GI Prophylaxis: Pepcid Prognosis is guarded Discussed with the staff at bedside nurse
--- NOTE | 2019-06-25 13:04 | P.PN ---
Subjective Progress Note Date: 06/25/19 CHIEF COMPLAINT: Sacral decubiti ulcer HISTORY OF PRESENT ILLNESS: The patient is a 73-year-old female postop day 2 status post diverting colostomy, 06/23/2019, for severe sacral decubiti ulcer, stage IV. No new complaints. She is on liquid diet and tolerating. No reports of pain. No flatus from her ostomy. She reports that she does not walk. ROS: No reports of nausea and vomiting. No bowel movements. No fevers or chills. No new chest pain. No productive sputum PHYSICAL EXAM: VITAL SIGNS: Reviewed CONSTITUTIONAL: Well developed and in no acute distress. EYES: Conjuctivae without sclera icterus. Extraocular movements grossly intact. HEAD, EARS, NOSE, THROAT: Moist buccal mucosa. Head is atraumatic, normocephalic. Hears conversational speech. No nasal drainage. NECK: Supple. No thyroidomegaly. RESPIRATORY: Non-labored respirations and equal bilateral excursions. CARDIOVASCULAR: Palpable 2+ radial pulses. Regular rate. Regular rhythm. ABDOMEN: Dressing clean dry and intact. Soft. No peritonitis. Ostomy pink without flatus or stool. MUSCULOSKELETAL: No clubbing. No cyanosis. SKIN: Good skin turgor. Well perfused. NEUROLOGIC: Cranial nerves I through XII grossly intact. No focal or lateralizing signs. PSYCH: Appropriate affect. Alert and oriented to person, place and time. CLINCAL LABS: White blood cell count 17,000 elevated to 21,000. Hemoglobin stab le at 9.8. Platelet count down from over 500 to 379. ASSESSMENT: 1. Sacral decubiti ulcer, severe, chronic, stage IV 2. New ostomy status 3. Morbid obesity 4. Leukocytosis PLAN: 1. Will need adjustment of antibiotics 2. Await function of ostomy Objective - Vital Signs Vital signs: Vital Signs Temp 98.0 F 06/25/19 08:26 Pulse 108 H 06/25/19 08:26 Resp 16 06/25/19 08:26 BP 123/84 06/25/19 08:26 Pulse Ox 92 L 06/25/19 08:26 Intake & Output 06/24/19 06/25/19 06/25/19 18:59 06:59 18:59 Intake Total 250 825 240 Output Total 200 Balance 250 625 240 Weight 87.09 kg Intake: Intake, IV Titration 250 825 Amount Lactated Ringers 1,000 ml 75 @ 0 mls/hr IV .[facility] Rx#:[id number] Lactated Ringers 1,000 ml 750 @ 75 mls/hr IV .[id number] [facility] Rx#:[id number] Vancomycin 1,250 mg In 250 Sodium Chloride 0.9% 250 ml @ 125 mls/hr IVPB Q24H [facility] Rx#:[id number] Oral 240 Output: Urine 200 Other: Voiding Method Indwelling Catheter Indwelling Catheter - Labs CBC & Chem 7: 06/25/19 06:44 06/25/19 06:44 Labs: Abnormal Lab Results - Last 24 Hours (Table) 06/24/19 06/25/19 06/25/19 Range/Units 10:20 06:44 06:44 WBC 17.4 H 21.5 H (3.8-10.6) k/uL RBC 3.24 L 3.09 L (3.80-5.40) m/uL Hgb 9.7 L 9.8 L (11.4-16.0) gm/dL Hct 31.9 L 30.4 L (34.0-46.0) % MCHC 30.6 L (31.0-37.0) g/dL RDW 17.0 H 18.0 H (11.5-15.5) % Plt Count 454 H (150-450) k/uL Neutrophils # 14.9 H 19.4 H (1.3-7.7) k/uL Lymphocytes # 0.9 L (1.0-4.8) k/uL Chloride 108 H (98-107) mmol/L Creatinine 1.47 H (0.52-1.04) mg/dL Glucose 68 L (74-99) mg/dL Calcium 7.1 L (8.4-10.2) mg/dL Assessment and Plan (1) History of creation of ostomy Current Visit: Yes Status: Acute Code(s): Z93.9 - ARTIFICIAL OPENING STATUS, UNSPECIFIED SNOMED Code(s): 646979088 (2) BMI 37.0-37.9, adult Current Visit: Yes Status: Acute Code(s): Z68.37 - BODY MASS INDEX (BMI) 37.0-37.9, ADULT SNOMED Code(s): 037761129 (3) Decubitus ulcer Current Visit: Yes Status: Acute Code(s): L89.90 - PRESSURE ULCER OF UNSPECIFIED SITE, UNSPECIFIED STAGE SNOMED Code(s): 313833423 (4) Sepsis Current Visit: Yes Status: Acute Code(s): A41.9 - SEPSIS, UNSPECIFIED ORGANISM SNOMED Code(s): 22239556 (5) Morbid obesity Current Visit: No Status: Acute Code(s): E66.01 - MORBID (SEVERE) OBESITY DUE TO EXCESS CALORIES SNOMED Code(s): 933392567
--- NOTE | 2019-06-25 13:05 | P.NPCON ---
History of Present Illness - Reason for Consult Consult date: 06/25/19 acute renal failure - Chief Complaint Acute kidney injury - History of Present Illness This is 73-year-old female seen in consultation because of acute kidney injury She is admitted on 06/16/2019 because of worsening sacral decub. She then admitted to ICU. She underwent debridement on 06/21/2019 and subsequent diverting colostomy on 06/23/2019. Her creatinine was 0.98 as of 06/23/2019 and the next creatinine available is 1.03 on 06/24/2019 , and to 1.47 on 06/25/2019 and a Vanco level is reported at 27 dated 06/28/2019 and on 06/20/2019 is 24.5. Blood pressures have sometimes been somewhat low occasionally 80s to 90s. Urine output is 1250 before yesterday but only 200 mL have been documented for the last 24 hours Patient denies any nausea vomiting. No fever chills no cough no abdominal pain. No dysuria frequency. She has a colostomy bag. No shortness of breath or chest pain Past Medical History Past Medical History: CVA/TIA, Hypertension Additional Past Medical History / Comment(s): paraplegic History of Any Multi-Drug Resistant Organisms: None Reported Past Surgical History: No Surgical Hx Reported Past Anesthesia/Blood Transfusion Reactions: No Reported Reaction Past Psychological History: No Psychological Hx Reported Smoking Status: Never smoker Past Alcohol Use History: None Reported Additional Past Alcohol Use History / Comment(s): Patient is a lifelong nonsmoker. She denies any marijuana, street drug use or alcohol use. She lives at home and her 3 grandchildren live with her and assist her. She does have a caregiver that comes to the home 3 times per day through counseling on aging. Past Drug Use History: None Reported - Past Family History Mother Family Medical History: Hypertension Medications and Allergies Home Medications Medication Instructions Recorded Confirmed Type Aspirin EC [Ecotrin] 325 mg PO DAILY 05/26/16 06/15/19 History Lisinopril-Hctz 20-25 mg 1 tab PO DAILY 06/15/19 06/15/19 History [Zestoretic 20-25] Loperamide HCl [Loperamide] 2 mg PO BID PRN 06/15/19 06/15/19 History Metoprolol Succinate (ER) [Toprol 50 mg PO DAILY 06/15/19 06/15/19 History Xl] hydrALAZINE HCL [Apresoline] 50 mg PO TID 06/15/19 06/15/19 History Allergies Allergy/AdvReac Type Severity Reaction Status Date / Time No Known Allergies Allergy Verified 06/15/19 16:38 Physical Exam Vitals: Vital Signs Temp Pulse Resp BP Pulse Ox 06/25/19 08:26 98.0 F 108 H 16 123/84 92 L 06/25/19 08:00 108 H 16 06/25/19 00:34 96.0 F L 106 H 14 100/74 96 06/24/19 21:38 103 H 117/84 06/24/19 19:34 97.6 F 94 16 120/78 96 06/24/19 15:58 98.7 F 84 12 146/79 98 Intake and Output 06/24/19 06/25/19 06/25/19 22:59 06:59 14:59 Intake Total 75 750 240 Output Total 200 Balance 75 550 240 Intake: Intake, IV Titration 75 750 Amount Lactated Ringers 1,000 ml 75 @ 0 mls/hr IV .[facility] Rx#:[id number] Lactated Ringers 1,000 ml 750 @ 75 mls/hr IV .[id number] Rx#:[id number] Oral 240 Output: Urine 200 Other: Voiding Method Indwelling Catheter Indwelling Catheter On examination she is a morbidly obese female. HEENT exam no JVP neck is supple no facial asymmetry Lungs are clear to auscultation good air entry bilaterally Heart sounds are unremarkable for any murmur rub gallop Abdomen soft nontender somewhat obese protuberant She has a colostomy bag Extreme exam reveals moderate edema especially of the arms. Neurologically awake alert oriented. Results - Lab Results Most recent lab results Calcium 7.1 mg/dL (8.4-10.2) L 06/25/19 06:44 Magnesium 1.3 mg/dL (1.6-2.3) L 06/15/19 16:52 06/25/19 06:44 06/25/19 06:44 Assessment and Plan Assessment: Impression 1. Acute kidney injury likely from vancomycin, also lisinopril was introduced on 06/21/2019 that might have added to the decrease in GFR. 2. Status post sacral decubitus debridement 06/21/2019 and 3. Status post diverting colostomy 06/23/2019 4. History of previous paraplegia 5. Anemia of chronic illness hemoglobin is 9.8 Recommendation 1. Check urinalysis to rule out any acute interstitial nephritis 2. Check for any hydronephrosis or bladder distention. 3. Discontinue any nephrotoxic medication including vancomycin and treated with Ultravate. Non-nephrotoxic antibiotics. 4. Avoid any dye studies for right now. 5. We will continue to follow with you. 6. I would use Lasix only if absolutely necessary until the creatinine is improving
[2019-06-25] MEDS: LACTATED RINGERS 1,000 ML IV SCH (21:18)
[2019-06-26] MEDS ORDERED: VANCOMYCIN TROUGH DUE 1 EACH MISC MISCELLANE ONE (06:00)
[2019-06-26 06:47] LABS: Anisocytosis Slight; Basophils % (A) 0 %; Eosinophils # (A) 0.2 k/uL (0-0.7); Eosinophils % (A) 1 %; HGB 9.3 gm/dL (11.4-16.0); Hypochromasia Slight; Lymphocytes % (A) 6 %; MCH 31.2 pg (25.0-35.0); MCHC 31.9 g/dL (31.0-37.0); Macrocytosis Slight; Mean Platelet Volume 7.5; Monocytes # (A) 0.3 k/uL (0-1.0); Monocytes % (A) 2 %; Neutrophils # (A) 15.1 k/uL (1.3-7.7); Neutrophils % (A) 90 %; Platelet Count 287 k/uL (150-450); RBC 2.96 m/uL (3.80-5.40); RDW 17.9 % (11.5-15.5); WBC 16.9 k/uL (3.8-10.6)
[2019-06-26 06:55] LABS: Calcium 6.9 mg/dL (8.4-10.2); Potassium 3.5 mmol/L (3.5-5.1)
[2019-06-26] MEDS ORDERED: VANCOMYCIN IV PER PHARMACY 1 EACH MISC MISCELLANE PRN (07:20)
[2019-06-26] MEDS: ENOXAPARIN 30 MG/0.3 ML SYRINGE SQ SCH (08:25)
[2019-06-26] MEDS: FAMOTIDINE 20 MG TAB PO SCH (08:25)
[2019-06-26] MEDS: SODIUM HYPOCHLORITE 0.25% 480 ML BOT MISCELLANE SCH ×2 (08:28→22:21)
[2019-06-26] MEDS: hydrALAZINE HCL 50 MG TAB PO SCH ×3 (08:28→22:21)
--- NOTE | 2019-06-26 08:42 | US ---
EXAMINATION TYPE: US renals and bladder DATE OF EXAM: 06/26/2019 COMPARISON: CT abdomen and pelvis June 15, 2019 CLINICAL HISTORY: [place]. [place] EXAM MEASUREMENTS: Right Kidney: 9.4 x 5.3 x 4.6 cm Left Kidney: 12.9 x 5.0 x 3.9 cm Exam limitations patient unable to roll. Right Kidney: No hydronephrosis or masses seen Left Kidney: No hydronephrosis or masses seen Bladder: Catheter in. Bilateral Jets seen: No Suboptimal study due to body habitus and limited mobility. No gross hydronephrosis. No concerning amando al masses are seen on images saved. Mon catheter is in place making bladder evaluation suboptimal IMPRESSION: Suboptimal study without hydronephrosis seen bilaterally
[2019-06-26] MEDS ORDERED: METOPROLOL SUCCINATE (ER) 25 MG TAB.ER.24H PO SCH (09:00)
--- NOTE | 2019-06-26 10:06 | P.PN ---
Subjective On-call hospitalist covering for Dr. Marr starting on 06/23/2019. This is a pleasant 73 years old female with past medical history of CVA/TIA and she is paraplegic, hypertension. who presents because of severe sepsis secondary to pressure ulcer, patient started on Levophed up on admission and she was in the intensive care unit, however is improving with IV antibiotics and now she is off pressors. She is a status post debridement of her pressure ulcer by the surgical team. Also surgical team were recommended colostomy to however patient was declining. Previous primary and psychiatric team deemed the patient is capable of making her on medical decisions. However because of her persistent refusal for the recommended surgery, ethics committee were contacted for evaluation the patient. However as it was going this morning to see the patient, the bedside nurse told me the patient has already agreed for surgery and she signed a consent. When it went into the room the patient also confirmed to me she is agreeable to surgery and she has already consented for it. Patient denies chest pain or dyspnea. No abdominal pain. No nausea vomiting. Hemodynamically stable. leukocytosis of 13.4 k, hemoglobin 9.7, platelets 519, creatinine 0.98 electrolytes within normal limits. 06/24/2019 Patient is status post diverticular colostomy yesterday and today is postoperative day #1. Patient is fully awake and oriented with no chest pain or dyspnea. She returned breakfast this morning with no problems. Colostomy back is in place with 2 drops of blood in it. Patient has expected pain and tenderness of the surgery site. Patient is afebrile and blood pressure is 88/63. WBC is 17.4 K, hemoglobin 9.7,creatinine is 1.0. Repeat chest x-ray showing possible left lower lung opacity which is not a specific could be atelectasis versus infectious process. Patient is already on vancomycin and infectious disease team R following the case closely. Her Zosyn was recently discontinued. 06/25/2019 Patient is awake and alert, lying in bed comfortable no distress, she still noticed her breakfast this morning. No worsening abdominal pain or nausea vomiting. Her colostomy back is still empty. She has more swelling in her extremities. Patient is afebrile, mildly tachycardic. Blood pressure 123/84. No labored breathing and at 14-16 breaths per minute. She has worsening leukocytosis at 21.5K and kidney function with creatinine at 1.4. We'll discontinue the IV fluid and call nephrology consult. Patient is currently on vancomycin as per infectious disease team. We will ask infectious disease for follow-up today. Patient has Mon catheter which is draining clear urine. We aren't going to repeat urine analysis. Discussed with the staff 06/26/2019 Patient is gradually improving. She is awake and alert. She is tolerating diet well with no nausea vomiting or abdominal pain. She has this appetite. Her colostomy bag is working. Her swelling in her upper extremities is improving gradually. No fever and hemodynamically stable. Creatinine went up today to 1.9, WBC is coming down to 16.9 K, hemoglobin 9.3, lisinopril and vancomycin on hold. Vancomycin trough is 38.0. Infectious disease R following the patient for antibiotics. Carpenter Supervisor input is appreciated. Patient of IV fluids since yesterday morning. Metoprolol 25 mg daily was restarted by nephrology team, however her blood pressure was 96/23 yesterday, while this morning 117/80. We going to hold her metoprolol and follow-up blood pressure Objective - Vital Signs Vital signs: Vital Signs Temp 98.0 F 06/26/19 00:20 Pulse 99 06/26/19 00:20 Resp 16 06/26/19 05:20 BP 117/80 06/26/19 00:20 Pulse Ox 95 06/26/19 00:20 Intake & Output 06/25/19 06/26/19 06/26/19 18:59 06:59 18:59 Intake Total 1245 450 Output Total 150 725 Balance 1095 -275 Intake: IV 525 450 Lactated Ringers 1,000 ml 525 450 @ 75 mls/hr IV .[id number] [facility] Rx#:[id number] Oral 720 Output: Urine 150 725 Uretheral (Mon) 450 Other: Voiding Method Indwelling Catheter Indwelling Catheter - Exam GENERAL: The patient is alert and oriented x3, not in any acute distress. Well d eveloped, well nourished. HEENT: Pupils are round and equally reacting to light. EOMI. No scleral icterus. No conjunctival pallor. Normocephalic, atraumatic. No pharyngeal erythema. No thyromegaly. CARDIOVASCULAR: S1 and S2 present. No murmurs, rubs, or gallops. PULMONARY: Chest is clear to auscultation, no wheezing or crackles. ABDOMEN: Soft, nontender, nondistended, normoactive bowel sounds. No palpable organomegaly. -MUSCULOSKELETAL: No joint swelling or deformity. Sacral pressure ulcer, status post debridement. Dressing is in place EXTREMITIES: No cyanosis, clubbing, worsening swelling of extremities including hands NEUROLOGICAL: Gross neurological examination did not reveal any focal deficits. SKIN: No rashes. - Labs CBC & Chem 7: 06/26/19 06:30 06/26/19 06:30 Labs: Abnormal Lab Results - Last 24 Hours (Table) 06/26/19 06/26/19 06/26/19 Range/Units 06:30 06:30 06:30 WBC 16.9 H (3.8-10.6) k/uL RBC 2.96 L (3.80-5.40) m/uL Hgb 9.3 L (11.4-16.0) gm/dL Hct 29.0 L (34.0-46.0) % RDW 17.9 H (11.5-15.5) % Neutrophils # 15.1 H (1.3-7.7) k/uL Chloride 109 H (98-107) mmol/L Carbon Dioxide 21 L (22-30) mmol/L Creatinine 1.90 H (0.52-1.04) mg/dL Glucose 59 L (74-99) mg/dL Calcium 6.9 L (8.4-10.2) mg/dL Vancomycin Trough 38.0 H* ug/mL Assessment and Plan Assessment: -Severe sepsis secondary to sacral pressure ulcer. Status post septic shock. Status post surgical debridement on 06/21/2019. Status post diverting colostomy on 06/23/2019. Improving -Acute kidney injury with worsening edema -Worsening leukocytosis, improving -Lactic acidosis and acidemia, secondary to infection. resolved -Chronic anemia -Essential hypertension -Chronic paraplegia secondary to stroke -Obesity with BMI 37.4 -Medical debility Plan: This is a pleasant 73 years old female who was presented for severe sepsis secondary to pressure ulcer, status post debridement and direct and colostomy. Keep holding vancomycin and follow-up ID team recommendation. nephrology consult is appreciated. Hold lisinopril. Hold metoprolol for better blood pressure control. Check urine analysis which is pending Labs and medication were reviewed.. Continue same treatment. Continue with symptomatic treatment. Resume home medication. Monitor lytes and vitals. DVT and GI prophylaxis. Further recommendations of the clinical course of the patient DVT prophylaxis: Subcutaneous Lovenox GI Prophylaxis: Pepcid Prognosis is guarded Discussed with the staff at bedside nurse
--- NOTE | 2019-06-26 11:52 | P.PN ---
Subjective Progress Note Date: 06/26/19 CHIEF COMPLAINT: Decubitus ulcer HISTORY OF PRESENT ILLNESS: Patient is status post debridement of stage IV sacral decubitus ulcer and also status post diverting colostomy. Patient examined at the bedside. She reports her pain is tolerable. She is tolerating full liquid diet. Ostomy with gas and serosanguineous drainage but no stool output. PHYSICAL EXAM: VITAL SIGNS: Reviewed. GENERAL: Well-developed in no acute distress. HEENT: No sclera icterus. Extraocular movements grossly intact. Moist buccal mucosa. Head is atraumatic, normocephalic. ABDOMEN: Soft. Nondistended. Nontender. Ostomy to left lower quadrant. NEUROLOGIC: Alert and oriented. Cranial nerves II through XII grossly intact. SKIN: Large sacral decubitus ulcer ASSESSMENT: 1. Stage IV sacral decubitus ulcer, status post debridement 2. S/P Diverting colostomy PLAN: 1. Continue local wound care and antibiotics per infectious disease 2. Continue full liquid diet. When ostomy has stool noted, may advance diet 3. Further recommendations pending patient course Nurse practitioner note has been reviewed by physician. Signing provider agrees with the documented findings, assessment, and plan of care. Objective - Vital Signs Vital signs: Vital Signs Temp 98.0 F 06/26/19 00:20 Pulse 99 06/26/19 00:20 Resp 16 06/26/19 05:20 BP 117/80 06/26/19 00:20 Pulse Ox 95 06/26/19 00:20 Intake & Output 06/25/19 06/26/19 06/26/19 18:59 06:59 18:59 Intake Total 1245 450 Output Total 150 725 Balance 1095 -275 Intake: IV 525 450 Lactated Ringers 1,000 ml 525 450 @ 75 mls/hr IV .[id number] [facility] Rx#:[id number] Oral 720 Output: Urine 150 725 Uretheral (Mon) 450 Other: Voiding Method Indwelling Catheter Indwelling Catheter Indwelling Catheter - Labs CBC & Chem 7: 06/26/19 06:30 06/26/19 06:30 Labs: Abnormal Lab Results - Last 24 Hours (Table) 06/26/19 06/26/19 06/26/19 Range/Units 06:30 06:30 06:30 WBC 16.9 H (3.8-10.6) k/uL RBC 2.96 L (3.80-5.40) m/uL Hgb 9.3 L (11.4-16.0) gm/dL Hct 29.0 L (34.0-46.0) % RDW 17.9 H (11.5-15.5) % Neutrophils # 15.1 H (1.3-7.7) k/uL Chloride 109 H (98-107) mmol/L Carbon Dioxide 21 L (22-30) mmol/L Creatinine 1.90 H (0.52-1.04) mg/dL Glucose 59 L (74-99) mg/dL Calcium 6.9 L (8.4-10.2) mg/dL Vancomycin Trough 38.0 H* ug/mL
[2019-06-26 12:14] LABS: Appearance,Urine Cloudy (Clear); Bacteria,Urine Occasional /hpf; Bilirubin,Urine Negative (Negative); Blood,Urine Small (Negative); Budding Yeast,Urine Many /hpf; Color,Urine Light Yellow; Glucose,Urine (UA) Negative (Negative); Hyaline Casts,Urine 4 /lpf (0-2); Hyphae Yeast, Urine Moderate /hpf; Ketones,Urine Negative (Negative); Leukocyte Esterase,Urine Large (Negative); Mucus,Urine Rare /hpf; Nitrite,Urine Negative (Negative); Protein,Urine 1+ (Negative); RBC,Urine 43 /hpf (0-5); Specific Gravity,Urine 1.009 (1.001-1.035); Squamous Epithelial Cell,Urine 1 /hpf (0-4); Urobilinogen,Urine <2.0 mg/dL (<2.0); WBC,Urine 124 /hpf (0-5)
--- NOTE | 2019-06-26 13:07 | P.PN ---
Subjective Patient is seen in follow-up for acute kidney injury. Baseline creatinine is 1 and is up to 1.9 today. Etiology is vancomycin toxicity. Oral intake is fair. She is nonoliguric. No vomiting or diarrhea. Vital signs are stable. General: The patient appeared well nourished and normally developed. HEENT: Head exam is unremarkable. Neck is without jugular venous distension. LUNGS: Lungs are clear to auscultation and percussion. Breath sounds decreased. HEART: Rate and Rhythm are regular. First and second heart sounds normal. No murmurs, rubs or gallops. ABDOMEN: Abdominal exam reveals normal bowel sounds. Non-tender and non- distended. No evidence of peritonitis. EXTREMITITES: Trace edema. Objective - Vital Signs Vital signs: Vital Signs Temp 98.0 F 06/26/19 00:20 Pulse 99 06/26/19 00:20 Resp 16 06/26/19 05:20 BP 117/80 06/26/19 00:20 Pulse Ox 95 06/26/19 00:20 Intake & Output 06/25/19 06/26/19 06/26/19 18:59 06:59 18:59 Intake Total 1245 450 Output Total 150 725 Balance 1095 -275 Intake: IV 525 450 Lactated Ringers 1,000 ml 525 450 @ 75 mls/hr IV .[id number] [facility] Rx#:[id number] Oral 720 Output: Urine 150 725 Uretheral (Mon) 450 Other: Voiding Method Indwelling Catheter Indwelling Catheter Indwelling Catheter - Labs CBC & Chem 7: 06/26/19 06:30 06/26/19 06:30 Labs: Abnormal Lab Results - Last 24 Hours (Table) 06/26/19 06/26/19 06/26/19 Range/Units 06:30 06:30 06:30 WBC 16.9 H (3.8-10.6) k/uL RBC 2.96 L (3.80-5.40) m/uL Hgb 9.3 L (11.4-16.0) gm/dL Hct 29.0 L (34.0-46.0) % RDW 17.9 H (11.5-15.5) % Neutrophils # 15.1 H (1.3-7.7) k/uL Chloride 109 H (98-107) mmol/L Carbon Dioxide 21 L (22-30) mmol/L Creatinine 1.90 H (0.52-1.04) mg/dL Glucose 59 L (74-99) mg/dL Calcium 6.9 L (8.4-10.2) mg/dL Urine Appearance (Clear) Urine Protein (Negative) Urine Blood (Negative) Ur Leukocyte Esterase (Negative) Urine RBC (0-5) /hpf Urine WBC (0-5) /hpf Urine WBC Clumps (None) /hpf Urine Bacteria (None) /hpf Hyaline Casts (0-2) /lpf Urine Mucus (None) /hpf Urine Yeast (Budding) (None) /hpf Vancomycin Trough 38.0 H* ug/mL 06/26/19 Range/Units 07:56 WBC (3.8-10.6) k/uL RBC (3.80-5.40) m/uL Hgb (11.4-16.0) gm/dL Hct (34.0-46.0) % RDW (11.5-15.5) % Neutrophils # (1.3-7.7) k/uL Chloride (98-107) mmol/L Carbon Dioxide (22-30) mmol/L Creatinine (0.52-1.04) mg/dL Glucose (74-99) mg/dL Calcium (8.4-10.2) mg/dL Urine Appearance Cloudy H (Clear) Urine Protein 1+ H (Negative) Urine Blood Small H (Negative) Ur Leukocyte Esterase Large H (Negative) Urine RBC 43 H (0-5) /hpf Urine WBC 124 H (0-5) /hpf Urine WBC Clumps Occasional H (None) /hpf Urine Bacteria Occasional H (None) /hpf Hyaline Casts 4 H (0-2) /lpf Urine Mucus Rare H (None) /hpf Urine Yeast (Budding) Many H (None) /hpf Vancomycin Trough ug/mL Assessment and Plan Plan: Assessment: 1. Acute kidney injury secondary to vancomycin toxicity. Baseline creatinine is 1 and is up to 1.9 today. No evidence of hydronephrosis and kidney ultrasound. 2. Decubitus ulcer status post debridement this admission. 3. Status post diverting colostomy on June 23. 4. Metabolic acidosis secondary to acute kidney injury. 5. E. coli UTI. 6. Bacteroides ovatus and carynebacterium accolens bacteremia. Maintain on IV antibiotics. Plan: Hold vancomycin. Monitor levels closely. Dose to be adjusted for renal function. Encourage oral intake. Avoid nephrotoxins. Repeat electrolytes in the morning. Continue to monitor renal function and urine output.
--- NOTE | 2019-06-26 22:41 | P.PN ---
Subjective Progress Note Date: 06/26/19 This is a 73-year-old female who is currently living at home alone. She has history of CVA and has been bedbound for the past 3 years. Patient presented with stage IV decubitus ulcers to the sacrum,, coccyx, bilateral buttocks and posterior thighs with extensive necrosis. Unclear how long this has been going on. Patient presented with fever, tachycardia, hypotension, leukocytosis of 18.6, lactic acid 3.8. BUN 61 and creatinine 1.38. Sed rate 58, CRP 323.CAT scan of the abdomen and pelvis without contrast revealed large area of soft tissue air bubbles in the posterior sacral and buttocks region consistent with cellulitis and he was ulcers. No drainable abscess. No focal bone destruction. Patient was admitted into the intensive care unit. She is status post 20 of liters of IV fluid. Norepinephrine was discontinued at 8 AM this morning. Patient is currently hemodynamically stable. Dr. Osborne is on consult as well as Dr. Grimes with tentative plan for debridement of the d ecubitus ulcers. Blood cultures status received. Patient is currently on vancomycin. Patient is unaware of her last tetanus immunization. 06/19/2019 the patient is now agreeable to surgical intervention. It appears she understands the significance of her situation. We did relate that she has an extensive infection that is understandable terms of aerobic anaerobic and necrotizing resulting in bacteremia and sepsis. Without surgical debridement I would not expect her to survive. 06/20/2019 the patient was to go to the operating room today however the surgical schedule would not allow it. With the nursing team the necrotic ulcerations or cleansed with a Dakin solution and the ulcerations are packed and dressings are put into place. She did have an extensive bowel movement. Was not malodorous such as C. diff. No evidence of any significant blood in the stool. She remains very anxious about the overall situation. Seems to have great distust to the overall medical system. 06/23/2019 patient the operating room today for the diverting colostomy. Ethics committee meeting did happen earlier in the day. 06/26/2019 the patient has had the diverting colostomy. There is to be some function and she is now given some full liquids. Appetite was poor. Mood is less withdrawn and she does seem to be comfortable. In discussing with going to happen next seems to have very poor understanding of the next process. Objective - Vital Signs Vital signs: Vital Signs Temp 98.0 F 06/26/19 21:10 Pulse 66 06/26/19 21:10 Resp 18 06/26/19 21:10 BP 115/69 06/26/19 21:10 Pulse Ox 93 L 06/26/19 21:10 Intake & Output 06/26/19 06/26/19 06/27/19 06:59 18:59 06:59 Intake Total 450 Output Total 725 100 Balance -275 -100 Intake: IV 450 Lactated Ringers 1,000 ml 450 @ 75 mls/hr IV .[id number] [facility] Rx#:[id number] Output: Urine 725 Uretheral (Mon) 450 Stool 100 Other: Voiding Method Indwelling Catheter Indwelling Catheter - Exam Gen: This is a morbidly obese 73-year-old female. She is sitting up in the ICU bed and appears to be comfortable and in no acute distress. HEENT: Head is atraumatic, normocephalic. Pupils equal, round. Sclerae is anicteric. Conjunctiva pink. Oral mucous membranes are moist. Patient is edentulous. No thrush noted. NECK: Supple. No JVD. No lymphadenopathy. No thyromegaly. LUNGS: Clear to auscultation. No wheezes or rhonchi. No intercostal retractions. HEART: Regular rate and rhythm. No murmur. ABDOMEN: Soft. few Bowel sounds are present. No masses. No tenderness. No redness under abdominal folds. ostomy with some drainage Mon catheter draining clear timmy urine. EXTREMITIES: No pedal edema. Dorsalis pedis +2 bilaterally. NEUROLOGICAL: Patient is awake, alert and oriented both withdrawn lower extremity weakness foot drop the extensive buttocks dressing not changed - Labs CBC & Chem 7: 06/26/19 06:30 06/26/19 06:30 Labs: Abnormal Lab Results - Last 24 Hours (Table) 06/26/19 06/26/19 06/26/19 Range/Units 06:30 06:30 06:30 WBC 16.9 H (3.8-10.6) k/uL RBC 2.96 L (3.80-5.40) m/uL Hgb 9.3 L (11.4-16.0) gm/dL Hct 29.0 L (34.0-46.0) % RDW 17.9 H (11.5-15.5) % Neutrophils # 15.1 H (1.3-7.7) k/uL Chloride 109 H (98-107) mmol/L Carbon Dioxide 21 L (22-30) mmol/L Creatinine 1.90 H (0.52-1.04) mg/dL Glucose 59 L (74-99) mg/dL Calcium 6.9 L (8.4-10.2) mg/dL Urine Appearance (Clear) Urine Protein (Negative) Urine Blood (Negative) Ur Leukocyte Esterase (Negative) Urine RBC (0-5) /hpf Urine WBC (0-5) /hpf Urine WBC Clumps (None) /hpf Urine Bacteria (None) /hpf Hyaline Casts (0-2) /lpf Urine Mucus (None) /hpf Urine Yeast (Budding) (None) /hpf Vancomycin Trough 38.0 H* ug/mL 06/26/19 Range/Units 07:56 WBC (3.8-10.6) k/uL RBC (3.80-5.40) m/uL Hgb (11.4-16.0) gm/dL Hct (34.0-46.0) % RDW (11.5-15.5) % Neutrophils # (1.3-7.7) k/uL Chloride (98-107) mmol/L Carbon Dioxide (22-30) mmol/L Creatinine (0.52-1.04) mg/dL Glucose (74-99) mg/dL Calcium (8.4-10.2) mg/dL Urine Appearance Cloudy H (Clear) Urine Protein 1+ H (Negative) Urine Blood Small H (Negative) Ur Leukocyte Esterase Large H (Negative) Urine RBC 43 H (0-5) /hpf Urine WBC 124 H (0-5) /hpf Urine WBC Clumps Occasional H (None) /hpf Urine Bacteria Occasional H (None) /hpf Hyaline Casts 4 H (0-2) /lpf Urine Mucus Rare H (None) /hpf Urine Yeast (Budding) Many H (None) /hpf Vancomycin Trough ug/mL Laboratory Results WBC 16.9 k/uL (3.8-10.6) H 06/26/19 06:30 RBC 2.96 m/uL (3.80-5.40) L 06/26/19 06:30 Hgb 9.3 gm/dL (11.4-16.0) L 06/26/19 06:30 Hct 29.0 % (34.0-46.0) L 06/26/19 06:30 MCV 98.0 fL (80.0-100.0) 06/26/19 06:30 MCH 31.2 pg (25.0-35.0) 06/26/19 06:30 MCHC 31.9 g/dL (31.0-37.0) 06/26/19 06:30 RDW 17.9 % (11.5-15.5) H 06/26/19 06:30 Plt Count 287 k/uL (150-450) 06/26/19 06:30 Neutrophils % 90 % 06/26/19 06:30 Lymphocytes % 6 % 06/26/19 06:30 Monocytes % 2 % 06/26/19 06:30 Eosinophils % 1 % 06/26/19 06:30 Basophils % 0 % 06/26/19 06:30 Neutrophils # 15.1 k/uL (1.3-7.7) H 06/26/19 06:30 Lymphocytes # 1.0 k/uL (1.0-4.8) 06/26/19 06:30 Monocytes # 0.3 k/uL (0-1.0) 06/26/19 06:30 Eosinophils # 0.2 k/uL (0-0.7) 06/26/19 06:30 Basophils # 0.0 k/uL (0-0.2) 06/26/19 06:30 Manual Slide Review Performed 06/26/19 06:30 Hypochromasia Slight 06/26/19 06:30 Anisocytosis Slight 06/26/19 06:30 Macrocytosis Slight 06/26/19 06:30 ESR 58 mm/hr (0-20) H 06/15/19 19:03 PT 11.2 sec (9.0-12.0) 06/15/19 16:52 INR 1.1 (<1.2) 06/15/19 16:52 APTT 24.5 sec (22.0-30.0) 06/15/19 16:52 Sodium 137 mmol/L (137-145) 06/26/19 06:30 Potassium 3.5 mmol/L (3.5-5.1) 06/26/19 06:30 Chloride 109 mmol/L (98-107) H 06/26/19 06:30 Carbon Dioxide 21 mmol/L (22-30) L 06/26/19 06:30 Anion Gap 7 mmol/L 06/26/19 06:30 BUN 17 mg/dL (7-17) 06/26/19 06:30 Creatinine 1.90 mg/dL (0.52-1.04) H 06/26/19 06:30 Est GFR (CKD-EPI)AfAm 30 (>60 ml/min/1.73 sqM) 06/26/19 06:30 Est GFR (CKD-EPI)NonAf 26 (>60 ml/min/1.73 sqM) 06/26/19 06:30 Glucose 59 mg/dL (74-99) L 06/26/19 06:30 POC Glucose (mg/dL) 150 mg/dL (75-99) H 06/15/19 21:34 POC Glu [employer]ch[employer] ID Rashi Todd 06/15/19 21:34 Lactic Ac Sepsis Rflx Y 06/15/19 17:48 Plasma Lactic Acid Jonathan 1.3 mmol/L (0.7-2.0) 06/15/19 22:28 Calcium 6.9 mg/dL (8.4-10.2) L 06/26/19 06:30 Magnesium 1.3 mg/dL (1.6-2.3) L 06/15/19 16:52 Total Bilirubin 0.7 mg/dL (0.2-1.3) 06/15/19 16:52 AST 40 U/L (14-36) H 06/15/19 16:52 ALT 18 U/L (9-52) 06/15/19 16:52 Alkaline Phosphatase 123 U/L (38-126) 06/15/19 16:52 Creatine Kinase 220 U/L (30-135) H 06/15/19 16:52 C-Reactive Protein 323.6 mg/L (<10.0) H 06/15/19 16:52 Total Protein 6.4 g/dL (6.3-8.2) 06/15/19 16:52 Albumin 2.8 g/dL (3.5-5.0) L 06/15/19 16:52 Urine Color Light Yellow 06/26/19 07:56 Urine Appearance Cloudy (Clear) H 06/26/19 07:56 Urine pH 5.0 (5.0-8.0) 06/26/19 07:56 Ur Specific [place] 1.009 (1.001-1.035) 06/26/19 07:56 Urine Protein 1+ (Negative) H 06/26/19 07:56 Urine Glucose (UA) Negative (Negative) 06/26/19 07:56 Urine Ketones Negative (Negative) 06/26/19 07:56 Urine Blood Small (Negative) H 06/26/19 07:56 Urine Nitrite Negative (Negative) 06/26/19 07:56 Urine Bilirubin Negative (Negative) 06/26/19 07:56 Urine Urobilinogen <2.0 mg/dL (<2.0) 06/26/19 07:56 Ur Leukocyte Esterase Large (Negative) H 06/26/19 07:56 Urine RBC 43 /hpf (0-5) H 06/26/19 07:56 Urine WBC 124 /hpf (0-5) H 06/26/19 07:56 Urine WBC Clumps Occasional /hpf (None) H 06/26/19 07:56 Ur Squamous Epith Cells 1 /hpf (0-4) 06/26/19 07:56 Urine Bacteria Occasional /hpf (None) H 06/26/19 07:56 Hyaline Casts 4 /lpf (0-2) H 06/26/19 07:56 Urine Mucus Rare /hpf (None) H 06/26/19 07:56 Ur Yeast w Hyphae Moderate /hpf (None) 06/26/19 07:56 Urine Yeast (Budding) Many /hpf (None) H 06/26/19 07:56 Vancomycin Trough 38.0 ug/mL H* 06/26/19 06:30 Blood Type O Positive 06/23/19 10:59 Blood Type Confirm O Positive 06/23/19 07:42 Blood Type Recheck No Previous Record 06/23/19 10:59 Bld Type Recheck Status CABO Indicated 06/23/19 10:59 Antibody Screen NEGATIVE 06/23/19 10:59 Spec Expiration Date 06/26/2019 - 1254 06/23/19 10:59 Microbiology 06/15/19 16:52 Blood Blood Culture Gram Stain - Final 06/15/19 16:52 Blood Blood Culture - Final Bacteroides ovatus Carynebacterium accolens Anaerobic Gm Negative Bacilli Coagulase Negative Staph 06/15/19 16:52 Blood Blood Culture - Final 06/15/19 17:28 Urine,Voided Urine Culture - Final Escherichia coli Assessment and Plan (1) Decubitus ulcer Current Visit: Yes Status: Acute Code(s): L89.90 - PRESSURE ULCER OF UNSPECIFIED SITE, UNSPECIFIED STAGE SNOMED Code(s): 654168360 (2) Sepsis Current Visit: Yes Status: Acute Code(s): A41.9 - SEPSIS, UNSPECIFIED ORGANISM SNOMED Code(s): 75218734 (3) Infection due to gram-negative anaerobic organism Narrative/Plan: Before I entered the room the nursing staff relate to the difficulties that are occurring, in that the patient was seen by the surgeon, evidence of the extensive stage IV pressure ulcerations of the coccyx as well as sacral area with sukhwinder tissue necrosis occurring that was present on admission, she was offered surgical intervention and refused. As I enter the room I had a very positive attitude and the patient does communicate, however her face is down she does not look to the observer and she is evasive. She relates that she is tired and does not want anything to be done. She did have prior heel ulcerations that were black and eventually tissue fell off in her heels were completely recovered. She has not seen the extensive current ulcerations, and does not want to. We discussed the absolute need for surgical debridement, she still defers. At this time we will be able to offer some local care with Dakin solution to help reduce local or and possibly some local infection control. Intravenous antibiotic therapy with Zosyn and vancomycin being utilized.If the patient does not want extensive interventions which would include surgical intervention, would agree with the primary service that discharged home would be appropriate. Would then strongly consider hospice evaluation in that with this extensive amount of necrosis and infection sepsis and will occur. 06/19/2018 the patient is not related to his surgical intervention which will be an extensive debridement of necrotic material over the coccyx and buttocks. The Dakin solution is allowed some improvement of the putrid odor. It appears she'll surgical plan the debridement tomorrow. Postoperatively needs to be an air mattress, we'll also need to have this to the service to wherever she is discharged to. This extensive infection including anaerobic bacteremic infection urinary infection will require a course of ongoing intravenous antibiotic therapy currently with Zosyn which we'll plan to continue in the future. We'll need IV access also. Patient is instructed on the importance of the surgical debridement, without the debridement with this extensive amount of infection would not expect her to survive 06/20/2019 the patient had agreed to present for surgery but the surgical schedule did not allow of the extensive debridement to occur. Is scheduled for tomorrow. We'll continue the antibiotic therapy was which would give coverage for all the isolate pathogens that have been found so far. IV access in long-term IV antibiotic therapy is planned for time of her discharge. Once the necrotic material has been removed and hemostasis is obtained would likely be utilizing a negative pressure therapy system to try to heal this extensive ulceration. Improve nutrition is also discussed. 06/23/2019 the patient will go to the operating him today for the diverting colostomy. She will not be able to return to room sitting for a while until she has improvement of her strength and resolution of her significant sepsis and bacteremia. Large defect will be left and when she is more stable negative pressure therapy will hopefully be applied to that area. Eventually will need plastic surgery evaluations.will require a many week intravenous antibiotic therapy 06/26/2019 the patient is now more stable. Ostomy is been placed in her diet rosas s been advanced to full liquid. She seems to be about more comfortable and slightly less withdrawn when interacting with the observer. Discharge plan is the current largest obstacle. However if antibiotic therapy, wound care, specialty bed and further surgical evaluations are required to be an excellent candidate for [facility] in [place]. We'll consider negative pressure therapy as a short-term bridge. Current Visit: Yes Status: Acute Code(s): A49.8 - OTHER BACTERIAL INFECTIONS OF UNSPECIFIED SITE SNOMED Code(s): 256158649
[2019-06-27] MEDS: ACETAMINOPHEN TAB 500 MG TAB PO PRN ×2 (00:12→20:12)
[2019-06-27 07:10] LABS: Anisocytosis Slight; Basophils # (A) 0.1 k/uL (0-0.2); Basophils % (A) 0 %; Eosinophils # (A) 0.2 k/uL (0-0.7); Eosinophils % (A) 1 %; HCT 29.1 % (34.0-46.0); HGB 9.2 gm/dL (11.4-16.0); Hypochromasia Marked; Lymphocytes # (A) 1.2 k/uL (1.0-4.8); Lymphocytes % (A) 7 %; MCH 31.3 pg (25.0-35.0); MCHC 31.6 g/dL (31.0-37.0); MCV 99.2 fL (80.0-100.0); Macrocytosis Slight; Mean Platelet Volume 7.4; Monocytes # (A) 0.4 k/uL (0-1.0); Monocytes % (A) 3 %; Neutrophils # (A) 13.8 k/uL (1.3-7.7); Neutrophils % (A) 87 %; Platelet Count 227 k/uL (150-450); RBC 2.93 m/uL (3.80-5.40); RDW 17.1 % (11.5-15.5); WBC 15.9 k/uL (3.8-10.6)
[2019-06-27 07:17] LABS: Magnesium 1.6 mg/dL (1.6-2.3); Potassium 3.4 mmol/L (3.5-5.1)
[2019-06-27 07:22] LABS: Vancomycin,Random 33.1 ug/mL
[2019-06-27] MEDS: hydrALAZINE HCL 50 MG TAB PO SCH (08:32)
[2019-06-27] MEDS: SODIUM HYPOCHLORITE 0.25% 480 ML BOT MISCELLANE SCH ×2 (08:48→12:00)
[2019-06-27] MEDS: ENOXAPARIN 30 MG/0.3 ML SYRINGE SQ SCH (08:49)
[2019-06-27] MEDS: FAMOTIDINE 20 MG TAB PO SCH (08:49)
--- NOTE | 2019-06-27 10:10 | P.PN ---
Subjective On-call hospitalist covering for Dr. Marr starting on 06/23/2019. This is a pleasant 73 years old female with past medical history of CVA/TIA and she is paraplegic, hypertension. who presents because of severe sepsis secondary to pressure ulcer, patient started on Levophed up on admission and she was in the intensive care unit, however is improving with IV antibiotics and now she is off pressors. She is a status post debridement of her pressure ulcer by the surgical team. Also surgical team were recommended colostomy to however patient was declining. Previous primary and psychiatric team deemed the patient is capable of making her on medical decisions. However because of her persistent refusal for the recommended surgery, ethics committee were contacted for evaluation the patient. However as it was going this morning to see the patient, the bedside nurse told me the patient has already agreed for surgery and she signed a consent. When it went into the room the patient also confirmed to me she is agreeable to surgery and she has already consented for it. Patient denies chest pain or dyspnea. No abdominal pain. No nausea vomiting. Hemodynamically stable. leukocytosis of 13.4 k, hemoglobin 9.7, platelets 519, creatinine 0.98 electrolytes within normal limits. 06/24/2019 Patient is status post diverticular colostomy yesterday and today is postoperative day #1. Patient is fully awake and oriented with no chest pain or dyspnea. She returned breakfast this morning with no problems. Colostomy back is in place with 2 drops of blood in it. Patient has expected pain and tenderness of the surgery site. Patient is afebrile and blood pressure is 88/63. WBC is 17.4 K, hemoglobin 9.7,creatinine is 1.0. Repeat chest x-ray showing possible left lower lung opacity which is not a specific could be atelectasis versus infectious process. Patient is already on vancomycin and infectious disease team R following the case closely. Her Zosyn was recently discontinued. 06/25/2019 Patient is awake and alert, lying in bed comfortable no distress, she still noticed her breakfast this morning. No worsening abdominal pain or nausea vomiting. Her colostomy back is still empty. She has more swelling in her extremities. Patient is afebrile, mildly tachycardic. Blood pressure 123/84. No labored breathing and at 14-16 breaths per minute. She has worsening leukocytosis at 21.5K and kidney function with creatinine at 1.4. We'll discontinue the IV fluid and call nephrology consult. Patient is currently on vancomycin as per infectious disease team. We will ask infectious disease for follow-up today. Patient has Mon catheter which is draining clear urine. We aren't going to repeat urine analysis. Discussed with the staff 06/26/2019 Patient is gradually improving. She is awake and alert. She is tolerating diet well with no nausea vomiting or abdominal pain. She has this appetite. Her colostomy bag is working. Her swelling in her upper extremities is improving gradually. No fever and hemodynamically stable. Creatinine went up today to 1.9, WBC is coming down to 16.9 K, hemoglobin 9.3, lisinopril and vancomycin on hold. Vancomycin trough is 38.0. Infectious disease R following the patient for antibiotics. Scrum Master input is appreciated. Patient of IV fluids since yesterday morning. Metoprolol 25 mg daily was restarted by nephrology team, however her blood pressure was 96/23 yesterday, while this morning 117/80. We going to hold her metoprolol and follow-up blood pressure 06/27/2019 Patient is awake and alert, no chest pain or dyspnea. She is tolerating that well with no nausea or vomiting. Colostomy bag is working. leukocytosis of 15.9, slightly improving from 16.9 yesterday, hemoglobin stable at 9.2 and platelets 227, creatinine is worse at 2.4, potassium 3.4, creatinine is went up today to 2.4, nephrology is following the patient closely. infectious disease team recommended vancomycin, vancomycin level today is 33.1. Objective - Vital Signs Vital signs: Vital Signs Temp 97.8 F 06/27/19 01:30 Pulse 81 06/27/19 01:30 Resp 18 06/27/19 01:30 BP 99/66 06/27/19 01:30 Pulse Ox 95 06/27/19 01:30 Intake & Output 06/26/19 06/27/19 06/27/19 18:59 06:59 18:59 Intake Total 1080 Output Total 100 Balance -100 1080 Intake: Oral 1080 Output: Stool 100 Other: Voiding Method Indwelling Catheter Indwelling Catheter - Exam GENERAL: The patient is alert and oriented x3, not in any acute distress. Well developed, well nourished. HEENT: Pupils are round and equally reacting to light. EOMI. No scleral icterus. No conjunctival pallor. Normocephalic, atraumatic. No pharyngeal erythema. No thyromegaly. CARDIOVASCULAR: S1 and S2 present. No murmurs, rubs, or gallops. PULMONARY: Chest is clear to auscultation, no wheezing or crackles. ABDOMEN: Soft, nontender, nondistended, normoactive bowel sounds. No palpable organomegaly. -MUSCULOSKELETAL: No joint swelling or deformity. Sacral pressure ulcer, status post debridement. Dressing is in place EXTREMITIES: No cyanosis, clubbing, worsening swelling of extremities including hands NEUROLOGICAL: Gross neurological examination did not reveal any focal deficits. SKIN: No rashes. - Labs CBC & Chem 7: 06/27/19 06:45 06/27/19 06:45 Labs: Abnormal Lab Results - Last 24 Hours (Table) 06/26/19 06/27/19 06/27/19 Range/Units 07:56 06:45 06:45 WBC 15.9 H (3.8-10.6) k/uL RBC 2.93 L (3.80-5.40) m/uL Hgb 9.2 L (11.4-16.0) gm/dL Hct 29.1 L (34.0-46.0) % RDW 17.1 H (11.5-15.5) % Neutrophils # 13.8 H (1.3-7.7) k/uL Potassium 3.4 L (3.5-5.1) mmol/L Carbon Dioxide 19 L (22-30) mmol/L BUN 21 H (7-17) mg/dL Creatinine 2.42 H (0.52-1.04) mg/dL Glucose 53 L (74-99) mg/dL Calcium 7.0 L (8.4-10.2) mg/dL Urine Appearance Cloudy H (Clear) Urine Protein 1+ H (Negative) Urine Blood Small H (Negative) Ur Leukocyte Esterase Large H (Negative) Urine RBC 43 H (0-5) /hpf Urine WBC 124 H (0-5) /hpf Urine WBC Clumps Occasional H (None) /hpf Urine Bacteria Occasional H (None) /hpf Hyaline Casts 4 H (0-2) /lpf Urine Mucus Rare H (None) /hpf Urine Yeast (Budding) Many H (None) /hpf Assessment and Plan Assessment: -Severe sepsis secondary to sacral pressure ulcer. Status post septic shock. Status post surgical debridement on 06/21/2019. Status post diverting colostomy on 06/23/2019. Improving -Acute kidney injury with worsening edema -Worsening leukocytosis, improving -Lactic acidosis and acidemia, secondary to infection. resolved -Chronic anemia -Essential hypertension, however hydralazine from 50 down to 25 mg 3 times daily -Chronic paraplegia secondary to stroke -Obesity with BMI 37.4 -Medical debility Plan: This is a pleasant 73 years old female who was presented for severe sepsis secondary to pressure ulcer, status post debridement and direct and colostomy. Keep holding vancomycin and follow-up ID team recommendation. nephrology consult is appreciated. Hold lisinopril. Hold metoprolol for better blood pressure control. Lower dose of hydralazine from 50 to 25 mg 3 times a day. Follow up with nephrology and infectious disease recommendation As per ID team [facility] [place] and negative pressure therapy. Labs and medication were reviewed.. Continue same treatment. Continue with symptomatic treatment. Resume home medication. Monitor lytes and vitals. DVT and GI prophylaxis. Further recommendations of the clinical course of the patient DVT prophylaxis: Subcutaneous Lovenox GI Prophylaxis: Pepcid Prognosis is guarded, long-term prognosis is poor as given her severity of her consents comorbidities. Discussed with the staff at bedside nurse
[2019-06-27] MEDS ORDERED: POTASSIUM CHLORIDE ER 20 MEQ TAB.ER PO STA (12:09)
[2019-06-27] MEDS: MAGNESIUM SULFATE-D5W PMX 1 GM in DEXTROSE/WATER 1 100ML.BAG IVPB SCH ×2 (12:57→14:39)
--- NOTE | 2019-06-27 14:06 | P.PN ---
Subjective Patient is seen in follow-up for acute kidney injury. Baseline creatinine is 1 and is up to 2.42 today. Etiology is vancomycin toxicity. Oral intake is fair. She is nonoliguric. No vomiting or diarrhea. No active complaints at this time. Vital signs are stable. General: The patient appeared well nourished and normally developed. HEENT: Head exam is unremarkable. Neck is without jugular venous distension. LUNGS: Lungs are clear to auscultation and percussion. Breath sounds decreased. HEART: Rate and Rhythm are regular. First and second heart sounds normal. No murmurs, rubs or gallops. ABDOMEN: Abdominal exam reveals normal bowel sounds. Non-tender and non- distended. No evidence of peritonitis. EXTREMITITES: Trace edema. Objective - Vital Signs Vital signs: Vital Signs Temp 97.8 F 06/27/19 01:30 Pulse 81 06/27/19 01:30 Resp 18 06/27/19 01:30 BP 99/66 06/27/19 01:30 Pulse Ox 95 06/27/19 01:30 Intake & Output 06/26/19 06/27/19 06/27/19 18:59 06:59 18:59 Intake Total 1080 100 Output Total 100 Balance -100 1080 100 Intake: Oral 1080 100 Output: Stool 100 Other: Voiding Method Indwelling Catheter Indwelling Catheter Indwelling Catheter - Labs CBC & Chem 7: 06/27/19 06:45 06/27/19 06:45 Labs: Abnormal Lab Results - Last 24 Hours (Table) 06/27/19 06/27/19 Range/Units 06:45 06:45 WBC 15.9 H (3.8-10.6) k/uL RBC 2.93 L (3.80-5.40) m/uL Hgb 9.2 L (11.4-16.0) gm/dL Hct 29.1 L (34.0-46.0) % RDW 17.1 H (11.5-15.5) % Neutrophils # 13.8 H (1.3-7.7) k/uL Potassium 3.4 L (3.5-5.1) mmol/L Carbon Dioxide 19 L (22-30) mmol/L BUN 21 H (7-17) mg/dL Creatinine 2.42 H (0.52-1.04) mg/dL Glucose 53 L (74-99) mg/dL Calcium 7.0 L (8.4-10.2) mg/dL Assessment and Plan Plan: Assessment: 1. Acute kidney injury secondary to vancomycin toxicity. Baseline creatinine is 1 and is up to 2.42 today. No evidence of hydronephrosis and kidney ultrasound. 2. Decubitus ulcer status post debridement this admission. 3. Status post diverting colostomy on June 23. 4. Metabolic acidosis secondary to acute kidney injury. 5. E. coli UTI. 6. Bacteroides ovatus and carynebacterium accolens bacteremia. Maintained on IV antibiotics. 7. Hypokalemia from poor oral intake. Plan: Hold vancomycin. Monitor levels closely. Dose to be adjusted for renal function. Encourage oral intake. Avoid nephrotoxins. Repeat electrolytes in the morning. Continue to monitor renal function and urine output. Replace potassium. 40 mEq today. Replace magnesium. 2 g IV today.
--- NOTE | 2019-06-27 14:54 | P.PN ---
Subjective Progress Note Date: 06/27/19 CHIEF COMPLAINT: Decubitus ulcer HISTORY OF PRESENT ILLNESS: Patient is status post debridement of stage IV sacral decubitus ulcer and also status post diverting colostomy. Patient examined at the bedside. She reports her pain is tolerable. She is tolerating full liquid diet. Ostomy with gas but no stool output. Patient is refusing dressing changes today and refusing to let providers examine wound. PHYSICAL EXAM: VITAL SIGNS: Reviewed. GENERAL: Well-developed in no acute distress. HEENT: No sclera icterus. Extraocular movements grossly intact. Moist buccal mucosa. Head is atraumatic, normocephalic. ABDOMEN: Soft. Nondistended. Nontender. Ostomy to left lower quadrant. NEUROLOGIC: Alert and oriented. Cranial nerves II through XII grossly intact. SKIN: Large sacral decubitus ulcer. Currently refusing examination of ulcer. ASSESSMENT: 1. Stage IV sacral decubitus ulcer, status post debridement 2. S/P diverting colostomy PLAN: 1. Continue local wound care and antibiotics per infectious disease 2. Continue full liquid diet. When ostomy has stool noted, may advance diet 3. This provider discussed plans moving forward with patient this morning. Dr. Puente is [facility] pa[facility] is stable for discharge as Dr. Stern could see her at that facility and continue to follow her progress as she will need eventual flap performed. Patient is refusing to go to [facility] discharge. She is requesting [facility]. Explained that her wound may be too extensive for [facility] to care for and the reasoning of why [facility] is being suggested for her care. Patient continues to refuse. We will continue to discuss this with the patient daily. Nurse practitioner note has been reviewed by physician. Signing provider agrees with the documented findings, assessment, and plan of care. Objective - Vital Signs Vital signs: Vital Signs Temp 97.8 F 06/27/19 06:40 Pulse 79 06/27/19 06:40 Resp 16 06/27/19 06:40 BP 103/69 06/27/19 06:40 Pulse Ox 95 06/27/19 06:40 Intake & Output 06/26/19 06/27/19 06/27/19 18:59 06:59 18:59 Intake Total 1080 300 Output Total 100 Balance -100 1080 300 Intake: IV 200 Magnesium Sulfate-D5w Pmx 200 1 gm In Dextrose/Water 1 100ml.bag @ 100 mls/hr IVPB [facility] Rx#: [id number] Oral 1080 100 Output: Stool 100 Other: Voiding Method Indwelling Catheter Indwelling Catheter Indwelling Catheter - Labs CBC & Chem 7: 06/27/19 06:45 06/27/19 06:45 Labs: Abnormal Lab Results - Last 24 Hours (Table) 06/27/19 06/27/19 Range/Units 06:45 06:45 WBC 15.9 H (3.8-10.6) k/uL RBC 2.93 L (3.80-5.40) m/uL Hgb 9.2 L (11.4-16.0) gm/dL Hct 29.1 L (34.0-46.0) % RDW 17.1 H (11.5-15.5) % Neutrophils # 13.8 H (1.3-7.7) k/uL Potassium 3.4 L (3.5-5.1) mmol/L Carbon Dioxide 19 L (22-30) mmol/L BUN 21 H (7-17) mg/dL Creatinine 2.42 H (0.52-1.04) mg/dL Glucose 53 L (74-99) mg/dL Calcium 7.0 L (8.4-10.2) mg/dL
[2019-06-27] MEDS: hydrALAZINE HCL 25 MG TAB PO SCH ×2 (15:49→21:31)
[2019-06-27] MEDS: ONDANSETRON 4 MG/2 ML VIAL IVP PRN (20:14)
--- NOTE | 2019-06-27 23:12 | P.PN ---
Subjective Progress Note Date: 06/27/19 This is a 73-year-old female who is currently living at home alone. She has history of CVA and has been bedbound for the past 3 years. Patient presented with stage IV decubitus ulcers to the sacrum,, coccyx, bilateral buttocks and posterior thighs with extensive necrosis. Unclear how long this has been going on. Patient presented with fever, tachycardia, hypotension, leukocytosis of 18.6, lactic acid 3.8. BUN 61 and creatinine 1.38. Sed rate 58, CRP 323.CAT scan of the abdomen and pelvis without contrast revealed large area of soft tissue air bubbles in the posterior sacral and buttocks region consistent with cellulitis and he was ulcers. No drainable abscess. No focal bone destruction. Patient was admitted into the intensive care unit. She is status post 20 of liters of IV fluid. Norepinephrine was discontinued at 8 AM this morning. Patient is currently hemodynamically stable. Dr. Osborne is on consult as well as Dr. Grimes with tentative plan for debridement of the d ecubitus ulcers. Blood cultures status received. Patient is currently on vancomycin. Patient is unaware of her last tetanus immunization. 06/19/2019 the patient is now agreeable to surgical intervention. It appears she understands the significance of her situation. We did relate that she has an extensive infection that is understandable terms of aerobic anaerobic and necrotizing resulting in bacteremia and sepsis. Without surgical debridement I would not expect her to survive. 06/20/2019 the patient was to go to the operating room today however the surgical schedule would not allow it. With the nursing team the necrotic ulcerations or cleansed with a Dakin solution and the ulcerations are packed and dressings are put into place. She did have an extensive bowel movement. Was not malodorous such as C. diff. No evidence of any significant blood in the stool. She remains very anxious about the overall situation. Seems to have great distust to the overall medical system. 06/23/2019 patient the operating room today for the diverting colostomy. Ethics committee meeting did happen earlier in the day. 06/26/2019 the patient has had the diverting colostomy. There is to be some function and she is now given some full liquids. Appetite was poor. Mood is less withdrawn and she does seem to be comfortable. In discussing with going to happen next seems to have very poor understanding of the next process. 06/27/2019 Little change in the status. Mood today is worse. The potential for transition to select specialty was presented and the patient is having great difficulties psychologically dealing with her illness and all of the factors that are occurring. Objective - Vital Signs Vital signs: Vital Signs Temp 98.1 F 06/27/19 19:50 Pulse 90 06/27/19 19:50 Resp 16 06/27/19 19:50 BP 114/64 06/27/19 19:50 Pulse Ox 95 06/27/19 19:50 Intake & Output 06/27/19 06/27/19 06/28/19 06:59 18:59 06:59 Intake Total 1080 300 275 Output Total 1000 Balance 1080 -700 275 Intake: IV 200 275 Lactated Ringers 1,000 ml 275 @ 75 mls/hr IV .[id number] [facility] Rx#:[id number] Magnesium Sulfate-D5w Pmx 200 1 gm In Dextrose/Water 1 100ml.bag @ 100 mls/hr IVPB Q1H [facility] Rx#: [id number] Oral 1080 100 Output: Urine 1000 Uretheral (Mon) 500 Other: Voiding Method Indwelling Catheter Indwelling Catheter Indwelling Catheter - Exam Gen: This is a morbidly obese 73-year-old female. She is sitting up in the ICU bed and appears to be comfortable and in no acute distress. HEENT: Head is atraumatic, normocephalic. Pupils equal, round. Sclerae is anicteric. Conjunctiva pink. Oral mucous membranes are moist. Patient is edentulous. No thrush noted. NECK: Supple. No JVD. No lymphadenopathy. No thyromegaly. LUNGS: Clear to auscultation. No wheezes or rhonchi. No intercostal retractions. HEART: Regular rate and rhythm. No murmur. ABDOMEN: Soft. few Bowel sounds are present. No masses. No tenderness. No redness under abdominal folds. ostomy with some drainage Mon catheter draining clear timmy urine. EXTREMITIES: No pedal edema. Dorsalis pedis +2 bilaterally. NEUROLOGICAL: Patient is awake, alert and oriented both withdrawn lower extremity weakness foot drop the extensive buttocks dressing not changed - Labs CBC & Chem 7: 06/27/19 06:45 06/27/19 06:45 Labs: Abnormal Lab Results - Last 24 Hours (Table) 06/27/19 06/27/19 Range/Units 06:45 06:45 WBC 15.9 H (3.8-10.6) k/uL RBC 2.93 L (3.80-5.40) m/uL Hgb 9.2 L (11.4-16.0) gm/dL Hct 29.1 L (34.0-46.0) % RDW 17.1 H (11.5-15.5) % Neutrophils # 13.8 H (1.3-7.7) k/uL Potassium 3.4 L (3.5-5.1) mmol/L Carbon Dioxide 19 L (22-30) mmol/L BUN 21 H (7-17) mg/dL Creatinine 2.42 H (0.52-1.04) mg/dL Glucose 53 L (74-99) mg/dL Calcium 7.0 L (8.4-10.2) mg/dL Laboratory Results WBC 15.9 k/uL (3.8-10.6) H 06/27/19 06:45 RBC 2.93 m/uL (3.80-5.40) L 06/27/19 06:45 Hgb 9.2 gm/dL (11.4-16.0) L 06/27/19 06:45 Hct 29.1 % (34.0-46.0) L 06/27/19 06:45 MCV 99.2 fL (80.0-100.0) 06/27/19 06:45 MCH 31.3 pg (25.0-35.0) 06/27/19 06:45 MCHC 31.6 g/dL (31.0-37.0) 06/27/19 06:45 RDW 17.1 % (11.5-15.5) H 06/27/19 06:45 Plt Count 227 k/uL (150-450) 06/27/19 06:45 Neutrophils % 87 % 06/27/19 06:45 Lymphocytes % 7 % 06/27/19 06:45 Monocytes % 3 % 06/27/19 06:45 Eosinophils % 1 % 06/27/19 06:45 Basophils % 0 % 06/27/19 06:45 Neutrophils # 13.8 k/uL (1.3-7.7) H 06/27/19 06:45 Lymphocytes # 1.2 k/uL (1.0-4.8) 06/27/19 06:45 Monocytes # 0.4 k/uL (0-1.0) 06/27/19 06:45 Eosinophils # 0.2 k/uL (0-0.7) 06/27/19 06:45 Basophils # 0.1 k/uL (0-0.2) 06/27/19 06:45 Manual Slide Review Performed 06/26/19 06:30 Hypochromasia Marked 06/27/19 06:45 Anisocytosis Slight 06/27/19 06:45 Macrocytosis Slight 06/27/19 06:45 ESR 58 mm/hr (0-20) H 06/15/19 19:03 PT 11.2 sec (9.0-12.0) 06/15/19 16:52 INR 1.1 (<1.2) 06/15/19 16:52 APTT 24.5 sec (22.0-30.0) 06/15/19 16:52 Sodium 138 mmol/L (137-145) 06/27/19 06:45 Potassium 3.4 mmol/L (3.5-5.1) L 06/27/19 06:45 Chloride 107 mmol/L (98-107) 06/27/19 06:45 Carbon Dioxide 19 mmol/L (22-30) L 06/27/19 06:45 Anion Gap 12 mmol/L 06/27/19 06:45 BUN 21 mg/dL (7-17) H 06/27/19 06:45 Creatinine 2.42 mg/dL (0.52-1.04) H 06/27/19 06:45 Est GFR (CKD-EPI)AfAm 23 (>60 ml/min/1.73 sqM) 06/27/19 06:45 Est GFR (CKD-EPI)NonAf 20 (>60 ml/min/1.73 sqM) 06/27/19 06:45 Glucose 53 mg/dL (74-99) L 06/27/19 06:45 POC Glucose (mg/dL) 150 mg/dL (75-99) H 06/15/19 21:34 POC Glu [employer] ID [place], Rashi 06/15/19 21:34 Lactic Ac Sepsis Rflx Y 06/15/19 17:48 Plasma Lactic Acid Jonathan 1.3 mmol/L (0.7-2.0) 06/15/19 22:28 Calcium 7.0 mg/dL (8.4-10.2) L 06/27/19 06:45 Magnesium 1.6 mg/dL (1.6-2.3) 06/27/19 06:45 Total Bilirubin 0.7 mg/dL (0.2-1.3) 06/15/19 16:52 AST 40 U/L (14-36) H 06/15/19 16:52 ALT 18 U/L (9-52) 06/15/19 16:52 Alkaline Phosphatase 123 U/L (38-126) 06/15/19 16:52 Creatine Kinase 220 U/L (30-135) H 06/15/19 16:52 C-Reactive Protein 323.6 mg/L (<10.0) H 06/15/19 16:52 Total Protein 6.4 g/dL (6.3-8.2) 06/15/19 16:52 Albumin 2.8 g/dL (3.5-5.0) L 06/15/19 16:52 Urine Color Light Yellow 06/26/19 07:56 Urine Appearance Cloudy (Clear) H 06/26/19 07:56 Urine pH 5.0 (5.0-8.0) 06/26/19 07:56 Ur Specific [place] 1.009 (1.001-1.035) 06/26/19 07:56 Urine Protein 1+ (Negative) H 06/26/19 07:56 Urine Glucose (UA) Negative (Negative) 06/26/19 07:56 Urine Ketones Negative (Negative) 06/26/19 07:56 Urine Blood Small (Negative) H 06/26/19 07:56 Urine Nitrite Negative (Negative) 06/26/19 07:56 Urine Bilirubin Negative (Negative) 06/26/19 07:56 Urine Urobilinogen <2.0 mg/dL (<2.0) 06/26/19 07:56 Ur Leukocyte Esterase Large (Negative) H 06/26/19 07:56 Urine RBC 43 /hpf (0-5) H 06/26/19 07:56 Urine WBC 124 /hpf (0-5) H 06/26/19 07:56 Urine WBC Clumps Occasional /hpf (None) H 06/26/19 07:56 Ur Squamous Epith Cells 1 /hpf (0-4) 06/26/19 07:56 Urine Bacteria Occasional /hpf (None) H 06/26/19 07:56 Hyaline Casts 4 /lpf (0-2) H 06/26/19 07:56 Urine Mucus Rare /hpf (None) H 06/26/19 07:56 Ur Yeast w Hyphae Moderate /hpf (None) 06/26/19 07:56 Urine Yeast (Budding) Many /hpf (None) H 06/26/19 07:56 Vancomycin Trough 38.0 ug/mL H* 06/26/19 06:30 Random Vancomycin 33.1 ug/mL 06/27/19 06:45 Blood Type O Positive 06/23/19 10:59 Blood Type Confirm O Positive 06/23/19 07:42 Blood Type Recheck No Previous Record 06/23/19 10:59 Bld Type Recheck Status CABO Indicated 06/23/19 10:59 Antibody Screen NEGATIVE 06/23/19 10:59 Spec Expiration Date 06/26/2019235806/23/19 10:59 Microbiology 06/15/19 16:52 Blood Blood Culture Gram Stain - Final 06/15/19 16:52 Blood Blood Culture - Final Bacteroides ovatus Carynebacterium accolens Anaerobic Gm Negative Bacilli Coagulase Negative Staph 06/15/19 16:52 Blood Blood Culture - Final 06/15/19 17:28 Urine,Voided Urine Culture - Final Escherichia coli Assessment and Plan (1) Decubitus ulcer Current Visit: Yes Status: Acute Code(s): L89.90 - PRESSURE ULCER OF UNSPECIFIED SITE, UNSPECIFIED STAGE SNOMED Code(s): 450874070 (2) Sepsis Current Visit: Yes Status: Acute Code(s): A41.9 - SEPSIS, UNSPECIFIED ORGANISM SNOMED Code(s): 18322722 (3) Infection due to gram-negative anaerobic organism Narrative/Plan: Before I entered the room the nursing staff relate to the difficulties that are occurring, in that the patient was seen by the surgeon, evidence of the extensive stage IV pressure ulcerations of the coccyx as well as sacral area with sukhwinder tissue necrosis occurring that was present on admission, she was offered surgical intervention and refused. As I enter the room I had a very positive attitude and the patient does communicate, however her face is down she does not look to the observer and she is evasive. She relates that she is tired and does not want anything to be done. She did have prior heel ulcerations that were black and eventually tissue fell off in her heels were completely recovered. She has not seen the extensive current ulcerations, and does not w ant to. We discussed the absolute need for surgical debridement, she still defers. At this time we will be able to offer some local care with Dakin solution to help reduce local or and possibly some local infection control. Intravenous antibiotic therapy with Zosyn and vancomycin being utilized.If the patient does not want extensive interventions which would include surgical intervention, would agree with the primary service that discharged home would be appropriate. Would then strongly consider hospice evaluation in that with this extensive amount of necrosis and infection sepsis and will occur. 06/19/2018 the patient is not related to his surgical intervention which will be an extensive debridement of necrotic material over the coccyx and buttocks. The Dakin solution is allowed some improvement of the putrid odor. It appears she'll surgical plan the debridement tomorrow. Postoperatively needs to be an air mattress, we'll also need to have this to the service to wherever she is discharged to. This extensive infection including anaerobic bacteremic infection urinary infection will require a course of ongoing intravenous antibiotic therapy currently with Zosyn which we'll plan to continue in the future. We'll need IV access also. Patient is instructed on the importance of the surgical debridement, without the debridement with this extensive amount of infection would not expect her to survive 06/20/2019 the patient had agreed to present for surgery but the surgical schedule did not allow of the extensive debridement to occur. Is scheduled for tomorrow. We'll continue the antibiotic therapy was 07 which would give coverage for all the isolate pathogens that have been found so far. IV access in long-term IV antibiotic therapy is planned for time of her discharge. Once the necrotic material has been removed and hemostasis is obtained would likely be utilizing a negative pressure therapy system to try to heal this extensive ulceration. Improve nutrition is also discussed. 06/23/2019 the patient will go to the operating him today for the diverting c olostomy. She will not be able to return to room sitting for a while until she has improvement of her strength and resolution of her significant sepsis and bacteremia. Large defect will be left and when she is more stable negative pressure therapy will hopefully be applied to that area. Eventually will need plastic surgery evaluations.will require a many week intravenous antibiotic therapy 06/26/2019 the patient is now more stable. Ostomy is been placed in her diet has been advanced to full liquid. She seems to be about more comfortable and slightly less withdrawn when interacting with the observer. Discharge plan is the current largest obstacle. However if antibiotic therapy, wound care, specialty bed and further surgical evaluations are required to be an excellent candidate for transfer to [facility] in [place]. We'll consider negative pressure therapy as a short-term bridge 06/27/2019 the patient is hemodynamically stable, is at a full liquid diet but doesn't have appetite and does not feel well. She is considerably more withdrawn today after conversations about the need for a level of care such as Celexa by specialty. She is completely overwhelmed by her situation in any planning such as that. Patient is receiving ongoing education of the severity of her illness. Her pressure ulceration resulted in a large amount of tissue loss, sepsis, bacteremia and now her ongoing hospitalization. Given the extent of treatment that she will require select specialty is the best possible option for her and we'll also open the door for her to be seen by plastic surgery. Hopefully she'll be able to incorporate this information instructed to make some decisions in the next day or so. If she allows wound VAC would be ideal to be placed to a large tissue defect. Current Visit: Yes Status: Acute Code(s): A49.8 - OTHER BACTERIAL INFECTIONS OF UNSPECIFIED SITE SNOMED Code(s): 086591614
[2019-06-28] MEDS: SODIUM HYPOCHLORITE 0.25% 480 ML BOT MISCELLANE SCH ×2 (02:40→08:33)
[2019-06-28 07:23] LABS: Anisocytosis Slight; Basophils % (A) 0 %; Eosinophils # (A) 0.2 k/uL (0-0.7); Eosinophils % (A) 2 %; HGB 9.3 gm/dL (11.4-16.0); Hypochromasia Moderate; Lymphocytes % (A) 8 %; MCH 31.4 pg (25.0-35.0); MCV 98.2 fL (80.0-100.0); Macrocytosis Slight; Mean Platelet Volume 7.8; Monocytes # (A) 0.4 k/uL (0-1.0); Monocytes % (A) 3 %; Neutrophils # (A) 10.5 k/uL (1.3-7.7); Neutrophils % (A) 86 %; Platelet Count 254 k/uL (150-450); RBC 2.96 m/uL (3.80-5.40); RDW 17.2 % (11.5-15.5); WBC 12.3 k/uL (3.8-10.6)
[2019-06-28 07:29] LABS: Calcium 7.2 mg/dL (8.4-10.2); Magnesium 2.2 mg/dL (1.6-2.3); Potassium 3.6 mmol/L (3.5-5.1)
[2019-06-28] MEDS: hydrALAZINE HCL 25 MG TAB PO SCH ×3 (08:33→21:10)
[2019-06-28] MEDS: FAMOTIDINE 20 MG TAB PO SCH (08:33)
[2019-06-28] MEDS: ENOXAPARIN 30 MG/0.3 ML SYRINGE SQ SCH (08:34)
[2019-06-28 08:59] LABS: Vancomycin,Random 31.1 ug/mL
--- NOTE | 2019-06-28 10:17 | P.PN ---
Subjective On-call hospitalist covering for Dr. Marr starting on 06/23/2019. This is a pleasant 73 years old female with past medical history of CVA/TIA and she is paraplegic, hypertension. who presents because of severe sepsis secondary to pressure ulcer, patient started on Levophed up on admission and she was in the intensive care unit, however is improving with IV antibiotics and now she is off pressors. She is a status post debridement of her pressure ulcer by the surgical team. Also surgical team were recommended colostomy to however patient was declining. Previous primary and psychiatric team deemed the patient is capable of making her on medical decisions. However because of her persistent refusal for the recommended surgery, ethics committee were contacted for evaluation the patient. However as it was going this morning to see the patient, the bedside nurse told me the patient has already agreed for surgery and she signed a consent. When it went into the room the patient also confirmed to me she is agreeable to surgery and she has already consented for it. Patient denies chest pain or dyspnea. No abdominal pain. No nausea vomiting. Hemodynamically stable. leukocytosis of 13.4 k, hemoglobin 9.7, platelets 519, creatinine 0.98 electrolytes within normal limits. 06/24/2019 Patient is status post diverticular colostomy yesterday and today is postoperative day #1. Patient is fully awake and oriented with no chest pain or dyspnea. She returned breakfast this morning with no problems. Colostomy back is in place with 2 drops of blood in it. Patient has expected pain and tenderness of the surgery site. Patient is afebrile and blood pressure is 88/63. WBC is 17.4 K, hemoglobin 9.7,creatinine is 1.0. Repeat chest x-ray showing possible left lower lung opacity which is not a specific could be atelectasis versus infectious process. Patient is already on vancomycin and infectious disease team R following the case closely. Her Zosyn was recently discontinued. 06/25/2019 Patient is awake and alert, lying in bed comfortable no distress, she still noticed her breakfast this morning. No worsening abdominal pain or nausea vomiting. Her colostomy back is still empty. She has more swelling in her extremities. Patient is afebrile, mildly tachycardic. Blood pressure 123/84. No labored breathing and at 14-16 breaths per minute. She has worsening leukocytosis at 21.5K and kidney function with creatinine at 1.4. We'll discontinue the IV fluid and call nephrology consult. Patient is currently on vancomycin as per infectious disease team. We will ask infectious disease for follow-up today. Patient has Mon catheter which is draining clear urine. We aren't going to repeat urine analysis. Discussed with the staff 06/26/2019 Patient is gradually improving. She is awake and alert. She is tolerating diet well with no nausea vomiting or abdominal pain. She has this appetite. Her colostomy bag is working. Her swelling in her upper extremities is improving gradually. No fever and hemodynamically stable. Creatinine went up today to 1.9, WBC is coming down to 16.9 K, hemoglobin 9.3, lisinopril and vancomycin on hold. Vancomycin trough is 38.0. Infectious disease R following the patient for antibiotics. [employer] Weights [employer] Measures input is appreciated. Patient of IV fluids since yesterday morning. Metoprolol 25 mg daily was restarted by nephrology team, however her blood pressure was 96/23 yesterday, while this morning 117/80. We going to hold her metoprolol and follow-up blood pressure 06/27/2019 Patient is awake and alert, no chest pain or dyspnea. She is tolerating that well with no nausea or vomiting. Colostomy bag is working. leukocytosis of 15.9, slightly improving from 16.9 yesterday, hemoglobin stable at 9.2 and platelets 227, creatinine is worse at 2.4, potassium 3.4, creatinine is went up today to 2.4, nephrology is following the patient closely. infectious disease team recommended vancomycin, vancomycin level today is 33.1. 06/28/2019 Patient is awake and alert, no abdominal pain or nausea vomiting, she ate part of her breakfast and orange juice this morning. And she tolerated that well. Clinically she looks better today. Colostomy back showing only gas today. Abdomen is nondistended. Mon catheter is in place and draining yellow urine. Vitals are stable and blood pressure this morning is 142/73, heart rate is 80, she is afebrile. WBC is coming down to 12.3 K, creatinine is 2.7. Vancomycin level is 31.1. IV fluids were stopped. Patient is been followed by several consultants including the infectious disease and lumber planer, besides the [facility] primary team. select facility has been recommended for the pt but she declined and she wants to go to her ECF upon discharge Objective - Vital Signs Vital signs: Vital Signs Temp 97.6 F 06/28/19 07:00 Pulse 80 06/28/19 07:57 Resp 18 06/28/19 07:57 BP 142/73 06/28/19 07:00 Pulse Ox 98 06/28/19 07:00 Intake & Output 06/27/19 06/28/19 06/28/19 18:59 06:59 18:59 Intake Total 300 365 Output Total 1000 100 Balance -700 365 -100 Intake: IV 200 275 Lactated Ringers 1,000 ml 275 @ 75 mls/hr IV .[id number] [facility] Rx#:[id number] Magnesium Sulfate-D5w Pmx 200 1 gm In Dextrose/Water 1 100ml.bag @ 100 mls/hr IVPB Q1H [facility] Rx#: [id number] Intake, IV Titration 90 Amount Lactated Ringers 1,000 ml 90 @ 0 mls/hr IV [facility] Rx#:[id number] Oral 100 Output: Urine 1000 Uretheral (Mon) 500 Stool 100 Other: Voiding Method Indwelling Catheter Indwelling Catheter Indwelling Catheter - Exam GENERAL: The patient is alert and oriented x3, not in any acute distress. Well developed, well nourished. HEENT: Pupils are round and equally reacting to light. EOMI. No scleral icterus. No conjunctival pallor. Normocephalic, atraumatic. No pharyngeal erythema. No thyromegaly. CARDIOVASCULAR: S1 and S2 present. No murmurs, rubs, or gallops. PULMONARY: Chest is clear to auscultation, no wheezing or crackles. ABDOMEN: Soft, nontender, nondistended, normoactive bowel sounds. No palpable organomegaly. -MUSCULOSKELETAL: No joint swelling or deformity. Sacral pressure ulcer, status post debridement. Dressing is in place EXTREMITIES: No cyanosis, clubbing, worsening swelling of extremities including hands NEUROLOGICAL: Gross neurological examination did not reveal any focal deficits. SKIN: No rashes. - Labs CBC & Chem 7: 06/28/19 06:46 06/28/19 06:46 Labs: Abnormal Lab Results - Last 24 Hours (Table) 06/28/19 06/28/19 Range/Units 06:46 06:46 WBC 12.3 H (3.8-10.6) k/uL RBC 2.96 L (3.80-5.40) m/uL Hgb 9.3 L (11.4-16.0) gm/dL Hct 29.0 L (34.0-46.0) % RDW 17.2 H (11.5-15.5) % Neutrophils # 10.5 H (1.3-7.7) k/uL Carbon Dioxide 20 L (22-30) mmol/L BUN 23 H (7-17) mg/dL Creatinine 2.71 H (0.52-1.04) mg/dL Calcium 7.2 L (8.4-10.2) mg/dL Assessment and Plan Assessment: -Severe sepsis secondary to sacral pressure ulcer. Status post septic shock. Status post surgical debridement on 06/21/2019. Status post diverting colostomy on 06/23/2019. Improving -Acute kidney injury with worsening creatinine -leukocytosis, improving -Lactic acidosis and acidemia, secondary to infection. resolved -Chronic anemia -Essential hypertension, however hydralazine from 50 down to 25 mg 3 times daily -Chronic paraplegia secondary to stroke -Obesity with BMI 37.4 -Medical debility Plan: This is a pleasant 73 years old female who was presented for severe sepsis secondary to pressure ulcer, status post debridement and direct and colostomy. Keep holding vancomycin and follow-up level and follow-up ID team recommen dation. nephrology consult is appreciated. Hold lisinopril. Hold metoprolol for better blood pressure control. Lower dose of hydralazine from 50 to 25 mg 3 times a day. Follow up with nephrology and infectious disease recommendation As per ID team patient might need to go to [facility] [place] and negative pressure therapy, but Patient refused and wants to go to her F Labs and medication were reviewed.. Continue same treatment. Continue with symptomatic treatment. Resume home medication. Monitor lytes and vitals. DVT and GI prophylaxis. Further recommendations of the clinical course of the patient DVT prophylaxis: Subcutaneous Lovenox GI Prophylaxis: Pepcid Prognosis is guarded, long-term prognosis is poor as given her severity of her consents comorbidities. Discussed with the staff at bedside nurse
--- NOTE | 2019-06-28 12:38 | P.PN ---
Subjective Progress Note Date: 06/28/19 CHIEF COMPLAINT: Decubitus ulcer HISTORY OF PRESENT ILLNESS: Patient is status post debridement of stage IV sacral decubitus ulcer and also status post diverting colostomy. Patient examined at the bedside. She reports her pain is tolerable. She is tolerating full liquid diet. Ostomy with gas but no stool output. Patient did allow RN to change dressing early this morning. PHYSICAL EXAM: VITAL SIGNS: Reviewed. GENERAL: Well-developed in no acute distress. HEENT: No sclera icterus. Extraocular movements grossly intact. Moist buccal mucosa. Head is atraumatic, normocephalic. ABDOMEN: Soft. Nondistended. Nontender. Ostomy to left lower quadrant. NEUROLOGIC: Alert and oriented. Cranial nerves II through XII grossly intact. SKIN: Dressing noted to large sacral decubitus ulcer. ASSESSMENT: 1. Stage IV sacral decubitus ulcer, status post debridement 2. S/P diverting colostomy PLAN: 1. Continue local wound care and antibiotics per infectious disease 2. Continue full liquid diet. When ostomy has stool noted, may advance diet 3. This provider once again discussed plans moving forward with patient this. Dr. Puente is [facility] when paitent is stable for discharge as Dr. Stern could see her at that facility and continue to follow her progress as she will need eventual flap performed. Patient is refusing to go to [facility] discharge. She is requesting [facility]. Explained that her wound [facility] be [facility] and the reasoning of why [facility] is being suggested for her care. Radha ent continues to refuse. We will continue to discuss this with the patient daily. Nurse practitioner note has been reviewed by physician. Signing provider agrees with the documented findings, assessment, and plan of care. Objective - Vital Signs Vital signs: Vital Signs Temp 97.6 F 06/28/19 07:00 Pulse 80 06/28/19 07:57 Resp 18 06/28/19 07:57 BP 142/73 06/28/19 07:00 Pulse Ox 98 06/28/19 07:00 Intake & Output 06/27/19 06/28/19 06/28/19 18:59 06:59 18:59 Intake Total 300 365 Output Total 1000 100 Balance -700 365 -100 Weight 87.09 kg Intake: IV 200 275 Lactated Ringers 1,000 ml 275 @ 75 mls/hr IV .[id number] [facility] Rx#:[id number] Magnesium Sulfate-D5w Pmx 200 1 gm In Dextrose/Water 1 100ml.bag @ 100 mls/hr IVPB Q1H [facility] Rx#: [id number] Intake, IV Titration 90 Amount Lactated Ringers 1,000 ml 90 @ 0 mls/hr IV .[facility] Rx#:[id number] Oral 100 Output: Urine 1000 Uretheral (Mon) 500 Stool 100 Other: Voiding Method Indwelling Catheter Indwelling Catheter Indwelling Catheter - Labs CBC & Chem 7: 06/28/19 06:46 06/28/19 06:46 Labs: Abnormal Lab Results - Last 24 Hours (Table) 06/28/19 06/28/19 Range/Units 06:46 06:46 WBC 12.3 H (3.8-10.6) k/uL RBC 2.96 L (3.80-5.40) m/uL Hgb 9.3 L (11.4-16.0) gm/dL Hct 29.0 L (34.0-46.0) % RDW 17.2 H (11.5-15.5) % Neutrophils # 10.5 H (1.3-7.7) k/uL Carbon Dioxide 20 L (22-30) mmol/L BUN 23 H (7-17) mg/dL Creatinine 2.71 H (0.52-1.04) mg/dL Calcium 7.2 L (8.4-10.2) mg/dL
[2019-06-28] MEDS ORDERED: POTASSIUM CHLORIDE ER 20 MEQ TAB.ER PO STA (14:17)
--- NOTE | 2019-06-28 14:17 | P.PN ---
Subjective Patient is seen in follow-up for acute kidney injury. Baseline creatinine is 1 and is up to 2.71 today. Etiology is vancomycin toxicity. Oral intake is fair. She is nonoliguric. No vomiting or diarrhea. No active complaints at this time. Vital signs are stable. General: The patient appeared well nourished and normally developed. HEENT: Head exam is unremarkable. Neck is without jugular venous distension. LUNGS: Lungs are clear to auscultation and percussion. Breath sounds decreased. HEART: Rate and Rhythm are regular. First and second heart sounds normal. No murmurs, rubs or gallops. ABDOMEN: Abdominal exam reveals normal bowel sounds. Non-tender and non- distended. No evidence of peritonitis. EXTREMITITES: Trace edema. Objective - Vital Signs Vital signs: Vital Signs Temp 98.2 F 06/28/19 14:11 Pulse 102 H 06/28/19 14:11 Resp 16 06/28/19 14:11 BP 134/81 06/28/19 14:11 Pulse Ox 98 06/28/19 14:11 Intake & Output 06/27/19 06/28/19 06/28/19 18:59 06:59 18:59 Intake Total 300 365 Output Total 1000 100 Balance -700 365 -100 Weight 87.09 kg Intake: IV 200 275 Lactated Ringers 1,000 ml 275 @ 75 mls/hr IV .[id number] [facility] Rx#:[id number] Magnesium Sulfate-D5w Pmx 200 1 gm In Dextrose/Water 1 100ml.bag @ 100 mls/hr IVPB Q1H [facility] Rx#: [id number] Intake, IV Titration 90 Amount Lactated Ringers 1,000 ml 90 @ 0 mls/hr IV .[facility] Rx#:[id number] Oral 100 Output: Urine 1000 Uretheral (Mon) 500 Stool 100 Other: Voiding Method Indwelling Catheter Indwelling Catheter Indwelling Catheter - Labs CBC & Chem 7: 06/28/19 06:46 06/28/19 06:46 Labs: Abnormal Lab Results - Last 24 Hours (Table) 06/28/19 06/28/19 Range/Units 06:46 06:46 WBC 12.3 H (3.8-10.6) k/uL RBC 2.96 L (3.80-5.40) m/uL Hgb 9.3 L (11.4-16.0) gm/dL Hct 29.0 L (34.0-46.0) % RDW 17.2 H (11.5-15.5) % Neutrophils # 10.5 H (1.3-7.7) k/uL Carbon Dioxide 20 L (22-30) mmol/L BUN 23 H (7-17) mg/dL Creatinine 2.71 H (0.52-1.04) mg/dL Calcium 7.2 L (8.4-10.2) mg/dL Assessment and Plan Plan: Assessment: 1. Acute kidney injury secondary to vancomycin toxicity. Baseline creatinine is 1 and is up to 2.71 today. No evidence of hydronephrosis and kidney ultrasound. 2. Decubitus ulcer status post debridement this admission. 3. Status post diverting colostomy on June 23. 4. Metabolic acidosis secondary to acute kidney injury. Better. 5. E. coli UTI. 6. Bacteroides ovatus and carynebacterium accolens bacteremia. Maintained on IV antibiotics. 7. Hypokalemia from poor oral intake. Better. Plan: Hold vancomycin. Monitor levels closely. Dose to be adjusted for renal function. Encourage oral intake. Avoid nephrotoxins. Repeat electrolytes in the morning. Continue to monitor renal function and urine output. Replace potassium. 40 mEq today.
--- NOTE | 2019-06-28 22:05 | P.PN ---
Subjective Progress Note Date: 06/28/19 This is a 73-year-old female who is currently living at home alone. She has history of CVA and has been bedbound for the past 3 years. Patient presented with stage IV decubitus ulcers to the sacrum,, coccyx, bilateral buttocks and posterior thighs with extensive necrosis. Unclear how long this has been going on. Patient presented with fever, tachycardia, hypotension, leukocytosis of 18.6, lactic acid 3.8. BUN 61 and creatinine 1.38. Sed rate 58, CRP 323.CAT scan of the abdomen and pelvis without contrast revealed large area of soft tissue air bubbles in the posterior sacral and buttocks region consistent with cellulitis and he was ulcers. No drainable abscess. No focal bone destruction. Patient was admitted into the intensive care unit. She is status post 20 of liters of IV fluid. Norepinephrine was discontinued at 8 AM this morning. Patient is currently hemodynamically stable. Dr. Osborne is on consult as well as Dr. Grimes with tentative plan for debridement of the d ecubitus ulcers. Blood cultures status received. Patient is currently on vancomycin. Patient is unaware of her last tetanus immunization. 06/19/2019 the patient is now agreeable to surgical intervention. It appears she understands the significance of her situation. We did relate that she has an extensive infection that is understandable terms of aerobic anaerobic and necrotizing resulting in bacteremia and sepsis. Without surgical debridement I would not expect her to survive. 06/20/2019 the patient was to go to the operating room today however the surgical schedule would not allow it. With the nursing team the necrotic ulcerations or cleansed with a Dakin solution and the ulcerations are packed and dressings are put into place. She did have an extensive bowel movement. Was not malodorous such as C. diff. No evidence of any significant blood in the stool. She remains very anxious about the overall situation. Seems to have great distust to the overall medical system. 06/23/2019 patient the operating room today for the diverting colostomy. Ethics committee meeting did happen earlier in the day. 06/26/2019 the patient has had the diverting colostomy. There is to be some function and she is now given some full liquids. Appetite was poor. Mood is less withdrawn and she does seem to be comfortable. In discussing with going to happen next seems to have very poor understanding of the next process. 06/27/2019 Little change in the status. Mood today is worse. The potential for [facility] to [facility] was presented and the patient is having great difficulties psychologically dealing with her illness and all of the factors that are occurring. 06/28/2019 patient's mood is slightly better today. She is still withdrawn. Social work has now again became involved for guarding to be granted. Objective - Vital Signs Vital signs: Vital Signs Temp 98.8 F 06/28/19 19:17 Pulse 100 06/28/19 19:17 Resp 17 06/28/19 19:17 BP 122/89 06/28/19 19:17 Pulse Ox 96 06/28/19 19:17 Intake & Output 06/28/19 06/28/19 06/29/19 06:59 18:59 06:59 Intake Total 365 540 Output Total 600 Balance 365 -600 540 Weight 87.09 kg Intake: IV 275 Lactated Ringers 1,000 ml 275 @ 75 mls/hr IV .[id number] [facility] Rx#:[id number] Intake, IV Titration 90 Amount Lactated Ringers 1,000 ml 90 @ 0 mls/hr IV .[employer] Rx#:[id number] Oral 540 Output: Urine 400 Stool 200 Other: Voiding Method Indwelling Catheter Indwelling Catheter Indwelling Catheter - Exam Gen: This is a morbidly obese 73-year-old female. She is sitting up in the ICU bed and appears to be comfortable and in no acute distress. HEENT: Head is atraumatic, normocephalic. Pupils equal, round. Sclerae is anicteric. Conjunctiva pink. Oral mucous membranes are moist. Patient is edentulous. No thrush noted. NECK: Supple. No JVD. No lymphadenopathy. No thyromegaly. LUNGS: Clear to auscultation. No wheezes or rhonchi. No intercostal retractions. HEART: Regular rate and rhythm. No murmur. ABDOMEN: Soft. few Bowel sounds are present. No masses. No tenderness. No redness under abdominal folds. ostomy with some drainage Mon catheter draining clear timmy urine. EXTREMITIES: No pedal edema. Dorsalis pedis +2 bilaterally. NEUROLOGICAL: Patient is awake, alert and oriented both withdrawn lower extremity weakness foot drop the extensive buttocks dressing not changed - Labs CBC & Chem 7: 06/28/19 06:46 06/28/19 06:46 Labs: Abnormal Lab Results - Last 24 Hours (Table) 06/28/19 06/28/19 Range/Units 06:46 06:46 WBC 12.3 H (3.8-10.6) k/uL RBC 2.96 L (3.80-5.40) m/uL Hgb 9.3 L (11.4-16.0) gm/dL Hct 29.0 L (34.0-46.0) % RDW 17.2 H (11.5-15.5) % Neutrophils # 10.5 H (1.3-7.7) k/uL Carbon Dioxide 20 L (22-30) mmol/L BUN 23 H (7-17) mg/dL Creatinine 2.71 H (0.52-1.04) mg/dL Calcium 7.2 L (8.4-10.2) mg/dL Laboratory Results WBC 12.3 k/uL (3.8-10.6) H 06/28/19 06:46 RBC 2.96 m/uL (3.80-5.40) L 06/28/19 06:46 Hgb 9.3 gm/dL (11.4-16.0) L 06/28/19 06:46 Hct 29.0 % (34.0-46.0) L 06/28/19 06:46 MCV 98.2 fL (80.0-100.0) 06/28/19 06:46 MCH 31.4 pg (25.0-35.0) 06/28/19 06:46 MCHC 32.0 g/dL (31.0-37.0) 06/28/19 06:46 RDW 17.2 % (11.5-15.5) H 06/28/19 06:46 Plt Count 254 k/uL (150-450) 06/28/19 06:46 Neutrophils % 86 % 06/28/19 06:46 Lymphocytes % 8 % 06/28/19 06:46 Monocytes % 3 % 06/28/19 06:46 Eosinophils % 2 % 06/28/19 06:46 Basophils % 0 % 06/28/19 06:46 Neutrophils # 10.5 k/uL (1.3-7.7) H 06/28/19 06:46 Lymphocytes # 1.0 k/uL (1.0-4.8) 06/28/19 06:46 Monocytes # 0.4 k/uL (0-1.0) 06/28/19 06:46 Eosinophils # 0.2 k/uL (0-0.7) 06/28/19 06:46 Basophils # 0.0 k/uL (0-0.2) 06/28/19 06:46 Manual Slide Review Performed 06/26/19 06:30 Hypochromasia Moderate 06/28/19 06:46 Anisocytosis Slight 06/28/19 06:46 Macrocytosis Slight 06/28/19 06:46 ESR 58 mm/hr (0-20) H 06/15/19 19:03 PT 11.2 sec (9.0-12.0) 06/15/19 16:52 INR 1.1 (<1.2) 06/15/19 16:52 APTT 24.5 sec (22.0-30.0) 06/15/19 16:52 Sodium 138 mmol/L (137-145) 06/28/19 06:46 Potassium 3.6 mmol/L (3.5-5.1) 06/28/19 06:46 Chloride 107 mmol/L (98-107) 06/28/19 06:46 Carbon Dioxide 20 mmol/L (22-30) L 06/28/19 06:46 Anion Gap 11 mmol/L 06/28/19 06:46 BUN 23 mg/dL (7-17) H 06/28/19 06:46 Creatinine 2.71 mg/dL (0.52-1.04) H 06/28/19 06:46 Est GFR (CKD-EPI)AfAm 20 (>60 ml/min/1.73 sqM) 06/28/19 06:46 Est GFR (CKD-EPI)NonAf 17 (>60 ml/min/1.73 sqM) 06/28/19 06:46 Glucose 74 mg/dL (74-99) 06/28/19 06:46 POC Glucose (mg/dL) 150 mg/dL (75-99) H 06/15/19 21:34 POC Glu L Tacker ID Perez Rashi 06/15/19 21:34 Lactic Ac Sepsis Rflx Y 06/15/19 17:48 Plasma Lactic Acid Jonathan 1.3 mmol/L (0.7-2.0) 06/15/19 22:28 Calcium 7.2 mg/dL (8.4-10.2) L 06/28/19 06:46 Magnesium 2.2 mg/dL (1.6-2.3) 06/28/19 06:46 Total Bilirubin 0.7 mg/dL (0.2-1.3) 06/15/19 16:52 AST 40 U/L (14-36) H 06/15/19 16:52 ALT 18 U/L (9-52) 06/15/19 16:52 Alkaline Phosphatase 123 U/L (38-126) 06/15/19 16:52 Creatine Kinase 220 U/L (30-135) H 06/15/19 16:52 C-Reactive Protein 323.6 mg/L (<10.0) H 06/15/19 16:52 Total Protein 6.4 g/dL (6.3-8.2) 06/15/19 16:52 Albumin 2.8 g/dL (3.5-5.0) L 06/15/19 16:52 Urine Color Light Yellow 06/26/19 07:56 Urine Appearance Cloudy (Clear) H 06/26/19 07:56 Urine pH 5.0 (5.0-8.0) 06/26/19 07:56 Ur Specific [place] 1.009 (1.001-1.035) 06/26/19 07:56 Urine Protein 1+ (Negative) H 06/26/19 07:56 Urine Glucose (UA) Negative (Negative) 06/26/19 07:56 Urine Ketones Negative (Negative) 06/26/19 07:56 Urine Blood Small (Negative) H 06/26/19 07:56 Urine Nitrite Negative (Negative) 06/26/19 07:56 Urine Bilirubin Negative (Negative) 06/26/19 07:56 Urine Urobilinogen <2.0 mg/dL (<2.0) 06/26/19 07:56 Ur Leukocyte Esterase Large (Negative) H 06/26/19 07:56 Urine RBC 43 /hpf (0-5) H 06/26/19 07:56 Urine WBC 124 /hpf (0-5) H 06/26/19 07:56 Urine WBC Clumps Occasional /hpf (None) H 06/26/19 07:56 Ur Squamous Epith Cells 1 /hpf (0-4) 06/26/19 07:56 Urine Bacteria Occasional /hpf (None) H 06/26/19 07:56 Hyaline Casts 4 /lpf (0-2) H 06/26/19 07:56 Urine Mucus Rare /hpf (None) H 06/26/19 07:56 Ur Yeast w Hyphae Moderate /hpf (None) 06/26/19 07:56 Urine Yeast (Budding) Many /hpf (None) H 06/26/19 07:56 Vancomycin Trough 38.0 ug/mL H* 06/26/19 06:30 Random Vancomycin 31.1 ug/mL 06/28/19 06:46 Blood Type O Positive 06/23/19 10:59 Blood Type Confirm O Positive 06/23/19 07:42 Blood Type Recheck No Previous Record 06/23/19 10:59 Bld Type Recheck Status CABO Indicated 06/23/19 10:59 Antibody Screen NEGATIVE 06/23/19 10:59 Spec Expiration Date 06/26/2019 - 235806/23/19 10:59 Microbiology 06/15/19 16:52 Blood Blood Culture Gram Stain - Final 06/15/19 16:52 Blood Blood Culture - Final Bacteroides ovatus Carynebacterium accolens Anaerobic Gm Negative Bacilli Coagulase Negative Staph 06/15/19 16:52 Blood Blood Culture - Final 06/15/19 17:28 Urine,Voided Urine Culture - Final Escherichia coli Assessment and Plan (1) Decubitus ulcer Current Visit: Yes Status: Acute Code(s): L89.90 - PRESSURE ULCER OF UNSPECIFIED SITE, UNSPECIFIED STAGE SNOMED Code(s): 182992735 (2) Sepsis Current Visit: Yes Status: Acute Code(s): A41.9 - SEPSIS, UNSPECIFIED ORGANISM SNOMED Code(s): 32293131 (3) Infection due to gram-negative anaerobic organism Narrative/Plan: Before I entered the room the nursing staff relate to the difficulties that are occurring, in that the patient was seen by the surgeon, evidence of the extensive stage IV pressure ulcerations of the coccyx as well as sacral area with sukhwinder tissue necrosis occurring that was present on admission, she was offered surgical intervention and refused. As I enter the room I had a very positive attitude and the patient does communicate, however her face is down she does not look to the observer and she is evasive. She relates that she is tired and does not want anything to be done. She did have prior heel ulcerations that were black and eventually tissue fell off in her heels were completely recovered. She has not seen the extensive current ulcerations, and does not want to. We discussed the absolute need for surgical debridement, she still defers. At this time we will be able to offer some local care with Dakin solution to help reduce local or and possibly some local infection control. Intravenous antibiotic therapy with Zosyn and vancomycin being utilized.If the patient does not want extensive interventions which would include surgical intervention, would agree with the primary service that discharged home would be appropriate. Would then strongly consider hospice evaluation in that with this extensive amount of necrosis and infection sepsis and will occur. 06/19/2018 the patient is not related to his surgical intervention which will be an extensive debridement of necrotic material over the coccyx and buttocks. The Dakin solution is allowed some improvement of the putrid odor. It appears she'll surgical plan the debridement tomorrow. Postoperatively needs to be an air mattress, we'll also need to have this to the service to wherever she is discharged to. This extensive infection including anaerobic bacteremic infection urinary infection will require a course of ongoing intravenous antibiotic therapy currently with Zosyn which we'll plan to continue in the future. We'll need IV access also. Patient is instructed on the importance of the surgical debridement, without the debridement with this extensive amount of infection would not expect her to survive 06/20/2019 the patient had agreed to present for surgery but the surgical schedule did not allow of the extensive debridement to occur. Is scheduled for tomorrow. We'll continue the antibiotic therapy was 07 which would give coverage for all the isolate pathogens that have been found so far. IV access in long-term IV antibiotic therapy is planned for time of her discharge. Once the necrotic material has been removed and hemostasis is obtained would likely be utilizing a negative pressure therapy system to try to heal this extensive ulceration. Improve nutrition is also discussed. 06/23/2019 the patient will go to the operating him today for the diverting colostomy. She will not be able to return to room sitting for a while until she has improvement of her strength and resolution of her significant sepsis and bacteremia. Large defect will be left and when she is more stable negative pressure therapy will hopefully be applied to that area. Eventually will need plastic surgery evaluations.will require a many week intravenous antibiotic therapy 06/26/2019 the patient is now more stable. Ostomy is been placed in her diet has been advanced to full liquid. She seems to be about more comfortable and slightly less withdrawn when interacting with the observer. Discharge plan is the current largest obstacle. However if antibiotic therapy, wound care, specialty bed and further surgical evaluations are required to be an excellent candidate [facility] [place]. We'll consider negative pressure therapy as a short-term bridge 06/27/2019 the patient is hemodynamically stable, is at a full liquid diet but doesn't have appetite and does not feel well. She is considerably more withdrawn today after conversations about the need for a level of care such as Celexa by specialty. She is completely overwhelmed by her situation in any planning such as that. Patient is receiving ongoing education of the severity of her illness. Her pressure ulceration resulted in a large amount of tissue loss, sepsis, bacteremia and now her ongoing hospitalization. Given the extent of treatment that she will require [facility] is the best possible option for her and we'll also open the door for her to be seen by plastic surgery. Hopefully she'll be able to incorporate this information instructed to make some decisions in the next day or so. If she allows wound VAC would be ideal to be placed to a large tissue defect. 06/28/2019 patient remains withdrawn and is related to the care team that she does not want to go to LTAC. The extent of her illness has been explained and she is not comprehending this well. Her overall situation has been very difficult and social work will request regarding to be appointed so that appropriate care can be continued. Her current illness is considerably be around the capabilities of a extended care facility. She is in need of ongoing local wound care, antibiotic therapy, air bed, and further surgical in plastic surgery interventions. She will require a several week course of antibiotic therapy. Current Visit: Yes Status: Acute Code(s): A49.8 - OTHER BACTERIAL INFECTIONS OF UNSPECIFIED SITE SNOMED Code(s): 556499266
[2019-06-29] MEDS: SODIUM HYPOCHLORITE 0.25% 480 ML BOT MISCELLANE SCH ×3 (03:14→21:12)
[2019-06-29 08:20] LABS: Anisocytosis Slight; Basophils # (A) 0.1 k/uL (0-0.2); Basophils % (A) 1 %; Eosinophils # (A) 0.2 k/uL (0-0.7); Eosinophils % (A) 2 %; HGB 8.5 gm/dL (11.4-16.0); Hypochromasia Slight; Lymphocytes % (A) 11 %; MCH 31.7 pg (25.0-35.0); MCHC 32.6 g/dL (31.0-37.0); MCV 97.2 fL (80.0-100.0); Macrocytosis Slight; Mean Platelet Volume 7.4; Monocytes # (A) 0.4 k/uL (0-1.0); Monocytes % (A) 4 %; Neutrophils # (A) 7.4 k/uL (1.3-7.7); Neutrophils % (A) 81 %; Platelet Count 202 k/uL (150-450); RBC 2.67 m/uL (3.80-5.40); RDW 17.4 % (11.5-15.5); WBC 9.2 k/uL (3.8-10.6)
[2019-06-29 08:29] LABS: Magnesium 2.2 mg/dL (1.6-2.3)
[2019-06-29] MEDS: hydrALAZINE HCL 25 MG TAB PO SCH ×3 (08:31→21:11)
[2019-06-29] MEDS: FAMOTIDINE 20 MG TAB PO SCH (08:31)
[2019-06-29] MEDS: ENOXAPARIN 30 MG/0.3 ML SYRINGE SQ SCH (08:31)
[2019-06-29 08:34] LABS: Vancomycin,Random 29.7 ug/mL
--- NOTE | 2019-06-29 09:18 | P.PN ---
Subjective On-call hospitalist covering for Dr. Marr starting on 06/23/2019. This is a pleasant 73 years old female with past medical history of CVA/TIA and she is paraplegic, hypertension. who presents because of severe sepsis secondary to pressure ulcer, patient started on Levophed up on admission and she was in the intensive care unit, however is improving with IV antibiotics and now she is off pressors. She is a status post debridement of her pressure ulcer by the surgical team. Also surgical team were recommended colostomy to however patient was declining. Previous primary and psychiatric team deemed the patient is capable of making her on medical decisions. However because of her persistent refusal for the recommended surgery, ethics committee were contacted for evaluation the patient. However as it was going this morning to see the patient, the bedside nurse told me the patient has already agreed for surgery and she signed a consent. When it went into the room the patient also confirmed to me she is agreeable to surgery and she has already consented for it. Patient denies chest pain or dyspnea. No abdominal pain. No nausea vomiting. Hemodynamically stable. leukocytosis of 13.4 k, hemoglobin 9.7, platelets 519, creatinine 0.98 electrolytes within normal limits. 06/24/2019 Patient is status post diverticular colostomy yesterday and today is postoperative day #1. Patient is fully awake and oriented with no chest pain or dyspnea. She returned breakfast this morning with no problems. Colostomy back is in place with 2 drops of blood in it. Patient has expected pain and tenderness of the surgery site. Patient is afebrile and blood pressure is 88/63. WBC is 17.4 K, hemoglobin 9.7,creatinine is 1.0. Repeat chest x-ray showing possible left lower lung opacity which is not a specific could be atelectasis versus infectious process. Patient is already on vancomycin and infectious disease team R following the case closely. Her Zosyn was recently discontinued. 06/25/2019 Patient is awake and alert, lying in bed comfortable no distress, she still noticed her breakfast this morning. No worsening abdominal pain or nausea vomiting. Her colostomy back is still empty. She has more swelling in her extremities. Patient is afebrile, mildly tachycardic. Blood pressure 123/84. No labored breathing and at 14-16 breaths per minute. She has worsening leukocytosis at 21.5K and kidney function with creatinine at 1.4. We'll discontinue the IV fluid and call nephrology consult. Patient is currently on vancomycin as per infectious disease team. We will ask infectious disease for follow-up today. Patient has Mon catheter which is draining clear urine. We aren't going to repeat urine analysis. Discussed with the staff 06/26/2019 Patient is gradually improving. She is awake and alert. She is tolerating diet well with no nausea vomiting or abdominal pain. She has this appetite. Her colostomy bag is working. Her swelling in her upper extremities is improving gradually. No fever and hemodynamically stable. Creatinine went up today to 1.9, WBC is coming down to 16.9 K, hemoglobin 9.3, lisinopril and vancomycin on hold. Vancomycin trough is 38.0. Infectious disease R following the patient for antibiotics. Security System Sales Consultant input is appreciated. Patient of IV fluids since yesterday morning. Metoprolol 25 mg daily was restarted by nephrology team, however her blood pressure was 96/23 yesterday, while this morning 117/80. We going to hold her metoprolol and follow-up blood pressure 06/27/2019 Patient is awake and alert, no chest pain or dyspnea. She is tolerating that well with no nausea or vomiting. Colostomy bag is working. leukocytosis of 15.9, slightly improving from 16.9 yesterday, hemoglobin stable at 9.2 and platelets 227, creatinine is worse at 2.4, potassium 3.4, creatinine is went up today to 2.4, nephrology is following the patient closely. infectious disease team recommended vancomycin, vancomycin level today is 33.1. 06/28/2019 Patient is awake and alert, no abdominal pain or nausea vomiting, she ate part of her breakfast and orange juice this morning. And she tolerated that well. Clinically she looks better today. Colostomy back showing only gas today. Abdomen is nondistended. Mon catheter is in place and draining yellow urine. Vitals are stable and blood pressure this morning is 142/73, heart rate is 80, she is afebrile. WBC is coming down to 12.3 K, creatinine is 2.7. Vancomycin level is 31.1. IV fluids were stopped. Patient is been followed by several consultants including the infectious disease and communications lead, besides the [facility] primary team. select facility has been recommended for the pt but she declined and she wants to go to her ECF upon discharge 06/29/2019 Patient is awake and doing well with no new complaints. She starting diet with no nausea vomiting. However colostomy back showing only gas and small amount of secretions today. She is making urine through Mon catheter. Vitas looks stable. And doubly BCs back to normal today at 9.2K, hemoglobin 8.5, repeat creatinine from today still pending. We're going to follow-up the results. Vancomycin level 29.7. Patient is still refusing select facility at 1 to go to ECF for no apparent reasonable cause. Patient is followed by several consultants. Objective - Vital Signs Vital signs: Vital Signs Temp 98.5 F 06/29/19 08:24 Pulse 93 06/29/19 08:24 Resp 16 06/29/19 08:24 BP 129/84 06/29/19 08:24 Pulse Ox 98 06/29/19 08:24 Intake & Output 06/28/19 06/29/19 06/29/19 18:59 06:59 18:59 Intake Total 630 Output Total 600 100 Balance -600 630 -100 Weight 87.09 kg Intake: Intake, IV Titration 90 Amount Lactated Ringers 1,000 ml 90 @ 0 mls/hr IV .[employer] ONE Rx#:[id number] Oral 540 Output: Urine 400 Stool 200 100 Other: Voiding Method Indwelling Catheter Indwelling Catheter Indwelling Catheter - Exam GENERAL: The patient is alert and oriented x3, not in any acute distress. Well developed, well nourished. HEENT: Pupils are round and equally reacting to light. EOMI. No scleral icterus. No conjunctival pallor. Normocephalic, atraumatic. No pharyngeal erythema. No thyromegaly. CARDIOVASCULAR: S1 and S2 present. No murmurs, rubs, or gallops. PULMONARY: Chest is clear to auscultation, no wheezing or crackles. ABDOMEN: Soft, nontender, nondistended, normoactive bowel sounds. No palpable organomegaly. -MUSCULOSKELETAL: No joint swelling or deformity. Sacral pressure ulcer, status post debridement. Dressing is in place EXTREMITIES: No cyanosis, clubbing, worsening swelling of extremities including hands NEUROLOGICAL: Gross neurological examination did not reveal any focal deficits. SKIN: No rashes. - Labs CBC & Chem 7: 06/29/19 06:59 06/28/19 06:46 Labs: Abnormal Lab Results - Last 24 Hours (Table) 06/29/19 Range/Units 06:59 RBC 2.67 L (3.80-5.40) m/uL Hgb 8.5 L (11.4-16.0) gm/dL Hct 26.0 L (34.0-46.0) % RDW 17.4 H (11.5-15.5) % Assessment and Plan Assessment: -Severe sepsis secondary to sacral pressure ulcer. Status post septic shock. Status post surgical debridement on 06/21/2019. Status post diverting colostomy on 06/23/2019. Improving -Acute kidney injury with worsening creatinine -leukocytosis, improving -Lactic acidosis and acidemia, secondary to infection. resolved -Chronic anemia -Essential hypertension, however hydralazine from 50 down to 25 mg 3 times daily -Chronic paraplegia secondary to stroke -Obesity with BMI 37.4 -Medical debility Plan: This is a pleasant 73 years old female who was presented for severe sepsis s econdary to pressure ulcer, status post debridement and direct and colostomy. Keep holding vancomycin and follow-up level and follow-up ID team recommendation. nephrology consult is appreciated. Hold lisinopril. Hold metoprolol for better blood pressure control. Lower dose of hydralazine from 50 to 25 mg 3 times a day. Follow up with nephrology and infectious disease recommendation As per ID team [facility] [place] and negative pressure therapy, but Patient refused and wants to go to her F Labs and medication were reviewed.. Continue same treatment. Continue with symptomatic treatment. Resume home medication. Monitor lytes and vitals. DVT and GI prophylaxis. Further recommendations of the clinical course of the patient DVT prophylaxis: Subcutaneous Lovenox GI Prophylaxis: Pepcid Prognosis is guarded, long-term prognosis is poor as given her severity of her consents comorbidities. Discussed with the staff at bedside nurse
--- NOTE | 2019-06-29 11:15 | P.PN ---
Subjective Progress Note Date: 06/29/19 CHIEF COMPLAINT: Decubitus ulcer HISTORY OF PRESENT ILLNESS: Patient is status post debridement of stage IV sacral decubitus ulcer and also status post diverting colostomy. Patient examined at the bedside. She reports her pain is tolerable. She is tolerating full liquid diet. Ostomy with gas and stool. PHYSICAL EXAM: VITAL SIGNS: Reviewed. GENERAL: Well-developed in no acute distress. HEENT: No sclera icterus. Extraocular movements grossly intact. Moist buccal mucosa. Head is atraumatic, normocephalic. ABDOMEN: Soft. Nondistended. Nontender. Ostomy to left lower quadrant. NEUROLOGIC: Alert and oriented. Cranial nerves II through XII grossly intact. SKIN: Dressing noted to large sacral decubitus ulcer. ASSESSMENT: 1. Stage IV sacral decubitus ulcer, status post debridement 2. S/P diverting colostomy PLAN: 1. Continue local wound care and antibiotics per infectious disease 2. Advance diet. 3. Once again spoke with patient regarding discharge planning and the need for [facility] where patient was requesting. Reiterated to patient [facility] would be more appropriate to care for her wounds and Dr. Stern could see her at that facility and continue to follow her progress as she will need eventual flap performed. this is the third or fourth day that this provider has spoken to patient regarding [facility] and everyday patient has been refusing. Patient is more open to communicating about [facility] today. She is not adamantly refusing as she has in previous conversations. She states that she has been thinking about it and is not completely opposed to going to [facility] at the time of dulce enciso. She reports that she will continue to think about it and will make a decision. Nurse practitioner note has been reviewed by physician. Signing provider agrees with the documented findings, assessment, and plan of care. Objective - Vital Signs Vital signs: Vital Signs Temp 98.5 F 06/29/19 08:24 Pulse 93 06/29/19 08:24 Resp 16 06/29/19 08:24 BP 129/84 06/29/19 08:24 Pulse Ox 98 06/29/19 08:24 Intake & Output 06/28/19 06/29/19 06/29/19 18:59 06:59 18:59 Intake Total 630 Output Total 600 100 Balance -600 630 -100 Weight 87.09 kg Intake: Intake, IV Titration 90 Amount Lactated Ringers 1,000 ml 90 @ 0 mls/hr IV .[employer] ONE Rx#:[id number] Oral 540 Output: Urine 400 Stool 200 100 Other: Voiding Method Indwelling Catheter Indwelling Catheter Indwelling Catheter - Labs CBC & Chem 7: 06/29/19 06:59 06/28/19 06:46 Labs: Abnormal Lab Results - Last 24 Hours (Table) 06/29/19 Range/Units 06:59 RBC 2.67 L (3.80-5.40) m/uL Hgb 8.5 L (11.4-16.0) gm/dL Hct 26.0 L (34.0-46.0) % RDW 17.4 H (11.5-15.5) %
--- NOTE | 2019-06-29 11:59 | PN ---
PROGRESS NOTE The patient is seen for followup for acute kidney injury. We do not have labs from today. The patient states she has been putting out urine. She has an indwelling Mon catheter. A 24 hour urine output is noted to be 1000 mL. PHYSICAL EXAMINATION: On examination, blood pressure was 129/84, heart rate 93 per minute. Patient is afebrile. EXAMINATION OF THE HEART: S1, S2. EXAMINATION OF THE LUNGS: Bilateral breath sounds are heard. Abdomen is soft, nontender. Examination of the lower extremities shows trace edema bilaterally. WASTEWATER PLANT OPERATOR exam is grossly intact. LABS: Labs are not available from today. Creatinine was 2.7 yesterday, which was up from 2.4 the day before. ASSESSMENT: 1. Acute kidney injury secondary to vancomycin toxicity, currently nonoliguric. Check labs today. 2. Decubitus ulcer, status post debridement. 3. Status post diverting colostomy, June 23. 4. Metabolic acidosis secondary to renal failure, currently improved. 5. Urinary tract infection with urine culture growing Escherichia coli. 6. Bacteremia with Bacteroides ovatus and Corynebacterium accolens. PLAN: Check labs today. Continue to avoid any nephrotoxic agents. Avoid hypotension. MMODL / IJN: [id number] /
[2019-06-29 12:11] LABS: Calcium 7.3 mg/dL (8.4-10.2); Potassium 3.6 mmol/L (3.5-5.1)
[2019-06-29] MEDS: ONDANSETRON 4 MG/2 ML VIAL IVP PRN (17:37)
[2019-06-30 07:18] LABS: Anisocytosis Slight; Basophils # (A) 0.1 k/uL (0-0.2); Basophils % (A) 1 %; Eosinophils # (A) 0.2 k/uL (0-0.7); Eosinophils % (A) 2 %; HCT 26.6 % (34.0-46.0); HGB 8.4 gm/dL (11.4-16.0); Hypochromasia Slight; Lymphocytes % (A) 12 %; MCH 31.1 pg (25.0-35.0); MCHC 31.7 g/dL (31.0-37.0); MCV 98.2 fL (80.0-100.0); Macrocytosis Slight; Monocytes # (A) 0.3 k/uL (0-1.0); Monocytes % (A) 4 %; Neutrophils # (A) 6.6 k/uL (1.3-7.7); Neutrophils % (A) 80 %; Platelet Count 188 k/uL (150-450); RBC 2.71 m/uL (3.80-5.40); RDW 18.5 % (11.5-15.5); WBC 8.2 k/uL (3.8-10.6)
[2019-06-30 07:22] LABS: Magnesium 2.1 mg/dL (1.6-2.3)
[2019-06-30 07:30] LABS: Vancomycin,Random 27.4 ug/mL
[2019-06-30] MEDS: FAMOTIDINE 20 MG TAB PO SCH (09:49)
[2019-06-30] MEDS: ENOXAPARIN 30 MG/0.3 ML SYRINGE SQ SCH (09:49)
[2019-06-30] MEDS: SODIUM HYPOCHLORITE 0.25% 480 ML BOT MISCELLANE SCH ×2 (09:49→22:35)
[2019-06-30] MEDS: hydrALAZINE HCL 25 MG TAB PO SCH ×2 (09:49→18:57)
--- NOTE | 2019-06-30 09:55 | P.PN ---
Subjective On-call hospitalist covering for Dr. Marr starting on 06/23/2019. This is a pleasant 73 years old female with past medical history of CVA/TIA and she is paraplegic, hypertension. who presents because of severe sepsis secondary to pressure ulcer, patient started on Levophed up on admission and she was in the intensive care unit, however is improving with IV antibiotics and now she is off pressors. She is a status post debridement of her pressure ulcer by the surgical team. Also surgical team were recommended colostomy to however patient was declining. Previous primary and psychiatric team deemed the patient is capable of making her on medical decisions. However because of her persistent refusal for the recommended surgery, ethics committee were contacted for evaluation the patient. However as it was going this morning to see the patient, the bedside nurse told me the patient has already agreed for surgery and she signed a consent. When it went into the room the patient also confirmed to me she is agreeable to surgery and she has already consented for it. Patient denies chest pain or dyspnea. No abdominal pain. No nausea vomiting. Hemodynamically stable. leukocytosis of 13.4 k, hemoglobin 9.7, platelets 519, creatinine 0.98 electrolytes within normal limits. 06/24/2019 Patient is status post diverticular colostomy yesterday and today is postoperative day #1. Patient is fully awake and oriented with no chest pain or dyspnea. She returned breakfast this morning with no problems. Colostomy back is in place with 2 drops of blood in it. Patient has expected pain and tenderness of the surgery site. Patient is afebrile and blood pressure is 88/63. WBC is 17.4 K, hemoglobin 9.7,creatinine is 1.0. Repeat chest x-ray showing possible left lower lung opacity which is not a specific could be atelectasis versus infectious process. Patient is already on vancomycin and infectious disease team R following the case closely. Her Zosyn was recently discontinued. 06/25/2019 Patient is awake and alert, lying in bed comfortable no distress, she still noticed her breakfast this morning. No worsening abdominal pain or nausea vomiting. Her colostomy back is still empty. She has more swelling in her extremities. Patient is afebrile, mildly tachycardic. Blood pressure 123/84. No labored breathing and at 14-16 breaths per minute. She has worsening leukocytosis at 21.5K and kidney function with creatinine at 1.4. We'll discontinue the IV fluid and call nephrology consult. Patient is currently on vancomycin as per infectious disease team. We will ask infectious disease for follow-up today. Patient has Mon catheter which is draining clear urine. We aren't going to repeat urine analysis. Discussed with the staff 06/26/2019 Patient is gradually improving. She is awake and alert. She is tolerating diet well with no nausea vomiting or abdominal pain. She has this appetite. Her colostomy bag is working. Her swelling in her upper extremities is improving gradually. No fever and hemodynamically stable. Creatinine went up today to 1.9, WBC is coming down to 16.9 K, hemoglobin 9.3, lisinopril and vancomycin on hold. Vancomycin trough is 38.0. Infectious disease R following the patient for antibiotics. Oncology Social Work input is appreciated. Patient of IV fluids since yesterday morning. Metoprolol 25 mg daily was restarted by nephrology team, however her blood pressure was 96/23 yesterday, while this morning 117/80. We going to hold her metoprolol and follow-up blood pressure 06/27/2019 Patient is awake and alert, no chest pain or dyspnea. She is tolerating that well with no nausea or vomiting. Colostomy bag is working. leukocytosis of 15.9, slightly improving from 16.9 yesterday, hemoglobin stable at 9.2 and platelets 227, creatinine is worse at 2.4, potassium 3.4, creatinine is went up today to 2.4, nephrology is following the patient closely. infectious disease team recommended vancomycin, vancomycin level today is 33.1. 06/28/2019 Patient is awake and alert, no abdominal pain or nausea vomiting, she ate part of her breakfast and orange juice this morning. And she tolerated that well. Clinically she looks better today. Colostomy back showing only gas today. Abdomen is nondistended. Mon catheter is in place and draining yellow urine. Vitals are stable and blood pressure this morning is 142/73, heart rate is 80, she is afebrile. WBC is coming down to 12.3 K, creatinine is 2.7. Vancomycin level is 31.1. IV fluids were stopped. Patient is been followed by several consultants including the infectious disease and fitness studies teacher, besides the [facility] primary team. select facility has been recommended for the pt but she declined and she wants to go to her ECF upon discharge 06/29/2019 Patient is awake and doing well with no new complaints. She starting diet with no nausea vomiting. However colostomy back showing only gas and small amount of secretions today. She is making urine through Mon catheter. Vitas looks stable. And doubly BCs back to normal today at 9.2K, hemoglobin 8.5, repeat creatinine from today still pending. We're going to follow-up the results. Vancomycin level 29.7. Patient is still refusing select facility at 1 to go to ECF for no apparent reasonable cause. Patient is followed by several consultants. 06/30/2019 Patient clinically the same and is doing well. She is tolerating diet well. Colostomy back is half filled with liquid stool today. Bowel sounds are present. No nausea vomiting. Vitas looks stable, blood pressure 150/75. Heart rate is 82. Labs showing no leukocytosis with a blue says 8.2K, hemoglobin is stable at 8.4. Also creatinine is starts stabilizing as today's 3.16 compared to yesterday of 3.14, Mon catheter is in place and patient is making good amount of urine. Vancomycin level today is 27.4. Nephrology and infectious disease input is appreciated Objective - Vital Signs Vital signs: Vital Signs Temp 98.8 F 06/30/19 07:00 Pulse 82 06/30/19 07:00 Resp 16 06/30/19 07:00 BP 150/75 06/30/19 07:00 Pulse Ox 96 06/30/19 07:00 Intake & Output 06/29/19 06/30/19 06/30/19 18:59 06:59 18:59 Intake Total 200 750 Output Total 650 Balance -450 750 Intake: IV 750 Lactated Ringers 1,000 ml 750 @ 75 mls/hr IV .[id number] [facility] Rx#:[id number] Oral 200 Output: Urine 550 Stool 100 Other: Voiding Method Indwelling Catheter - Exam GENERAL: The patient is alert and oriented x3, not in any acute distress. Well developed, well nourished. HEENT: Pupils are round and equally reacting to light. EOMI. No scleral icterus. No conjunctival pallor. Normocephalic, atraumatic. No pharyngeal erythema. No thyromegaly. CARDIOVASCULAR: S1 and S2 present. No murmurs, rubs, or gallops. PULMONARY: Chest is clear to auscultation, no wheezing or crackles. ABDOMEN: Soft, nontender, nondistended, normoactive bowel sounds. No palpable organomegaly. -MUSCULOSKELETAL: No joint swelling or deformity. Sacral pressure ulcer, status post debridement. Dressing is in place EXTREMITIES: No cyanosis, clubbing, worsening swelling of extremities including hands NEUROLOGICAL: Gross neurological examination did not reveal any focal deficits. SKIN: No rashes. - Labs CBC & Chem 7: 06/30/19 06:49 06/30/19 06:49 Labs: Abnormal Lab Results - Last 24 Hours (Table) 06/29/19 06/30/19 06/30/19 Range/Units 06:59 06:49 06:49 RBC 2.71 L (3.80-5.40) m/uL Hgb 8.4 L (11.4-16.0) gm/dL Hct 26.6 L (34.0-46.0) % RDW 18.5 H (11.5-15.5) % Carbon Dioxide 20 L (22-30) mmol/L BUN 24 H (7-17) mg/dL Creatinine 3.14 H 3.16 H (0.52-1.04) mg/dL Glucose 59 L (74-99) mg/dL Calcium 7.3 L (8.4-10.2) mg/dL Assessment and Plan Assessment: -Severe sepsis secondary to sacral pressure ulcer. Status post septic shock. Status post surgical debridement on 06/21/2019. Status post diverting colostomy on 06/23/2019. Improving -Acute kidney injury with worsening creatinine, creatinine is starting to stabilize -leukocytosis, improved -Lactic acidosis and acidemia, secondary to infection. resolved -Chronic anemia -Essential hypertension, however hydralazine from 50 down to 25 mg 3 times daily -Chronic paraplegia secondary to stroke -Obesity with BMI 37.4 -Medical debility Plan: This is a pleasant 73 years old female who was presented for severe sepsis secondary to pressure ulcer, status post debridement and direct and colostomy. Keep holding vancomycin and follow-up level and follow-up ID team r ecommendation. nephrology consult is appreciated. Hold lisinopril. Hold metoprolol for better blood pressure control. Lower dose of hydralazine from 50 to 25 mg 3 times a day. Follow up with nephrology and infectious disease recommendation As per ID team patient [facility] [place] and negative pressure therapy, but Patient refused and wants to go to her ECF Labs and medication were reviewed.. Continue same treatment. Continue with symptomatic treatment. Resume home medication. Monitor lytes and vitals. DVT and GI prophylaxis. Further recommendations of the clinical course of the patient DVT prophylaxis: Subcutaneous Lovenox, renal dose GI Prophylaxis: Pepcid Prognosis is guarded, long-term prognosis is poor as given her severity of her consents comorbidities. Discussed with the staff at bedside nurse
--- NOTE | 2019-06-30 22:33 | PN ---
PROGRESS NOTE The patient is seen for followup for acute kidney injury secondary to vancomycin toxicity. She has urinary tract infection with Escherichia coli and bacteremia with multiple organisms. Serum creatinine has been stable for the last 2 days staying at about 3.1 mg/dL. Previous creatinine was as low as 0.81 on 06/20/2019. The patient has an indwelling Mon catheter. Her 24 hour urine output was about 1000 mL. This morning, she is comfortable, not in any acute distress. Blood pressure was 150/75, heart rate of 82 per minute. She is afebrile. Examination of the heart S1, S2. Examination of the lungs, bilateral breath sounds are heard. Abdomen is soft, nontender. Examination of lower extremities shows edema 1+ bilaterally. SPECIAL DELIVERY MAIL CARRIER exam is grossly intact. LAB: Show sodium of 138 from yesterday. Serum creatinine was 3.1 yesterday, today it is again at 3.16, hemoglobin 8.4 g/dL. ASSESSMENT: 1. Acute kidney injury secondary to vancomycin toxicity. Vancomycin level was as high as 38. I still see vancomycin on her med list. I will discontinue that for now. The patient is nonoliguric. There are no other nephrotoxic medications on board. 2. Urinary tract infection with Escherichia coli. 3. Sepsis. The patient is currently out of the ICU. The patient has a decubitus ulcer and she had gram-negative anaerobic bacteremia from large ulcers in the coccyx and sacral area with tissue necrosis. 4. PLAN: DC vancomycin for now. Repeat labs in a.m. MMDIRKL / MAURAN: [id number] /
--- NOTE | 2019-06-30 22:51 | P.PN ---
Subjective Progress Note Date: 06/30/19 This is a 73-year-old female who is currently living at home alone. She has history of CVA and has been bedbound for the past 3 years. Patient presented with stage IV decubitus ulcers to the sacrum,, coccyx, bilateral buttocks and posterior thighs with extensive necrosis. Unclear how long this has been going on. Patient presented with fever, tachycardia, hypotension, leukocytosis of 18.6, lactic acid 3.8. BUN 61 and creatinine 1.38. Sed rate 58, CRP 323.CAT scan of the abdomen and pelvis without contrast revealed large area of soft tissue air bubbles in the posterior sacral and buttocks region consistent with cellulitis and he was ulcers. No drainable abscess. No focal bone destruction. Patient was admitted into the intensive care unit. She is status post 20 of liters of IV fluid. Norepinephrine was discontinued at 8 AM this morning. Patient is currently hemodynamically stable. Dr. Osborne is on consult as well as Dr. Grimes with tentative plan for debridement of the d ecubitus ulcers. Blood cultures status received. Patient is currently on vancomycin. Patient is unaware of her last tetanus immunization. 06/19/2019 the patient is now agreeable to surgical intervention. It appears she understands the significance of her situation. We did relate that she has an extensive infection that is understandable terms of aerobic anaerobic and necrotizing resulting in bacteremia and sepsis. Without surgical debridement I would not expect her to survive. 06/20/2019 the patient was to go to the operating room today however the surgical schedule would not allow it. With the nursing team the necrotic ulcerations or cleansed with a Dakin solution and the ulcerations are packed and dressings are put into place. She did have an extensive bowel movement. Was not malodorous such as C. diff. No evidence of any significant blood in the stool. She remains very anxious about the overall situation. Seems to have great distust to the overall medical system. 06/23/2019 patient the operating room today for the diverting colostomy. Ethics committee meeting did happen earlier in the day. 06/26/2019 the patient has had the diverting colostomy. There is to be some function and she is now given some full liquids. Appetite was poor. Mood is less withdrawn and she does seem to be comfortable. In discussing with going to happen next seems to have very poor understanding of the next process. 06/27/2019 Little change in the status. Mood today is worse. The potential for transition to select specialty was presented and the patient is having great difficulties psychologically dealing with her illness and all of the factors that are occurring. 06/28/2019 patient's mood is slightly better today. She is still withdrawn. Social work has now again became involved for guarding to be granted. 06/30/2019 patient's status with little change. Awaiting ability for a guardian to be assigned. Wound care today. Objective - Vital Signs Vital signs: Vital Signs Temp 98.6 F 06/30/19 19:50 Pulse 95 06/30/19 19:50 Resp 18 06/30/19 19:50 BP 117/88 06/30/19 19:50 Pulse Ox 97 06/30/19 19:50 Intake & Output 06/30/19 06/30/19 07/01/19 06:59 18:59 06:59 Intake Total 750 Output Total 300 Balance 750 -300 Weight 87.09 kg Intake: IV 750 Lactated Ringers 1,000 ml 750 @ 75 mls/hr IV .[id number] [facility] Rx#:[id number] Output: Urine 300 Other: Voiding Method Indwelling Catheter - Exam Gen: This is a morbidly obese 73-year-old female. She is sitting up in the ICU bed and appears to be comfortable and in no acute distress. HEENT: Head is atraumatic, normocephalic. Pupils equal, round. Sclerae is anicteric. Conjunctiva pink. Oral mucous membranes are moist. Patient is edentulous. No thrush noted. NECK: Supple. No JVD. No lymphadenopathy. No thyromegaly. LUNGS: Clear to auscultation. No wheezes or rhonchi. No intercostal retractions. HEART: Regular rate and rhythm. No murmur. ABDOMEN: Soft. few Bowel sounds are present. No masses. No tenderness. No redness under abdominal folds. ostomy with some drainage Mon catheter draining clear timmy urine. EXTREMITIES: No pedal edema. Dorsalis pedis +2 bilaterally. NEUROLOGICAL: Patient is awake, alert and oriented both withdrawn lower extremity weakness foot drop the extensive buttocks dressing is changed today, the patient allows it. There is still some residual necrosis at the base of the very extensive surgical wound from the prior necrotic infection. Given the extensive nature location and folds in wound VAC likely would not be able to be applied however we'll have the team reassess to see if this is possible. - Labs CBC & Chem 7: 06/30/19 06:49 06/30/19 06:49 Labs: Abnormal Lab Results - Last 24 Hours (Table) 06/30/19 06/30/19 Range/Units 06:49 06:49 RBC 2.71 L (3.80-5.40) m/uL Hgb 8.4 L (11.4-16.0) gm/dL Hct 26.6 L (34.0-46.0) % RDW 18.5 H (11.5-15.5) % Creatinine 3.16 H (0.52-1.04) mg/dL Assessment and Plan (1) Decubitus ulcer Current Visit: Yes Status: Acute Code(s): L89.90 - PRESSURE ULCER OF UNSPECIFIED SITE, UNSPECIFIED STAGE SNOMED Code(s): 577588815 (2) Sepsis Current Visit: Yes Status: Acute Code(s): A41.9 - SEPSIS, UNSPECIFIED ORGANISM SNOMED Code(s): 59067484 (3) Infection due to gram-negative anaerobic organism Narrative/Plan: Before I entered the room the nursing staff relate to the difficulties that are occurring, in that the patient was seen by the surgeon, evidence of the extensive stage IV pressure ulcerations of the coccyx as well as sacral area with sukhwinder tissue necrosis occurring that was present on admission, she was offered surgical intervention and refused. As I enter the room I had a very positive attitude and the patient does communicate, however her face is down she does not look to the observer and she is evasive. She relates that she is tired and does not want anything to be done. She did have prior heel ulcerations that were black and eventually tissue fell off in her heels were completely recovered. She has not seen the extensive current ulcerations, and does not want to. We discussed the absolute need for surgical debridement, she still defers. At this time we will be able to offer some local care with Dakin solution to help reduce local or and possibly some local infection control. Intravenous antibiotic therapy with Zosyn and vancomycin being utilized.If the patient does not want extensive interventions which would include surgical intervention, would agree with the primary service that discharged home would be appropriate. Would then strongly consider hospice evaluation in that with this extensive amount of necrosis and infection sepsis and will occur. 06/19/2018 the patient is not related to his surgical intervention which will be an extensive debridement of necrotic material over the coccyx and buttocks. The Dakin solution is allowed some improvement of the putrid odor. It appears she'll surgical plan the debridement tomorrow. Postoperatively needs to be an air mattress, we'll also need to have this to the service to wherever she is discharged to. This extensive infection including anaerobic bacteremic infection urinary infection will require a course of ongoing intravenous antibiotic therapy currently with Zosyn which we'll plan to continue in the future. We'll need IV access also. Patient is instructed on the importance of the surgical debridement, without the debridement with this extensive amount of infection would not expect her to survive 06/20/2019 the patient had agreed to present for surgery but the surgical schedule did not allow of the extensive debridement to occur. Is scheduled for tomorrow. We'll continue the antibiotic therapy was which would give coverage for all the isolate pathogens that have been found so far. IV access in long-term IV antibiotic therapy is planned for time of her discharge. Once the necrotic material has been removed and hemostasis is obtained would likely be utilizing a negative pressure therapy system to try to heal this extensive ulceration. Improve nutrition is also discussed. 06/23/2019 the patient will go to the operating him today for the diverting colostomy. She will not be able to return to room sitting for a while until she has improvement of her strength and resolution of her significant sepsis and bacteremia. Large defect will be left and when she is more stable negative pressure therapy will hopefully be applied to that area. Eventually will need plastic surgery evaluations.will require a many week intravenous antibiotic therapy 06/26/2019 the patient is now more stable. Ostomy is been placed in her diet has been advanced to full liquid. She seems to be about more comfortable and slightly less withdrawn when interacting with the observer. Discharge plan is the current largest obstacle. However if antibiotic therapy, wound care, specialty bed and further surgical evaluations are required to be an excellent candidate for [facility] [place]. We'll consider negative pressure therapy as a short-term bridge 06/27/2019 the patient is hemodynamically stable, is at a full liquid diet but doesn't have appetite and does not feel well. She is considerably more withdrawn today after conversations about the need for a level of care such as Celexa by specialty. She is completely overwhelmed by her situation in any planning such as that. Patient is receiving ongoing education of the severity of her illness. Her pressure ulceration resulted in a large amount of tissue loss, sepsis, bacteremia and now her ongoing hospitalization. Given the extent of treatment that she will require select specialty is the best possible option for her and we'll also open the door for her to be seen by plastic surgery. Hopefully she'll be able to incorporate this information instructed to make some decisions in the next day or so. If she allows wound VAC would be ideal to be placed to a large tissue defect. 06/28/2019 patient remains withdrawn and is related to the care team that she does not want to go to LTAC. The extent of her illness has been explained and she is not comprehending this well. Her overall situation has been very di fficult and social work will request regarding to be appointed so that appropriate care can be continued. Her current illness is considerably be around the capabilities of a extended care facility. She is in need of ongoing local wound care, antibiotic therapy, air bed, and further surgical in plastic surgery interventions. She will require a several week course of antibiotic therapy. 06/30/2019 assignment of a guardian Continue local wound care currently with the Dakin solution. We'll consider alteration of this in the near future depending on the plans. We'll ask the wound team to evaluate if a negative pressure therapy system can be applied, the wound VAC with saline installation would be extremely helpful in this situation if possible Continue the extensive antibiotic therapy. IV access is been placed. Current Visit: Yes Status: Acute Code(s): A49.8 - OTHER BACTERIAL INFECTIONS OF UNSPECIFIED SITE SNOMED Code(s): 811823148
[2019-07-01] MEDS: hydrALAZINE HCL 25 MG TAB PO SCH ×3 (04:35→20:10)
[2019-07-01 07:22] LABS: Anisocytosis Slight; Basophils # (A) 0.1 k/uL (0-0.2); Basophils % (A) 1 %; Eosinophils # (A) 0.2 k/uL (0-0.7); Eosinophils % (A) 2 %; HGB 8.3 gm/dL (11.4-16.0); Hypochromasia Slight; Lymphocytes # (A) 0.9 k/uL (1.0-4.8); Lymphocytes % (A) 12 %; MCH 31.1 pg (25.0-35.0); MCHC 31.9 g/dL (31.0-37.0); MCV 97.3 fL (80.0-100.0); Macrocytosis Slight; Monocytes # (A) 0.3 k/uL (0-1.0); Monocytes % (A) 4 %; Neutrophils # (A) 6.5 k/uL (1.3-7.7); Neutrophils % (A) 80 %; Platelet Count 199 k/uL (150-450); RBC 2.68 m/uL (3.80-5.40); RDW 18.6 % (11.5-15.5); WBC 8.1 k/uL (3.8-10.6)
--- NOTE | 2019-07-01 08:27 | P.PN ---
Subjective Progress Note Date: 07/01/19 Principal diagnosis: This is 73-year-old female seen in consultation because of acute kidney injury, secondary to vancomycin. Her creatinine has been going up She has significant edema. Her blood pressure is at times low. She is also on hydralazine that may be adding to the low blood pressure as well as the edema This morning she denies any complaints such as nausea vomiting. No shortness of breath chest pain she is on room air. History of present illness; She is admitted on 06/16/2019 because of worsening sacral decub. She then admitted to ICU. She underwent debridement on 06/21/2019 and subsequent diverting colostomy on 06/23/2019. Her creatinine was 0.98 as of 06/23/2019 and the next creatinine available is 1.03 on 06/24/2019 , and to 1.47 on 06/25/2019 and a Vanco level is reported at 27 dated 06/28/2019 and on 06/20/2019 is 24.5. Blood pressures have sometimes been somewhat low occasionally 80s to 90s. Urine output is 1250 before yesterday but only 200 mL have been documented for the last 24 hours Patient denies any nausea vomiting. No fever chills no cough no abdominal pain. No dysuria frequency. She has a colostomy bag. No shortness of breath or chest pain Objective - Vital Signs Vital signs: Vital Signs Temp 98.3 F 07/01/19 01:34 Pulse 94 07/01/19 01:34 Resp 18 07/01/19 01:34 BP 109/62 07/01/19 01:34 Pulse Ox 97 07/01/19 01:34 Intake & Output 06/30/19 07/01/19 07/01/19 18:59 06:59 18:59 Intake Total 120 Output Total 700 Balance -580 Weight 87.09 kg Intake: Oral 120 Output: Urine 600 Stool 100 Other: Voiding Method Indwelling Catheter Indwelling Catheter On examination she is an obese female in no distress on room air. HEENT exam no JVP neck is supple no facial asymmetry Lungs are clear to auscultation but poor air entry Heart signs are unremarkable no murmur rub gallop Abdomen soft nontender Extremity exam was significant edema of both upper and lower extremities. Neurologically awake alert profound generalized weakness - Labs CBC & Chem 7: 07/01/19 06:55 06/30/19 06:49 Labs: Abnormal Lab Results - Last 24 Hours (Table) 07/01/19 Range/Units 06:55 RBC 2.68 L (3.80-5.40) m/uL Hgb 8.3 L (11.4-16.0) gm/dL Hct 26.0 L (34.0-46.0) % RDW 18.6 H (11.5-15.5) % Lymphocytes # 0.9 L (1.0-4.8) k/uL Assessment and Plan Assessment: Impression 1. Acute kidney injury likely from vancomycin, also lisinopril was introduced on 06/21/2019 that might have added to the decrease in GFR. She remains on vancomycin the level is 27 as of 06/30/2019 yesterday therefore adding to his ongoing renal injury. Her last creatinine yesterday was 3.16, was 3.14 and 2.71 previously. 2. Status post sacral decubitus debridement 06/21/2019 and 3. Status post diverting colostomy 06/23/2019 4. History of previous paraplegia 5. Anemia of chronic illness hemoglobin is 8.3 going down 6. Mild degree of renal tubular acidosis bicarb is 20 and anion gap 11. 7. Significant edema secondary to acute kidney injury, low albumin as well as hydralazine and low blood pressure Recommendation 1. Check iron saturation 2. Would strongly recommend discontinuing vancomycin. 3. We'll reduce the hydralazine from 25 mg, 3 times a day to twice a day to improve the edema. 4. Maintain blood pressure around 120 to 1:30 urinalysis to rule out any acute interstitial nephritis 5. Start Lasix 20 mg by mouth daily and see if we can improve her edema without dropping the blood pressure
[2019-07-01] MEDS: FAMOTIDINE 20 MG TAB PO SCH (09:44)
[2019-07-01] MEDS: FUROSEMIDE 20 MG TAB PO SCH (09:44)
[2019-07-01] MEDS: ENOXAPARIN 30 MG/0.3 ML SYRINGE SQ SCH (09:45)
[2019-07-01] MEDS: SODIUM HYPOCHLORITE 0.25% 480 ML BOT MISCELLANE SCH (09:45)
[2019-07-01] MEDS: ONDANSETRON 4 MG/2 ML VIAL IVP PRN ×2 (09:54→17:16)
--- NOTE | 2019-07-01 10:42 | P.PN ---
Subjective Progress Note Date: 07/01/19 Principal diagnosis: Sacral decubitus Patient without new complaints. Tolerating diet. Ostomy functioning well. White blood cell count 8.1. Objective - Vital Signs Vital signs: Vital Signs Temp 98.3 F 07/01/19 01:34 Pulse 94 07/01/19 01:34 Resp 18 07/01/19 01:34 BP 109/62 07/01/19 01:34 Pulse Ox 97 07/01/19 01:34 Intake & Output 06/30/19 07/01/19 07/01/19 18:59 06:59 18:59 Intake Total 120 Output Total 700 Balance -580 Weight 87.09 kg Intake: Oral 120 Output: Urine 600 Stool 100 Other: Voiding Method Indwelling Catheter Indwelling Catheter - Exam Abdomen soft, nondistended, ostomy functioning Sacral wound stable, no large areas of necrosis noted - Labs CBC & Chem 7: 07/01/19 06:55 06/30/19 06:49 Labs: Abnormal Lab Results - Last 24 Hours (Table) 07/01/19 Range/Units 06:55 RBC 2.68 L (3.80-5.40) m/uL Hgb 8.3 L (11.4-16.0) gm/dL Hct 26.0 L (34.0-46.0) % RDW 18.6 H (11.5-15.5) % Lymphocytes # 0.9 L (1.0-4.8) k/uL Assessment and Plan (1) Decubitus ulcer Narrative/Plan: Continue local wound care. Continue diet as tolerated. Gradually increase activity. Await placement. Current Visit: Yes Status: Acute Code(s): L89.90 - PRESSURE ULCER OF UNSPECIFIED SITE, UNSPECIFIED STAGE SNOMED Code(s): 524265733
[2019-07-01 16:36] LABS: Iron Saturation 9.09 (12.00-45.00)
--- NOTE | 2019-07-01 18:28 | P.PN ---
Subjective Progress Note Date: 07/01/19 Principal diagnosis: Severe sepsis secondary to sacral decubitus Mrs. Luz is a 73-year-old female with a past medical history of paraplegia, hypertension admitted to the hospital for severe sepsis secondary to an infected sacral decubitus ulcer. Patient improved with IV antibiotics. Surgical team was consulted for Colostomy to prevent recurrent infections of the sacral decubitus ulcers. So the patient had a colostomy done on 06/23/2019. Postop the patient was doing okay. Eventually the patient was getting IV antibiotics and she had acute kidney injury, which was thought to be secondary to vancomycin. So vancomycin has been discontinued. Nephrology on board following the patient. Multiple specialities following the patient regularly. On 07/01/2019- patient is lying comfortably in the bed appears to be no acute distress. As per the nursing staff report no acute issues reported overnight. Patient has been started on a diet and tolerating by mouth well. Colostomy has brown colored liquid stool filled and it. Patient's vitals look stable. White count has been stable around 8 and hemoglobin stable around 8.3. Patient's creatinine still at 3.16. Her vancomycin has been discontinued. Patient denies having any fevers chills or rigors. No chest pain or palpitations. No cough or difficulty in breathing. She has mild swelling of her upper extremities and she states that her swelling is getting better. Active Medications Acetaminophen (Tylenol Tab) 500 mg PO Q6HR PRN PRN Reason: Fever and/ or MILD Pain Last Admin: 06/27/19 20:12 Dose: 500 mg Documented by: Enoxaparin Sodium (Lovenox) 30 mg SQ DAILY [facility] Last Admin: 07/01/19 09:45 Dose: 30 mg Documented by: Famotidine (Pepcid) 20 mg PO DAILY [facility] Last Admin: 07/01/19 09:44 Dose: 20 mg Documented by: Furosemide (Lasix) 20 mg PO DAILY [facility] Last Admin: 07/01/19 09:44 Dose: 20 mg Documented by: Hydralazine HCl (Apresoline) 25 mg PO BID [facility] Last Admin: 07/01/19 09:44 Dose: 25 mg Documented by: Miscellaneous Information (Potassium Per Protocol) 1 each MISCELLANE DAILY PRN; Protocol PRN Reason: Per Protocol Morphine Sulfate (Morphine Sulfate (Inj)) 4 mg IVP Q4HR PRN PRN Reason: SEVERE Pain Last Admin: 06/25/19 16:16 Dose: 4 mg Documented by: Ondansetron HCl (Zofran) 4 mg IVP Q6HR PRN PRN Reason: Nausea And Vomiting Last Admin: 07/01/19 17:16 Dose: 4 mg Documented by: Sodium Hypochlorite (Dakin's 0.25% (Half Strength)) 50 ml MISCELLANE BID [facility] Last Admin: 07/01/19 09:45 Dose: 50 ml Documented by: Objective - Vital Signs Vital signs: Vital Signs Temp 98.9 F 07/01/19 14:01 Pulse 96 07/01/19 14:08 Resp 14 07/01/19 14:08 BP 114/77 07/01/19 14:01 Pulse Ox 97 07/01/19 14:01 Intake & Output 06/30/19 07/01/19 07/01/19 18:59 06:59 18:59 Intake Total 120 Output Total 700 800 Balance -580 -800 Weight 87.09 kg Intake: Oral 120 Output: Urine 600 500 Stool 100 300 Other: Voiding Method Indwelling Catheter Indwelling Catheter Indwelling Catheter # Voids 150 - Exam ENERAL: The patient is alert and oriented x3, not in any acute distress. Well developed, well nourished. HEENT: Pupils are round and equally reacting to light. EOMI. No scleral icterus. No conjunctival pallor. Normocephalic, atraumatic. No pharyngeal erythema. No thyromegaly. CARDIOVASCULAR: S1 and S2 present. No murmurs, rubs, or gallops. PULMONARY: Chest is clear to auscultation, no wheezing or crackles. ABDOMEN: Soft, nontender, nondistended, normoactive bowel sounds. Colostomy bag in place with brownish liquidy stool. MUSCULOSKELETAL: No joint swelling or deformity. Sacral pressure ulcer, status post debridement. Dressing is in place EXTREMITIES: No cyanosis, clubbing, worsening swelling of extremities including hands NEUROLOGICAL: Gross neurological examination did not reveal any focal deficits. SKIN: No rashes. - Labs CBC & Chem 7: 07/01/19 06:55 06/30/19 06:49 Labs: Abnormal Lab Results - Last 24 Hours (Table) 07/01/19 07/01/19 Range/Units 06:55 06:55 RBC 2.68 L (3.80-5.40) m/uL Hgb 8.3 L (11.4-16.0) gm/dL Hct 26.0 L (34.0-46.0) % RDW 18.6 H (11.5-15.5) % Lymphocytes # 0.9 L (1.0-4.8) k/uL Iron 11 L (50-170) ug/dL TIBC 121 L (228-460) ug/dL Iron Saturation 9.09 L (12.00-45.00) Assessment and Plan Assessment: Assessment -Severe sepsis secondary to sacral pressure ulcer. Status post septic shock. Status post surgical debridement on 06/21/2019. Status post diverting colostomy on 06/23/2019. Resolved -Acute kidney injury with worsening creatinine, creatinine is starting to stabilize -Leukocytosis, improved -Lactic acidosis and acidemia, secondary to infection- resolved -Chronic anemia -Essential hypertension -Chronic paraplegia secondary to stroke -Obesity with BMI 37.4 -Medical debility Plan: Patient is status post post-debridement of the sacral decubitus ulcer and colostomy. Vancomycin is holding secondary to acute kidney injury. Nephrology and 90 following the patient closely. Continue with the current medication regimen. GI and DVT prophylaxis. Overall prognosis is guarded. Further recommendations to follow depending on the progress of the patient.
[2019-07-02] MEDS: SODIUM HYPOCHLORITE 0.25% 480 ML BOT MISCELLANE SCH ×2 (04:34→16:18)
[2019-07-02] MEDS: ONDANSETRON 4 MG/2 ML VIAL IVP PRN ×2 (05:20→18:18)
[2019-07-02] MEDS: FAMOTIDINE 20 MG TAB PO SCH (09:46)
[2019-07-02] MEDS: FUROSEMIDE 20 MG TAB PO SCH (09:46)
[2019-07-02] MEDS: hydrALAZINE HCL 25 MG TAB PO SCH (09:46)
[2019-07-02] MEDS: ENOXAPARIN 30 MG/0.3 ML SYRINGE SQ SCH (09:46)
--- NOTE | 2019-07-02 11:23 | P.PN ---
Subjective Progress Note Date: 07/02/19 Principal diagnosis: Sacral decubitus Patient without new complaints. Tolerating diet. Ostomy functioning well. Denies pain with her dressing change earlier today. She is afebrile. Objective - Vital Signs Vital signs: Vital Signs Temp 98.0 F 07/02/19 07:00 Pulse 75 07/02/19 08:45 Resp 18 07/02/19 08:45 BP 103/80 07/02/19 07:00 Pulse Ox 95 07/02/19 07:00 Intake & Output 07/01/19 07/02/19 07/02/19 18:59 06:59 18:59 Intake Total 40 Output Total 800 450 100 Balance -800 -410 -100 Intake: IV 40 Lactated Ringers 1,000 ml 40 @ 75 mls/hr IV .[id number] [facility] Rx#:[id number] Output: Urine 500 450 Stool 300 100 Other: Voiding Method Indwelling Catheter Indwelling Catheter Indwelling Catheter # Voids 150 - Exam Abdomen: Soft, nondistended, mild tenderness along incision, ostomy functioning Sacral decubitus ulcer dressing clean and dry - Labs CBC & Chem 7: 07/01/19 06:55 07/02/19 06:27 Labs: Abnormal Lab Results - Last 24 Hours (Table) 07/01/19 07/02/19 Range/Units 06:55 06:27 Creatinine 3.62 H (0.52-1.04) mg/dL Iron 11 L (50-170) ug/dL TIBC 121 L (228-460) ug/dL Iron Saturation 9.09 L (12.00-45.00) Assessment and Plan (1) Decubitus ulcer Narrative/Plan: Continue diet as tolerated. Continue IV antibiotics. Continue local wound care. Await placement tomorrow. Current Visit: Yes Status: Acute Code(s): L89.90 - PRESSURE ULCER OF UNSPECIFIED SITE, UNSPECIFIED STAGE SNOMED Code(s): 407574945
--- NOTE | 2019-07-02 11:56 | P.PN ---
Subjective Progress Note Date: 07/02/19 Principal diagnosis: This is 73-year-old female seen in consultation because of acute kidney injury, secondary to vancomycin. Her creatinine has been going up. Vancomycin has been stopped. Her vancomycin level was high at 27 as of 06/30/2019 in spite of discontinuation. She has significant edema. Her blood pressure is at times low. She is also on hydralazine that may be adding to the low blood pressure as well as the edema This morning she denies any complaints such as nausea vomiting. No shortness of breath chest pain she is on room air. No fever chills. Her urine output is 1250 last 24 hours slightly higher although the creatinine continues to go up. History of present illness; She is admitted on 06/16/2019 because of worsening sacral decub. She then admi tted to ICU. She underwent debridement on 06/21/2019 and subsequent diverting colostomy on 06/23/2019. Her creatinine was 0.98 as of 06/23/2019 and the next creatinine available is 1.03 on 06/24/2019 , and to 1.47 on 06/25/2019 and a Vanco level is reported at 27 dated 06/28/2019 and on 06/20/2019 is 24.5. Blood pressures have sometimes been somewhat low occasionally 80s to 90s. Urine output is 1250 before yesterday but only 200 mL have been documented for the last 24 hours Patient denies any nausea vomiting. No fever chills no cough no abdominal pain. No dysuria frequency. She has a colostomy bag. No shortness of breath or chest pain Objective - Vital Signs Vital signs: Vital Signs Temp 98.0 F 07/02/19 07:00 Pulse 75 07/02/19 08:45 Resp 18 07/02/19 08:45 BP 103/80 07/02/19 07:00 Pulse Ox 95 07/02/19 07:00 Intake & Output 07/01/19 07/02/19 07/02/19 18:59 06:59 18:59 Intake Total 40 Output Total 800 450 100 Balance -800 -410 -100 Intake: IV 40 Lactated Ringers 1,000 ml 40 @ 75 mls/hr IV .[id number] [facility] Rx#:[id number] Output: Urine 500 450 Stool 300 100 Other: Voiding Method Indwelling Catheter Indwelling Catheter Indwelling Catheter # Voids 150 Examination she is awake alert HEENT exam no JVP neck is supple no facial asymmetry Lungs are clear to auscultation fair air entry bilaterally Heart sounds are unremarkable for any murmur rub gallop Abdomen is soft nontender colostomy bag Extreme exam reveals 2-3+ edema both upper and lower extremities Neurologically awake alert oriented but very weak - Labs CBC & Chem 7: 07/01/19 06:55 07/02/19 06:27 Labs: Abnormal Lab Results - Last 24 Hours (Table) 07/01/19 07/02/19 Range/Units 06:55 06:27 Creatinine 3.62 H (0.52-1.04) mg/dL Iron 11 L (50-170) ug/dL TIBC 121 L (228-460) ug/dL Iron Saturation 9.09 L (12.00-45.00) Assessment and Plan Assessment: Impression 1. Acute kidney injury likely from vancomycin, also lisinopril was introduced on 06/21/2019 that might have added to the decrease in GFR. vancomycin the level is 27 as of 06/30/2019. Her urine output is slightly high but her cr eatinine is slowly going up. From 2.71, 3.14, 3.16 and 3.6 this morning 2. Status post sacral decubitus debridement 06/21/2019 and 3. Status post diverting colostomy 06/23/2019 4. History of previous paraplegia 5. Anemia of chronic illness hemoglobin is 8.3 going down 6. Mild degree of renal tubular acidosis bicarb is 20 and anion gap 11. No labs today 7. Significant edema secondary to acute kidney injury, low albumin as well as hydralazine and low blood pressure. 8. Iron deficiency saturation is 90% dated 07/01/2019 Recommendation 1. Will give her 1 dose of IV Ferrlecit 125 mg today 07/02/2019 2. I had reduced her hydralazine yesterday, will proceed and received further today because of the low blood pressure and to help the edema 3. Maintain blood pressure around 120 to 1:30 urinalysis to rule out any acute interstitial nephritis 4. Hold Lasix that was started yesterday by me because of the worsening creatinine. Her edema can be resolved later
[2019-07-02] MEDS: hydrALAZINE HCL 10 MG TAB PO SCH (20:00)
--- NOTE | 2019-07-02 23:01 | P.PN ---
Subjective Progress Note Date: 07/02/19 Principal diagnosis: Severe sepsis secondary to sacral decubitus Mrs. Luz is a 73-year-old female with a past medical history of paraplegia, hypertension admitted to the hospital for severe sepsis secondary to an infected sacral decubitus ulcer. Patient improved with IV antibiotics. Surgical team was consulted for Colostomy to prevent recurrent infections of the sacral decubitus ulcers. So the patient had a colostomy done on 06/23/2019. Postop the patient was doing okay. Eventually the patient was getting IV antibiotics and she had acute kidney injury, which was thought to be secondary to vancomycin. So vancomycin has been discontinued. Nephrology on board following the patient. Multiple specialities following the patient regularly. On 07/02/2019- Patient is lying in the bed comfortably. No acute events reported overnight. She states the swelling in her upper extremities over her hands is decreased. Patient has been tolerating diet well. Colostomy has brown-colored stool. Patient's creatinine is still trending up. Patient has good urinary output. She received a dose of Lasix yesterday. On review of systems Constitutional-no fever chills or rigors, generalized weakness positive Cardiovascular-no chest pain or palpitations Respiratory-no shortness of breath or cough GI-no abdominal pain nausea vomiting or diarrhea Active Medications Acetaminophen (Tylenol Tab) 500 mg PO Q6HR PRN PRN Reason: Fever and/ or MILD Pain Last Admin: 06/27/19 20:12 Dose: 500 mg Documented by: Enoxaparin Sodium (Lovenox) 30 mg SQ DAILY COUNT INCLUDES THE [facility] Last Admin: 07/02/19 09:46 Dose: 30 mg Documented by: Famotidine (Pepcid) 20 mg PO DAILY COUNT INCLUDES THE [facility] Last Admin: 07/02/19 09:46 Dose: 20 mg Documented by: Hydralazine HCl (Apresoline) 10 mg PO BID COUNT INCLUDES THE [facility] Last Admin: 07/02/19 20:00 Dose: Not Given Documented by: Miscellaneous Information (Potassium Per Protocol) 1 each MISCELLANE DAILY PRN; Protocol PRN Reason: Per Protocol Morphine Sulfate (Morphine Sulfate (Inj)) 4 mg IVP Q4HR PRN PRN Reason: SEVERE Pain Last Admin: 06/25/19 16:16 Dose: 4 mg Documented by: Ondansetron HCl (Zofran) 4 mg IVP Q6HR PRN PRN Reason: Nausea And Vomiting Last Admin: 07/02/19 18:18 Dose: 4 mg Documented by: Sodium Hypochlorite (Dakin's 0.25% (Half Strength)) 50 ml MISCELLANE BID COUNT INCLUDES THE [facility] Last Admin: 07/02/19 16:18 Dose: 50 ml Documented by: Objective - Vital Signs Vital signs: Vital Signs Temp 97.9 F 07/02/19 15:00 Pulse 91 07/02/19 16:20 Resp 16 07/02/19 16:20 BP 104/73 07/02/19 15:00 Pulse Ox 98 07/02/19 15:00 Intake & Output 07/02/19 07/02/19 07/03/19 06:59 18:59 06:59 Intake Total 40 540 Output Total 450 900 Balance -410 -360 Intake: IV 40 40 Lactated Ringers 1,000 ml 40 40 @ 75 mls/hr IV .[id number] COUNT INCLUDES THE [facility] Rx#:[id number] Oral 500 Output: Urine 450 700 Stool 200 Other: Voiding Method Indwelling Catheter Indwelling Catheter - Exam ENERAL: The patient is alert and oriented x3, not in any acute distress. Well developed, well nourished. HEENT: Pupils are round and equally reacting to light. EOMI. No scleral icterus. No conjunctival pallor. Normocephalic, atraumatic. No pharyngeal erythema. No thyromegaly. CARDIOVASCULAR: S1 and S2 present. No murmurs, rubs, or gallops. PULMONARY: Chest is clear to auscultation, no wheezing or crackles. ABDOMEN: Soft, nontender, nondistended, normoactive bowel sounds. Colostomy bag in place with brownish liquidy stool. MUSCULOSKELETAL: No joint swelling or deformity. Sacral pressure ulcer, status post debridement. Dressing is in place EXTREMITIES: No cyanosis, clubbing,swelling of hands - better than yesterday NEUROLOGICAL: Gross neurological examination did not reveal any focal deficits. SKIN: Frail - Labs CBC & Chem 7: 07/01/19 06:55 07/02/19 06:27 Labs: Abnormal Lab Results - Last 24 Hours (Table) 07/02/19 Range/Units 06:27 Creatinine 3.62 H (0.52-1.04) mg/dL Assessment and Plan Assessment: Assessment -Severe sepsis secondary to sacral pressure ulcer- resolved. Status post surgical debridement on 06/21/2019. Status post diverting colostomy on 06/23/2019. -Acute kidney injury with worsening creatinine -Leukocytosis, improved -Lactic acidosis and acidemia, secondary to infection- resolved -Chronic anemia -Essential hypertension -Chronic paraplegia secondary to stroke -Obesity with BMI 37.4 -Medical debility Plan: Patient's creatinine has been trending up. But her urinary output is good. Nephrology on board following the patient closely. She received a dose of Lasix yesterday that has been discontinued today. Patient states that she is feeling okay other than generalized weakness. Vancomycin has been discontinued. Continue with the rest of her current medication management. Overall prognosis is guarded. Further recommendations to follow depending on the progress of the patient.
[2019-07-03] MEDS: SODIUM HYPOCHLORITE 0.25% 480 ML BOT MISCELLANE SCH ×2 (03:46→15:53)
[2019-07-03 08:06] LABS: Anisocytosis Slight; Basophils # (A) 0.1 k/uL (0-0.2); Basophils % (A) 1 %; Eosinophils # (A) 0.1 k/uL (0-0.7); Eosinophils % (A) 2 %; HCT 27.1 % (34.0-46.0); HGB 8.4 gm/dL (11.4-16.0); Hypochromasia Marked; Lymphocytes # (A) 1.2 k/uL (1.0-4.8); Lymphocytes % (A) 18 %; MCH 31.4 pg (25.0-35.0); MCHC 31.1 g/dL (31.0-37.0); Macrocytosis Moderate; Mean Platelet Volume 7.8; Monocytes # (A) 0.3 k/uL (0-1.0); Monocytes % (A) 4 %; Neutrophils # (A) 5.1 k/uL (1.3-7.7); Neutrophils % (A) 73 %; Platelet Count 168 k/uL (150-450); RBC 2.68 m/uL (3.80-5.40)
[2019-07-03 08:26] LABS: Calcium 7.3 mg/dL (8.4-10.2); Potassium 3.8 mmol/L (3.5-5.1)
[2019-07-03] MEDS: hydrALAZINE HCL 10 MG TAB PO SCH ×2 (08:26→19:56)
[2019-07-03] MEDS: ENOXAPARIN 30 MG/0.3 ML SYRINGE SQ SCH (08:28)
[2019-07-03] MEDS: FAMOTIDINE 20 MG TAB PO SCH (08:28)
--- NOTE | 2019-07-03 12:13 | P.PN ---
Subjective Progress Note Date: 07/03/19 CHIEF COMPLAINT: Decubitus ulcer HISTORY OF PRESENT ILLNESS: Patient is status post debridement of stage IV sacral decubitus ulcer and diverting colostomy. Patient examined at the bedside. She denies pain or discomfort this morning. She is tolerating diet. Denies nausea or vomiting. Reports decreased appetite and states the food here does not taste good. Ostomy with stool noted. PHYSICAL EXAM: VITAL SIGNS: Reviewed. GENERAL: Well-developed in no acute distress. HEENT: No sclera icterus. Extraocular movements grossly intact. Moist buccal mucosa. Head is atraumatic, normocephalic. ABDOMEN: Soft. Nondistended. Nontender. Ostomy to left lower quadrant. NEUROLOGIC: Alert and oriented. Cranial nerves II through XII grossly intact. SKIN: Dressing noted to large sacral decubitus ulcer. ASSESSMENT: 1. Stage IV sacral decubitus ulcer, status post debridement 2. S/P diverting colostomy PLAN: 1. Continue local wound care and antibiotics per infectious disease 2. Continue diet as tolerated 3. Stable for discharge to [facility] from a surgical standpoint. Discharge per medicine. Nurse practitioner note has been reviewed by physician. Signing provider agrees with the documented findings, assessment, and plan of care. Objective - Vital Signs Vital signs: Vital Signs Temp 97.4 F L 07/03/19 07:00 Pulse 92 07/03/19 07:00 Resp 16 07/03/19 07:00 BP 107/64 07/03/19 07:00 Pulse Ox 97 07/03/19 07:00 Intake & Output 07/02/19 07/03/19 07/03/19 18:59 06:59 18:59 Intake Total 540 825 Output Total 900 Balance -360 825 Weight 87.09 kg Intake: IV 40 825 Lactated Ringers 1,000 ml 40 825 @ 75 mls/hr IV .[id number] [facility] Rx#:[id number] Oral 500 Output: Urine 700 Stool 200 Other: Voiding Method Indwelling Catheter Indwelling Catheter Indwelling Catheter - Labs CBC & Chem 7: 07/03/19 07:33 07/03/19 07:33 Labs: Abnormal Lab Results - Last 24 Hours (Table) 07/03/19 07/03/19 Range/Units 07:33 07:33 RBC 2.68 L (3.80-5.40) m/uL Hgb 8.4 L (11.4-16.0) gm/dL Hct 27.1 L (34.0-46.0) % MCV 101.0 H (80.0-100.0) fL RDW 18.0 H (11.5-15.5) % Chloride 112 H (98-107) mmol/L Carbon Dioxide 17 L (22-30) mmol/L BUN 30 H (7-17) mg/dL Creatinine 3.78 H (0.52-1.04) mg/dL Glucose 69 L (74-99) mg/dL Calcium 7.3 L (8.4-10.2) mg/dL
--- NOTE | 2019-07-04 00:03 | P.PN ---
Progress Note - Text Progress Note Date: 07/03/19 Chief Complaint: Decub wounds Interval history: This is a pleasant [address] Charli Prieto of [facility]. Because of a prior stroke patient's paraplegic. Has a wheelchair and oriented. Very much bedbound. Patient's 3 granddaughters live with her for several years. Patient does get home care. For last 1 month patient developed sacral decubitus ulcers. Progressively getting worse. Denies much pain. No discomfort is present. Appetite is okay. Not been changing in bowel or urine pattern. Denies any fever and chills. Patient presented to ER was found to be in renal failure hypertensive and was admitted with the fluid boluses. As blood pressure did not respond well patient is put on levo fed drip. Admitted to ICU with wreath machine tender consultation. He states that she does not like hospitals and doctors. and prefers to stay away. Also having fevers and sepsis on presentation Patient was admitted to the ICU. Was on fluids and levo fed. Levo fed was discontinued on June 16. Patient initially had refused any debridement of the wound. Finally agreed for the same. Patient was seen by psychiatry. Deemed competent to make the decisions. Because of initial refusal for treatment Ethics committee had been consulted. On June 21 patient was taken to the OR per Dr. Puente and he did carry her to debridement after patient consented for the same. On June 23 diverging colostomy was done. Today-patient is tolerating her diet. The stool in the colostomy bag. Patient does not want to go to the ECF. Review of systems: Was done for constitutional, cardiovascular, GI, pulmonary. relevant finding as above Active Medications Acetaminophen (Tylenol Tab) 500 mg PO Q6HR PRN PRN Reason: Fever and/ or MILD Pain Last Admin: 06/27/19 20:12 Dose: 500 mg Documented by: Enoxaparin Sodium (Lovenox) 30 mg SQ DAILY [facility] Last Admin: 07/03/19 08:28 Dose: 30 mg Documented by: Famotidine (Pepcid) 20 mg PO DAILY [facility] Last Admin: 07/03/19 08:28 Dose: 20 mg Documented by: Hydralazine HCl (Apresoline) 10 mg PO BID [facility] Last Admin: 07/03/19 19:56 Dose: Not Given Documented by: Miscellaneous Information (Potassium Per Protocol) 1 each MISCELLANE DAILY PRN; Protocol PRN Reason: Per Protocol Morphine Sulfate (Morphine Sulfate (Inj)) 4 mg IVP Q4HR PRN PRN Reason: SEVERE Pain Last Admin: 06/25/19 16:16 Dose: 4 mg Documented by: Ondansetron HCl (Zofran) 4 mg IVP Q6HR PRN PRN Reason: Nausea And Vomiting Last Admin: 07/02/19 18:18 Dose: 4 mg Documented by: Sodium Hypochlorite (Dakin's 0.25% (Half Strength)) 50 ml MISCELLANE BID [facility] Last Admin: 07/03/19 15:53 Dose: 50 ml Documented by: Physical examination: VITAL SIGNS: 97.4, 92, 16, 107/64, 97% room air GENERAL: Propped up in bed, awake EYES: Pupils equal. Conjunctiva normal. HEENT: External appearance of nose and ears normal, oral cavity with dry. NECK: JVD unable to assess; masses not palpable. HEART: First and second heart sounds are normal; no edema. LUNGS: Respiratory rate normal; clear to auscultation. ABDOMEN: Soft, colostomy bag with stool, liver spleen not palpable, no masses palpable. PSYCH: Alert and oriented x3; mood and affect normal. NEUROLOGICAL: Cranial nerves grossly intact; no facial asymmetry, power lower extremity 1/5, with some sensation pleasant. DERMATOLOGICAL: Sacral decubiti ulcers. Pictures in the chart INVESTIGATIONS, reviewed in the clinical context: White count 7 hemoglobin 8.4 potassium 3.8 bun 30 creatinine 3.78 Previous testing: White count 18.6 hemoglobin 11.9 platelets 416 potassium 4.5 bun 61 creatinine 1.38 Lactic acid 3.8 magnesium 1.3 C-reactive protein to 20 albumin 2.8 Computed tomography scan of the abdomen and pelvis-large area of soft tissue air bubbles on the posterior sacral and buttock. Assessment: -Acute renal failure, worsening -Diverting colostomy done on 06/23/2019 -Acute sacral decubitus ulcer with secondary infection causing severe sepsis present on admission with septic shock. Status post debridement on June 21. -Lactic acidosis from sepsis -Normocytic anemia probably from infection -Essential hypertension -Chronic paraplegia from prior stroke -Medical debility -Obesity BMI 37.4 Plan: Nephrology was consulted. Continue other medication for plan. Early 2 days patient spoke to the executive secretary social welfare. Has consented to LTAC. Guardianship hearing set for July 14. And IV fluids
[2019-07-04] MEDS: SODIUM CHLORIDE 0.9% 1,000 ML IV SCH ×3 (01:52→19:31)
[2019-07-04] MEDS: SODIUM HYPOCHLORITE 0.25% 480 ML BOT MISCELLANE SCH ×2 (03:59→16:59)
[2019-07-04] MEDS: hydrALAZINE HCL 10 MG TAB PO SCH ×2 (07:41→19:31)
[2019-07-04] MEDS: FAMOTIDINE 20 MG TAB PO SCH (07:45)
[2019-07-04] MEDS: ENOXAPARIN 30 MG/0.3 ML SYRINGE SQ SCH (07:45)
[2019-07-04 07:49] LABS: Calcium 7.3 mg/dL (8.4-10.2); Potassium 3.7 mmol/L (3.5-5.1)
--- NOTE | 2019-07-04 11:39 | PN ---
PROGRESS NOTE The patient is seen for followup for acute kidney injury. The patient's serum creatinine has been slowly increasing over the past few days. She was edematous and was maintained on Lasix which was stopped over the weekend. However, this morning a creatinine is up to 4.0 from 3.78. The patient has an indwelling Mon catheter. Urine output for 24 hours was about 975 mL. The patient is not complaining of shortness of breath. However, she remains significantly edematous upper and lower extremities. Blood pressure is on the lower side with systolic pressure 98 to 106 mmHg. Currently, patient is on a very small dose of hydralazine p.o. which was not given. She denies any nausea or vomiting. No other nephrotoxic medications on board at this time. PHYSICAL EXAMINATION: On examination today, blood pressure 117/59, heart rate 60 per minute. She is afebrile. EXAMINATION OF THE HEART: S1 and S2. EXAMINATION OF THE LUNGS: Decreased breath sounds at bases. ABDOMEN: Soft, nontender. Examination of lower extremities shows edema 2+ bilaterally. Upper extremities are edematous as well, especially the right upper extremity. LABS: Labs from this morning show sodium of 143, potassium 3.7, BUN 30, serum creatinine 4.07. Hemoglobin was 8.4 g/dL. ASSESSMENT: 1. Acute kidney injury secondary to vancomycin toxicity, nonoliguric. However, the renal function has been progressively worsening over the last 2 to 3 days. Patient has an indwelling Mon catheter. She is not on any nephrotoxic medications currently. The patient is volume overloaded. Her chest x-ray is currently pending. If she has pulmonary vascular congestion on the chest x-ray, I will resume the IV Lasix. 2. Anemia with severe iron deficiency. We will start patient on IV iron. 3. Status post sacral decub debridement. 4. Status post diverting colostomy. 5. Mild metabolic acidosis. 6. History of previous paraplegia. PLAN: Repeat IV iron. I will likely resume IV Lasix based on a chest x-ray findings. If renal function continues to worsen, she may need to be started on dialysis. MMODL / IJN: [id number] /
--- NOTE | 2019-07-04 12:41 | P.PN ---
Subjective Progress Note Date: 07/04/19 CHIEF COMPLAINT: Decubitus ulcer HISTORY OF PRESENT ILLNESS: Patient is status post debridement of stage IV sacral decubitus ulcer and diverting colostomy. Patient examined at the bedside. She denies pain or discomfort this morning. She is tolerating diet. Ostomy with stool noted. PHYSICAL EXAM: VITAL SIGNS: Reviewed. GENERAL: Well-developed in no acute distress. HEENT: No sclera icterus. Extraocular movements grossly intact. Moist buccal mucosa. Head is atraumatic, normocephalic. ABDOMEN: Soft. Nondistended. Nontender. Ostomy to left lower quadrant. NEUROLOGIC: Alert and oriented. Cranial nerves II through XII grossly intact. SKIN: Dressing noted to large sacral decubitus ulcer. ASSESSMENT: 1. Stage IV sacral decubitus ulcer, status post debridement 2. S/P diverting colostomy PLAN: 1. Continue local wound care and antibiotics per infectious disease 2. Continue diet as tolerated 3. Stable for discharge to [facility] from a surgical standpoint. Discharge per medicine. Nurse practitioner note has been reviewed by physician. Signing provider agrees with the documented findings, assessment, and plan of care. Objective - Vital Signs Vital signs: Vital Signs Temp 98.2 F 07/04/19 07:59 Pulse 60 07/04/19 07:59 Resp 19 07/04/19 01:38 BP 117/59 07/04/19 07:59 Pulse Ox 97 07/04/19 07:59 Intake & Output 07/03/19 07/04/19 07/04/19 18:59 06:59 18:59 Intake Total 195 Output Total 500 475 Balance -500 -280 Weight 87.09 kg Intake: IV 150 Lactated Ringers 1,000 ml 150 @ 75 mls/hr IV .[id number] [facility] Rx#:[id number] Intake, IV Titration 45 Amount Lactated Ringers 1,000 ml 45 @ 0 mls/hr IV .[facility] Rx#:[id number] Output: Urine 500 475 Other: Voiding Method Indwelling Catheter Indwelling Catheter Indwelling Catheter - Labs CBC & Chem 7: 07/03/19 07:33 07/04/19 06:51 Labs: Abnormal Lab Results - Last 24 Hours (Table) 07/04/19 Range/Units 06:51 Chloride 111 H (98-107) mmol/L Carbon Dioxide 20 L (22-30) mmol/L BUN 30 H (7-17) mg/dL Creatinine 4.07 H (0.52-1.04) mg/dL Glucose 67 L (74-99) mg/dL Calcium 7.3 L (8.4-10.2) mg/dL
--- NOTE | 2019-07-04 14:34 | XR ---
EXAMINATION TYPE: XR chest 1V DATE OF EXAM: 07/04/2019 COMPARISON: 06/23/2019 HISTORY: 73-year-old female CHF, shortness of breath TECHNIQUE: Single frontal view of the chest is obtained. FINDINGS: Left-sided subclavian CVC tip in the mid SVC. Heart mildly enlarged. Persistent retrocardi ac and left basilar opacity. Remainder of the lungs appear clear. Possible subluxation versus disloca tion of the right shoulder. IMPRESSION: 1. Persistent retrocardiac and left basilar opacity. 2. Query chronic subluxation/dislocation of the right shoulder.
--- NOTE | 2019-07-04 23:40 | P.PN ---
Progress Note - Text Progress Note Date: 07/04/19 Chief Complaint: Decub wounds Interval history: This is a pleasant [address] Charli [facility]. Because of a prior stroke patient's paraplegic. Has a wheelchair and oriented. Very much bedbound. Patient's 3 granddaughters live with her for several years. Patient does get home care. For last 1 month patient developed sacral decubitus ulcers. Progressively getting worse. Denies much pain. No discomfort is present. Appetite is okay. Not been changing in bowel or urine pattern. Denies any fever and chills. Patient presented to ER was found to be in renal failure hypertensive and was admitted with the fluid boluses. As blood pressure did not respond well patient is put on levo fed drip. Admitted to ICU with furniture repair technician consultation. He states that she does not like hospitals and doctors. and prefers to stay away. Also having fevers and sepsis on presentation Patient was admitted to the ICU. Was on fluids and levo fed. Levo fed was discontinued on June 16. Patient initially had refused any debridement of the wound. Finally agreed for the same. Patient was seen by psychiatry. Deemed competent to make the decisions. Because of initial refusal for treatment Ethics committee had been consulted. On June 21 patient was taken to the OR per Dr. Puente and he did carry her debridement after patient consented for the same. On June 23 diverging colostomy was done. Also has vancomycin induced acute kidney injury Today-laying in bed. Tolerating a diet. No new issues. Review of systems: Was done for constitutional, cardiovascular, GI, pulmonary. relevant finding as above Active Medications Acetaminophen (Tylenol Tab) 500 mg PO Q6HR PRN PRN Reason: Fever and/ or MILD Pain Last Admin: 06/27/19 20:12 Dose: 500 mg Documented by: Enoxaparin Sodium (Lovenox) 30 mg SQ DAILY [facility] Last Admin: 07/04/19 07:45 Dose: 30 mg Documented by: Famotidine (Pepcid) 20 mg PO DAILY [facility] Last Admin: 07/04/19 07:45 Dose: 20 mg Documented by: Hydralazine HCl (Apresoline) 10 mg PO BID [facility] Last Admin: 07/04/19 19:31 Dose: Not Given Documented by: Sodium Chloride (Saline 0.9%) 1,000 mls @ 100 mls/hr IV .Q10H [facility] Last Admin: 07/04/19 19:31 Dose: 100 mls/hr Documented by: Miscellaneous Information (Potassium Per Protocol) 1 each MISCELLANE DAILY PRN; Protocol PRN Reason: Per Protocol Morphine Sulfate (Morphine Sulfate (Inj)) 4 mg IVP Q4HR PRN PRN Reason: SEVERE Pain Last Admin: 06/25/19 16:16 Dose: 4 mg Documented by: Ondansetron HCl (Zofran) 4 mg IVP Q6HR PRN PRN Reason: Nausea And Vomiting Last Admin: 07/02/19 18:18 Dose: 4 mg Documented by: Sodium Hypochlorite (Dakin's 0.25% (Half Strength)) 50 ml MISCELLANE BID [facility] Last Admin: 07/04/19 16:59 Dose: 50 ml Documented by: Physical examination: VITAL SIGNS: r 98.2, 60, 16, 11 7/59, 97% room air GENERAL: Propped up in bed, awake EYES: Pupils equal. Conjunctiva normal. HEENT: External appearance of nose and ears normal, oral cavity with dry. NECK: JVD unable to assess; masses not palpable. HEART: First and second heart sounds are normal; no edema. LUNGS: Respiratory rate normal; clear to auscultation. ABDOMEN: Soft, colostomy bag with stool, liver spleen not palpable, no masses palpable. PSYCH: Alert and oriented x3; mood and affect normal. NEUROLOGICAL: Cranial nerves grossly intact; no facial asymmetry, power lower extremity 1/5, with some sensation pleasant. DERMATOLOGICAL: Sacral decubiti ulcers. Pictures in the chart INVESTIGATIONS, reviewed in the clinical context: Potassium 3.7 bun 30 creatinine 4.07 Previous testing: White count 18.6 hemoglobin 11.9 platelets 416 potassium 4.5 bun 61 creatinine 1.38 Lactic acid 3.8 magnesium 1.3 C-reactive protein to 20 albumin 2.8 Computed tomography scan of the abdomen and pelvis-large area of soft tissue air bubbles on the posterior sacral and buttock. Assessment: -Acute renal failure, likely ATN possibly secondary to vancomycin continues to worsen -Diverting colostomy done on 06/23/2019 -Acute sacral decubitus ulcer with secondary infection causing severe sepsis present on admission with septic shock. Status post debridement on June 21. -Lactic acidosis from sepsis -Normocytic anemia probably from infection -Essential hypertension -Chronic paraplegia from prior stroke -Medical debility -Obesity BMI 37.4 -Metabolic acidosis from renal failure Plan: Patient be followed by nephrology. Renal function is gradually worsening. Some IV Lasix was given. Medications to continue. Prognosis guarded.
[2019-07-05] MEDS: SODIUM CHLORIDE 0.9% 1,000 ML IV SCH ×2 (04:48→17:58)
[2019-07-05] MEDS: SODIUM HYPOCHLORITE 0.25% 480 ML BOT MISCELLANE SCH ×3 (04:48→20:32)
[2019-07-05] MEDS: FAMOTIDINE 20 MG TAB PO SCH (08:45)
[2019-07-05] MEDS: hydrALAZINE HCL 10 MG TAB PO SCH ×2 (08:45→20:33)
[2019-07-05] MEDS: ENOXAPARIN 30 MG/0.3 ML SYRINGE SQ SCH (08:45)
--- NOTE | 2019-07-05 12:54 | P.PN ---
Subjective Progress Note Date: 07/05/19 CHIEF COMPLAINT: Decubitus ulcer HISTORY OF PRESENT ILLNESS: Patient is status post debridement of stage IV sacral decubitus ulcer and diverting colostomy. Patient examined at the bedside. She denies pain or discomfort this morning. She is tolerating diet. Ostomy with stool noted. PHYSICAL EXAM: VITAL SIGNS: Reviewed. GENERAL: Well-developed in no acute distress. HEENT: No sclera icterus. Extraocular movements grossly intact. Moist buccal mucosa. Head is atraumatic, normocephalic. ABDOMEN: Soft. Nondistended. Nontender. Ostomy to left lower quadrant. NEUROLOGIC: Alert and oriented. Cranial nerves II through XII grossly intact. SKIN: Dressing noted to large sacral decubitus ulcer. ASSESSMENT: 1. Stage IV sacral decubitus ulcer, status post debridement 2. S/P diverting colostomy PLAN: 1. Continue local wound care and antibiotics per infectious disease 2. Continue diet as tolerated 3. Stable for discharge to [facility] from a surgical standpoint. She will be evaluated by Dr. Stern at [facility] for future flap. Discharge per medicine. Nurse practitioner note has been reviewed by physician. Signing provider agrees with the documented findings, assessment, and plan of care. Objective - Vital Signs Vital signs: Vital Signs Temp 97.8 F 07/05/19 07:37 Pulse 91 07/05/19 07:37 Resp 16 07/05/19 07:37 BP 127/79 07/05/19 07:37 Pulse Ox 100 07/05/19 07:37 Intake & Output 07/04/19 07/05/19 07/05/19 18:59 06:59 18:59 Output Total 200 950 Balance -200 -950 Output: Urine 200 950 Other: Voiding Method Indwelling Catheter Indwelling Catheter Indwelling Catheter - Labs CBC & Chem 7: 07/03/19 07:33 07/04/19 06:51
[2019-07-05 13:26] LABS: Calcium 7.6 mg/dL (8.4-10.2)
[2019-07-05] MEDS ORDERED: FUROSEMIDE 10 MG/ML 4 ML VIAL IV STA (19:47)
[2019-07-05] MEDS: SODIUM BICARBONATE TAB 650 MG TAB PO SCH (20:33)
--- NOTE | 2019-07-05 21:47 | PN ---
PROGRESS NOTE Patient is seen for followup for acute kidney injury. She was seen this morning. The patient was comfortable. She denied any significant complaints. This morning her blood pressure was 127/79, heart rate about 80 per minute. She is afebrile. Urine output for 24 hours was about 900 mL. EXAMINATION OF THE HEART: S1 and S2. EXAMINATION OF LUNGS: Bilateral breath sounds are heard. Decreased breath sounds at bases. ABDOMEN: Soft, non-tender. Examination of lower extremities shows edema 2+ bilaterally. There is significant edema of the right upper extremity as well. Labs show sodium 144, potassium 4.0, chloride 117. CO2 is 18. BUN 33, serum creatinine 3.7. ASSESSMENT: 1. Acute kidney injury, nonoliguric, currently with indwelling Mon catheter. Etiology vancomycin toxicity. Creatinine is slightly better than yesterday. Patient's Lasix has been on hold. Her chest x-ray did not show significant pulmonary vascular congestion. However, I was called by the nurse with the low urine output, so we did give her one dose of IV Lasix about an hour ago. 2. Anemia with severe iron deficiency. Will maintain patient on IV iron. She did get one dose. 3. Status post sacral decubitus. 4. Status post diverting colostomy. 5. History of paraplegia. PLAN: Repeat labs in a.m. Patient did receive Lasix x1 IV. I will also maintain her on IV iron. Continue with oral sodium bicarb. MMODL / IJN: [id number] /
--- NOTE | 2019-07-05 22:07 | P.PN ---
Progress Note - Text Progress Note Date: 07/05/19 Interval history: This is a pleasant [address] Charli [facility]eto [facility] . Because of a prior stroke patient's paraplegic. Has a wheelchair and oriented. Very much bedbound. Patient's 3 granddaughters live with her for several years. Patient does get home care. For last 1 month patient developed sacral decubitus ulcers. Progressively getting worse. Denies much pain. No discomfort is present. Appetite is okay. Not been changing in bowel or urine pattern. Denies any fever and chills. Patient presented to ER was found to be in renal failure hypertensive and was admitted with the fluid boluses. As blood pressure did not respond well patient is put on levo fed drip. Admitted to ICU with children's service worker consultation. He states that she does not like hospitals and doctors. and prefers to stay away. Also having fevers and sepsis on presentation Patient was admitted to the ICU. Was on fluids and levo fed. Levo fed was discontinued on June 16. Patient initially had refused any debridement of the wound. Finally agreed for the same. Patient was seen by psychiatry. Deemed competent to make the decisions. Because of initial refusal for treatment Ethics committee had been consulted. On June 21 patient was taken to the OR per Dr. Puente and he did carry her debridement after patient consented for the same. On June 23 diverging colostomy was done. Also has vancomycin induced acute kidney injury Today-l laying in bed. Tired. Not much of an appetite. Had some breakfast and lunch.. Review of systems: Was done for constitutional, cardiovascular, GI, pulmonary. relevant finding as above Active Medications Acetaminophen (Tylenol Tab) 500 mg PO Q6HR PRN PRN Reason: Fever and/ or MILD Pain Last Admin: 06/27/19 20:12 Dose: 500 mg Documented by: Enoxaparin Sodium (Lovenox) 30 mg SQ DAILY [facility] Last Admin: 07/05/19 08:45 Dose: 30 mg Documented by: Famotidine (Pepcid) 20 mg PO DAILY [facility] Last Admin: 07/05/19 08:45 Dose: 20 mg Documented by: Hydralazine HCl (Apresoline) 10 mg PO BID [facility] Last Admin: 07/05/19 20:33 Dose: Not Given Documented by: Ferric Sodium Gluconate 125 mg (/ Sodium Chloride) 110 mls @ 100 mls/hr IVPB DAILY [facility] Miscellaneous Information (Potassium Per Protocol) 1 each MISCELLANE DAILY PRN; Protocol PRN Reason: Per Protocol Morphine Sulfate (Morphine Sulfate (Inj)) 4 mg IVP Q4HR PRN PRN Reason: SEVERE Pain Last Admin: 06/25/19 16:16 Dose: 4 mg Documented by: Ondansetron HCl (Zofran) 4 mg IVP Q6HR PRN PRN Reason: Nausea And Vomiting Last Admin: 07/02/19 18:18 Dose: 4 mg Documented by: Sodium Bicarbonate (Sodium Bicarbonate Tab) 650 mg PO BID [facility] Last Admin: 07/05/19 20:33 Dose: 650 mg Documented by: Sodium Hypochlorite (Dakin's 0.25% (Half Strength)) 50 ml MISCELLANE BID [facility] Last Admin: 07/05/19 20:32 Dose: 50 ml Documented by: Physical examination: VITAL SIGNS: 98.3, 88, 16, 118-84, 98% room air GENERAL: Laying in bed, tired EYES: Pupils equal. Conjunctiva normal. HEENT: External appearance of nose and ears normal, oral cavity with dry. NECK: JVD unable to assess; masses not palpable. HEART: First and second heart sounds are normal; no edema. LUNGS: Respiratory rate normal; clear to auscultation. ABDOMEN: Soft, colostomy bag with stool, liver spleen not palpable, no masses palpable. PSYCH: Alert and oriented x3; mood and affect normal. NEUROLOGICAL: Cranial nerves grossly intact; no facial asymmetry, power lower extremity 1/5, with some sensation pleasant. DERMATOLOGICAL: Sacral decubiti ulcers. Pictures in the chart INVESTIGATIONS, reviewed in the clinical context: Potassium 4 bicarb 18 bun 33 creatinine 3.70 Previous testing: White count 18.6 hemoglobin 11.9 platelets 416 potassium 4.5 bun 61 creatinine 1.38 Lactic acid 3.8 magnesium 1.3 C-reactive protein to 20 albumin 2.8 Computed tomography scan of the abdomen and pelvis-large area of soft tissue air bubbles on the posterior sacral and buttock. Assessment: -Acute renal failure, likely ATN possibly secondary to vancomycin, slow to respond -Diverting colostomy done on 06/23/2019 -Acute sacral decubitus ulcer with secondary infection causing severe sepsis present on admission with septic shock. Status post debridement on June 21. -Lactic acidosis from sepsis -Normocytic anemia probably from infection -Essential hypertension -Chronic paraplegia from prior stroke -Medical debility -Obesity BMI 37.4 -Metabolic acidosis from renal failure Plan: Patient is getting daily wound care. Added sodium bicarbonate. Creatinine is started returned rundown. Discussed with Suyapa Aleman NP from general surgery. Plan is for patient to go to LTAC. Dr. Stern is a plastic surgeon will be consulted from there and we'll follow-up on the wounds.
[2019-07-06] MEDS: SODIUM FERRIC GLUCONAT-SUCROSE 125 MG in SODIUM CHLORIDE 0.9% 100 ML IVPB SCH (08:36)
[2019-07-06] MEDS: ENOXAPARIN 30 MG/0.3 ML SYRINGE SQ SCH (08:37)
[2019-07-06] MEDS: FAMOTIDINE 20 MG TAB PO SCH (08:37)
[2019-07-06] MEDS: hydrALAZINE HCL 10 MG TAB PO SCH ×2 (08:37→22:40)
[2019-07-06] MEDS: SODIUM BICARBONATE TAB 650 MG TAB PO SCH ×2 (08:37→22:41)
[2019-07-06] MEDS: SODIUM HYPOCHLORITE 0.25% 480 ML BOT MISCELLANE SCH ×2 (08:38→22:41)
--- NOTE | 2019-07-06 11:10 | P.PN ---
Subjective Progress Note Date: 07/06/19 CHIEF COMPLAINT: Decubitus ulcer HISTORY OF PRESENT ILLNESS: Patient is status post debridement of stage IV sacral decubitus ulcer and diverting colostomy. Patient examined at the bedside. She denies pain or discomfort. She is tolerating diet. Ostomy with stool noted. PHYSICAL EXAM: VITAL SIGNS: Reviewed. GENERAL: Well-developed in no acute distress. HEENT: No sclera icterus. Extraocular movements grossly intact. Moist buccal mucosa. Head is atraumatic, normocephalic. ABDOMEN: Soft. Nondistended. Nontender. Ostomy to left lower quadrant. NEUROLOGIC: Alert and oriented. Cranial nerves II through XII grossly intact. SKIN: Dressing noted to large sacral decubitus ulcer. ASSESSMENT: 1. Stage IV sacral decubitus ulcer, status post debridement 2. S/P diverting colostomy PLAN: 1. Continue local wound care and antibiotics per infectious disease 2. Continue diet as tolerated 3. Stable for discharge to [facility] from a surgical standpoint. She will be evaluated by Dr. Stern at [facility] for future flap. Discharge per medicine. Nurse practitioner note has been reviewed by physician. Signing provider agrees with the documented findings, assessment, and plan of care. Objective - Vital Signs Vital signs: Vital Signs Temp 98.7 F 07/06/19 07:00 Pulse 99 07/06/19 08:00 Resp 14 07/06/19 08:00 BP 114/71 07/06/19 07:00 Pulse Ox 96 07/06/19 07:00 Intake & Output 07/05/19 07/06/19 07/06/19 18:59 06:59 18:59 Intake Total 200 20 Output Total 290 600 Balance -90 -580 Intake: Oral 200 20 Output: Urine 290 600 Uretheral (Mon) 290 Other: Voiding Method Indwelling Catheter Indwelling Catheter Indwelling Catheter - Labs CBC & Chem 7: 07/03/19 07:33 07/05/19 12:44 Labs: Abnormal Lab Results - Last 24 Hours (Table) 07/05/19 Range/Units 12:44 Chloride 117 H (98-107) mmol/L Carbon Dioxide 18 L (22-30) mmol/L BUN 33 H (7-17) mg/dL Creatinine 3.70 H (0.52-1.04) mg/dL Calcium 7.6 L (8.4-10.2) mg/dL
--- NOTE | 2019-07-06 20:05 | P.PN ---
Progress Note - Text Progress Note Date: 07/06/19 Interval history: This is a pleasant [address] Charli [facility]eto [facility] . Because of a prior stroke patient's paraplegic. Has a wheelchair and oriented. Very much bedbound. Patient's 3 granddaughters live with her for several years. Patient does get home care. For last 1 month patient developed sacral decubitus ulcers. Progressively getting worse. Denies much pain. No discomfort is present. Appetite is okay. Not been changing in bowel or urine pattern. Denies any fever and chills. Patient presented to ER was found to be in renal failure hypertensive and was admitted with the fluid boluses. As blood pressure did not respond well patient is put on levo fed drip. Admitted to ICU with bouffant curtain machine tender consultation. He states that she does not like hospitals and doctors. and prefers to stay away. Also having fevers and sepsis on presentation Patient was admitted to the ICU. Was on fluids and levo fed. Levo fed was discontinued on June 16. Patient initially had refused any debridement of the wound. Finally agreed for the same. Patient was seen by psychiatry. Deemed competent to make the decisions. Because of initial refusal for treatment Ethics committee had been consulted. On June 21 patient was taken to the OR per Dr. Puente and he did carry her debridement after patient consented for the same. On June 23 diverging colostomy was done. Also has vancomycin induced acute kidney injury Today-patient's oral intake fluctuates. She does not like the hospital for. She states she's not a breakfast person. Was given one dose of IV Lasix by nephrology yesterday. Review of systems: Was done for constitutional, cardiovascular, GI, pulmonary. relevant finding as above Active Medications Acetaminophen (Tylenol Tab) 500 mg PO Q6HR PRN PRN Reason: Fever and/ or MILD Pain Last Admin: 06/27/19 20:12 Dose: 500 mg Documented by: Enoxaparin Sodium (Lovenox) 30 mg SQ DAILY [facility] Last Admin: 07/06/19 08:37 Dose: 30 mg Documented by: Famotidine (Pepcid) 20 mg PO DAILY [facility] Last Admin: 07/06/19 08:37 Dose: 20 mg Documented by: Hydralazine HCl (Apresoline) 10 mg PO BID [facility] Last Admin: 07/06/19 08:37 Dose: 10 mg Documented by: Ferric Sodium Gluconate 125 mg (/ Sodium Chloride) 110 mls @ 100 mls/hr IVPB DAILY [facility] Last Admin: 07/06/19 08:36 Dose: 100 mls/hr Documented by: Miscellaneous Information (Potassium Per Protocol) 1 each MISCELLANE DAILY PRN; Protocol PRN Reason: Per Protocol Morphine Sulfate (Morphine Sulfate (Inj)) 4 mg IVP Q4HR PRN PRN Reason: SEVERE Pain Last Admin: 06/25/19 16:16 Dose: 4 mg Documented by: Ondansetron HCl (Zofran) 4 mg IVP Q6HR PRN PRN Reason: Nausea And Vomiting Last Admin: 07/02/19 18:18 Dose: 4 mg Documented by: Sodium Bicarbonate (Sodium Bicarbonate Tab) 650 mg PO BID [facility] Last Admin: 07/06/19 08:37 Dose: 650 mg Documented by: Sodium Hypochlorite (Dakin's 0.25% (Half Strength)) 50 ml MISCELLANE BID [facility] Last Admin: 07/06/19 08:38 Dose: 50 ml Documented by: Physical examination: VITAL SIGNS: 98, 96, 12, 122/78, 98% room air GENERAL: Laying in bed, tired EYES: Pupils equal. Conjunctiva normal. HEENT: External appearance of nose and ears normal, oral cavity with dry. NECK: JVD unable to assess; masses not palpable. HEART: First and second heart sounds are normal; no edema. LUNGS: Respiratory rate normal; clear to auscultation. ABDOMEN: Soft, colostomy bag with stool, liver spleen not palpable, no masses palpable. PSYCH: Alert and oriented x3; mood and affect normal. NEUROLOGICAL: Cranial nerves grossly intact; no facial asymmetry, power lower extremity 1/5, with some sensation pleasant. DERMATOLOGICAL: Sacral decubiti ulcers. Pictures in the chart INVESTIGATIONS, reviewed in the clinical context: No labs from today Potassium 4 bicarb 18 bun 33 creatinine 3.70 Previous testing: White count 18.6 hemoglobin 11.9 platelets 416 potassium 4.5 bun 61 creatinine 1.38 Lactic acid 3.8 magnesium 1.3 C-reactive protein to 20 albumin 2.8 Computed tomography scan of the abdomen and pelvis-large area of soft tissue air bubbles on the posterior sacral and buttock. Assessment: -Acute renal failure, likely ATN possibly secondary to vancomycin, slow to respond -Diverting colostomy done on 06/23/2019 -Acute sacral decubitus ulcer with secondary infection causing severe sepsis present on admission with septic shock. Status post debridement on June 21. -Lactic acidosis from sepsis -Normocytic anemia probably from infection -Essential hypertension -Chronic paraplegia from prior stroke -Medical debility -Obesity BMI 37.4 -Metabolic acidosis from renal failure Plan: Repeat renal function the morning. Patient encouraged to improve her oral intake. If okay with nephrology will get the patient to LTAC soon
--- NOTE | 2019-07-06 20:36 | PN ---
PROGRESS NOTE The patient is seen for followup for acute kidney injury. Yesterday her urine output was borderline. Patient received a dose of IV Lasix. This morning she is sitting up in bed. The patient denies any complaints. She has not been eating much. PHYSICAL EXAMINATION: This morning, blood pressure was 114/71, heart rate 99 per minute. She is afebrile. Examination of the heart S1, S2. Examination of the lungs, bilateral breath sounds are heard. Abdomen is soft, nontender. Exam of lower extremities shows edema 2+ bilaterally. ACCOUNT TECHNICIAN exam is grossly intact. LABS SHOW: Sodium 144 from yesterday, potassium 4.0, BUN 33, serum creatinine 3.7. ASSESSMENT: 1. Acute kidney injury secondary to vancomycin toxicity, nonoliguric with Mon catheter, 24 hour urine output of about 1150 mL. The serum creatinine was better yesterday to 3.7 from 4 the day before. No labs today. We will recheck labs again tomorrow morning. 2. Significant edema status post IV Lasix x1 yesterday. Maintained good protein intake. 3. Status post diverting colostomy for sacral decub. PLAN: Repeat labs in a.m. Encourage increased oral intake, particularly protein. MMODL / IJN: [id number] /
[2019-07-07] MEDS: FAMOTIDINE 20 MG TAB PO SCH (08:09)
[2019-07-07] MEDS: hydrALAZINE HCL 10 MG TAB PO SCH ×2 (08:09→21:30)
[2019-07-07] MEDS: SODIUM HYPOCHLORITE 0.25% 480 ML BOT MISCELLANE SCH ×2 (08:10→21:32)
[2019-07-07] MEDS: ENOXAPARIN 30 MG/0.3 ML SYRINGE SQ SCH (08:10)
[2019-07-07] MEDS: SODIUM BICARBONATE TAB 650 MG TAB PO SCH ×2 (08:10→21:29)
[2019-07-07 08:22] LABS: Calcium 7.3 mg/dL (8.4-10.2)
[2019-07-07 08:28] LABS: Potassium 3.7 mmol/L (3.5-5.1)
[2019-07-07] MEDS: SODIUM FERRIC GLUCONAT-SUCROSE 125 MG in SODIUM CHLORIDE 0.9% 100 ML IVPB SCH (08:57)
--- NOTE | 2019-07-07 12:23 | P.PN ---
Subjective Progress Note Date: 07/07/19 CHIEF COMPLAINT: Decubitus ulcer HISTORY OF PRESENT ILLNESS: Patient is status post debridement of stage IV sacral decubitus ulcer and diverting colostomy. Patient examined at the bedside. She denies pain or discomfort. She is tolerating diet. Decreased oral intake. Ostomy with stool noted. PHYSICAL EXAM: VITAL SIGNS: Reviewed. GENERAL: Well-developed in no acute distress. HEENT: No sclera icterus. Extraocular movements grossly intact. Moist buccal mucosa. Head is atraumatic, normocephalic. ABDOMEN: Soft. Nondistended. Nontender. Ostomy to left lower quadrant. NEUROLOGIC: Alert and oriented. Cranial nerves II through XII grossly intact. SKIN: Dressing noted to large sacral decubitus ulcer. ASSESSMENT: 1. Stage IV sacral decubitus ulcer, status post debridement 2. S/P diverting colostomy PLAN: 1. Continue local wound care and antibiotics per infectious disease 2. Continue diet as tolerated. Encourage PO intake. Patient may benefit from appetite stimulant. Will defer to medicine. 3. Dr. Puente dicussed PEG tube with patient due to persistent decreased oral intake. Patient states she will attempt to increase PO intake over the weekend. Will re-eval patient on Wednesday for possible PEG tube placement. 4. Discharge plan includes DC to [facility]. She will be evaluated by Dr. Stern at [facility] for future flap. Nurse practitioner note has been reviewed by physician. Signing provider agrees with the documented findings, assessment, and plan of care. Objective - Vital Signs Vital signs: Vital Signs Temp 98.2 F 07/07/19 07:43 Pulse 97 07/07/19 08:00 Resp 18 07/07/19 08:00 BP 162/90 07/07/19 07:43 Pulse Ox 98 07/07/19 07:43 Intake & Output 07/06/19 07/07/19 07/07/19 18:59 06:59 18:59 Intake Total 100 Output Total 475 Balance 100 -475 Weight 87.09 kg Intake: Intake, IV Titration 100 Amount Sodium Ferric Gluconat- 100 Sucrose 125 mg In Sodium Chloride 0.9% 100 ml @ 100 mls/hr IVPB DAILY [facility] Rx#:[id number] Output: Urine 475 Other: Voiding Method Indwelling Catheter Indwelling Catheter Indwelling Catheter - Labs CBC & Chem 7: 07/03/19 07:33 07/07/19 07:12 Labs: Abnormal Lab Results - Last 24 Hours (Table) 07/07/19 Range/Units 07:12 Chloride 116 H (98-107) mmol/L Carbon Dioxide 21 L (22-30) mmol/L BUN 34 H (7-17) mg/dL Creatinine 3.33 H (0.52-1.04) mg/dL Calcium 7.3 L (8.4-10.2) mg/dL
[2019-07-07] MEDS ORDERED: FUROSEMIDE 10 MG/ML 4 ML VIAL IV STA (16:37)
--- NOTE | 2019-07-07 18:19 | PN ---
PROGRESS NOTE Patient is seen for followup for acute kidney injury which is mainly associated vancomycin toxicity. Patient has an indwelling Mon catheter. Renal function is slowly improving. Creatinine is down to 3.3 from 4.0. Patient received a dose of Lasix yesterday. I will give her another dose of IV Lasix today and she should be discharged on p.o. Lasix for the significant lower extremity edema. On examination today, blood pressure was 162/90, heart rate 97 per minute. She is afebrile. EXAMINATION OF THE HEART: S1 and S2. EXAMINATION OF LUNGS: Decreased breath sounds at the bases. ABDOMEN: Soft, non-tender. Examination of lower extremities shows edema 3+ bilaterally; right upper extremity worse than left upper extremity. Labs show sodium 144, potassium 3.7, BUN 34, serum creatinine 3.3. ASSESSMENT: 1. Acute kidney injury secondary to vancomycin toxicity, slowly improving. Continue with the indwelling Mon catheter for now. Repeat another dose of IV Lasix today. Patient will be discharged on p.o. Lasix. 2. Gastroesophageal reflux disease, maintained on Pepcid. 3. Escherichia coli urinary tract infection. 4. Bacteremia, status post antibiotics. PLAN: Lasix x1 now. Maintain oral Lasix post discharge. Repeat labs as outpatient. Continue with the indwelling Mon catheter for now. MMODL / IJN: [id number] /
--- NOTE | 2019-07-07 22:36 | P.PN ---
Progress Note - Text Progress Note Date: 07/07/19 Interval history: This is a pleasant [address] Charli [facility] . Because of a prior stroke patient's paraplegic. Has a wheelchair and oriented. Very much bedbound. Patient's 3 granddaughters live with her for several years. Patient does get home care. For last 1 month patient developed sacral decubitus ulcers. Progressively getting worse. Denies much pain. No discomfort is present. Appetite is okay. Not been changing in bowel or urine pattern. Denies any fever and chills. Patient presented to ER was found to be in renal failure hypertensive and was admitted with the fluid boluses. As blood pressure did not respond well patient is put on levo fed drip. Admitted to ICU with shuttle fixer consultation. He states that she does not like hospitals and doctors. and prefers to stay away. Also having fevers and sepsis on presentation Patient was admitted to the ICU. Was on fluids and levo fed. Levo fed was discontinued on June 16. Patient initially had refused any debridement of the wound. Finally agreed for the same. Patient was seen by psychiatry. Deemed competent to make the decisions. Because of initial refusal for treatment Ethics committee had been consulted. On June 21 patient was taken to the OR per Dr. Puente and he did carry her debridement after patient consented for the same. On June 23 diverging colostomy was done. Also has vancomycin induced acute kidney injury Today-patient has been turned down by LTAC for transfer. Did get a dose of IV Lasix by Dr. Crow today. Otherwise tolerating a diet intermittently. Review of systems: Was done for constitutional, cardiovascular, GI, pulmonary. relevant finding as above Active Medications Acetaminophen (Tylenol Tab) 500 mg PO Q6HR PRN PRN Reason: Fever and/ or MILD Pain Last Admin: 06/27/19 20:12 Dose: 500 mg Documented by: Enoxaparin Sodium (Lovenox) 30 mg SQ DAILY [facility] Last Admin: 07/07/19 08:10 Dose: 30 mg Documented by: Famotidine (Pepcid) 20 mg PO DAILY [facility] Last Admin: 07/07/19 08:09 Dose: 20 mg Documented by: Hydralazine HCl (Apresoline) 10 mg PO BID [facility] Last Admin: 07/07/19 21:30 Dose: 10 mg Documented by: Ferric Sodium Gluconate 125 mg (/ Sodium Chloride) 110 mls @ 100 mls/hr IVPB DAILY [facility] Last Admin: 07/07/19 08:57 Dose: 100 mls/hr Documented by: Miscellaneous Information (Potassium Per Protocol) 1 each MISCELLANE DAILY PRN; Protocol PRN Reason: Per Protocol Morphine Sulfate (Morphine Sulfate (Inj)) 4 mg IVP Q4HR PRN PRN Reason: SEVERE Pain Last Admin: 06/25/19 16:16 Dose: 4 mg Documented by: Ondansetron HCl (Zofran) 4 mg IVP Q6HR PRN PRN Reason: Nausea And Vomiting Last Admin: 07/02/19 18:18 Dose: 4 mg Documented by: Sodium Bicarbonate (Sodium Bicarbonate Tab) 650 mg PO BID [facility] Last Admin: 07/07/19 21:29 Dose: Not Given Documented by: Sodium Hypochlorite (Dakin's 0.25% (Half Strength)) 50 ml MISCELLANE BID [facility] Last Admin: 07/07/19 21:32 Dose: 50 ml Documented by: Physical examination: VITAL SIGNS: 98.4, 91, 18, 104/69, 96% room air GENERAL: Laying in bed, tired EYES: Pupils equal. Conjunctiva normal. HEENT: External appearance of nose and ears normal, oral cavity with dry. NECK: JVD unable to assess; masses not palpable. HEART: First and second heart sounds are normal; no edema. LUNGS: Respiratory rate normal; clear to auscultation. ABDOMEN: Soft, colostomy bag with stool, liver spleen not palpable, no masses palpable. PSYCH: Alert and oriented x3; mood and affect normal. NEUROLOGICAL: Cranial nerves grossly intact; no facial asymmetry, power lower extremity 1/5, with some sensation pleasant. DERMATOLOGICAL: Sacral decubiti ulcers. Pictures in the chart INVESTIGATIONS, reviewed in the clinical context: Potassium 3.7 BUN 34 creatinine 3.33 Potassium 4 bicarb 18 bun 33 creatinine 3.70 Previous testing: White count 18.6 hemoglobin 11.9 platelets 416 potassium 4.5 bun 61 creatinine 1.38 Lactic acid 3.8 magnesium 1.3 C-reactive protein to 20 albumin 2.8 Computed tomography scan of the abdomen and pelvis-large area of soft tissue air bubbles on the posterior sacral and buttock. Assessment: -Acute renal failure, likely ATN possibly secondary to vancomycin, slow to respond -Diverting colostomy done on 06/23/2019 -Acute sacral decubitus ulcer with secondary infection causing severe sepsis present on admission with septic shock. Status post debridement on June 21. -Lactic acidosis from sepsis -Normocytic anemia probably from infection -Essential hypertension -Chronic paraplegia from prior stroke -Medical debility -Obesity BMI 37.4 -Metabolic acidosis from renal failure Plan: Social workers informed be that LTAC will not take the patient. He is looking to get the patient to one of the local areas. Dr. Cindi hernandez planning to put a PEG tube on Wednesday hence to be held. Follow the same. Per Dr. Crow patient to be switched over to by mouth Lasix
[2019-07-08] MEDS: hydrALAZINE HCL 10 MG TAB PO SCH ×2 (09:23→21:00)
[2019-07-08] MEDS: SODIUM HYPOCHLORITE 0.25% 480 ML BOT MISCELLANE SCH ×2 (09:23→21:01)
[2019-07-08] MEDS: FAMOTIDINE 20 MG TAB PO SCH (09:23)
[2019-07-08] MEDS: SODIUM BICARBONATE TAB 650 MG TAB PO SCH ×2 (09:23→21:01)
[2019-07-08] MEDS: FUROSEMIDE 20 MG TAB PO SCH (09:23)
[2019-07-08] MEDS: ENOXAPARIN 30 MG/0.3 ML SYRINGE SQ SCH (09:23)
[2019-07-08] MEDS: ACETAMINOPHEN TAB 500 MG TAB PO PRN (09:30)
[2019-07-08] MEDS: SODIUM FERRIC GLUCONAT-SUCROSE 125 MG in SODIUM CHLORIDE 0.9% 100 ML IVPB SCH (09:48)
--- NOTE | 2019-07-08 13:08 | P.PN ---
Subjective Progress Note Date: 07/08/19 CHIEF COMPLAINT: Sacral decubiti ulcer HISTORY OF PRESENT ILLNESS: The patient is a 73-year-old female status post diverting colostomy, 06/23/2019, for severe sacral decubiti ulcer, stage IV. She is tolerating diet more of her diet. "Since I got my colostomy bag, the taste of food is different." No fevers or chills. Per nursing, "I dont want a PEG tube." She ate more than 50% of her breakfast per her recollection. ROS: No reports of nausea and vomiting. He has bowel movements. No fevers or chills. PHYSICAL EXAM: VITAL SIGNS: Reviewed CONSTITUTIONAL: Well developed and in no acute distress. EYES: Conjuctivae without sclera icterus. Extraocular movements grossly intact. HEAD, EARS, NOSE, THROAT: Moist buccal mucosa. Head is atraumatic, normocephalic. Hears conversational speech. No nasal drainage. NECK: Supple. No thyroidomegaly. RESPIRATORY: Non-labored respirations and equal bilateral excursions. CARDIOVASCULAR: Palpable 2+ radial pulses. SKIN: Good skin turgor. Well perfused. NEUROLOGIC: Cranial nerves I through XII grossly intact. No focal or lateralizing signs. PSYCH: Appropriate affect. Alert and oriented to person, place and time. ABDOMEN: Ostomy functioning with stool and flatus, obese. Midline dressing intact. MS: 1+ edema along hands and legs CLINCAL LABS: No new labs ASSESSMENT: 1. Sacral decubiti ulcer, severe, chronic, stage IV 2. New ostomy status 3. Morbid obesity 4. Inadequate protein intake PLAN: 1. She is encouraged oral nutrition 2. Tentatively PEG tube placement anticipated for Wednesday Objective - Vital Signs Vital signs: Vital Signs Temp 97.8 F 07/08/19 07:39 Pulse 83 07/08/19 07:39 Resp 16 07/08/19 07:39 BP 133/90 07/08/19 07:39 Pulse Ox 98 07/08/19 07:39 Intake & Output 07/07/19 07/08/19 07/08/19 18:59 06:59 18:59 Output Total 200 1250 Balance -200 -1250 Weight 87.09 kg Output: Urine 200 1250 Other: Voiding Method Indwelling Catheter Indwelling Catheter Indwelling Catheter # Voids 1 # Emeses 1 - Labs CBC & Chem 7: 07/03/19 07:33 07/07/19 07:12 Assessment and Plan (1) History of creation of ostomy Current Visit: Yes Status: Acute Code(s): Z93.9 - ARTIFICIAL OPENING STATUS, UNSPECIFIED SNOMED Code(s): 941537650 (2) BMI 37.0-37.9, adult Current Visit: Yes Status: Acute Code(s): Z68.37 - BODY MASS INDEX (BMI) 37.0-37.9, ADULT SNOMED Code(s): 936782115 (3) Decubitus ulcer Current Visit: Yes Status: Acute Code(s): L89.90 - PRESSURE ULCER OF UNSPECIFIED SITE, UNSPECIFIED STAGE SNOMED Code(s): 258504528 (4) Sepsis Current Visit: Yes Status: Acute Code(s): A41.9 - SEPSIS, UNSPECIFIED ORGANISM SNOMED Code(s): 86351570 (5) Morbid obesity Current Visit: No Status: Acute Code(s): E66.01 - MORBID (SEVERE) OBESITY DUE TO EXCESS CALORIES SNOMED Code(s): 342398739 (6) Inadequate dietary intake of protein Current Visit: Yes Status: Acute Code(s): E63.9 - NUTRITIONAL DEFICIENCY, UNSPECIFIED SNOMED Code(s): 878865875
--- NOTE | 2019-07-08 14:05 | P.PN ---
Subjective Progress Note Date: 07/08/19 Seen and examined for the follow-up of acute kidney injury. Making good amount of urine. No nausea vomiting diarrhea. Objective - Vital Signs Vital signs: Vital Signs Temp 97.8 F 07/08/19 07:39 Pulse 83 07/08/19 07:39 Resp 16 07/08/19 07:39 BP 133/90 07/08/19 07:39 Pulse Ox 98 07/08/19 07:39 Intake & Output 07/07/19 07/08/19 07/08/19 18:59 06:59 18:59 Output Total 200 1250 Balance -200 -1250 Weight 87.09 kg Output: Urine 200 1250 Other: Voiding Method Indwelling Catheter Indwelling Catheter Indwelling Catheter # Voids 1 # Emeses 1 - Exam No acute distress S1-S2 heard Decreased breath sounds Mon catheter Edema - Labs CBC & Chem 7: 07/03/19 07:33 07/07/19 07:12 Assessment and Plan Assessment: #1 nonoliguric acute kidney injury secondary to toxic ATN from vancomycin. #2 chronic kidney disease stage III secondary to nephrosclerosis baseline creatinine 1.2 MG per DL. #3 edema #4 protein calorie malnutrition #5 hypertension with chronic kidney disease. Plan: #1 renal function stable and improving. #2 continue with Lasix #3 high-protein diet #4 avoid nephrotoxic agents and hypotensive episodes.
--- NOTE | 2019-07-08 21:07 | P.PN ---
Progress Note - Text Progress Note Date: 07/08/19 Interval history: This is a pleasant [address] [facility] . Because of a prior stroke patient's paraplegic. Has a wheelchair and oriented. Very much bedbound. Patient's 3 granddaughters live with her for several years. Patient does get home care. For last 1 month patient developed sacral decubitus ulcers. Progressively getting worse. Denies much pain. No discomfort is present. Appetite is okay. Not been changing in bowel or urine pattern. Denies any fever and chills. Patient presented to ER was found to be in renal failure hypertensive and was admitted with the fluid boluses. As blood pressure did not respond well patient is put on levo fed drip. Admitted to ICU with delicatessen clerk consultation. He states that she does not like hospitals and doctors. and prefers to stay away. Also having fevers and sepsis on presentation Patient was admitted to the ICU. Was on fluids and levo fed. Levo fed was discontinued on June 16. Patient initially had refused any debridement of the wound. Finally agreed for the same. Patient was seen by psychiatry. Deemed competent to make the decisions. Because of initial refusal for treatment Ethics committee had been consulted. On June 21 patient was taken to the OR per Dr. Puente and he did carry her debridement after patient consented for the same. On June 23 diverging colostomy was done. Also has vancomycin induced acute kidney injury Today-coronary intake is low. Dr. Puente was 2 due a pack 2 feeding on Wednesday. His discharge has been held that.. Review of systems: Was done for constitutional, cardiovascular, GI, pulmonary. relevant finding as above Active Medications Acetaminophen (Tylenol Tab) 500 mg PO Q6HR PRN PRN Reason: Fever and/ or MILD Pain Last Admin: 07/08/19 09:30 Dose: 500 mg Documented by: Enoxaparin Sodium (Lovenox) 30 mg SQ DAILY [facility] Last Admin: 07/08/19 09:23 Dose: 30 mg Documented by: Famotidine (Pepcid) 20 mg PO DAILY [facility] Last Admin: 07/08/19 09:23 Dose: 20 mg Documented by: Furosemide (Lasix) 60 mg PO DAILY [facility] Last Admin: 07/08/19 09:23 Dose: 60 mg Documented by: Hydralazine HCl (Apresoline) 10 mg PO BID [facility] Last Admin: 07/08/19 21:00 Dose: 10 mg Documented by: Ferric Sodium Gluconate 125 mg (/ Sodium Chloride) 110 mls @ 100 mls/hr IVPB DAILY [facility] Last Admin: 07/08/19 09:48 Dose: 100 mls/hr Documented by: Miscellaneous Information (Potassium Per Protocol) 1 each MISCELLANE DAILY PRN; Protocol PRN Reason: Per Protocol Morphine Sulfate (Morphine Sulfate (Inj)) 4 mg IVP Q4HR PRN PRN Reason: SEVERE Pain Last Admin: 06/25/19 16:16 Dose: 4 mg Documented by: Ondansetron HCl (Zofran) 4 mg IVP Q6HR PRN PRN Reason: Nausea And Vomiting Last Admin: 07/02/19 18:18 Dose: 4 mg Documented by: Sodium Bicarbonate (Sodium Bicarbonate Tab) 650 mg PO BID [facility] Last Admin: 07/08/19 21:01 Dose: Not Given Documented by: Sodium Hypochlorite (Dakin's 0.25% (Half Strength)) 50 ml MISCELLANE BID [facility] Last Admin: 07/08/19 21:01 Dose: 50 ml Documented by: Physical examination: VITAL SIGNS: 98.3, 91, 18, 130/77, 96% room air GENERAL: Laying in bed, tired EYES: Pupils equal. Conjunctiva normal. HEENT: External appearance of nose and ears normal, oral cavity with dry. NECK: JVD unable to assess; masses not palpable. HEART: First and second heart sounds are normal; no edema. LUNGS: Respiratory rate normal; clear to auscultation. ABDOMEN: Soft, colostomy bag with stool, liver spleen not palpable, no masses palpable. PSYCH: Alert and oriented x3; mood and affect normal. NEUROLOGICAL: Cranial nerves grossly intact; no facial asymmetry, power lower extremity 1/5, with some sensation pleasant. DERMATOLOGICAL: Sacral decubiti ulcers. Pictures in the chart INVESTIGATIONS, reviewed in the clinical context: No blood or from today Potassium 4 bicarb 18 bun 33 creatinine 3.70 Previous testing: White count 18.6 hemoglobin 11.9 platelets 416 potassium 4.5 bun 61 creatinine 1.38 Lactic acid 3.8 magnesium 1.3 C-reactive protein to 20 albumin 2.8 Computed tomography scan of the abdomen and pelvis-large area of soft tissue air bubbles on the posterior sacral and buttock. Assessment: -Acute renal failure, likely ATN possibly secondary to vancomycin, slow to respond -Diverting colostomy done on 06/23/2019 -Acute sacral decubitus ulcer with secondary infection causing severe sepsis present on admission with septic shock. Status post debridement on June 21. -Lactic acidosis from sepsis -Normocytic anemia probably from infection -Essential hypertension -Chronic paraplegia from prior stroke -Medical debility -Obesity BMI 37.4 -Metabolic acidosis from renal failure Plan: Dr. Puente is planning a PEG tube Wednesday. Repeat BMP in the morning.
[2019-07-09 08:10] LABS: Calcium 7.1 mg/dL (8.4-10.2)
[2019-07-09] MEDS ORDERED: Potassium Replacement Protocol 1 EACH MISC MISCELLANE PRN ×2 (08:34→13:26)
[2019-07-09] MEDS: FUROSEMIDE 20 MG TAB PO SCH (09:01)
[2019-07-09] MEDS: ENOXAPARIN 30 MG/0.3 ML SYRINGE SQ SCH (09:01)
[2019-07-09] MEDS: FAMOTIDINE 20 MG TAB PO SCH (09:01)
[2019-07-09] MEDS: hydrALAZINE HCL 10 MG TAB PO SCH ×2 (09:01→20:47)
[2019-07-09] MEDS: POTASSIUM CHLORIDE ER 20 MEQ TAB.ER PO SCH ×4 (09:02→15:08)
[2019-07-09] MEDS: SODIUM BICARBONATE TAB 650 MG TAB PO SCH ×2 (09:02→20:46)
[2019-07-09] MEDS: SODIUM HYPOCHLORITE 0.25% 480 ML BOT MISCELLANE SCH ×2 (09:20→20:47)
[2019-07-09] MEDS: SODIUM FERRIC GLUCONAT-SUCROSE 125 MG in SODIUM CHLORIDE 0.9% 100 ML IVPB SCH (10:25)
--- NOTE | 2019-07-09 11:22 | P.PN ---
Subjective Progress Note Date: 07/09/19 Seen and examined for the follow-up of acute kidney injury. Making good amount of urine. No nausea vomiting diarrhea. Objective - Vital Signs Vital signs: Vital Signs Temp 98.8 F 07/09/19 07:40 Pulse 90 07/09/19 07:40 Resp 16 07/09/19 07:40 BP 111/68 07/09/19 07:40 Pulse Ox 98 07/09/19 07:40 Intake & Output 07/08/19 07/09/19 07/09/19 18:59 06:59 18:59 Intake Total 650 20 Output Total 900 450 Balance -250 -430 Intake: Oral 650 20 Output: Urine 900 450 Other: Voiding Method Indwelling Catheter Indwelling Catheter Indwelling Catheter # Emeses 1 - Exam No acute distress S1-S2 heard Decreased breath sounds Mon catheter Edema - Labs CBC & Chem 7: 07/03/19 07:33 07/09/19 06:53 Labs: Abnormal Lab Results - Last 24 Hours (Table) 07/09/19 Range/Units 06:53 Sodium 147 H (137-145) mmol/L Potassium 3.0 L (3.5-5.1) mmol/L Chloride 116 H (98-107) mmol/L BUN 35 H (7-17) mg/dL Creatinine 3.14 H (0.52-1.04) mg/dL Calcium 7.1 L (8.4-10.2) mg/dL Assessment and Plan Assessment: #1 nonoliguric acute kidney injury secondary to toxic ATN from vancomycin. #2 chronic kidney disease stage III secondary to nephrosclerosis baseline creatinine 1.2 MG per DL. #3 edema #4 protein calorie malnutrition #5 hypertension with chronic kidney disease. #6 hypernatremia, suspect secondary to diuretics and decreased by mouth intake. Plan: #1 renal function stable, improving #2 continue with Lasix, decrease dose to 40 mg by mouth daily #3 high-protein diet #4 avoid nephrotoxic agents and hypotensive episodes.
--- NOTE | 2019-07-09 13:34 | P.PN ---
Subjective Progress Note Date: 07/09/19 CHIEF COMPLAINT: Sacral decubiti ulcer HISTORY OF PRESENT ILLNESS: The patient is a 73-year-old female status post diverting colostomy, 06/23/2019, for severe sacral decubiti ulcer, stage IV. She has no appetite. She has not been able to complete 50% or more of her meals last night and today. No abdominal pain. ROS: No reports of nausea and vomiting. He has bowel movements. No fevers or chills. PHYSICAL EXAM: VITAL SIGNS: Reviewed CONSTITUTIONAL: Well developed and in no acute distress. EYES: Conjuctivae without sclera icterus. Extraocular movements grossly intact. HEAD, EARS, NOSE, THROAT: Moist buccal mucosa. Head is atraumatic, normocephalic. Hears conversational speech. No nasal drainage. NECK: Supple. No thyroidomegaly. RESPIRATORY: Non-labored respirations and equal bilateral excursions. CARDIOVASCULAR: Palpable 2+ radial pulses. SKIN: Good skin turgor. Well perfused. NEUROLOGIC: Cranial nerves I through XII grossly intact. No focal or lateralizing signs. PSYCH: Appropriate affect. Alert and oriented to person, place and time. ABDOMEN: Ostomy functioning with stool and flatus, obese. MS: 1+ edema along hands and legs CLINCAL LABS: Potassium 3.1. Creatinine improved from 4.1 to 3.1 ASSESSMENT: 1. Sacral decubiti ulcer, severe, chronic, stage IV 2. New ostomy status 3. Morbid obesity 4. Inadequate protein intake 5. Renal insufficiency PLAN: 1. She is pending legal guardianship 2. I encouraged over 50% of meals 3. May need assessment for clinical depression for low appetite. Objective - Vital Signs Vital signs: Vital Signs Temp 98.8 F 07/09/19 07:40 Pulse 90 07/09/19 07:40 Resp 16 07/09/19 07:40 BP 111/68 07/09/19 07:40 Pulse Ox 98 07/09/19 07:40 Intake & Output 07/08/19 07/09/19 07/09/19 18:59 06:59 18:59 Intake Total 650 20 Output Total 900 450 Balance -250 -430 Intake: Oral 650 20 Output: Urine 900 450 Other: Voiding Method Indwelling Catheter Indwelling Catheter Indwelling Catheter # Emeses 1 - Labs CBC & Chem 7: 07/03/19 07:33 07/09/19 12:43 Labs: Abnormal Lab Results - Last 24 Hours (Table) 07/09/19 07/09/19 Range/Units 06:53 12:43 Sodium 147 H (137-145) mmol/L Potassium 3.0 L 3.1 L (3.5-5.1) mmol/L Chloride 116 H (98-107) mmol/L BUN 35 H (7-17) mg/dL Creatinine 3.14 H (0.52-1.04) mg/dL Calcium 7.1 L (8.4-10.2) mg/dL Assessment and Plan (1) History of creation of ostomy Current Visit: Yes Status: Acute Code(s): Z93.9 - ARTIFICIAL OPENING STATUS, UNSPECIFIED SNOMED Code(s): 387442352 (2) BMI 37.0-37.9, adult Current Visit: Yes Status: Acute Code(s): Z68.37 - BODY MASS INDEX (BMI) 37.0-37.9, ADULT SNOMED Code(s): 063623723 (3) Decubitus ulcer Current Visit: Yes Status: Acute Code(s): L89.90 - PRESSURE ULCER OF UNSPECIFIED SITE, UNSPECIFIED STAGE SNOMED Code(s): 246369002 (4) Sepsis Current Visit: Yes Status: Acute Code(s): A41.9 - SEPSIS, UNSPECIFIED ORGANISM SNOMED Code(s): 41040242 (5) Morbid obesity Current Visit: No Status: Acute Code(s): E66.01 - MORBID (SEVERE) OBESITY DUE TO EXCESS CALORIES SNOMED Code(s): 405481950 (6) Inadequate dietary intake of protein Current Visit: Yes Status: Acute Code(s): E63.9 - NUTRITIONAL DEFICIENCY, UNSPECIFIED SNOMED Code(s): 357646732 (7) Renal failure (ARF), acute on chronic Current Visit: Yes Status: Acute Code(s): N17.9 - ACUTE KIDNEY FAILURE, UNS PECIFIED; N18.9 - CHRONIC KIDNEY DISEASE, UNSPECIFIED SNOMED Code(s): 236 917314
--- NOTE | 2019-07-09 21:21 | P.PN ---
Progress Note - Text Progress Note Date: 07/09/19 Interval history: This is a pleasant [address] Charli Prieto [facility] . Because of a prior stroke patient's paraplegic. Has a wheelchair and oriented. Very much bedbound. Patient's 3 granddaughters live with her for several years. Patient does get home care. For last 1 month patient developed sacral decubitus ulcers. Progressively getting worse. Denies much pain. No discomfort is present. Appetite is okay. Not been changing in bowel or urine pattern. Denies any fever and chills. Patient presented to ER was found to be in renal failure hypertensive and was admitted with the fluid boluses. As blood pressure did not respond well patient is put on levo fed drip. Admitted to ICU with copier and printer field technician consultation. He states that she does not like hospitals and doctors. and prefers to stay away. Also having fevers and sepsis on presentation Patient was admitted to the ICU. Was on fluids and levo fed. Levo fed was discontinued on June 16. Patient initially had refused any debridement of the wound. Finally agreed for the same. Patient was seen by psychiatry. Deemed competent to make the decisions. Because of initial refusal for treatment Ethics committee had been consulted. On June 21 patient was taken to the OR per Dr. Puente and he did carry her debridement after patient consented for the same. On June 23 diverging colostomy was done. Also has vancomycin induced acute kidney injury Today-patient eating small amounts. Not keen for PEG tube. Laying in bed. Colostomy is working.. Review of systems: Was done for constitutional, cardiovascular, GI, pulmonary. relevant finding as above Active Medications Acetaminophen (Tylenol Tab) 500 mg PO Q6HR PRN PRN Reason: Fever and/ or MILD Pain Last Admin: 07/08/19 09:30 Dose: 500 mg Documented by: Enoxaparin Sodium (Lovenox) 30 mg SQ DAILY [facility] Last Admin: 07/09/19 09:01 Dose: 30 mg Documented by: Famotidine (Pepcid) 20 mg PO DAILY [facility] Last Admin: 07/09/19 09:01 Dose: 20 mg Documented by: Furosemide (Lasix) 40 mg PO DAILY [facility] Hydralazine HCl (Apresoline) 10 mg PO BID [facility] Last Admin: 07/09/19 20:47 Dose: Not Given Documented by: Ferric Sodium Gluconate 125 mg (/ Sodium Chloride) 110 mls @ 100 mls/hr IVPB DAILY [facility] Last Admin: 07/09/19 10:25 Dose: 100 mls/hr Documented by: Miscellaneous Information (Potassium Per Protocol) 1 each MISCELLANE DAILY PRN; Protocol PRN Reason: Per Protocol Miscellaneous Information (Potassium Per Protocol) 1 each MISCELLANE DAILY PRN; Protocol PRN Reason: Per Protocol Ondansetron HCl (Zofran) 4 mg IVP Q6HR PRN PRN Reason: Nausea And Vomiting Last Admin: 07/02/19 18:18 Dose: 4 mg Documented by: Sodium Bicarbonate (Sodium Bicarbonate Tab) 650 mg PO BID [facility] Last Admin: 07/09/19 20:46 Dose: Not Given Documented by: Sodium Hypochlorite (Dakin's 0.25% (Half Strength)) 50 ml MISCELLANE BID [facility] Last Admin: 07/09/19 20:47 Dose: 50 ml Documented by: Physical examination: VITAL SIGNS: 98.4, 94, 18, 98/66, 98% room air GENERAL: Laying in bed, awake EYES: Pupils equal. Conjunctiva pale. HEENT: External appearance of nose and ears normal, oral cavity with dry. NECK: JVD unable to assess; masses not palpable. HEART: First and second heart sounds are normal; no edema. LUNGS: Respiratory rate normal; clear to auscultation. ABDOMEN: Soft, colostomy bag with stool, liver spleen not palpable, no masses palpable. PSYCH: Alert and oriented x3; mood and affect normal. NEUROLOGICAL: Cranial nerves grossly intact; no facial asymmetry, power lower extremity 1/5, with some sensation pleasant. DERMATOLOGICAL: Sacral decubiti ulcers. Pictures in the chart INVESTIGATIONS, reviewed in the clinical context: Potassium 3 creatinine 3.14 Previous labs: Potassium 4 bicarb 18 bun 33 creatinine 3.70 Previous testing: White count 18.6 hemoglobin 11.9 platelets 416 potassium 4.5 bun 61 creatinine 1.38 Lactic acid 3.8 magnesium 1.3 C-reactive protein to 20 albumin 2.8 Computed tomography scan of the abdomen and pelvis-large area of soft tissue air bubbles on the posterior sacral and buttock. Assessment: -Acute renal failure, likely ATN possibly secondary to vancomycin, slow to respond -Diverting colostomy done on 06/23/2019 -Acute sacral decubitus ulcer with secondary infection causing severe sepsis present on admission with septic shock. Status post debridement on June 21. -Lactic acidosis from sepsis -Normocytic anemia probably from infection -Essential hypertension -Chronic paraplegia from prior stroke -Medical debility -Obesity BMI 37.4 -Metabolic acidosis from renal failure Plan: Dr. Puente is planning a PEG tube Wednesday. Patient is does not want a PEG tube really states she's going to eat better.
[2019-07-10] MEDS: FAMOTIDINE 20 MG TAB PO SCH (08:07)
[2019-07-10] MEDS: SODIUM BICARBONATE TAB 650 MG TAB PO SCH ×2 (08:07→20:11)
[2019-07-10] MEDS: FUROSEMIDE 40 MG TAB PO SCH (08:07)
[2019-07-10] MEDS: ENOXAPARIN 30 MG/0.3 ML SYRINGE SQ SCH (08:07)
[2019-07-10] MEDS: hydrALAZINE HCL 10 MG TAB PO SCH ×2 (08:07→21:46)
[2019-07-10] MEDS: SODIUM HYPOCHLORITE 0.25% 480 ML BOT MISCELLANE SCH ×2 (08:08→21:36)
[2019-07-10] MEDS: SODIUM FERRIC GLUCONAT-SUCROSE 125 MG in SODIUM CHLORIDE 0.9% 100 ML IVPB SCH (08:43)
--- NOTE | 2019-07-10 11:16 | P.PN ---
Subjective Progress Note Date: 07/10/19 CHIEF COMPLAINT: Decubitus ulcer HISTORY OF PRESENT ILLNESS: Patient is status post debridement of stage IV sacral decubitus ulcer and diverting colostomy. Patient examined at the bedside. She denies pain or discomfort. She is tolerating diet but continues to have decreased oral intake. Ostomy with stool noted. PHYSICAL EXAM: VITAL SIGNS: Reviewed. GENERAL: Well-developed in no acute distress. HEENT: No sclera icterus. Extraocular movements grossly intact. Moist buccal mucosa. Head is atraumatic, normocephalic. ABDOMEN: Soft. Nondistended. Nontender. Ostomy to left lower quadrant. NEUROLOGIC: Alert and oriented. Cranial nerves II through XII grossly intact. SKIN: Dressing noted to large sacral decubitus ulcer. ASSESSMENT: 1. Stage IV sacral decubitus ulcer, status post debridement 2. S/P diverting colostomy PLAN: 1. Continue local wound care and antibiotics per infectious disease 2. Patient continues to refuse PEG tube at this time. She continues to state "I am going to increase how much I am eating". However, her intake remains poor. Will continue to discuss need for PEG tube with patient daily. 3. Patient is pending legal guardianship. If she continues to refuse, may need to wait until guardianship is in place for PEG tube placement Nurse practitioner note has been reviewed by physician. Signing provider agrees with the documented findings, assessment, and plan of care. Objective - Vital Signs Vital signs: Vital Signs Temp 97.7 F 07/10/19 07:25 Pulse 89 07/10/19 07:25 Resp 16 07/10/19 08:00 BP 91/67 07/10/19 07:25 Pulse Ox 99 07/10/19 07:25 Intake & Output 07/09/19 07/10/19 07/10/19 18:59 06:59 18:59 Intake Total 350 Output Total 400 300 Balance -400 50 Weight 87.09 kg Intake: Oral 350 Output: Urine 400 300 Other: Voiding Method Indwelling Catheter Indwelling Catheter Indwelling Catheter - Labs CBC & Chem 7: 07/03/19 07:33 07/09/19 17:43 Labs: Abnormal Lab Results - Last 24 Hours (Table) 07/09/19 Range/Units 12:43 Potassium 3.1 L (3.5-5.1) mmol/L
--- NOTE | 2019-07-10 12:06 | P.PN ---
Subjective Patient is seen in follow-up for acute kidney injury. She is nonoliguric. No vomiting or diarrhea. Eager to be discharged. Vital signs are stable. General: The patient appeared well nourished and normally developed. HEENT: Head exam is unremarkable. Neck is without jugular venous distension. LUNGS: Lungs are clear to auscultation and percussion. Breath sounds decreased. HEART: Rate and Rhythm are regular. First and second heart sounds normal. No murmurs, rubs or gallops. ABDOMEN: Abdominal exam reveals normal bowel sounds. Non-tender and non- distended. No evidence of peritonitis. EXTREMITITES: No clubbing, cyanosis, or edema. Objective - Vital Signs Vital signs: Vital Signs Temp 97.7 F 07/10/19 07:25 Pulse 89 07/10/19 07:25 Resp 16 07/10/19 08:00 BP 91/67 07/10/19 07:25 Pulse Ox 99 07/10/19 07:25 Intake & Output 07/09/19 07/10/19 07/10/19 18:59 06:59 18:59 Intake Total 350 Output Total 400 300 Balance -400 50 Weight 87.09 kg Intake: Oral 350 Output: Urine 400 300 Other: Voiding Method Indwelling Catheter Indwelling Catheter Indwelling Catheter - Labs CBC & Chem 7: 07/03/19 07:33 07/09/19 17:43 Labs: Abnormal Lab Results - Last 24 Hours (Table) 07/09/19 Range/Units 12:43 Potassium 3.1 L (3.5-5.1) mmol/L Assessment and Plan Plan: Assessment: 1. Acute kidney injury secondary to vancomycin toxicity. Baseline creatinine is 1 - 3.14 as of yesterday. No evidence of hydronephrosis and kidney ultrasound. 2. Decubitus ulcer status post debridement this admission. 3. Status post diverting colostomy on June 23. 4. Metabolic acidosis secondary to acute kidney injury. Better. Maintained on oral sodium bicarbonate. 5. E. coli UTI status post antibiotics. 6. Bacteroides ovatus and carynebacterium accolens bacteremia. Status post IV antibiotics. 7. Hypokalemia from poor oral intake. Better post replacement. 8. Iron deficiency anemia. Status post 4 doses of IV iron. 9. Volume overload. Improving with diuresis. Plan: Encourage oral intake. DC IV iron. Maintain Lasix 40 mg once daily. Repeat electrolytes in the morning.
[2019-07-10] MEDS: ACETAMINOPHEN TAB 500 MG TAB PO PRN (13:53)
[2019-07-10 17:11] LABS: Glucose,Whole Blood 125 mg/dL (75-99)
--- NOTE | 2019-07-10 21:55 | P.PN ---
Progress Note - Text Progress Note Date: 07/10/19 Interval history: This is a pleasant [address] Charli [facility] . Because of a prior stroke patient's paraplegic. Has a wheelchair and oriented. Very much bedbound. Patient's 3 granddaughters live with her for several years. Patient does get home care. For last 1 month patient developed sacral decubitus ulcers. Progressively getting worse. Denies much pain. No discomfort is present. Appetite is okay. Not been changing in bowel or urine pattern. Denies any fever and chills. Patient presented to ER was found to be in renal failure hypertensive and was admitted with the fluid boluses. As blood pressure did not respond well patient is put on levo fed drip. Admitted to ICU with canoe inspector consultation. He states that she does not like hospitals and doctors. and prefers to stay away. Also having fevers and sepsis on presentation Patient was admitted to the ICU. Was on fluids and levo fed. Levo fed was discontinued on June 16. Patient initially had refused any debridement of the wound. Finally agreed for the same. Patient was seen by psychiatry. Deemed competent to make the decisions. Because of initial refusal for treatment Ethics committee had been consulted. On June 21 patient was taken to the OR per Dr. Puente and he did carry her debridement after patient consented for the same. On June 23 diverging colostomy was done. Also has vancomycin induced acute kidney injury Today-oral intake still small. Patient still was not keen for PEG tube. Has a court hearing on July 14 for guardianship. Review of systems: Was done for constitutional, cardiovascular, GI, pulmonary. relevant finding as above Active Medications Acetaminophen (Tylenol Tab) 500 mg PO Q6HR PRN PRN Reason: Fever and/ or MILD Pain Last Admin: 07/10/19 13:53 Dose: 500 mg Documented by: Enoxaparin Sodium (Lovenox) 30 mg SQ DAILY [facility] Last Admin: 07/10/19 08:07 Dose: 30 mg Documented by: Famotidine (Pepcid) 20 mg PO DAILY [facility] Last Admin: 07/10/19 08:07 Dose: 20 mg Documented by: Furosemide (Lasix) 40 mg PO DAILY [facility] Last Admin: 07/10/19 08:07 Dose: 40 mg Documented by: Hydralazine HCl (Apresoline) 10 mg PO BID [facility] Last Admin: 07/10/19 21:46 Dose: Not Given Documented by: Ferric Sodium Gluconate 125 mg (/ Sodium Chloride) 110 mls @ 100 mls/hr IVPB DAILY [facility] Last Admin: 07/10/19 08:43 Dose: 100 mls/hr Documented by: Miscellaneous Information (Potassium Per Protocol) 1 each MISCELLANE DAILY PRN; Protocol PRN Reason: Per Protocol Miscellaneous Information (Potassium Per Protocol) 1 each MISCELLANE DAILY PRN; Protocol PRN Reason: Per Protocol Ondansetron HCl (Zofran) 4 mg IVP Q6HR PRN PRN Reason: Nausea And Vomiting Last Admin: 07/02/19 18:18 Dose: 4 mg Documented by: Sodium Bicarbonate (Sodium Bicarbonate Tab) 650 mg PO BID [facility] Last Admin: 07/10/19 20:11 Dose: 650 mg Documented by: Sodium Hypochlorite (Dakin's 0.25% (Half Strength)) 50 ml MISCELLANE BID [facility] Last Admin: 07/10/19 21:36 Dose: 50 ml Documented by: Physical examination: VITAL SIGNS: 97.9, 108, 18, 123 with 32, 95% room air GENERAL: Laying in bed, awake EYES: Pupils equal. Conjunctiva pale. HEENT: External appearance of nose and ears normal, oral cavity with dry. NECK: JVD unable to assess; masses not palpable. HEART: First and second heart sounds are normal; no edema. LUNGS: Respiratory rate normal; clear to auscultation. ABDOMEN: Soft, colostomy bag with stool, liver spleen not palpable, no masses palpable. PSYCH: Alert and oriented x3; mood and affect normal. NEUROLOGICAL: Cranial nerves grossly intact; no facial asymmetry, power lower extremity 1/5, with some sensation pleasant. DERMATOLOGICAL: Sacral decubiti ulcers. Pictures in the chart INVESTIGATIONS, reviewed in the clinical context: white count 14.8 hemoglobin 13.8 creatinine 0.89 Previous labs: Potassium 4 bicarb 18 bun 33 creatinine 3.70 Previous testing: White count 18.6 hemoglobin 11.9 platelets 416 potassium 4.5 bun 61 creatinine 1.38 Lactic acid 3.8 magnesium 1.3 C-reactive protein to 20 albumin 2.8 Computed tomography scan of the abdomen and pelvis-large area of soft tissue air bubbles on the posterior sacral and buttock. Assessment: -Acute renal failure, likely ATN possibly secondary to vancomycin, result -Diverting colostomy done on 06/23/2019 -Acute sacral decubitus ulcer with secondary infection causing severe sepsis present on admission with septic shock. Status post debridement on June 21. -Lactic acidosis from sepsis -Normocytic anemia probably from infection -Essential hypertension -Chronic paraplegia from prior stroke -Medical debility -Obesity BMI 37.4 -Metabolic acidosis from renal failure Plan: discussed with Dr. Puente. Patient refusing a PEG tube. From my standpoint patient will discharge to the ECF. Patient is agreeable to the same. She can come back for the PEG tube. staying in the hospital not serving any extra purpose.
[2019-07-10 23:55] VITALS: RESP 18
[2019-07-11 00:14] LABS: Glucose,Whole Blood 132 mg/dL (75-99)
[2019-07-11 05:44] VITALS: BP 103/68; PULSE 80; TEMP 97.7
[2019-07-11 07:04] LABS: Glucose,Whole Blood 113 mg/dL (75-99)
[2019-07-11] MEDS: FAMOTIDINE 20 MG TAB PO SCH (07:44)
[2019-07-11] MEDS: hydrALAZINE HCL 10 MG TAB PO SCH ×2 (07:44→07:52)
[2019-07-11] MEDS: SODIUM BICARBONATE TAB 650 MG TAB PO SCH (07:44)
[2019-07-11] MEDS: ENOXAPARIN 30 MG/0.3 ML SYRINGE SQ SCH (07:45)
[2019-07-11] MEDS: FUROSEMIDE 40 MG TAB PO SCH (07:45)
[2019-07-11] MEDS: SODIUM FERRIC GLUCONAT-SUCROSE 125 MG in SODIUM CHLORIDE 0.9% 100 ML IVPB SCH (07:51)
[2019-07-11] MEDS: SODIUM HYPOCHLORITE 0.25% 480 ML BOT MISCELLANE SCH (07:52)
[2019-07-11 08:03] LABS: Calcium 7.3 mg/dL (8.4-10.2); Magnesium 1.5 mg/dL (1.6-2.3)
[2019-07-11 08:04] LABS: Potassium 3.5 mmol/L (3.5-5.1)
[2019-07-11] MEDS ORDERED: DEXTROSE 5% IN WATER 1,000 ML IV SCH (11:15)
[2019-07-11] MEDS ORDERED: ONDANSETRON 4 MG/2 ML VIAL ONE (11:38)
[2019-07-11] MEDS: ONDANSETRON 4 MG/2 ML VIAL IVP PRN (11:38)
[2019-07-11 12:13] LABS: Glucose,Whole Blood 100 mg/dL (75-99)
--- NOTE | 2019-07-11 12:19 | P.DS ---
Providers Date of admission: 06/15/19 20:13 Expected date of discharge: 07/11/19 Attending physician: Ottoniel Marr Consults: 06/15/19 20:13 Consult Physician Stat Consulting Provider: Grey Puente Consult Reason/Comments: decub ulcer, may need debridement Do you want consulting provider notified?: Already Contacted Consult Physician Stat Consulting Provider: Harman Oro Consult Reason/Comments: sepsis Do you want consulting provider notified?: Yes 06/16/19 06:45 Consult Physician Routine Consulting Provider: Fabricio Osborne Consult Reason/Comments: Sepsis/ Low BP Do you want consulting provider notified?: Yes 06/18/19 18:23 Consult Physician Stat Consulting Provider: Aguila Carroll Consult Reason/Comments: decision making capacity assessment Do you want consulting provider notified?: Already Contacted 06/25/19 10:53 Consult Physician Urgent Consulting Provider: Keira Crow Consult Reason/Comments: tia Do you want consulting provider notified?: Yes Primary care physician: Charli Akbar MD Hospital Course: Interval history: This is a pleasant [address] [facility]li [facility]. Because of a prior stroke patient's paraplegic. Has a wheelchair and oriented. Very much bedbound. Patient's 3 granddaughters live with her for several years. Patient does get home care. For last 1 month patient developed sacral decubitus ulcers. Progressively getting worse. Denies much pain. No discomfort is present. Appetite is okay. Not been changing in bowel or urine pattern. Denies any fever and chills. Patient presented to ER was found to be in renal failure hypertensive and was admitted with the fluid boluses. As blood pressure did not respond well patient is put on levo fed drip. Admitted to ICU with email specialist consultation. He states that she does not like hospitals and doctors. and prefers to stay away. Also having fevers and sepsis on presentation Patient was admitted to the ICU. Was on fluids and levo fed. Levo fed was discontinued on June 16. Patient initially had refused any debridement of the wound. Finally agreed for the same. Patient was seen by psychiatry. Deemed competent to make the decisions. Because of initial refusal for treatment Ethics committee had been consulted. On June 21 patient was taken to the OR per Dr. Puente and he did carry her debridement after patient consented for the same. On June 23 diverting colostomy was done. Also has vancomycin induced acute kidney injury. Because of decreased oral intake Dr. Puente wanted to put in a PEG tube. Patient refusing the same. This will be done down the road. Patient has a court hearing for guardianship on July 14. Today-discussed with the patient. She is agreeable to court to inpatient rehab. Did check with Suyapa Aleman from Dr. Puente's team. Dr. Puente is okay with the patient going to rehab and will proceed with PEG tube down the road. Also discussed with health social work professor. Discussion and discharge planning more than 35 minutes Consultation: Dr. Carroll from psychiatry Dr. Puente from general surgery Dr. Oro from infection disease Dr. Crow from nephrology Dr. Osborne from email specialist Physical examination: VITAL SIGNS: 97.7, 80, 18, 103/68, 92% room air GENERAL: Laying in bed, awake EYES: Pupils equal. Conjunctiva pale. HEENT: External appearance of nose and ears normal, oral cavity with dry. NECK: JVD unable to assess; masses not palpable. HEART: First and second heart sounds are normal; edema present. Edema of the limbs 2. LUNGS: Respiratory rate normal; clear to auscultation. ABDOMEN: Soft, colostomy bag with stool, liver spleen not palpable, no masses palpable. PSYCH: Alert and oriented x3; mood and affect normal. NEUROLOGICAL: Cranial nerves grossly intact; no facial asymmetry, power lower extremity 1/5, with some sensation pleasant. DERMATOLOGICAL: Sacral decubiti ulcers. INVESTIGATIONS, reviewed in the clinical context: Bun 37 creatinine 2.94 Previous labs: Potassium 4 bicarb 18 bun 33 creatinine 3.70 Previous testing: White count 18.6 hemoglobin 11.9 platelets 416 potassium 4.5 bun 61 creatinine 1.38 Lactic acid 3.8 magnesium 1.3 C-reactive protein to 20 albumin 2.8 Computed tomography scan of the abdomen and pelvis-large area of soft tissue air bubbles on the posterior sacral and buttock. Assessment: -Acute renal failure, likely ATN possibly secondary to vancomycin, -Diverting colostomy done on 06/23/2019 -Acute sacral decubitus ulcer with secondary infection causing severe sepsis present on admission with septic shock. Status post debridement on June 21. -Lactic acidosis from sepsis -Normocytic anemia probably from infection -Essential hypertension -Chronic paraplegia from prior stroke -Medical debility -Obesity BMI 37.4 -Metabolic acidosis from renal failure [facility] Patient Condition at Discharge: Undetermined Plan - Discharge Summary Discharge Rx Participant: Yes New Discharge Prescriptions: New hydrALAZINE HCL [Apresoline] 10 mg PO BID tab Enoxaparin [Lovenox] 30 mg SQ DAILY syringe Famotidine [Pepcid] 20 mg PO DAILY tab Sodium Bicarbonate Tab 650 mg PO BID tab Acetaminophen Tab [Tylenol] 500 mg PO Q6HR PRN tab PRN Reason: Fever and/ or MILD Pain Furosemide [Lasix] 40 mg PO DAILY tab Discontinued Aspirin EC [Ecotrin] 325 mg PO DAILY hydrALAZINE HCL [Apresoline] 50 mg PO TID Metoprolol Succinate (ER) [Toprol Xl] 50 mg PO DAILY Loperamide HCl [Loperamide] 2 mg PO BID PRN PRN Reason: Constipation Lisinopril-Hctz 20-25 mg [Zestoretic 20-25] 1 tab PO DAILY Discharge Medication List Acetaminophen Tab [Tylenol] 500 mg PO Q6HR PRN tab 07/07/19 [Rx] Enoxaparin [Lovenox] 30 mg SQ DAILY syringe 07/07/19 [Rx] Famotidine [Pepcid] 20 mg PO DAILY tab 07/07/19 [Rx] Sodium Bicarbonate Tab 650 mg PO BID tab 07/07/19 [Rx] hydrALAZINE HCL [Apresoline] 10 mg PO BID tab 07/07/19 [Rx] Furosemide [Lasix] 40 mg PO DAILY tab 07/11/19 [Rx] Follow up Appointment(s)/Referral(s): Keira Crow MD [STAFF PHYSICIAN] - 10 Days Charli Akbar MD [Primary Care Provider] - As Needed [facility], [NON-STAFF] - 1-2 Days Grey Puente MD [STAFF PHYSICIAN] - 1 Week Patient Instructions/Handouts: Colostomy Care (GEN), How to Prevent Pressure Injuries (GEN) Activity/Diet/Wound Care/Special Instructions: Patient is going to require PEG tube secondary to decreased oral intake. She is currently refusing. Legal guardianship pending. Patient to follow up with Dr. Puente outpatient and will plan to schedule PEG Tube once patient has a legal guardian is in place Colostomy Care recommendations for Transition of Care: Last pouching system change: 07.01.2019 Pouching system Convatec flat one piece cut to fit barrier with filter #[id number] (three from the hospital) Amara seal (three from the hospital) place in skin crease No sting prep pads (8) from the hospital Ostomy powder (one) from the hospital If problems obtaining a seal with osotmy Mrs Luz may need a convex pouching system Coloplast convex cut to fit # [id number] (two ) from the hospital sent with patient to Rehab Change the entire pouching system every 3-5 days unless otherwise directed via the physician Wound care to continue per Dr. Oro/Dr. Puente
--- NOTE | 2019-07-11 20:01 | PN ---
PROGRESS NOTE The patient is seen for followup for acute kidney injury, mainly associated with vancomycin toxicity. The patient has an indwelling Mon catheter. She has had good urine output. Her sodium is noted to be elevated today at up to 150 mEq/L. The patient is maintained on Lasix for severe volume overload. PHYSICAL EXAMINATION: On examination today, blood pressure was 110/78, heart rate 80 per minute. She is afebrile. Examination of the heart S1, S2. Examination of the lungs, decreased breath sounds at the bases. Abdomen is soft, nontender. Examination of lower extremities shows edema 2+ bilaterally upper and lower extremities, right upper extremity worse. LAB: Show sodium 150, potassium 5.5, chloride 118, BUN 37, serum creatinine 2.94, magnesium 1.5. ASSESSMENT: 1. Acute kidney injury secondary to vancomycin toxicity and acute tubular necrosis currently nonoliguric and with an indwelling Mon catheter. Renal function is slightly improved. Continue to monitor renal function as outpatient. 2. Hypernatremia associated with free water deficit. Maintain patient on D5W for a few hours and encourage increased free water intake. 3. Hypokalemia secondary to diuretics, status post replacement. 4. Significant lower extremity edema and edema right upper extremity being diuresed gently. Her lungs have been clear. PLAN: Add D5W for a few hours. Monitor labs as outpatient. See patient back for followup in about one week's time. MMODL / IJN: [id number] /
--- NOTE | 2019-07-11 23:22 | P.PN ---
Subjective Progress Note Date: 07/11/19 This is a 73-year-old female who is currently living at home alone. She has history of CVA and has been bedbound for the past 3 years. Patient presented with stage IV decubitus ulcers to the sacrum,, coccyx, bilateral buttocks and posterior thighs with extensive necrosis. Unclear how long this has been going on. Patient presented with fever, tachycardia, hypotension, leukocytosis of 18.6, lactic acid 3.8. BUN 61 and creatinine 1.38. Sed rate 58, CRP 323.CAT scan of the abdomen and pelvis without contrast revealed large area of soft tissue air bubbles in the posterior sacral and buttocks region consistent with cellulitis and he was ulcers. No drainable abscess. No focal bone destruction. Patient was admitted into the intensive care unit. She is status post 20 of liters of IV fluid. Norepinephrine was discontinued at 8 AM this morning. Patient is currently hemodynamically stable. Dr. Osborne is on consult as well as Dr. Grimes with tentative plan for debridement of the d ecubitus ulcers. Blood cultures status received. Patient is currently on vancomycin. Patient is unaware of her last tetanus immunization. 06/19/2019 the patient is now agreeable to surgical intervention. It appears she understands the significance of her situation. We did relate that she has an extensive infection that is understandable terms of aerobic anaerobic and necrotizing resulting in bacteremia and sepsis. Without surgical debridement I would not expect her to survive. 06/20/2019 the patient was to go to the operating room today however the surgical schedule would not allow it. With the nursing team the necrotic ulcerations or cleansed with a Dakin solution and the ulcerations are packed and dressings are put into place. She did have an extensive bowel movement. Was not malodorous such as C. diff. No evidence of any significant blood in the stool. She remains very anxious about the overall situation. Seems to have great distust to the overall medical system. 06/23/2019 patient the operating room today for the diverting colostomy. Ethics committee meeting did happen earlier in the day. 06/26/2019 the patient has had the diverting colostomy. There is to be some function and she is now given some full liquids. Appetite was poor. Mood is less withdrawn and she does seem to be comfortable. In discussing with going to happen next seems to have very poor understanding of the next process. 06/27/2019 Little change in the status. Mood today is worse. The potential for transition to select specialty was presented and the patient is having great difficulties psychologically dealing with her illness and all of the factors that are occurring. 06/28/2019 patient's mood is slightly better today. She is still withdrawn. Social work has now again became involved for guarding to be granted. 06/30/2019 patient's status with little change. Awaiting ability for a guardian to be assigned. Wound care today. 07/11/2019 patient is being readied for transfer to the rehab facility. She is modestly comfortable anxious not eating well does not want a PEG tube Objective - Vital Signs Vital signs: Vital Signs Temp 97.7 F 07/11/19 05:00 Pulse 80 07/11/19 05:00 Resp 18 07/11/19 08:00 BP 103/68 07/11/19 05:00 Pulse Ox 92 L 07/11/19 05:00 Intake & Output 07/11/19 07/11/19 07/12/19 06:59 18:59 06:59 Intake Total 400 Output Total 600 Balance -200 Intake: Oral 400 Output: Urine 400 Stool 200 Other: Voiding Method Indwelling Catheter Indwelling Catheter - Exam Gen: This is a morbidly obese 73-year-old female. She is sitting up in the ICU bed and appears to be comfortable and in no acute distress. HEENT: Head is atraumatic, normocephalic. Pupils equal, round. Sclerae is anicteric. Conjunctiva pink. Oral mucous membranes are moist. Patient is edentulous. No thrush noted. NECK: Supple. No JVD. No lymphadenopathy. No thyromegaly. LUNGS: Clear to auscultation. No wheezes or rhonchi. No intercostal retractions. HEART: Regular rate and rhythm. No murmur. ABDOMEN: Soft. few Bowel sounds are present. No masses. No tenderness. No redness under abdominal folds. ostomy with some drainage Mon catheter draining clear timmy urine. EXTREMITIES: No pedal edema. Dorsalis pedis +2 bilaterally. NEUROLOGICAL: Patient is awake, alert and oriented both withdrawn lower extremity weakness foot drop the extensive buttocks dressing is changed today, the patient allows it. There is still some residual necrosis at the base of the very extensive surgical wound from the prior necrotic infection. Given the extensive nature location and folds in wound VAC likely would not be able to be applied - Labs CBC & Chem 7: 07/03/19 07:33 07/11/19 07:28 Labs: Abnormal Lab Results - Last 24 Hours (Table) 07/11/19 07/11/19 07/11/19 Range/Units 00:07 07:03 07:28 Sodium 150 H (137-145) mmol/L Chloride 118 H (98-107) mmol/L BUN 37 H (7-17) mg/dL Creatinine 2.94 H (0.52-1.04) mg/dL Glucose 107 H (74-99) mg/dL POC Glucose (mg/dL) 132 H 113 H (75-99) mg/dL Calcium 7.3 L (8.4-10.2) mg/dL Magnesium 1.5 L (1.6-2.3) mg/dL 07/11/19 Range/Units 12:13 Sodium (137-145) mmol/L Chloride (98-107) mmol/L BUN (7-17) mg/dL Creatinine (0.52-1.04) mg/dL Glucose (74-99) mg/dL POC Glucose (mg/dL) 100 H (75-99) mg/dL Calcium (8.4-10.2) mg/dL Magnesium (1.6-2.3) mg/dL Laboratory Results WBC 7.0 k/uL (3.8-10.6) 07/03/19 07:33 RBC 2.68 m/uL (3.80-5.40) L 07/03/19 07:33 Hgb 8.4 gm/dL (11.4-16.0) L 07/03/19 07:33 Hct 27.1 % (34.0-46.0) L 07/03/19 07:33 MCV 101.0 fL (80.0-100.0) H 07/03/19 07:33 MCH 31.4 pg (25.0-35.0) 07/03/19 07:33 MCHC 31.1 g/dL (31.0-37.0) 07/03/19 07:33 RDW 18.0 % (11.5-15.5) H 07/03/19 07:33 Plt Count 168 k/uL (150-450) 07/03/19 07:33 Neutrophils % 73 % 07/03/19 07:33 Lymphocytes % 18 % 07/03/19 07:33 Monocytes % 4 % 07/03/19 07:33 Eosinophils % 2 % 07/03/19 07:33 Basophils % 1 % 07/03/19 07:33 Neutrophils # 5.1 k/uL (1.3-7.7) 07/03/19 07:33 Lymphocytes # 1.2 k/uL (1.0-4.8) 07/03/19 07:33 Monocytes # 0.3 k/uL (0-1.0) 07/03/19 07:33 Eosinophils # 0.1 k/uL (0-0.7) 07/03/19 07:33 Basophils # 0.1 k/uL (0-0.2) 07/03/19 07:33 Manual Slide Review Performed 06/26/19 06:30 Hypochromasia Marked 07/03/19 07:33 Anisocytosis Slight 07/03/19 07:33 Macrocytosis Moderate 07/03/19 07:33 ESR 58 mm/hr (0-20) H 06/15/19 19:03 PT 11.2 sec (9.0-12.0) 06/15/19 16:52 INR 1.1 (<1.2) 06/15/19 16:52 APTT 24.5 sec (22.0-30.0) 06/15/19 16:52 Sodium 150 mmol/L (137-145) H 07/11/19 07:28 Potassium 3.5 mmol/L (3.5-5.1) 07/11/19 07:28 Chloride 118 mmol/L (98-107) H 07/11/19 07:28 Carbon Dioxide 22 mmol/L (22-30) 07/11/19 07:28 Anion Gap 10 mmol/L 07/11/19 07:28 BUN 37 mg/dL (7-17) H 07/11/19 07:28 Creatinine 2.94 mg/dL (0.52-1.04) H 07/11/19 07:28 Est GFR (CKD-EPI)AfAm 18 (>60 ml/min/1.73 sqM) 07/11/19 07:28 Est GFR (CKD-EPI)NonAf 15 (>60 ml/min/1.73 sqM) 07/11/19 07:28 Glucose 107 mg/dL (74-99) H 07/11/19 07:28 POC Glucose (mg/dL) 100 mg/dL (75-99) H 07/11/19 12:13 POC Glu Case Mgr ID 07/11/19 12:13 Lactic Ac Sepsis Rflx Y 06/15/19 17:48 Plasma Lactic Acid Jonathan 1.3 mmol/L (0.7-2.0) 06/15/19 22:28 Calcium 7.3 mg/dL (8.4-10.2) L 07/11/19 07:28 Magnesium 1.5 mg/dL (1.6-2.3) L 07/11/19 07:28 Iron 11 ug/dL (50-170) L 07/01/19 06:55 TIBC 121 ug/dL (228-460) L 07/01/19 06:55 Iron Saturation 9.09 (12.00-45.00) L 07/01/19 06:55 Total Bilirubin 0.7 mg/dL (0.2-1.3) 06/15/19 16:52 AST 40 U/L (14-36) H 06/15/19 16:52 ALT 18 U/L (9-52) 06/15/19 16:52 Alkaline Phosphatase 123 U/L (38-126) 06/15/19 16:52 Creatine Kinase 220 U/L (30-135) H 06/15/19 16:52 C-Reactive Protein 323.6 mg/L (<10.0) H 06/15/19 16:52 Total Protein 6.4 g/dL (6.3-8.2) 06/15/19 16:52 Albumin 2.8 g/dL (3.5-5.0) L 06/15/19 16:52 Urine Color Light Yellow 06/26/19 07:56 Urine Appearance Cloudy (Clear) H 06/26/19 07:56 Urine pH 5.0 (5.0-8.0) 06/26/19 07:56 Ur Specific [place] 1.009 (1.001-1.035) 06/26/19 07:56 Urine Protein 1+ (Negative) H 06/26/19 07:56 Urine Glucose (UA) Negative (Negative) 06/26/19 07:56 Urine Ketones Negative (Negative) 06/26/19 07:56 Urine Blood Small (Negative) H 06/26/19 07:56 Urine Nitrite Negative (Negative) 06/26/19 07:56 Urine Bilirubin Negative (Negative) 06/26/19 07:56 Urine Urobilinogen <2.0 mg/dL (<2.0) 06/26/19 07:56 Ur Leukocyte Esterase Large (Negative) H 06/26/19 07:56 Urine RBC 43 /hpf (0-5) H 06/26/19 07:56 Urine WBC 124 /hpf (0-5) H 06/26/19 07:56 Urine WBC Clumps Occasional /hpf (None) H 06/26/19 07:56 Ur Squamous Epith Cells 1 /hpf (0-4) 06/26/19 07:56 Urine Bacteria Occasional /hpf (None) H 06/26/19 07:56 Hyaline Casts 4 /lpf (0-2) H 06/26/19 07:56 Urine Mucus Rare /hpf (None) H 06/26/19 07:56 Ur Yeast w Hyphae Moderate /hpf (None) 06/26/19 07:56 Urine Yeast (Budding) Many /hpf (None) H 06/26/19 07:56 Vancomycin Trough 38.0 ug/mL H* 06/26/19 06:30 Random Vancomycin 27.4 ug/mL 06/30/19 06:49 Blood Type O Positive 06/23/19 10:59 Blood Type Confirm O Positive 06/23/19 07:42 Blood Type Recheck No Previous Record 06/23/19 10:59 Bld Type Recheck Status CABO Indicated 06/23/19 10:59 Antibody Screen NEGATIVE 06/23/19 10:59 Spec Expiration Date 06/26/2019 - 2731 06/23/19 10:59 Microbiology 06/15/19 16:52 Blood Blood Culture Gram Stain - Final 06/15/19 16:52 Blood Blood Culture - Final Bacteroides ovatus Carynebacterium accolens Anaerobic Gm Negative Bacilli Coagulase Negative Staph 06/15/19 16:52 Blood Blood Culture - Final 06/15/19 17:28 Urine,Voided Urine Culture - Final Escherichia coli Assessment and Plan (1) Decubitus ulcer Status: Acute Code(s): L89.90 - PRESSURE ULCER OF UNSPECIFIED SITE, UNSPECIFIED STAGE SNOMED Code(s): 185893260 (2) Sepsis Status: Acute Code(s): A41.9 - SEPSIS, UNSPECIFIED ORGANISM SNOMED Code(s): 50808280 (3) Infection due to gram-negative anaerobic organism Narrative/Plan: Before I entered the room the nursing staff relate to the difficulties that are occurring, in that the patient was seen by the surgeon, evidence of the extensive stage IV pressure ulcerations of the coccyx as well as sacral area with sukhwinder tissue necrosis occurring that was present on admission, she was offered surgical intervention and refused. As I enter the room I had a very positive attitude and the patient does communicate, however her face is down she does not look to the observer and she is evasive. She relates that she is tired and does not want anything to be done. She did have prior heel ulcerations that were black and eventually tissue fell off in her heels were completely recovered. She has not seen the extensive current ulcerations, and does not want to. We discussed the absolute need for surgical debridement, she still defers. At this time we will be able to offer some local care with Dakin solution to help reduce local or and possibly some local infection control. Intravenous antibiotic therapy with Zosyn and vancomycin being utilized.If the patient does not want extensive interventions which would include surgical intervention, would agree with the primary service that discharged home would be appropriate. Would then strongly consider hospice evaluation in that with this extensive amount of necrosis and infection sepsis and will occur. 06/19/2018 the patient is not related to his surgical intervention which will be an extensive debridement of necrotic material over the coccyx and buttocks. The Dakin solution is allowed some improvement of the putrid odor. It appears she'll surgical plan the debridement tomorrow. Postoperatively needs to be an air mattress, we'll also need to have this to the service to wherever she is discharged to. This extensive infection including anaerobic bacteremic infection urinary infection will require a course of ongoing intravenous antibiotic therapy currently with Zosyn which we'll plan to continue in the future. We'll need IV access also. Patient is instructed on the importance of the surgical debridement, without the debridement with this extensive amount of infection would not expect her to survive 06/20/2019 the patient had agreed to present for surgery but the surgical schedule did not allow of the extensive debridement to occur. Is scheduled for tomorrow. We'll continue the antibiotic therapy was 07 which would give coverage for all the isolate pathogens that have been found so far. IV access in long-term IV antibiotic therapy is planned for time of her discharge. Once the necrotic material has been removed and hemostasis is obtained would likely b e utilizing a negative pressure therapy system to try to heal this extensive ulceration. Improve nutrition is also discussed. 06/23/2019 the patient will go to the operating him today for the diverting colostomy. She will not be able to return to room sitting for a while until she has improvement of her strength and resolution of her significant sepsis and bacteremia. Large defect will be left and when she is more stable negative pressure therapy will hopefully be applied to that area. Eventually will need plastic surgery evaluations.will require a many week intravenous antibiotic therapy 06/26/2019 the patient is now more stable. Ostomy is been placed in her diet has been advanced to full liquid. She seems to be about more comfortable and slightly less withdrawn when interacting with the observer. Discharge plan is the current largest obstacle. However if antibiotic therapy, wound care, specialty bed and further surgical evaluations are required to be an excellent candidate for transfer to [facility] in [place]. We'll consider negative pressure therapy as a short-term bridge 06/27/2019 the patient is hemodynamically stable, is at a full liquid diet but doesn't have appetite and does not feel well. She is considerably more withdrawn today after conversations about the need for a level of care such as Celexa by specialty. She is completely overwhelmed by her situation in any planning such as that. Patient is receiving ongoing education of the severity of her illness. Her pressure ulceration resulted in a large amount of tissue loss, sepsis, bacteremia and now her ongoing hospitalization. Given the extent of treatment that she will require select specialty is the best possible option for her and we'll also open the door for her to be seen by plastic surgery. Hopefully she'll be able to incorporate this information instructed to make some decisions in the next day or so. If she allows wound VAC would be ideal to be placed to a large tissue defect. 06/28/2019 patient remains withdrawn and is related to the care team that she does not want to go to LTAC. The extent of her illness has been explained and she is not comprehending this well. Her overall situation has been very difficult and social work will request regarding to be appointed so that appropriate care can be continued. Her current illness is considerably be around the capabilities of a extended care facility. She is in need of ongoing local wound care, antibiotic therapy, air bed, and further surgical in plastic surgery interventions. She will require a several week course of antibiotic therapy. 06/30/2019 assignment of a guardian Continue local wound care currently with the Dakin solution. We'll consider alteration of this in the near future depending on the plans. We'll ask the wound team to evaluate if a negative pressure therapy system can be applied, the wound VAC with saline installation would be extremely helpful in this situation if possible Continue the extensive antibiotic therapy. IV access is been placed. 07/11/2019 the patient has completed her course of intravenous antibiotic therapy and anorexia now been completed over the last several days. She'll be going to the rehab facility with local wound care and follow-up with plastic surgery. She is having difficulties with nutrition but does not want a PEG tube and a court hearing for July 14 is been scheduled for guardianship.she'll transfer to the rehab facilit triple lumen catheter removed. Status: Acute Code(s): A49.8 - OTHER BACTERIAL INFECTIONS OF UNSPECIFIED SITE SNOMED Code(s): 093917273
== END 2019-07-11 14:16 | DRG 853 ==
LOC: EC 16:19 → 2SICU 20:13 → 4SSUR 06-18 19:11 → 4MS4W 07-09 15:20
PROVIDERS: ADMIT Hospitalist; ATTEND Hospitalist
PROC: 0KBN0ZZ Excision of Right Hip Muscle, Open Approach (ICD-10-PCS; 2019-06-21)
PROC: 0KBP0ZZ Excision of Left Hip Muscle, Open Approach (ICD-10-PCS; principal; 2019-06-21 15:40)
PROC: 0D1N0Z4 Bypass Sigmoid Colon to Cutaneous, Open Approach (ICD-10-PCS; 2019-06-23)
DX: A41.51 Sepsis due to Escherichia coli [E. coli] (principal); L89.154 Pressure ulcer of sacral region, stage 4; L89.894 Pressure ulcer of other site, stage 4; N17.0 Acute kidney failure with tubular necrosis; R65.21 Severe sepsis with septic shock; E87.0 Hyperosmolality and hypernatremia; E87.2 Acidosis; I13.0 Hypertensive heart and chronic kidney disease with heart failure and stage 1 through stage 4 chronic kidney disease, or unspecified chronic kidney disease; I50.22 Chronic systolic (congestive) heart failure; N39.0 Urinary tract infection, site not specified; L03.312 Cellulitis of back [any part except buttock and flank]; N17.9 Acute kidney failure, unspecified; E46 Unspecified protein-calorie malnutrition; I96 Gangrene, not elsewhere classified; G82.20 Paraplegia, unspecified; D50.9 Iron deficiency anemia, unspecified; E87.70 Fluid overload, unspecified; E66.01 Morbid (severe) obesity due to excess calories; R15.9 Full incontinence of feces; R53.81 Other malaise; D63.8 Anemia in other chronic diseases classified elsewhere; N18.3 Chronic kidney disease, stage 3 (moderate); I69.965 Other paralytic syndrome following unspecified cerebrovascular disease, bilateral; E87.6 Hypokalemia; K21.9 Gastro-esophageal reflux disease without esophagitis; R32 Unspecified urinary incontinence; R26.9 Unspecified abnormalities of gait and mobility; M21.379 Foot drop, unspecified foot; T50.2X5A Adverse effect of carbonic-anhydrase inhibitors, benzothiadiazides and other diuretics, initial encounter; T36.8X5A Adverse effect of other systemic antibiotics, initial encounter; Z68.37 Body mass index [BMI] 37.0-37.9, adult; Z87.440 Personal history of urinary (tract) infections; Z74.01 Bed confinement status; Z79.82 Long term (current) use of aspirin; Z79.899 Other long term (current) drug therapy; Z82.49 Family history of ischemic heart disease and other diseases of the circulatory system
CPT/HCPCS: 36415; 51702; 71045; 72170; 74176; 76770; 80048; 80053; 80202; 81001; 82550; 82565; 83540; 83550; 83605; 83735; 84132; 85025; 85610; 85652; 85730; 86140; 86850; 86900; 86901; 87040; 87077; 87086; 87186; 88304; 90715; 93005; 94760; 96361; 96365; 96366; 96367; 96368; 99285

== ENCOUNTER 2019-07-13 19:18 | Emergency (ER) | payer MEDICARE, OTHER ==
[2019-07-13 19:37] VITALS: RESP 18
--- NOTE | 2019-07-13 19:54 | ED ---
Recheck HPI - General Chief Complaint: Recheck/Abnormal Lab/Rx Stated Complaint: Abnormal Labs Time Seen by Provider: 07/13/19 19:24 Source: patient, EMS, RN notes reviewed, old records reviewed Mode of arrival: EMS Limitations: no limitations - History of Present Illness Initial Comments: This is a 73-year-old female the ER for evaluation. Patient sent in by [address] [place] [address] for evaluation regards to chronic nonhealing sacral decubitus ulcer wounds. Symptoms of her PICC line on antibiotics. Significant diminished appetite significant right upper extremity swelling and edema. She believes she is on heparin injections she is unsure of any blood thinners or any other blood thinners. No chest pain no shortness of breath. Further history obtained from patient's chart and transfer paperwork, EMS MD Complaint: wound re-check, delayed primary closure (infected sacral ulcer, on Abx), other (diminished appetitite) -: week(s) Initial Visit For: other (infected sacral wound) Returns Today for: wound recheck, other (not eating) Symptoms Since Prior Visit: no new symptoms, fever Context: planned re-check Associated Symptoms: fever, chills, malaise, nausea - Related Data Home Medications Medication Instructions Recorded Confirmed Ensure 1 can PO TID 07/13/19 07/13/19 Multivitamins, Thera [Multivitamin 1 tab PO DAILY 07/13/19 07/13/19 (formulary)] Previous Rx's Medication Instructions Recorded Acetaminophen Tab [Tylenol] 500 mg PO Q6HR PRN tab 07/07/19 Enoxaparin [Lovenox] 30 mg SQ DAILY syringe 07/07/19 Famotidine [Pepcid] 20 mg PO DAILY tab 07/07/19 Sodium Bicarbonate Tab 650 mg PO BID tab 07/07/19 hydrALAZINE HCL [Apresoline] 10 mg PO BID tab 07/07/19 Furosemide [Lasix] 40 mg PO DAILY tab 07/11/19 Allergies Allergy/AdvReac Type Severity Reaction Status Date / Time No Known Allergies Allergy Verified 06/15/19 16:38 Review of Systems ROS Statement: Those systems with pertinent positive or pertinent negative responses have been documented in the HPI. ROS Other: All systems not noted in ROS Statement are negative. Past Medical History Past Medical History: CVA/TIA, Hypertension Additional Past Medical History / Comment(s): paraplegic History of Any Multi-Drug Resistant Organisms: None Reported Past Surgical History: No Surgical Hx Reported Additional Past Surgical History / Comment(s): colostomy Past Anesthesia/Blood Transfusion Reactions: No Reported Reaction Past Psychological History: No Psychological Hx Reported Smoking Status: Never smoker Past Alcohol Use History: None Reported Past Drug Use History: None Reported - Past Family History Mother Family Medical History: Hypertension General Exam Limitations: no limitations General appearance: alert, in no apparent distress, obese Head exam: Present: atraumatic, normocephalic, normal inspection Eye exam: Present: normal appearance, EOMI. Absent: scleral icterus, conjunctival injection, periorbital swelling ENT exam: Present: normal exam, mucous membranes moist Neck exam: Present: normal inspection. Absent: tenderness, meningismus, lymphadenopathy Respiratory exam: Present: normal lung sounds bilaterally. Absent: respiratory distress, wheezes, rales, rhonchi, stridor Cardiovascular Exam: Present: normal rhythm, tachycardia, normal heart sounds. Absent: systolic murmur, diastolic murmur, rubs, gallop, clicks GI/Abdominal exam: Present: soft, normal bowel sounds. Absent: distended, tenderness, guarding, rebound, rigid Extremities exam: Present: normal inspection, full ROM, normal capillary refill. Absent: tenderness, pedal edema, joint swelling, calf tenderness Back exam: Present: normal inspection Neurological exam: Present: alert, oriented X3, CN II-XII intact Psychiatric exam: Present: normal affect, normal mood Skin exam: Present: warm, dry, intact, normal color. Absent: rash Course Vital Signs 07/13/19 07/13/19 19:24 21:40 Temperature 98.1 F Pulse Rate 108 H 82 Respiratory 18 18 Rate Blood Pressure 143/120 113/59 O2 Sat by Pulse 98 99 Oximetry - Reevaluation(s) Reevaluation #1: 07/13/19 21:47 Medical records reviewed - Consultations Consultation #1: Spoke with Dr. Marr was agreeable for admission Medical Decision Making - Medical Decision Making 33 female the ER for evaluation significantly elevated sacral decubital ulcers, probably debilitated secondary to stroke. We'll admit for further management possible admission for PEG tube placement - Lab Data Result diagrams: 07/13/19 20:57 07/13/19 20:57 Lab Results 07/13/19 07/13/19 Range/Units 20:57 20:57 WBC 11.3 H (3.8-10.6) k/uL RBC 2.55 L (3.80-5.40) m/uL Hgb 8.2 L (11.4-16.0) gm/dL Hct 26.0 L (34.0-46.0) % MCV 101.7 H (80.0-100.0) fL MCH 32.1 (25.0-35.0) pg MCHC 31.6 (31.0-37.0) g/dL RDW 20.6 H (11.5-15.5) % Plt Count 218 (150-450) k/uL Neutrophils % 74 % Lymphocytes % 18 % Monocytes % 5 % Eosinophils % 1 % Basophils % 1 % Neutrophils # 8.4 H (1.3-7.7) k/uL Lymphocytes # 2.1 (1.0-4.8) k/uL Monocytes # 0.5 (0-1.0) k/uL Eosinophils # 0.1 (0-0.7) k/uL Basophils # 0.1 (0-0.2) k/uL Hypochromasia Slight Anisocytosis Moderate Macrocytosis Moderate Sodium 151 H (137-145) mmol/L Potassium 3.1 L (3.5-5.1) mmol/L Chloride 118 H (98-107) mmol/L Carbon Dioxide 23 (22-30) mmol/L Anion Gap 10 mmol/L BUN 43 H (7-17) mg/dL Creatinine 3.25 H (0.52-1.04) mg/dL Est GFR (CKD-EPI)AfAm 16 (>60 ml/min/1.73 sqM) Est GFR (CKD-EPI)NonAf 14 (>60 ml/min/1.73 sqM) Glucose 121 H (74-99) mg/dL Calcium 7.4 L (8.4-10.2) mg/dL Total Bilirubin 0.6 (0.2-1.3) mg/dL AST 18 (14-36) U/L ALT 23 (9-52) U/L Alkaline Phosphatase 120 (38-126) U/L Total Protein 5.3 L (6.3-8.2) g/dL Albumin 2.1 L (3.5-5.0) g/dL - EKG Data -: EKG Interpreted by Me (EKG shows sinus rhythm rate of 95, OK 136, QRS 88, QTc 492) Disposition Clinical Impression: Inability to ambulate due to multiple joints, Infection due to gram-negative anaerobic organism, Weakness, Decubitus ulcer, Morbid obesity Disposition: ADMITTED IP TO THIS HOSP Condition: Fair Is patient prescribed a controlled substance at d/c from ED?: No Referrals: Nonstaff,Physician [Primary Care Provider] - 1-2 days
[2019-07-13 21:10] LABS: Anisocytosis Moderate; Basophils # (A) 0.1 k/uL (0-0.2); Basophils % (A) 1 %; Eosinophils # (A) 0.1 k/uL (0-0.7); Eosinophils % (A) 1 %; HGB 8.2 gm/dL (11.4-16.0); Hypochromasia Slight; Lymphocytes # (A) 2.1 k/uL (1.0-4.8); Lymphocytes % (A) 18 %; MCH 32.1 pg (25.0-35.0); MCHC 31.6 g/dL (31.0-37.0); MCV 101.7 fL (80.0-100.0); Macrocytosis Moderate; Monocytes # (A) 0.5 k/uL (0-1.0); Monocytes % (A) 5 %; Neutrophils # (A) 8.4 k/uL (1.3-7.7); Neutrophils % (A) 74 %; Platelet Count 218 k/uL (150-450); RBC 2.55 m/uL (3.80-5.40); RDW 20.6 % (11.5-15.5); WBC 11.3 k/uL (3.8-10.6)
[2019-07-13 21:29] LABS: Albumin 2.1 g/dL (3.5-5.0); Calcium 7.4 mg/dL (8.4-10.2); Potassium 3.1 mmol/L (3.5-5.1); Total Bilirubin 0.6 mg/dL (0.2-1.3); Total Protein 5.3 g/dL (6.3-8.2)
[2019-07-13 21:42] VITALS: PULSE 82
[2019-07-13] MEDS ORDERED: SODIUM CHLORIDE 0.9% 1,000 ML IV ONE (21:44)
--- NOTE | 2019-07-13 22:08 | ED ---
Medical Decision Making - Medical Decision Making 73 female the ER for evaluation. Patient is ER for evaluation regards to recheck, patient does have her hearing for guardianship tomorrow. [facility] be [facility], she can then return for evaluation further treatment in her decision making have been changed Spoke with Dr. So kc regarding patient, he prefers patient be transferred back to [facility] until she does go through guardian ship hearing - Lab Data Result diagrams: 07/13/19 20:57 07/13/19 20:57 Lab Results 07/13/19 07/13/19 07/13/19 Range/Units 20:57 20:57 20:57 WBC 11.3 H (3.8-10.6) k/uL RBC 2.55 L (3.80-5.40) m/uL Hgb 8.2 L (11.4-16.0) gm/dL Hct 26.0 L (34.0-46.0) % MCV 101.7 H (80.0-100.0) fL MCH 32.1 (25.0-35.0) pg MCHC 31.6 (31.0-37.0) g/dL RDW 20.6 H (11.5-15.5) % Plt Count 218 (150-450) k/uL Neutrophils % 74 % Lymphocytes % 18 % Monocytes % 5 % Eosinophils % 1 % Basophils % 1 % Neutrophils # 8.4 H (1.3-7.7) k/uL Lymphocytes # 2.1 (1.0-4.8) k/uL Monocytes # 0.5 (0-1.0) k/uL Eosinophils # 0.1 (0-0.7) k/uL Basophils # 0.1 (0-0.2) k/uL Hypochromasia Slight Anisocytosis Moderate Macrocytosis Moderate Sodium 151 H (137-145) mmol/L Potassium 3.1 L (3.5-5.1) mmol/L Chloride 118 H (98-107) mmol/L Carbon Dioxide 23 (22-30) mmol/L Anion Gap 10 mmol/L BUN 43 H (7-17) mg/dL Creatinine 3.25 H (0.52-1.04) mg/dL Est GFR (CKD-EPI)AfAm 16 (>60 ml/min/1.73 sqM) Est GFR (CKD-EPI)NonAf 14 (>60 ml/min/1.73 sqM) Glucose 121 H (74-99) mg/dL Calcium 7.4 L (8.4-10.2) mg/dL Total Bilirubin 0.6 (0.2-1.3) mg/dL AST 18 (14-36) U/L ALT 23 (9-52) U/L Alkaline Phosphatase 120 (38-126) U/L Troponin I 0.033 (0.000-0.034) ng/mL Total Protein 5.3 L (6.3-8.2) g/dL Albumin 2.1 L (3.5-5.0) g/dL Disposition Clinical Impression: Inability to ambulate due to multiple joints, Infection due to gram-negative anaerobic organism, Weakness, Decubitus ulcer, Morbid obesity Disposition: HOME SELF-CARE Condition: Fair Instructions (If sedation given, give patient instructions): Weakness (ED) Is patient prescribed a controlled substance at d/c from ED?: No Referrals: Nonstaff,Physician [Primary Care Provider] - 1-2 days
[2019-07-13 23:06] VITALS: BP 119/40; TEMP 98
[2019-07-14] MEDS ORDERED: ENOXAPARIN 40 MG/0.4 ML SYRINGE SQ SCH (09:00)
[2019-07-14] MEDS ORDERED: PANTOPRAZOLE 40 MG/10 ML VIAL IV SCH (09:00)
== END 2019-07-13 23:07 | disposition home or self-care (01) ==
LOC: EC 19:18
DX: M00.89 Polyarthritis due to other bacteria (principal); B96.89 Other specified bacterial agents as the cause of diseases classified elsewhere; L89.159 Pressure ulcer of sacral region, unspecified stage; E66.01 Morbid (severe) obesity due to excess calories; R00.0 Tachycardia, unspecified; Z86.73 Personal history of transient ischemic attack (TIA), and cerebral infarction without residual deficits; Z68.38 Body mass index [BMI] 38.0-38.9, adult; Z82.49 Family history of ischemic heart disease and other diseases of the circulatory system; Z53.8 Procedure and treatment not carried out for other reasons
CPT/HCPCS: 36415; 80053; 83605; 84484; 85025; 93005; 99284

== ENCOUNTER 2019-07-14 21:24 | Inpatient (IN) | payer MEDICARE, OTHER ==
--- NOTE | 2019-07-14 22:54 | XR ---
EXAMINATION TYPE: XR chest 2V DATE OF EXAM: 07/14/2019 COMPARISON: 07/04/2019 HISTORY: Edema. TECHNIQUE: Frontal and lateral views of the chest are obtained. FINDINGS: There is minimal linear density left lower lobe. There is left central venous catheter wit h tip in the superior vena cava. There is no heart failure. There is chronic anterior dislocation of the right humeral head with sclerosis and deformity. Thoracic aorta is atheromatous. IMPRESSION: Minimal atelectasis left lower lobe slightly improved compared to last exam. No heart fa ilure. Chronic right shoulder dislocation.
--- NOTE | 2019-07-14 22:58 | ED ---
General Adult HPI - General Chief complaint: Recheck/Abnormal Lab/Rx Stated complaint: Abnormal Labs Time Seen by Provider: 07/14/19 22:06 Source: patient, EMS Mode of arrival: EMS Limitations: physical limitation - History of Present Illness Initial comments: Patient presents to the ED by [facility] for evaluation. Patient was seen in the ED yesterday, and she was discharged back to her [facility], as she was refusing care. Patient had a court appointment for guardianship today, and guardianship was awarded. Patient was sent back to the ED from her [facility] today for reevaluation. Per fci report, the patient has had weeping from her wounds and peripheral edema. Patient denies having any symptoms or complaints. Patient denies having any pain, fever or chills, headache, focal neuro deficit, chest pain, dyspnea, cough or cold symptoms, palpitations, dizziness, nausea/vomiting/diarrhea, abdominal pain, bloody or melanotic stool, dysuria or urinary symptoms, back pain, extremity pain, or any other symptoms or complaints. Patient is paraplegic from a prior stroke. - Related Data Home Medications Medication Instructions Recorded Confirmed Ensure 1 can PO TID 07/13/19 07/14/19 Multivitamins, Thera [Multivitamin 1 tab PO DAILY 07/13/19 07/14/19 (formulary)] Acetaminophen Tab [Tylenol Tab] 650 mg PO Q6H PRN 07/14/19 07/14/19 Pro-Stat 30 ml PO BID 07/14/19 07/14/19 Sodium Bicarbonate 650 mg PO BID 07/14/19 07/14/19 Previous Rx's Medication Instructions Recorded Enoxaparin [Lovenox] 30 mg SQ DAILY syringe 07/07/19 Famotidine [Pepcid] 20 mg PO DAILY tab 07/07/19 hydrALAZINE HCL [Apresoline] 10 mg PO BID tab 07/07/19 Furosemide [Lasix] 40 mg PO DAILY tab 07/11/19 Allergies Allergy/AdvReac Type Severity Reaction Status Date / Time No Known Allergies Allergy Verified 07/14/19 22:47 Review of Systems ROS Statement: Those systems with pertinent positive or pertinent negative responses have been documented in the HPI. ROS Other: All systems not noted in ROS Statement are negative. Past Medical History Past Medical History: CVA/TIA, Hypertension, Renal Disease Additional Past Medical History / Comment(s): paraplegic History of Any Multi-Drug Resistant Organisms: None Reported Past Surgical History: No Surgical Hx Reported Additional Past Surgical History / Comment(s): colostomy Past Anesthesia/Blood Transfusion Reactions: No Reported Reaction Past Psychological History: No Psychological Hx Reported Smoking Status: Never smoker Past Alcohol Use History: None Reported Past Drug Use History: None Reported - Past Family History Mother Family Medical History: Hypertension General Exam Limitations: physical limitation General appearance: alert, in no apparent distress Head exam: Present: atraumatic, normocephalic Eye exam: Present: normal appearance, PERRL, EOMI ENT exam: Present: mucous membranes moist Neck exam: Present: other (Trachea is midline). Absent: tenderness Respiratory exam: Present: normal lung sounds bilaterally. Absent: respiratory distress, wheezes, rales, rhonchi, stridor Cardiovascular Exam: Present: regular rate, normal rhythm, normal heart sounds GI/Abdominal exam: Present: soft, other (Obese abdomen; patient has a colostomy with bag in place; abdominal surgical wounds are noted with sara in place). Absent: tenderness, guarding Extremities exam: Present: other (Bilateral upper and lower extremity edema). Absent: tenderness, calf tenderness Back exam: Present: other (Large stage IV sacral decubitus ulcers with gauze packing in place) Neurological exam: Present: alert, oriented X3, CN II-XII intact, other (Bila teral lower extremity paraplegia) Psychiatric exam: Present: normal affect, normal mood Skin exam: Present: warm, dry, normal color Course Vital Signs 07/14/19 07/14/19 07/14/19 21:44 21:50 23:34 Temperature 98.1 F 98.1 F Pulse Rate 97 88 Respiratory 18 16 Rate Blood Pressure 98/78 133/118 O2 Sat by Pulse 98 92 L Oximetry 07/15/19 00:53 Temperature Pulse Rate 85 Respiratory 18 Rate Blood Pressure 89/43 O2 Sat by Pulse 94 L Oximetry EKG Findings - EKG Comments: EKG Findings:: Borderline sinus tachycardia, ventricular rate of 100 bpm, normal MT and QRS intervals, slightly prolonged QTc interval of 490 ms, normal axis, no ST or T-wave abnormality Medical Decision Making - Medical Decision Making Patient has been alert and breathing comfortably while in the ED. Patient continues to deny having any symptoms or complaints. Patient is afebrile and without leukocytosis. I do not suspect an infectious process. Will admit the patient to the hospital for further evaluation/treatment of her renal insufficiency and peripheral edema. Will admit patient to Dr. Marr. - Lab Data Result diagrams: 07/14/19 22:55 07/14/19 22:55 Lab Results 07/14/19 07/14/19 07/14/19 Range/Units 22:55 22:55 22:55 WBC 10.6 (3.8-10.6) k/uL RBC 2.56 L (3.80-5.40) m/uL Hgb 7.9 L (11.4-16.0) gm/dL Hct 26.6 L (34.0-46.0) % MCV 104.1 H (80.0-100.0) fL MCH 30.9 (25.0-35.0) pg MCHC 29.7 L (31.0-37.0) g/dL RDW 21.0 H (11.5-15.5) % Plt Count 218 (150-450) k/uL Neutrophils % 75 % Lymphocytes % 19 % Monocytes % 4 % Eosinophils % 1 % Basophils % 1 % Neutrophils # 7.9 H (1.3-7.7) k/uL Lymphocytes # 2.0 (1.0-4.8) k/uL Monocytes # 0.5 (0-1.0) k/uL Eosinophils # 0.1 (0-0.7) k/uL Basophils # 0.1 (0-0.2) k/uL Hypochromasia Marked Anisocytosis Moderate Macrocytosis Marked A PT 11.1 (9.0-12.0) sec INR 1.1 (<1.2) APTT 29.8 (22.0-30.0) sec Sodium 151 H (137-145) mmol/L Potassium 3.3 L (3.5-5.1) mmol/L Chloride 118 H (98-107) mmol/L Carbon Dioxide 25 (22-30) mmol/L Anion Gap 8 mmol/L BUN 46 H (7-17) mg/dL Creatinine 3.80 H (0.52-1.04) mg/dL Est GFR (CKD-EPI)AfAm 13 (>60 ml/min/1.73 sqM) Est GFR (CKD-EPI)NonAf 11 (>60 ml/min/1.73 sqM) Glucose 134 H (74-99) mg/dL Plasma Lactic Acid Jonathan (0.7-2.0) mmol/L Calcium 7.4 L (8.4-10.2) mg/dL Magnesium 1.7 (1.6-2.3) mg/dL Total Bilirubin 0.6 (0.2-1.3) mg/dL AST 18 (14-36) U/L ALT 25 (9-52) U/L Alkaline Phosphatase 128 H (38-126) U/L Creatine Kinase 31 (30-135) U/L Troponin I (0.000-0.034) ng/mL NT-Pro-B Natriuret Pep pg/mL Total Protein 5.5 L (6.3-8.2) g/dL Albumin 2.1 L (3.5-5.0) g/dL Blood Type Blood Type Recheck Bld Type Recheck Status Antibody Screen Spec Expiration Date 07/14/19 07/14/19 07/14/19 Range/Units 22:55 22:55 22:55 WBC (3.8-10.6) k/uL RBC (3.80-5.40) m/uL Hgb (11.4-16.0) gm/dL Hct (34.0-46.0) % MCV (80.0-100.0) fL MCH (25.0-35.0) pg MCHC (31.0-37.0) g/dL RDW (11.5-15.5) % Plt Count (150-450) k/uL Neutrophils % % Lymphocytes % % Monocytes % % Eosinophils % % Basophils % % Neutrophils # (1.3-7.7) k/uL Lymphocytes # (1.0-4.8) k/uL Monocytes # (0-1.0) k/uL Eosinophils # (0-0.7) k/uL Basophils # (0-0.2) k/uL Hypochromasia Anisocytosis Macrocytosis PT (9.0-12.0) sec INR (<1.2) APTT (22.0-30.0) sec Sodium (137-145) mmol/L Potassium (3.5-5.1) mmol/L Chloride (98-107) mmol/L Carbon Dioxide (22-30) mmol/L Anion Gap mmol/L BUN (7-17) mg/dL Creatinine (0.52-1.04) mg/dL Est GFR (CKD-EPI)AfAm (>60 ml/min/1.73 sqM) Est GFR (CKD-EPI)NonAf (>60 ml/min/1.73 sqM) Glucose (74-99) mg/dL Plasma Lactic Acid Jonathan 2.9 H* (0.7-2.0) mmol/L Calcium (8.4-10.2) mg/dL Magnesium (1.6-2.3) mg/dL Total Bilirubin (0.2-1.3) mg/dL AST (14-36) U/L ALT (9-52) U/L Alkaline Phosphatase (38-126) U/L Creatine Kinase (30-135) U/L Troponin I 0.027 (0.000-0.034) ng/mL NT-Pro-B Natriuret Pep 2640 pg/mL Total Protein (6.3-8.2) g/dL Albumin (3.5-5.0) g/dL Blood Type Blood Type Recheck Bld Type Recheck Status Antibody Screen Spec Expiration Date 07/14/19 Range/Units 22:55 WBC (3.8-10.6) k/uL RBC (3.80-5.40) m/uL Hgb (11.4-16.0) gm/dL Hct (34.0-46.0) % MCV (80.0-100.0) fL MCH (25.0-35.0) pg MCHC (31.0-37.0) g/dL RDW (11.5-15.5) % Plt Count (150-450) k/uL Neutrophils % % Lymphocytes % % Monocytes % % Eosinophils % % Basophils % % Neutrophils # (1.3-7.7) k/uL Lymphocytes # (1.0-4.8) k/uL Monocytes # (0-1.0) k/uL Eosinophils # (0-0.7) k/uL Basophils # (0-0.2) k/uL Hypochromasia Anisocytosis Macrocytosis PT (9.0-12.0) sec INR (<1.2) APTT (22.0-30.0) sec Sodium (137-145) mmol/L Potassium (3.5-5.1) mmol/L Chloride (98-107) mmol/L Carbon Dioxide (22-30) mmol/L Anion Gap mmol/L BUN (7-17) mg/dL Creatinine (0.52-1.04) mg/dL Est GFR (CKD-EPI)AfAm (>60 ml/min/1.73 sqM) Est GFR (CKD-EPI)NonAf (>60 ml/min/1.73 sqM) Glucose (74-99) mg/dL Plasma Lactic Acid Jonathan (0.7-2.0) mmol/L Calcium (8.4-10.2) mg/dL Magnesium (1.6-2.3) mg/dL Total Bilirubin (0.2-1.3) mg/dL AST (14-36) U/L ALT (9-52) U/L Alkaline Phosphatase (38-126) U/L Creatine Kinase (30-135) U/L Troponin I (0.000-0.034) ng/mL NT-Pro-B Natriuret Pep pg/mL Total Protein (6.3-8.2) g/dL Albumin (3.5-5.0) g/dL Blood Type O Positive Blood Type Recheck O Pos Bld Type Recheck Status No Antibody Screen NEGATIVE Spec Expiration Date 07/17/2019 - 9157 - Radiology Data Radiology results: image reviewed (Chest x-ray shows left basilar atelectasis and a chronic right shoulder dislocation) Disposition Clinical Impression: Peripheral edema, Sacral decubitus ulcer, stage IV, Anemia, Renal insufficiency Disposition: ADMITTED IP TO THIS HOSP Condition: Stable Is patient prescribed a controlled substance at d/c from ED?: No Time of Disposition: 01:59 Decision Date: 07/15/19 Decision Time: 01:01
[2019-07-14 23:52] LABS: INR 1.1 (<1.2); Partial Thromboplastin Time 29.8 sec (22.0-30.0); Prothrombin Time 11.1 sec (9.0-12.0)
[2019-07-14 23:58] LABS: Anisocytosis Moderate; Basophils # (A) 0.1 k/uL (0-0.2); Basophils % (A) 1 %; Eosinophils # (A) 0.1 k/uL (0-0.7); Eosinophils % (A) 1 %; HCT 26.6 % (34.0-46.0); HGB 7.9 gm/dL (11.4-16.0); Hypochromasia Marked; Lymphocytes % (A) 19 %; MCH 30.9 pg (25.0-35.0); MCHC 29.7 g/dL (31.0-37.0); Macrocytosis Marked; Mean Platelet Volume 8.9; Monocytes # (A) 0.5 k/uL (0-1.0); Monocytes % (A) 4 %; Neutrophils # (A) 7.9 k/uL (1.3-7.7); Neutrophils % (A) 75 %; Platelet Count 218 k/uL (150-450); RBC 2.56 m/uL (3.80-5.40); WBC 10.6 k/uL (3.8-10.6)
[2019-07-15 00:03] LABS: MCV 104.1 fL (80.0-100.0)
[2019-07-15 00:23] LABS: Albumin 2.1 g/dL (3.5-5.0); Calcium 7.4 mg/dL (8.4-10.2); Magnesium 1.7 mg/dL (1.6-2.3); Potassium 3.3 mmol/L (3.5-5.1); Total Bilirubin 0.6 mg/dL (0.2-1.3); Total Protein 5.5 g/dL (6.3-8.2)
[2019-07-15] MEDS ORDERED: SODIUM CHLORIDE 0.9% 1,000 ML IV ONE (00:46)
[2019-07-15] MEDS ORDERED: Potassium Replacement Protocol 1 EACH MISC MISCELLANE PRN ×2 (02:26→18:18)
[2019-07-15] MEDS: POTASSIUM CHLORIDE ER 20 MEQ TAB.ER PO SCH ×4 (03:33→22:08)
[2019-07-15 07:38] LABS: Anisocytosis Moderate; HGB 7.6 gm/dL (11.4-16.0); Hypochromasia Marked; MCH 32.2 pg (25.0-35.0); MCHC 30.5 g/dL (31.0-37.0); Macrocytosis Marked; Platelet Count 178 k/uL (150-450); RBC 2.37 m/uL (3.80-5.40); RDW 21.4 % (11.5-15.5); WBC 12.2 k/uL (3.8-10.6)
[2019-07-15 07:51] LABS: MCV 105.4 fL (80.0-100.0)
[2019-07-15 08:08] LABS: Calcium 7.1 mg/dL (8.4-10.2); Potassium 3.5 mmol/L (3.5-5.1); Total Bilirubin 0.7 mg/dL (0.2-1.3); Total Protein 5.1 g/dL (6.3-8.2)
[2019-07-15] MEDS ORDERED: ACETAMINOPHEN TAB 325 MG TAB PO PRN (10:10)
[2019-07-15] MEDS ORDERED: FUROSEMIDE 40 MG TAB PO SCH (10:15)
[2019-07-15] MEDS ORDERED: NON FORMULARY DRUG (Ensure 1 CAN) PO SCH (10:15)
[2019-07-15] MEDS ORDERED: ACETAMINOPHEN TAB 325 MG TAB PO SCH (10:15)
[2019-07-15] MEDS ORDERED: PRO STAT PO SCH (10:15)
[2019-07-15] MEDS ORDERED: hydrALAZINE HCL 10 MG TAB PO SCH (10:15)
[2019-07-15] MEDS: DEXTROSE 5% IN WATER 1,000 ML IV SCH (12:30)
[2019-07-15] MEDS: FAMOTIDINE 20 MG TAB PO SCH (14:32)
[2019-07-15] MEDS: SODIUM BICARBONATE TAB 650 MG TAB PO SCH ×2 (14:32→20:58)
[2019-07-15] MEDS: MULTIVITAMINS, THERA 1 EACH TAB PO SCH (14:34)
--- NOTE | 2019-07-15 16:11 | P.HPIM ---
History of Present Illness H&P Date: 07/15/19 Chief Complaint: Weeping from her wounds History of presenting complaint: This is a pleasant [address] Charli Pri[facility]. Because of a prior stroke patient's paraplegic. . Patient's 3 granddaughters were living with her for several years. Patient had been getting home care. For last 1 month patient developed sacral decubitus ulcers. P rogressively getting worse. Patient initially presented to the hospital on June 15. And was here in the hospital July 11.Patient was admitted to the ICU. Was on fluids and levo fed. Levo fed was discontinued on June 16. Patient initially had refused any debridement of the wound. Finally agreed for the same. Patient was seen by psychiatry. Deemed competent to make the decisions. Because of initial refusal for treatment Ethics committee had been consulted. On June 21 patient was taken to the OR per Dr. Puente and he did carry her debridement after patient consented for the same. On June 23 diverting colostomy was done. Also has vancomycin induced acute kidney injury. Because of decreased oral intake Dr. Puente wanted to put in a PEG tube. Patient refusing the same. Plan the was also for patient to see Dr. Stern from plastic surgery for her decubitus wounds as an outpatient. This will be done down the road. Patient has a court hearing for guardianship on July 14. Patient was then discharged to the ECF. Patient was then seen by multiple cons ultants. Including Dr. Carroll from psychiatry, Dr. Puente from general surgery, Dr. Oro from infectious disease, Dr. Crow from nephrology and Dr. Osborne from channel program manager. Patient's creatinine discharge was 2.94. Patient's oral intake was limited. Was having edema because of hypoalbuminemia. Patient sent to the ECF. Patient 2 days ago got a court appointed guardian. Patient has been weeping from her wounds. And very edematous. Sent back to the hospital. Patient starting some diet. Review of systems: GEN.: Tired EYES: None HEENT: None NECK: None RESPIRATORY: Minimal short of breath CARDIOVASCULAR: None GASTROINTESTINAL: None GENITOURINARY: Some incontinence MUSCULOSKELETAL: None LYMPHATICS: None HEMATOLOGICAL: None PSYCHIATRY: But anxious NEUROLOGICAL: [Chronic paraparesis DERMATOLOGICAL: Large decubitus ulcer. Past medical history: Stroke, hypertension, paraplegia, medical debility, renal failure, large decubitus ulcer on the back.. Social history: Nonsmoker. Currently at the [facility]. Physical examination: VITAL SIGNS: 98.1, 97, 18, 98/78, 98% room air GENERAL: BMI 40.7, sitting on bed, tired awake. Anasarca EYES: Pupils equal. Conjunctiva pale. HEENT: External appearance of nose and ears normal, oral cavity with dry. NECK: JVD unable to assess; masses not palpable. HEART: First and second heart sounds are normal; gross edema including the upper and lower extremity LUNGS: Respiratory rate increased, decreased breath sounds. ABDOMEN: Soft, nontender, liver spleen not palpable, no masses palpable. PSYCH: Alert and oriented x3; mood and affect normal. NEUROLOGICAL: Cranial nerves grossly intact; no facial asymmetry, power lower extremity 1/5, with some sensation pleasant. LYMPHATICS: No lymph nodes palpable in the axilla and neck DERMATOLOGICAL: Sacral decubiti ulcers. Pictures in the chart INVESTIGATIONS, reviewed in the clinical context: White count 12.2 hemoglobin 7.6 potassium 3.5 BUN 48 creatinine 3.51 Albumin 2.0 Assessment: -Severe hypoalbuminemia from severe protein calorie malnutrition from poor oral intake -Chronic sacral decubitus ulcer, status post debridement per Dr. Puente -Lactic acidosis from sepsis -Normocytic anemia from malnutrition -Hypotension from hypoalbuminemia -Chronic paraplegia from prior stroke -Medical debility -Court appointed legal guardian Disposition: From [facility] Plan: Consultations made to nephrology, ID, Dr. Puente. Patient left to have a feeding tube placed. Patient also refused that. It probably will have to be done at the bedside. Patient may not tolerate general anesthesia. If for any reason that cannot be done then we may be looking towards hospice. Patient not eating and feeling. I did try to explain this to the patient. Patient has a court appointed legal guardian. Past Medical History Past Medical History: CVA/TIA, Hypertension, Renal Disease Additional Past Medical History / Comment(s): paraplegic History of Any Multi-Drug Resistant Organisms: None Reported Past Surgical History: No Surgical Hx Reported Additional Past Surgical History / Comment(s): colostomy Past Anesthesia/Blood Transfusion Reactions: No Reported Reaction Past Psychological History: No Psychological Hx Reported Smoking Status: Never smoker Past Alcohol Use History: None Reported Additional Past Alcohol Use History / Comment(s): Patient is a lifelong nonsmoker. She denies any marijuana, street drug use or alcohol use. She currently resides at [facility]. Recently here in June - . Past Drug Use History: None Reported - Past Family History Mother Family Medical History: Hypertension Medications and Allergies Home Medications Medication Instructions Recorded Confirmed Type Enoxaparin [Lovenox] 30 mg SQ DAILY syringe 07/07/19 07/14/19 Rx Famotidine [Pepcid] 20 mg PO DAILY tab 07/07/19 07/14/19 Rx hydrALAZINE HCL [Apresoline] 10 mg PO BID tab 07/07/19 07/14/19 Rx Furosemide [Lasix] 40 mg PO DAILY tab 07/11/19 07/14/19 Rx Ensure 1 can PO TID 07/13/19 07/14/19 History Multivitamins, Thera [Multivitamin 1 tab PO DAILY 07/13/19 07/14/19 History (formulary)] Acetaminophen Tab [Tylenol Tab] 650 mg PO Q6H PRN 07/14/19 07/14/19 History Pro-Stat 30 ml PO BID 07/14/19 07/14/19 History Sodium Bicarbonate 650 mg PO BID 07/14/19 07/14/19 History Acetaminophen Tab [Tylenol Tab] 650 mg PO Q6H 07/15/19 07/15/19 History Allergies Allergy/AdvReac Type Severity Reaction Status Date / Time No Known Allergies Allergy Verified 07/14/19 22:47 Physical Exam Vitals: Vital Signs Temp Pulse Pulse Resp BP BP Pulse Ox 07/15/19 11:59 98.2 F 76 14 92 L 07/15/19 02:57 96.9 F L 93 18 135/84 96 07/15/19 02:07 97.7 F 88 18 95/74 95 07/15/19 00:53 85 18 89/43 94 L 07/14/19 23:34 98.1 F 88 133/118 92 L 07/14/19 21:50 16 07/14/19 21:44 98.1 F 97 18 98/78 98 Intake and Output 07/15/19 07/15/19 07/15/19 06:59 14:59 22:59 Other: Voiding Method Indwelling Catheter Indwelling Catheter Weight 104.326 kg Results CBC & Chem 7: 07/15/19 07:08 07/15/19 07:08 Labs: Abnormal Lab Results - Last 24 Hours (Table) 07/14/19 07/14/19 07/14/19 Range/Units 22:55 22:55 22:55 WBC (3.8-10.6) k/uL RBC 2.56 L (3.80-5.40) m/uL Hgb 7.9 L (11.4-16.0) gm/dL Hct 26.6 L (34.0-46.0) % MCV 104.1 H (80.0-100.0) fL MCHC 29.7 L (31.0-37.0) g/dL RDW 21.0 H (11.5-15.5) % Neutrophils # 7.9 H (1.3-7.7) k/uL Macrocytosis Marked A Sodium 151 H (137-145) mmol/L Potassium 3.3 L (3.5-5.1) mmol/L Chloride 118 H (98-107) mmol/L BUN 46 H (7-17) mg/dL Creatinine 3.80 H (0.52-1.04) mg/dL Glucose 134 H (74-99) mg/dL Plasma Lactic Acid Jonathan 2.9 H* (0.7-2.0) mmol/L Calcium 7.4 L (8.4-10.2) mg/dL Alkaline Phosphatase 128 H (38-126) U/L Total Protein 5.5 L (6.3-8.2) g/dL Albumin 2.1 L (3.5-5.0) g/dL 07/15/19 07/15/19 Range/Units 07:08 07:08 WBC 12.2 H (3.8-10.6) k/uL RBC 2.37 L (3.80-5.40) m/uL Hgb 7.6 L (11.4-16.0) gm/dL Hct 25.0 L (34.0-46.0) % MCV 105.4 H (80.0-100.0) fL MCHC 30.5 L (31.0-37.0) g/dL RDW 21.4 H (11.5-15.5) % Neutrophils # (1.3-7.7) k/uL Macrocytosis Marked A Sodium 152 H (137-145) mmol/L Potassium (3.5-5.1) mmol/L Chloride 121 H (98-107) mmol/L BUN 48 H (7-17) mg/dL Creatinine 3.51 H (0.52-1.04) mg/dL Glucose 123 H (74-99) mg/dL Plasma Lactic Acid Jonathan (0.7-2.0) mmol/L Calcium 7.1 L (8.4-10.2) mg/dL Alkaline Phosphatase (38-126) U/L Total Protein 5.1 L (6.3-8.2) g/dL Albumin 2.0 L (3.5-5.0) g/dL Thrombosis Risk Factor Assmnt - Choose All That Apply Any of the Below Risk Factors Present?: Yes Each Factor Represents 1 point: Medical pt on bed rest, Obesity (BMI >25), Swollen legs (current) Each Risk Factor Represents 2 Points: Age 61-74 years, Patient confined to bed Thrombosis Risk Factor Assessment Total Risk Factor Score: 7 Thrombosis Risk Factor Assessment Level: High Risk
--- NOTE | 2019-07-15 16:39 | US ---
EXAMINATION TYPE: US kidneys/renal and bladder DATE OF EXAM: 07/15/2019 COMPARISON: NONE CLINICAL HISTORY: renal failure. EXAM MEASUREMENTS: Right Kidney: 8.7 x 4.0 x 3.9 cm Left Kidney: 9.2 x 5.0 x 4.1 cm Right Kidney: no evidence of hydronephrosis or mass Left Kidney: technical limitations, patient uncooperative, laying on left side and unwilling to move Bladder: Mon Catheter There is no evidence for hydronephrosis at this point in time. No nephrolithiasis is seen. No edis s are identified. The urinary bladder is anechoic. Bilateral ureteral jets are seen. IMPRESSION: Within the limitations of the exam there is no evidence of renal mass or obstruction.
[2019-07-15] MEDS: ENOXAPARIN 40 MG/0.4 ML SYRINGE SQ SCH (17:06)
[2019-07-15 17:56] LABS: Calcium 6.8 mg/dL (8.4-10.2); Potassium 3.4 mmol/L (3.5-5.1)
[2019-07-16 07:48] LABS: Anisocytosis Moderate; Basophils # (A) 0.1 k/uL (0-0.2); Basophils % (A) 0 %; Eosinophils # (A) 0.1 k/uL (0-0.7); Eosinophils % (A) 0 %; Hypochromasia Marked; Lymphocytes # (A) 1.6 k/uL (1.0-4.8); Lymphocytes % (A) 11 %; MCH 31.8 pg (25.0-35.0); MCHC 29.9 g/dL (31.0-37.0); MCV 106.5 fL (80.0-100.0); Macrocytosis Marked; Mean Platelet Volume 8.1; Monocytes # (A) 0.4 k/uL (0-1.0); Monocytes % (A) 3 %; Neutrophils % (A) 85 %; Platelet Count 134 k/uL (150-450); RBC 1.97 m/uL (3.80-5.40); RDW 21.4 % (11.5-15.5); WBC 14.2 k/uL (3.8-10.6)
[2019-07-16 07:50] LABS: Albumin 1.6 g/dL (3.5-5.0); Calcium 6.7 mg/dL (8.4-10.2); Total Bilirubin 0.5 mg/dL (0.2-1.3); Total Protein 4.1 g/dL (6.3-8.2)
[2019-07-16 07:56] LABS: HGB 6.3 gm/dL (11.4-16.0)
[2019-07-16 08:09] LABS: Poikilocytosis (M) Present; Toxic Granulation Present
[2019-07-16] MEDS: ENOXAPARIN 40 MG/0.4 ML SYRINGE SQ SCH (08:26)
[2019-07-16] MEDS: MULTIVITAMINS, THERA 1 EACH TAB PO SCH (08:26)
[2019-07-16] MEDS: SODIUM BICARBONATE TAB 650 MG TAB PO SCH (08:26)
[2019-07-16] MEDS: FAMOTIDINE 20 MG TAB PO SCH (08:26)
[2019-07-16] MEDS: DEXTROSE 5% IN WATER 1,000 ML IV SCH (08:28)
[2019-07-16] MEDS ORDERED: FUROSEMIDE 10 MG/ML 4 ML VIAL IV STA (08:49)
--- NOTE | 2019-07-16 08:51 | P.GSCN ---
History of Present Illness Consult date: 07/16/19 Reason for Consult: Malnutrition History of present illness: This a 73-year-old female with extensive medical issues. Patient is known to myself. She underwent recent debridement of her decubitus ulcer with diverting colostomy. Patient has had very poor oral intake. I've asked see her regarding a PEG tube. The patient has recently received a legal guardian. She had been reluctant to do a PEG tube in the past. Past Medical History Past Medical History: CVA/TIA, Hypertension, Renal Disease Additional Past Medical History / Comment(s): paraplegic History of Any Multi-Drug Resistant Organisms: None Reported Past Surgical History: No Surgical Hx Reported Additional Past Surgical History / Comment(s): colostomy Past Anesthesia/Blood Transfusion Reactions: No Reported Reaction Past Psychological History: No Psychological Hx Reported Smoking Status: Never smoker Past Alcohol Use History: None Reported Additional Past Alcohol Use History / Comment(s): Patient is a lifelong nonsmoker. She denies any marijuana, street drug use or alcohol use. She currently resides at [facility]. Recently here in June. Past Drug Use History: None Reported - Past Family History Mother Family Medical History: Hypertension Medications and Allergies Home Medications Medication Instructions Recorded Confirmed Type Enoxaparin [Lovenox] 30 mg SQ DAILY syringe 07/07/19 07/14/19 Rx Famotidine [Pepcid] 20 mg PO DAILY tab 07/07/19 07/14/19 Rx hydrALAZINE HCL [Apresoline] 10 mg PO BID tab 07/07/19 07/14/19 Rx Furosemide [Lasix] 40 mg PO DAILY tab 07/11/19 07/14/19 Rx Ensure 1 can PO TID 07/13/19 07/14/19 History Multivitamins, Thera [Multivitamin 1 tab PO DAILY 07/13/19 07/14/19 History (formulary)] Acetaminophen Tab [Tylenol Tab] 650 mg PO Q6H PRN 07/14/19 07/14/19 History Pro-Stat 30 ml PO BID 07/14/19 07/14/19 History Sodium Bicarbonate 650 mg PO BID 07/14/19 07/14/19 History Acetaminophen Tab [Tylenol Tab] 650 mg PO Q6H 07/15/19 07/15/19 History Allergies Allergy/AdvReac Type Severity Reaction Status Date / Time No Known Allergies Allergy Verified 07/14/19 22:47 Surgical - Exam Vital Signs Temp Pulse Resp BP Pulse Ox 98.1 F 97 18 98/78 98 07/14/19 21:44 07/14/19 21:44 07/14/19 21:44 07/14/19 21:44 07/14/19 21:44 - General cachectic, chronically ill - Eyes PERRL - ENT normal pinna - Neck no masses - Respiratory normal expansion - Cardiovascular Rhythm: regular - Abdomen Colostomy functioning in the left lower quadrant Abdomen: soft Results - Labs 07/16/19 07:09 07/16/19 07:09 Abnormal Lab Results - Last 24 Hours (Table) 07/14/19 07/15/19 07/16/19 Range/Units 22:55 17:29 07:09 WBC 14.2 H (3.8-10.6) k/uL RBC 1.97 L (3.80-5.40) m/uL Hgb 6.3 L* (11.4-16.0) gm/dL Hct 21.0 L (34.0-46.0) % MCV 106.5 H (80.0-100.0) fL MCHC 29.9 L (31.0-37.0) g/dL RDW 21.4 H (11.5-15.5) % Plt Count 134 L (150-450) k/uL Neutrophils # 12.0 H (1.3-7.7) k/uL Macrocytosis Marked A Sodium 150 H (137-145) mmol/L Potassium 3.4 L (3.5-5.1) mmol/L Chloride 122 H (98-107) mmol/L BUN 48 H (7-17) mg/dL Creatinine 3.86 H (0.52-1.04) mg/dL Glucose 161 H (74-99) mg/dL Calcium 6.8 L (8.4-10.2) mg/dL Total Protein (6.3-8.2) g/dL Albumin (3.5-5.0) g/dL Crossmatch See Detail 07/16/19 Range/Units 07:09 WBC (3.8-10.6) k/uL RBC (3.80-5.40) m/uL Hgb (11.4-16.0) gm/dL Hct (34.0-46.0) % MCV (80.0-100.0) fL MCHC (31.0-37.0) g/dL RDW (11.5-15.5) % Plt Count (150-450) k/uL Neutrophils # (1.3-7.7) k/uL Macrocytosis Sodium 150 H (137-145) mmol/L Potassium (3.5-5.1) mmol/L Chloride 122 H (98-107) mmol/L BUN 49 H (7-17) mg/dL Creatinine 3.69 H (0.52-1.04) mg/dL Glucose 137 H (74-99) mg/dL Calcium 6.7 L (8.4-10.2) mg/dL Total Protein 4.1 L (6.3-8.2) g/dL Albumin 1.6 L (3.5-5.0) g/dL Crossmatch Microbiology - Last 24 Hours (Table) 07/14/19 22:55 Blood Culture - Preliminary Blood No Growth after 24 hours 07/15/19 17:00 Urine Culture - Preliminary Urine,Voided Diabetes panel 07/15/19 07/16/19 Range/Units 17:29 07:09 Sodium 150 H 150 H (137-145) mmol/L Potassium 3.4 L 4.0 (3.5-5.1) mmol/L Chloride 122 H 122 H (98-107) mmol/L Carbon Dioxide 22 25 (22-30) mmol/L BUN 48 H 49 H (7-17) mg/dL Creatinine 3.86 H 3.69 H (0.52-1.04) mg/dL Glucose 161 H 137 H (74-99) mg/dL Calcium 6.8 L 6.7 L (8.4-10.2) mg/dL AST 15 (14-36) U/L ALT 20 (9-52) U/L Alkaline Phosphatase 93 (38-126) U/L Total Protein 4.1 L (6.3-8.2) g/dL Albumin 1.6 L (3.5-5.0) g/dL Calcium panel 07/15/19 07/16/19 Range/Units 17:29 07:09 Calcium 6.8 L 6.7 L (8.4-10.2) mg/dL Albumin 1.6 L (3.5-5.0) g/dL Pituitary panel 07/15/19 07/16/19 Range/Units 17:29 07:09 Sodium 150 H 150 H (137-145) mmol/L Potassium 3.4 L 4.0 (3.5-5.1) mmol/L Chloride 122 H 122 H (98-107) mmol/L Carbon Dioxide 22 25 (22-30) mmol/L BUN 48 H 49 H (7-17) mg/dL Creatinine 3.86 H 3.69 H (0.52-1.04) mg/dL Glucose 161 H 137 H (74-99) mg/dL Calcium 6.8 L 6.7 L (8.4-10.2) mg/dL Adrenal panel 07/15/19 07/16/19 Range/Units 17:29 07:09 Sodium 150 H 150 H (137-145) mmol/L Potassium 3.4 L 4.0 (3.5-5.1) mmol/L Chloride 122 H 122 H (98-107) mmol/L Carbon Dioxide 22 25 (22-30) mmol/L BUN 48 H 49 H (7-17) mg/dL Creatinine 3.86 H 3.69 H (0.52-1.04) mg/dL Glucose 161 H 137 H (74-99) mg/dL Calcium 6.8 L 6.7 L (8.4-10.2) mg/dL Total Bilirubin 0.5 (0.2-1.3) mg/dL AST 15 (14-36) U/L ALT 20 (9-52) U/L Alkaline Phosphatase 93 (38-126) U/L Total Protein 4.1 L (6.3-8.2) g/dL Albumin 1.6 L (3.5-5.0) g/dL Assessment and Plan Assessment: Chronic mild attrition We'll perform PEG tube. We will contact guardian regarding regarding PEG tube.
--- NOTE | 2019-07-16 10:17 | P.CONS ---
History of Present Illness - Reason for Consult Consult date: 07/16/19 - Chief Complaint Increasing weakness - History of Present Illness 73-year-old female who was hospitalized at this facility for 3 weeks through June to the first part of July regarding her progressive decline of her status. At the time of presentation she had septic shock related to the extensive necrotic and gangrenous pressure ulceration to her buttocks and coccyx. At first she was refusing any type of surgical intervention eventually she did agree for the extensive debridement to be performed. At the time of the surgery it was evident that she needed is significantly more care. She however did not want to go to another facility. The patient's rectum was in the midst of the extensive ulceration and she eventually did allow a diverting colostomy to allow the site to have some healing. She in general has not been doing very well. However there underlying sepsis to improve. Her renal function did markedly decline after her diverting colostomy occurred. Possibly multifactorial including HTN and vancomycin toxicity. If this time cultures are process in further information is requested. She is not eating and apparently he is eating only about 10% of was presented to her. This is an ongoing issue and does have significant protein calorie malnutrition which is not allowing any further improvement. During her last visit and at the current time discussion for PEG tube has been placed. She however has not wanted to have any type of feeding tube. She has had her hearing in public guardian has been assigned. Goal this point in time will be to have an appropriate CODE STATUS and determine if she does or does not want to have assisted feeding in the appropriateness of this. If this time she is still quite miserable. Fortunately with her stroke she does not have significant pain with the extensive wound to the coccyx but just feels very poorly overall. Review of Systems 73-year-old woman does not have a lot of discomfort but feels very poorly. She is weak and chronically ill. HEENT:Denies headache or acute visual change. Denies sinus or mouth discomforts. Denies neck stiffness or pain. Denies significant oral cavity pain. Denies difficulty on swallowing. Lungs: Denies significant shortness of breath, cough, sputum production, or hemoptysis. Cardiovascular: Denies significant shortness of breath, chest pain, chest wall pain, orthopnea, dyspnea on exertion, syncope Gastrointestinal: She does not have nausea she has no appetite relates that no food tastes good she has no emesis the material from her ostomy is not. Liquid and there is no evidence of any blood. Musculoskeletal: denies significant myalgias or arthralgias. No new joint swelling. Denies new back pain. Skin: As per the HPI has been very extensive coccyx wound. Neuro: Denies headache or visual change. Denies any new onset weakness or difficulty with ambulation. Denies falls or seizures. Psychiatric:Denies anxiety or depression. Endocrine: Denies significant fatigue, denies significant weight loss or weight gain. Past Medical History Past Medical History: CVA/TIA, Hypertension, Renal Disease Additional Past Medical History / Comment(s): paraplegic History of Any Multi-Drug Resistant Organisms: None Reported Past Surgical History: No Surgical Hx Reported Additional Past Surgical History / Comment(s): colostomy Past Anesthesia/Blood Transfusion Reactions: No Reported Reaction Past Psychological History: No Psychological Hx Reported Smoking Status: Never smoker Past Alcohol Use History: None Reported Additional Past Alcohol Use History / Comment(s): Patient is a lifelong nonsmoker. She denies any marijuana, street drug use or alcohol use. She currently resides at [facility]. Recently here in June - . Past Drug Use History: None Reported - Past Family History Mother Family Medical History: Hypertension Medications and Allergies Home Medications and Allergies Comment(s): Current Medications Acetaminophen (Tylenol Tab) 650 mg PO Q6H PRN PRN Reason: Mild Pain Enoxaparin Sodium (Lovenox) 40 mg SQ DAILY [facility] Last Admin: 07/16/19 08:26 Dose: 40 mg Documented by: Famotidine (Pepcid) 20 mg PO DAILY [facility] Last Admin: 07/16/19 08:26 Dose: 20 mg Documented by: Dextrose/Water (Dextrose 5%-Water Iv Soln) 1,000 mls @ 50 mls/hr IV .Q20H [facility] Last Admin: 07/16/19 08:28 Dose: 50 mls/hr Documented by: Ampicillin Sodium/Sulbactam (Sodium 3 gm/ Sodium Chloride) 100 mls @ 200 mls/hr IVPB Q12HR [facility] Miscellaneous Information (Potassium Per Protocol) 1 each MISCELLANE DAILY PRN; Protocol PRN Reason: Per Protocol Miscellaneous Information (Potassium Per Protocol) 1 each MISCELLANE DAILY PRN; Protocol PRN Reason: Per Protocol Multivitamins (Theragran) 1 each PO DAILY [facility] Last Admin: 07/16/19 08:26 Dose: 1 each Documented by: Sodium Bicarbonate (Sodium Bicarbonate Tab) 650 mg PO BID [facility] Last Admin: 07/16/19 08:26 Dose: 650 mg Documented by: Home Medications Medication Instructions Recorded Confirmed Type Enoxaparin [Lovenox] 30 mg SQ DAILY syringe 07/07/19 07/14/19 Rx Famotidine [Pepcid] 20 mg PO DAILY tab 07/07/19 07/14/19 Rx hydrALAZINE HCL [Apresoline] 10 mg PO BID tab 07/07/19 07/14/19 Rx Furosemide [Lasix] 40 mg PO DAILY tab 07/11/19 07/14/19 Rx Ensure 1 can PO TID 07/13/19 07/14/19 History Multivitamins, Thera [Multivitamin 1 tab PO DAILY 07/13/19 07/14/19 History (formulary)] Acetaminophen Tab [Tylenol Tab] 650 mg PO Q6H PRN 07/14/19 07/14/19 History Pro-Stat 30 ml PO BID 07/14/19 07/14/19 History Sodium Bicarbonate 650 mg PO BID 07/14/19 07/14/19 History Acetaminophen Tab [Tylenol Tab] 650 mg PO Q6H 07/15/19 07/15/19 History Allergies Allergy/AdvReac Type Severity Reaction Status Date / Time No Known Allergies Allergy Verified 07/14/19 22:47 Physical Exam Vitals: Vital Signs Temp Pulse Pulse Pulse Resp BP BP 07/16/19 09:37 97.1 F L 99 14 85/56 07/16/19 09:16 101 H 07/16/19 04:30 98.5 F 77 20 81/51 07/15/19 21:30 99.2 F 88 20 100/62 07/15/19 17:14 98.0 F 91 16 89/43 07/15/19 11:59 98.2 F 76 14 BP Pulse Ox 07/16/19 09:37 97 07/16/19 09:16 92/46 07/16/19 04:30 96 07/15/19 21:30 98 07/15/19 17:14 100 07/15/19 11:59 92 L Intake and Output 07/15/19 07/16/1919 22:59 06:59 14:59 Intake Total 200 200 120 Output Total 20 Balance 200 180 120 Intake: Oral 200 200 120 Blood Product 0 Rc As-1 Unit 0 [id number] Output: Urine 20 Other: Voiding Method Indwelling Catheter HEENT: Anicteric conjunctiva are pink and moist nasal mucosa grossly intact without significant lesions, there is no thrush. Poor dentition Neck: The neck is supple without significant lymphadenopathy or thyromegaly. Lungs: They're symmetrical bilateral air entry with only few basilar crackles no bronchial sounds all dullness or egophony Heart: The heart is mildly irregular with an audible S1 and S2 soft S4 no distinct murmur click or a PMI sinus fever thrill Abdomen: Positive bowel sounds soft and nontender without palpable masses or organomegaly. There was no guarding or rebound. The ostomy is functioning well Extremities: The upper extremities have excellent pulses they are symmetric, no significant petechiae or telangiectasia. No splinter hemorrhages were noted. X-rays have improvement of the extensive bilateral lower extremity edema no significant ulcerations are seen Neuro: Awake alert oriented to person place and time. She has a profound generalized weakness from her recent illness and her prior strokes and has left- sided weakness likely from the prior stroke. The patient's mood remains poor, withdrawn, does not want to eat but also does not want intervention. Skin please see the nursing documentation photography regarding that extensive coccyx ulceration is considerably more clean than it was in the past. Results CBC & Chem 7: 07/16/19 07:09 07/16/19 07:09 Labs: Abnormal Lab Results - Last 24 Hours (Table) 07/14/19 07/15/19 07/16/19 Range/Units 22:55 17:29 07:09 WBC 14.2 H (3.8-10.6) k/uL RBC 1.97 L (3.80-5.40) m/uL Hgb 6.3 L* (11.4-16.0) gm/dL Hct 21.0 L (34.0-46.0) % MCV 106.5 H (80.0-100.0) fL MCHC 29.9 L (31.0-37.0) g/dL RDW 21.4 H (11.5-15.5) % Plt Count 134 L (150-450) k/uL Neutrophils # 12.0 H (1.3-7.7) k/uL Macrocytosis Marked A Sodium 150 H (137-145) mmol/L Potassium 3.4 L (3.5-5.1) mmol/L Chloride 122 H (98-107) mmol/L BUN 48 H (7-17) mg/dL Creatinine 3.86 H (0.52-1.04) mg/dL Glucose 161 H (74-99) mg/dL Calcium 6.8 L (8.4-10.2) mg/dL Total Protein (6.3-8.2) g/dL Albumin (3.5-5.0) g/dL Crossmatch See Detail 07/16/19 Range/Units 07:09 WBC (3.8-10.6) k/uL RBC (3.80-5.40) m/uL Hgb (11.4-16.0) gm/dL Hct (34.0-46.0) % MCV (80.0-100.0) fL MCHC (31.0-37.0) g/dL RDW (11.5-15.5) % Plt Count (150-450) k/uL Neutrophils # (1.3-7.7) k/uL Macrocytosis Sodium 150 H (137-145) mmol/L Potassium (3.5-5.1) mmol/L Chloride 122 H (98-107) mmol/L BUN 49 H (7-17) mg/dL Creatinine 3.69 H (0.52-1.04) mg/dL Glucose 137 H (74-99) mg/dL Calcium 6.7 L (8.4-10.2) mg/dL Total Protein 4.1 L (6.3-8.2) g/dL Albumin 1.6 L (3.5-5.0) g/dL Crossmatch Microbiology - Last 24 Hours (Table) 07/14/19 22:55 Blood Culture - Preliminary Blood No Growth after 24 hours 07/15/19 17:00 Urine Culture - Preliminary Urine,Voided Laboratory Results WBC 14.2 k/uL (3.8-10.6) H 07/16/19 07:09 RBC 1.97 m/uL (3.80-5.40) L 07/16/19 07:09 Hgb 6.3 gm/dL (11.4-16.0) L* 07/16/19 07:09 Hct 21.0 % (34.0-46.0) L 07/16/19 07:09 MCV 106.5 fL (80.0-100.0) H 07/16/19 07:09 MCH 31.8 pg (25.0-35.0) 07/16/19 07:09 MCHC 29.9 g/dL (31.0-37.0) L 07/16/19 07:09 RDW 21.4 % (11.5-15.5) H 07/16/19 07:09 Plt Count 134 k/uL (150-450) L 07/16/19 07:09 Neutrophils % 85 % 07/16/19 07:09 Lymphocytes % 11 % 07/16/19 07:09 Monocytes % 3 % 07/16/19 07:09 Eosinophils % 0 % 07/16/19 07:09 Basophils % 0 % 07/16/19 07:09 Neutrophils # 12.0 k/uL (1.3-7.7) H 07/16/19 07:09 Lymphocytes # 1.6 k/uL (1.0-4.8) 07/16/19 07:09 Monocytes # 0.4 k/uL (0-1.0) 07/16/19 07:09 Eosinophils # 0.1 k/uL (0-0.7) 07/16/19 07:09 Basophils # 0.1 k/uL (0-0.2) 07/16/19 07:09 Manual Slide Review Performed 07/16/19 07:09 Toxic Granulation Present 07/16/19 07:09 Hypochromasia Marked 07/16/19 07:09 Poikilocytosis (manual Present 07/16/19 07:09 Anisocytosis Moderate 07/16/19 07:09 Macrocytosis Marked A 07/16/19 07:09 PT 11.1 sec (9.0-12.0) 07/14/19 22:55 INR 1.1 (<1.2) 07/14/19 22:55 APTT 29.8 sec (22.0-30.0) 07/14/19 22:55 Sodium 150 mmol/L (137-145) H 07/16/19 07:09 Potassium 4.0 mmol/L (3.5-5.1) 07/16/19 07:09 Chloride 122 mmol/L (98-107) H 07/16/19 07:09 Carbon Dioxide 25 mmol/L (22-30) 07/16/19 07:09 Anion Gap 3 mmol/L 07/16/19 07:09 BUN 49 mg/dL (7-17) H 07/16/19 07:09 Creatinine 3.69 mg/dL (0.52-1.04) H 07/16/19 07:09 Est GFR (CKD-EPI)AfAm 14 (>60 ml/min/1.73 sqM) 07/16/19 07:09 Est GFR (CKD-EPI)NonAf 12 (>60 ml/min/1.73 sqM) 07/16/19 07:09 Glucose 137 mg/dL (74-99) H 07/16/19 07:09 Lactic Ac Sepsis Rflx Y 07/15/19 00:46 Plasma Lactic Acid Jonathan 1.5 mmol/L (0.7-2.0) 07/15/19 06:00 Calcium 6.7 mg/dL (8.4-10.2) L 07/16/19 07:09 Magnesium 1.7 mg/dL (1.6-2.3) 07/14/19 22:55 Total Bilirubin 0.5 mg/dL (0.2-1.3) 07/16/19 07:09 AST 15 U/L (14-36) 07/16/19 07:09 ALT 20 U/L (9-52) 07/16/19 07:09 Alkaline Phosphatase 93 U/L (38-126) 07/16/19 07:09 Creatine Kinase 31 U/L (30-135) 07/14/19 22:55 Troponin I 0.027 ng/mL (0.000-0.034) 07/14/19 22:55 NT-Pro-B Natriuret Pep 2640 pg/mL 07/14/19 22:55 Total Protein 4.1 g/dL (6.3-8.2) L 07/16/19 07:09 Albumin 1.6 g/dL (3.5-5.0) L 07/16/19 07:09 Blood Type O Positive 07/14/19 22:55 Blood Type Recheck O Pos 07/14/19 22:55 Bld Type Recheck Status No 07/14/19 22:55 Antibody Screen NEGATIVE 07/14/19 22:55 Crossmatch See Detail 07/14/19 22:55 Spec Expiration Date 07/17/2019 - [id number] 07/14/19 22:55 Microbiology 07/14/19 22:55 Blood Blood Culture - Preliminary No Growth after 24 hours 07/15/19 17:00 Urine,Voided Urine Culture - Preliminary Assessment and Plan (1) Anemia Current Visit: Yes Status: Acute Code(s): D64.9 - ANEMIA, UNSPECIFIED SNOMED Code(s): 329968125 (2) Peripheral edema Current Visit: Yes Status: Acute Code(s): R60.9 - EDEMA, UNSPECIFIED SNOMED Code(s): 374768868 (3) Renal insufficiency Current Visit: Yes Status: Acute Code(s): N28.9 - DISORDER OF KIDNEY AND URETER, UNSPECIFIED SNOMED Code(s): 194507492 (4) Sacral decubitus ulcer, stage IV Narrative/Plan: 73-year-old woman who has a history of prior strokes with a extensively debilitating status. She was bedbound being cared for by the family home setting which was not going well. She developed a very extensive pressure ulceration to the coccyx is resulted in the very large area of debridement. There is noted if this is to heal she will need appropriate nutrition and eventually will need the site to be addressed by a plastic surgeon. Patient however is not eating and does not want to eat and is refusing a PEG tube. The psychosocial issues are being addressed she's had a guardian assigned in the be working with the courts as to what the next steps shall be. It is likely that she will become a hospice candidate. For now local wound care with the silver alginate dressing has been requested this can be changed every other day A specialty air mattress has been requested given the extensive nature of her pressure ulceration and her debility Surgery is being consulted for PEG tube placement and if agreed will be applied in the near future The patient's leukocytosis has worsened and she does develop some increased anemia. Concern for underlying infection driving both of these difficulties and consequently Unasyn is started which should be effective versus all of the prior isolate the pathogens that she has had. Current Visit: Yes Status: Acute Code(s): L89.154 - PRESSURE ULCER OF SACRAL REGION, STAGE 4 SNOMED Code(s): 039200443
[2019-07-16] MEDS: AMPICILLIN-SULBACTAM 3 GM in SODIUM CHLORIDE 0.9% 100 ML IVPB SCH ×2 (11:51→21:19)
[2019-07-16] MEDS: MIDODRINE 5 MG TAB PO SCH (14:08)
[2019-07-16 16:28] LABS: Glucose,Whole Blood 126 mg/dL (75-99)
--- NOTE | 2019-07-16 16:40 | P.PN ---
Progress Note - Text Progress Note Date: 07/16/19 Chief Complaint: Weeping from her wounds Interval history: This is a pleasant [address] Charli Prieto of visiting physicians. Because of a prior stroke patient's paraplegic. . Patient's 3 granddaughters were living with her for several years. Patient had been getting home care. For last 1 month patient developed sacral decubitus ulcers. Progressively getting worse. Patient initially presented to the hospital on June 15. And was here in the hospital July 11.Patient was admitted to the ICU. Was on fluids and levo fed. Levo fed was discontinued on June 16. Patient initially had refused any debridement of the wound. Finally agreed for the same. Patient was seen by psychiatry. Deemed competent to make the decisions. Because of initial refusal for treatment Ethics committee had been consulted. On June 21 patient was taken to the OR per Dr. Puente and he did carry her debridement after patient consented for the same. On June 23 diverting colostomy was done. Also has vancomycin induced acute kidney injury. Because of decreased oral intake Dr. Puente wanted to put in a PEG tube. Patient refusing the same. Plan the was also for patient to see Dr. Stern from plastic surgery for her decubitus wounds as an outpatient. This will be done down the road. Patient has a court hearing for guardianship on July 14. Patient was then discharged to the ECF. Patient was then seen by multiple consultants. Including Dr. Carroll from psychiatry, Dr. Puente from general surgery, Dr. Oro from infectious disease, Dr. Crow from nephrology and Dr. Osborne from glass crusher. Patient's creatinine discharge was 2.94. Patient's oral intake was limited. Was having edema because of hypoalbuminemia. Patient sent to the ECF. Patient 2 days ago got a court appointed guardian. Patient has been weeping from her wounds. And very edematous. Sent back to the hospital. Patient starting some diet. Today-up in bed. Still weeping from her wounds very edematous limbs. Blood pressure been running very low. About 80 systolic. Hemoglobin was 6.3. I did order 2 units of blood. Patient eating small amounts. Review of systems: Was done for constitutional, cardiovascular, GI, pulmonary. relevant finding as above Active Medications Acetaminophen (Tylenol Tab) 650 mg PO Q6H PRN PRN Reason: Mild Pain Enoxaparin Sodium (Lovenox) 30 mg SQ DAILY [facility] Famotidine (Pepcid) 20 mg PO DAILY [facility] Last Admin: 07/16/19 08:26 Dose: 20 mg Documented by: Dextrose/Water (Dextrose 5%-Water Iv Soln) 1,000 mls @ 50 mls/hr IV .Q20H [facility] Last Admin: 07/16/19 08:28 Dose: 50 mls/hr Documented by: Ampicillin Sodium/Sulbactam (Sodium 3 gm/ Sodium Chloride) 100 mls @ 200 mls/hr IVPB Q12HR [facility] Last Admin: 07/16/19 11:51 Dose: 200 mls/hr Documented by: Midodrine (Proamatine) 10 mg PO AC-TID [facility] Last Admin: 07/16/19 14:08 Dose: 10 mg Documented by: Miscellaneous Information (Potassium Per Protocol) 1 each MISCELLANE DAILY PRN; Protocol PRN Reason: Per Protocol Multivitamins (Theragran) 1 each PO DAILY [facility] Last Admin: 07/16/19 08:26 Dose: 1 each Documented by: Physical examination: VITAL SIGNS: 98.4, 84, 14, 69/52, 99% room air GENERAL: Sitting up in bed, tired, anasarca EYES: Pupils equal. Conjunctiva pale. HEENT: External appearance of nose and ears normal, oral cavity with dry. NECK: JVD unable to assess; masses not palpable. HEART: First and second heart sounds are normal; gross edema including the upper and lower extremity LUNGS: Respiratory rate increased, decreased breath sounds. ABDOMEN: Soft, nontender, liver spleen not palpable, no masses palpable. PSYCH: Alert and oriented x3; mood and affect normal. NEUROLOGICAL: Cranial nerves grossly intact; no facial asymmetry, power lower extremity 1/5, DERMATOLOGICAL: Sacral decubiti ulcers. INVESTIGATIONS, reviewed in the clinical context: White count 14.2 hemoglobin 6.3 platelets 134 sodium 150 potassium 4 bun 49 creatine 3.69 Admission testing White count 12.2 hemoglobin 7.6 potassium 3.5 BUN 48 creatinine 3.51 Albumin 2.0 Assessment: -Severe hypoalbuminemia from severe protein calorie malnutrition from poor oral intake -Chronic sacral decubitus ulcer, status post debridement per Dr. Puente -Hypernatremia due to intravascular free water deficit -Chronic kidney disease stage IV, multifactorial -Lactic acidosis from sepsis -Normocytic anemia severe, symptomatic from malnutrition -Hypotension from hypoalbuminemia -Chronic paraplegia from prior stroke -Medical debility -Court appointed legal guardian Plan: 2 units of blood were ordered. Also the hope is that the blood pressure,. Nurse can do is finding it very difficult to get the blood pressure. Has patient being moved to the ICU. Dr. Puente will be placing a PEG tube. Told the nurse to keep both arms elevated above the level of the heart. Prognosis guarded..
--- NOTE | 2019-07-16 20:57 | CONS ---
CONSULTATION REASON FOR CONSULT: Renal failure. HISTORY OF PRESENT ILLNESS: Patient is a 73-year-old female who was admitted to the hospital with significant edema and weeping from the wounds. The patient was recently hospitalized for a long time and was just discharged about 2 weeks ago. The patient had acute kidney injury from vancomycin toxicity. She has had a Mon catheter. Urine output has been borderline. However, patient was diuresed and the Lasix was held. She has had significant upper and lower extremity edema with poor albumin intake. The patient was diuresed initially and then diuretics were decreased. Her lungs have been pretty much clear with no significant congestive heart failure. Therefore, the edema was not chased aggressively. The patient has not been eating much. She has not been participating in physical therapy as well. Due to the large decubitus and wound, the patient had a diverting colostomy done on her last admission. A PEG tube was considered, however, patient had refused that. There were concerns regarding her competency and at this time there are plans to obtain a guardian. Actually, she did get a court guardian 2 days ago. Serum creatinine was 3.8 mg/dL on admission. She was at 2.9-3 on 07/13/2019 at the time of discharge. Her previous creatinine was 1.0 in June of 2019. The patient has also been hypernatremic for which she was started on D5W yesterday. I have discussed with her that if her renal function does not improve and she continues to remain significantly edematous, she will need to start dialysis. At this time, I am not sure she is able to understand what it means. On this admission, hemoglobin was 7.9 and it has dropped down to 6.3 g/dL today. PAST MEDICAL HISTORY: Recent hospitalization for large sacral wound with necrotic and gangrenous changes, status post debridement and diverting colostomy. The patient also has a past medical history of hypertension. She is paraplegic. She has a history of CVA/TIA. PAST SURGICAL HISTORY: Recent diverting colostomy. SOCIAL HISTORY: Negative for smoking, drug abuse or alcohol abuse. MEDICATIONS PRIOR TO ADMISSION: Lovenox, Pepcid, hydralazine, Lasix, Tylenol, sodium bicarb. ALLERGIES: None. REVIEW OF SYSTEMS: As per HPI. Other systems negative. EXAMINATION: Patient is comfortable, awake. She is not in any acute distress. Blood pressure this morning was 68/47, heart rate 81 per minute, patient is afebrile. Examination of the heart S1, S2. Examination of the lungs, bilateral breath sounds are heard. Abdomen is soft, nontender. Examination lower extremities shows edema with weeping wounds, upper and lower extremities mainly and also the right upper extremity. COSTUME DESIGNER exam: The patient is moving her extremities, particularly her upper extremities. Decreased movement of bilateral lower extremities. LABS: Shows hemoglobin 6.3, white cell count 14.2 sodium 150, potassium 4.0, BUN 49, serum creatinine 3.69, albumin 1.6. ASSESSMENT: 1. Acute kidney injury on top of chronic kidney disease. The patient had vancomycin toxicity from last admission. Her serum creatinine has worsened from a creatinine of about 3-3.8 and 3.69 now. The patient was started on D5W for the hypernatremia. She has an indwelling Mon catheter, therefore, there is no underlying obstruction or urine retention. I will recheck another urinalysis. Check urine for eosinophils as well. Rule out possible interstitial nephritis, although she did have a UTI with Escherichia coli on her last admission. If renal function does not improve, we will need to consider renal replacement therapy. 2. Anasarca associated with decreased oral intake, recent hospitalization for sepsis and urinary tract infection and wound infection. 3. Status post diverting colostomy for sacral wound. 4. Status post urinary tract infection in June with urine culture growing Escherichia coli. 5. Hypotension. We will start the patient on midodrine. She was hypotensive on her last admission as well. I will check to see if serum cortisol was ordered and we will order one if it was not checked last admission. In the meantime, maintain patient on midodrine. 6. Anemia with hemoglobin down to 6.3. No active bleeding noted. Add Aranesp. Iron saturation was very low at 9% on her last admission. Patient has received IV iron. PLAN: Continue D5W for now. Start midodrine. Check cortisol level. Hold off on the sodium bicarb for now. Encourage increased oral intake, particularly protein. Check stool for occult blood and repeat labs in a.m. Overall prognosis is guarded. Thank you for this consultation. We will continue to follow the patient with you during her hospitalization. MMODL / IJN: [id number] /
[2019-07-16] MEDS: MELATONIN 3 MG TABLET PO SCH (23:57)
[2019-07-17] MEDS: MELATONIN 3 MG TABLET PO SCH (00:04)
[2019-07-17] MEDS ORDERED: FUROSEMIDE 10 MG/ML 10 ML VIAL IV STA ×2 (02:21→09:35)
[2019-07-17 02:27] LABS: Appearance,Urine Turbid (Clear); Bacteria,Urine Many /hpf; Bilirubin,Urine Negative (Negative); Blood,Urine Large (Negative); Budding Yeast,Urine Many /hpf; Color,Urine Light Red; Glucose,Urine (UA) Negative (Negative); Hyphae Yeast, Urine Few /hpf; Ketones,Urine Negative (Negative); Leukocyte Esterase,Urine Large (Negative); Nitrite,Urine Negative (Negative); PH, Urine 5.5 (5.0-8.0); Protein,Urine 2+ (Negative); RBC,Urine >182 /hpf (0-5); Urobilinogen,Urine <2.0 mg/dL (<2.0); WBC,Urine >182 /hpf (0-5)
[2019-07-17 05:59] LABS: Anisocytosis Moderate; Basophils # (A) 0.1 k/uL (0-0.2); Basophils % (A) 0 %; Eosinophils # (A) 0.1 k/uL (0-0.7); Eosinophils % (A) 0 %; HCT 32.5 % (34.0-46.0); Hypochromasia Slight; Lymphocytes # (A) 1.8 k/uL (1.0-4.8); Lymphocytes % (A) 10 %; MCHC 32.8 g/dL (31.0-37.0); Macrocytosis Slight; Mean Platelet Volume 8.6; Monocytes # (A) 0.5 k/uL (0-1.0); Monocytes % (A) 3 %; Neutrophils # (A) 15.8 k/uL (1.3-7.7); Neutrophils % (A) 86 %; Platelet Count 121 k/uL (150-450); Poikilocytosis Slight; RBC 3.44 m/uL (3.80-5.40); RDW 21.5 % (11.5-15.5); WBC 18.3 k/uL (3.8-10.6)
[2019-07-17] MEDS: DEXTROSE 5% IN WATER 1,000 ML IV SCH (06:01)
[2019-07-17] MEDS: MIDODRINE 5 MG TAB PO SCH ×3 (06:02→16:40)
[2019-07-17 06:07] LABS: HGB 10.7 gm/dL (11.4-16.0)
[2019-07-17 06:08] LABS: MCV 94.6 fL (80.0-100.0)
[2019-07-17 06:17] LABS: Calcium 6.9 mg/dL (8.4-10.2); Potassium 3.6 mmol/L (3.5-5.1)
[2019-07-17] MEDS: FAMOTIDINE 20 MG TAB PO SCH ×2 (09:41→13:54)
[2019-07-17] MEDS: MULTIVITAMINS, THERA 1 EACH TAB PO SCH ×2 (09:41→13:54)
[2019-07-17] MEDS: ENOXAPARIN 30 MG/0.3 ML SYRINGE SQ SCH (09:41)
--- NOTE | 2019-07-17 10:01 | CDI ---
Documentation Clarification Form Date: 07/17/2019 9:03:02 AM From: Corinne Nova RN CCDS Admit Date: 07/15/2019 1:59:00 AM Patient Name: Em Luz Visit Number: [id number] Discharge Date: ATTENTION: The Clinical Documentation Specialists (CDI) and [facility] Coding Staff appreciate your assistance in clarifying documentation. Please respond to the clarification below the line at the bottom and electronically sign. The CDI & [facility] Coding staff will review the response and follow-up if needed. Please note: Queries are made part of the Legal Health Record. If you have any questions, please contact the author of this message via ITS. Dr. Ottoniel Marr The diagnosis Sepsis was documented in the H & P, but is not consistently noted in subsequent documentation. History/Risk Factors: 73 year old female presents to the ED via EMS from ECF for weeping wounds and peripheral edema. Stage Four Sacral Decubitus. Medical History Paraplegic from prior stroke; Renal failure. HTN ; Large decubitus ulcer on the back . Clinical Indicators: Wbc 10.2; Hgb 7.9; Na 151; K 3.3; chl 118; BUN 46; Cr 3.80; Lactic Acid 2.9; Calcium 7.4; akl phos 128 ; Total protein 5.5; Albumin 2.1 Urine Culture Gram Neg Bacilli Treatment: 1L Bolus 0.9ns Ivfl; Ampicillin Sodium / Sulbactam Sodium Ivpb Q 24 hrs Please clarify if the Sepsis diagnosis was: * Present/active this admission * Treated and resolved this admission * Ruled out * Other, please specify * Clinically unable to determine (Last Revision: July 2018-New) MTDD
--- NOTE | 2019-07-17 10:16 | CONS ---
CONSULTATION PULMONARY/CRITICAL CARE CONSULTATION DATE OF CONSULTATION: July 17, 2019 REASON FOR CONSULTATION: ICU management. This is a patient who apparently was brought into the emergency department on July 14 by ambulance from the [facility]. She was seen in the emergency department the day prior. She was discharged back to the [facility] because she was refusing care. Apparently, the patient had a court appointment for guardianship and guardianship was awarded. The patient apparently presents to the emergency room on the with weeping from her wounds and some significant peripheral edema particular to her upper extremities and lower extremities. The patient apparently did not have any major complaints in the emergency room. She denied any chest pain or discomfort. Denied any shortness of breath. Denied any headache. There was no nausea, vomiting or diarrhea. No GI bleed. The patient also apparently was found to have some renal insufficiency. She apparently was admitted initially to the floor, then transferred to the ICU because of hypotension. Here in the ICU she has been stable from the blood pressure standpoint. The patient really is denying all complaints at this time. She is not receiving any supplemental oxygen. Her IV is saline at 50 mL an hour. The patient states that she is feeling pretty much at baseline. HOME MEDICATIONS: Her home medications include Ensure, multivitamins Tylenol, Pro Stat, sodium bicarbonate tablets, Lovenox, Pepcid, Apresoline, and Lasix. ALLERGIES: Allergies are denied. PAST MEDICAL HISTORY: Past medical history includes a CVA/TIA, hypertension, renal insufficiency, and paraplegia. She also has a history of previous bowel surgery with colostomy. SOCIAL HISTORY: Negative for alcohol, tobacco or illicit drug use. FAMILY HISTORY: Positive for a mother with hypertension. Not a particular good historian. REVIEW OF SYSTEMS: CONSTITUTIONAL: Negative. NEUROLOGIC: Negative. HEENT: Negative. CARDIOVASCULAR: Negative. PULMONARY: Negative. GI: Negative. : Negative. RHEUMATOLOGIC: Negative. IMMUNOLOGIC: Negative. ENDOCRINOLOGIC: Negative. DERMATOLOGIC: Negative. The patient denies all complaints at this time. PHYSICAL EXAMINATION: VITAL SIGNS: Current vital signs are reviewed. Temperature 97.9, heart rate 73, respiratory rate 14, blood pressure 104/78 with mean 86, prior blood pressure 133/46 with mean 75, room-air saturations 98%. GENERAL: Appears in no acute distress. No respiratory distress. HEENT: Examination is grossly unremarkable. Mucous membranes are moist. No oral lesions. NECK: Supple. Full range of motion. No adenopathy or thyromegaly. Neck veins are flat. CARDIOVASCULAR: Examination reveals regular rhythm and rate. S1, S2 normal. Heart rate about mid 70. No S3 or S4. No distinct murmur noted. LUNGS: Reveal mostly clear breath sounds. She does not take real deep breaths. No wheezes, rhonchi, or crackles. ABDOMEN: Obese. Bowel sounds are heard. EXTREMITIES: Reveal significant edema, anasarca. Some of her extremities are weeping edema, fluid. There is no cyanosis or clubbing. SKIN: Reveals some erythema and hyperemia. There are some chronic venous stasis changes. NEUROLOGIC: Examination is brief but nonfocal. LABS: Labs are reviewed. White count 18.3, hemoglobin 10.7, hemoglobin 32.5, platelet count 121,000. Yesterday, her hemoglobin was only 6.3. I believe she received 2 units of blood. Sodium 147, potassium 3.6, chloride 118, CO2 of 21. Anion gap is 8. BUN and creatinine were 51 and 3.49 compared to 49 and 3.69 yesterday. Calcium is 6.9. Albumin is only 1.6. Urine is turbid, 2+ protein, large blood, large leukocyte esterase, greater than 182 RBCs, greater than 182 WBCs. There are many white blood cell clumps and many bacteria. Urine culture showing gram-negative bacilli. A chest x-ray showed some basilar atelectasis. Renal and abdominal ultrasound was essentially negative for renal mass. MEDICATIONS: Medications are reviewed. She is currently on Tylenol, Unasyn, Lovenox, Pepcid, Lasix, midodrine, multivitamins, potassium. ASSESSMENT: 1. Urinary tract infection, rule out urosepsis given the patient's intermittent and transient hypotension. 2. History of renal failure. 3. Anemia, status post transfusion. 4. History of cerebrovascular accident. 5. Paraplegia. 6. Hypertension. 7. Previous colostomy. 8. Profound hypoalbuminemia from poor nutrition. 9. Significant edema and anasarca. PLAN: The patient is relatively stable. If she remains stable and with good blood pressure, she could be transferred out of the ICU. We will continue to follow. Her overall prognosis is guarded. Apparently there was some talk about a feeding tube. Additional recommendations and suggestions are forthcoming. Will continue to follow. MMODL / IJN: [id number] /
--- NOTE | 2019-07-17 10:16 | P.PN ---
Subjective Progress Note Date: 07/17/19 CHIEF COMPLAINT: Malnutrition HISTORY OF PRESENT ILLNESS: Patient examined this morning at the bedside. She was granted public guardianship recently. Patient is tearful this morning regarding this and states she wants to make her own decisions. She is eating a few bites of cereal during my exam. Denies abdominal pain. Denies nausea or vomiting. WBC 18.3. PHYSICAL EXAM: VITAL SIGNS: Reviewed. GENERAL: Well-developed in no acute distress. HEENT: No sclera icterus. Extraocular movements grossly intact. Moist buccal mucosa. Head is atraumatic, normocephalic. ABDOMEN: Soft. Nondistended. Nontender. Ostomy with stool noted. NEUROLOGIC: Alert and oriented. Cranial nerves II through XII grossly intact. SKIN: Dressing to decubitus ulcer noted. ASSESSMENT: 1. Severe protein calorie malnutrition 2. Stage IV decubitus ulcer 3. History of recent diverting colostomy PLAN: Spoke with public guardian, Xiomara, in the ICU who is about to meet and speak with patient for the first time. Court healing is scheduled for for possible DNAR. PEG tube is tentatively scheduled for tomorrow. Xiomara is to contact myself after speaking with patient to determine if she is providing consent for PEG tube tomorrow or if this will be delayed pending her court case later this week. Nurse practitioner note has been reviewed by physician. Signing provider agrees with the documented findings, assessment, and plan of care. Objective - Vital Signs Vital signs: Vital Signs Temp 97.9 F 07/17/19 04:00 Pulse 73 07/17/19 06:00 Resp 14 07/17/19 06:00 BP 104/78 07/17/19 06:00 Pulse Ox 95 07/17/19 06:00 Intake & Output 07/16/19 07/17/19 07/17/19 18:59 06:59 18:59 Intake Total 840 700 150 Output Total 210 356 35 Balance 630 344 115 Weight 78.8 kg Intake: IV 100 600 150 Dextrose 5% in Water 1, 100 600 150 000 ml @ 50 mls/hr IV . Q20H [facility] Rx#:[id number] Intake, IV Titration 100 Amount Ampicillin-Sulbactam 3 gm 100 In Sodium Chloride 0.9% 100 ml @ 200 mls/hr IVPB Q12HR [facility] Rx#:[id number] Oral 120 Blood Product 620 Rc As-1 Unit 310 [id number] Rc Pheresis As-3 Unit 310 [id number] Output: Urine 210 206 35 Stool 150 Other: Voiding Method Indwelling Catheter Indwelling Catheter Indwelling Catheter - Labs CBC & Chem 7: 07/17/19 05:04 07/17/19 05:04 Labs: Abnormal Lab Results - Last 24 Hours (Table) 07/14/19 07/16/19 07/17/19 Range/Units 22:55 16:16 02:00 WBC (3.8-10.6) k/uL RBC (3.80-5.40) m/uL Hgb (11.4-16.0) gm/dL Hct (34.0-46.0) % RDW (11.5-15.5) % Plt Count (150-450) k/uL Neutrophils # (1.3-7.7) k/uL Sodium (137-145) mmol/L Chloride (98-107) mmol/L Carbon Dioxide (22-30) mmol/L BUN (7-17) mg/dL Creatinine (0.52-1.04) mg/dL Glucose (74-99) mg/dL POC Glucose (mg/dL) 126 H (75-99) mg/dL Calcium (8.4-10.2) mg/dL Urine Appearance Turbid H (Clear) Urine Protein 2+ H (Negative) Urine Blood Large H (Negative) Ur Leukocyte Esterase Large H (Negative) Urine RBC >182 H (0-5) /hpf Urine WBC >182 H (0-5) /hpf Urine WBC Clumps Many H (None) /hpf Urine Bacteria Many H (None) /hpf Urine Yeast (Budding) Many H (None) /hpf Crossmatch See Detail 07/17/19 07/17/19 Range/Units 05:04 05:04 WBC 18.3 H (3.8-10.6) k/uL RBC 3.44 L (3.80-5.40) m/uL Hgb 10.7 L D (11.4-16.0) gm/dL Hct 32.5 L (34.0-46.0) % RDW 21.5 H (11.5-15.5) % Plt Count 121 L (150-450) k/uL Neutrophils # 15.8 H (1.3-7.7) k/uL Sodium 147 H (137-145) mmol/L Chloride 118 H (98-107) mmol/L Carbon Dioxide 21 L (22-30) mmol/L BUN 51 H (7-17) mg/dL Creatinine 3.49 H (0.52-1.04) mg/dL Glucose 150 H (74-99) mg/dL POC Glucose (mg/dL) (75-99) mg/dL Calcium 6.9 L (8.4-10.2) mg/dL Urine Appearance (Clear) Urine Protein (Negative) Urine Blood (Negative) Ur Leukocyte Esterase (Negative) Urine RBC (0-5) /hpf Urine WBC (0-5) /hpf Urine WBC Clumps (None) /hpf Urine Bacteria (None) /hpf Urine Yeast (Budding) (None) /hpf Crossmatch Microbiology - Last 24 Hours (Table) 07/14/19 22:55 Blood Culture - Preliminary Blood No Growth after 48 hours 07/15/19 17:00 Urine Culture - Preliminary Urine,Voided Gram Neg Bacilli
--- NOTE | 2019-07-17 12:53 | PN ---
PROGRESS NOTE The patient is seen for followup for acute kidney injury. She was admitted to the hospital after recent hospitalization this time with weeping wounds in her legs and hypernatremia. The patient is maintained on D5W. Her serum sodium has improved from around 153 to 147 today. The patient has an indwelling Mon catheter. Urine output was about 265 mL for last 8 hours. The patient was transferred to the ICU because she was hypotensive. Hemoglobin was 6.3 g/dL. Patient has been transfused 2 units packed RBCs. Blood pressure has improved. Patient had acute kidney injury from vancomycin toxicity on her last admission. Serum creatinine was about 3.1 mg/dL at the time of discharge. Her creatinine peaked to 3.8. It is down to 3.4 now. Patient has not been eating much. A guardian has been appointed and there is discussion regarding change of code status to no code, no CPR. PHYSICAL EXAMINATION: On examination this morning, patient is sitting up in bed. She is trying to eat her breakfast. She gets upset when she is told to try and eat. Blood pressure is 104/78, heart rate of 73 per minute. She is afebrile. EXAMINATION OF THE HEART: S1, S2. EXAMINATION OF THE LUNGS: Bilateral breath sounds are heard. ABDOMEN: Soft, nontender. Examination of lower extremities shows edema 2 to 3+ bilaterally upper and lower extremities, worse in the right upper extremity. HEALTH SCIENCE SPECIALIST exam shows patient is moving upper 2 extremities. She has a history of paraplegia in the lower extremities. LABS: Labs show sodium 147, potassium 3.6, chloride 118, BUN 51, creatinine 3.49. Hemoglobin 10.7 g/dL. ASSESSMENT: 1. Acute kidney injury acute tubular necrosis and from vancomycin toxicity from last admission, currently nonoliguric. Serum creatinine is slightly better than on admission. Continue with the D5W. The patient received a dose of Lasix yesterday. I will repeat the Lasix today as well. Continue with indwelling Mon catheter. If renal function worsens and volume status worsens, patient will need to start dialysis. 2. Urinary tract infection. Urine culture is growing gram-negative bacilli. 3. Severe lower extremity edema and edema in the right upper extremity, status post Lasix yesterday. I will repeat another dose of Lasix today. 4. Hypernatremia, currently improving with D5W. Patient is encouraged to continue to maintain good oral free water intake. 5. Hypotension, mostly associated with anemia, improved post packed RBCs transfusion. 6. Anemia, status post IV iron last admission for iron deficiency. I will also add Aranesp. 7. Hypokalemia, status post replacement. PLAN: Lasix x1 and add Aranesp for anemia. Continue to encourage increased water intake. Continue with D5W for now. MMODL / IJN: [id number] /
--- NOTE | 2019-07-17 15:23 | XR ---
EXAMINATION TYPE: XR chest 1V portable DATE OF EXAM: 07/17/2019 CLINICAL HISTORY: Difficulty breathing and hypoxia study. TECHNIQUE: Single AP portable upright view of the chest is obtained. COMPARISON: Chest x-ray from 3 days earlier FINDINGS: There is chronic parenchymal change with patchy left basilar opacity redemonstrated. Right lung remains clear. No pleural effusion or pneumothorax. Cardiac silhouette size remains enlarged wit h atherosclerotic aorta. Osseous structures are demineralized. Right shoulder dislocation redemonstra ariana. Old bilateral rib fractures redemonstrated. IMPRESSION: Overall stable findings, chronic parenchymal changes and cardiomegaly with patchy left basilar acute infiltrate and/or atelectasis all redemonstrated.
[2019-07-17] MEDS: POTASSIUM BICARBONATE/CIT AC 20 MEQ TABLET.EFF NG-TUBE SCH ×2 (16:48→18:37)
--- NOTE | 2019-07-17 16:51 | P.PN ---
Progress Note - Text Progress Note Date: 07/17/19 Interval history: This is a pleasant [address] Charli Prieto [facility] . Because of a prior stroke patient's paraplegic. . Patient's 3 granddaughters were living with her for several years. Patient had been getting home care. For last 1 month patient developed sacral decubitus ulcers. Progressively getting worse. Patient initially presented to the hospital on June 15. And was here in the hospital July 11.Patient was admitted to the ICU. Was on fluids and levo fed. Levo fed was discontinued on June 16. Patient initially had refused any debridement of the wound. Finally agreed for the same. Patient was seen by psychiatry. Deemed competent to make the decisions. Because of initial refusal for treatment Ethics committee had been consulted. On June 21 patient was taken to the OR per Dr. Puente and he did carry her debridement after patient consented for the same. On June 23 diverting colostomy was done. Also has vancomycin induced acute kidney injury. Because of decreased oral intake Dr. Puente wanted to put in a PEG tube. Patient refusing the same. Plan the was also for patient to see Dr. Stern from plastic surgery for her decubitus wounds as an outpatient. This will be done down the road. Patient has a court hearing for guardianship on July 14. Patient was then discharged to the ECF. Patient was then seen by multiple consultants. Including Dr. Carroll from psychiatry, Dr. Puente from general surgery, Dr. Oro from infectious disease, Dr. Crow from nephrology and Dr. Osborne from interpreter deaf. Patient's creatinine discharge was 2.94. Patient's oral intake was limited. Was having edema because of hypoalbuminemia. Patient sent to the ECF. Patient 2 days ago got a court appointed guardian. Patient has been weeping from her wounds. And very edematous. Sent back to the hospital. Patient starting some diet. On July 16 hemoglobin dropped to 6.3. Blood pressures running low. Given 2 units of blood. And moved to the ICU. Today-in the ICU. On IV Unasyn for UTI. Later this afternoon requiring 6 L of oxygen. With a pulse ox of 88%. Eating minimal amounts. Tired. Does answer questions. And dozes off. All extremities still edematous. Review of systems: Was done for constitutional, cardiovascular, GI, pulmonary. relevant finding as above Active Medications Acetaminophen (Tylenol Tab) 650 mg PO Q6H PRN PRN Reason: Mild Pain Darbepoetin José Miguel (Aranesp) 40 mcg SQ Q7D [facility] Enoxaparin Sodium (Lovenox) 30 mg SQ DAILY [facility] Last Admin: 07/17/19 09:41 Dose: 30 mg Documented by: Famotidine (Pepcid) 20 mg PO DAILY [facility] Last Admin: 07/17/19 13:54 Dose: Not Given Documented by: Dextrose/Water (Dextrose 5%-Water Iv Soln) 1,000 mls @ 50 mls/hr IV .Q20H [facility] Last Admin: 07/17/19 06:01 Dose: 50 mls/hr Documented by: Ampicillin Sodium/Sulbactam (Sodium 3 gm/ Sodium Chloride) 100 mls @ 200 mls/hr IVPB Q24H [facility] Midodrine (Proamatine) 10 mg PO AC-TID [facility] Last Admin: 07/17/19 12:18 Dose: 10 mg Documented by: Miscellaneous Information (Potassium Per Protocol) 1 each MISCELLANE DAILY PRN; Protocol PRN Reason: Per Protocol Multivitamins (Theragran) 1 each PO DAILY [facility] Last Admin: 07/17/19 13:54 Dose: Not Given Documented by: Physical examination: VITAL SIGNS: 97.7, 82, 21, 94/60, 92% on 2 L GENERAL: Sitting up in bed, tired, anasarca, lethargic but arousable EYES: Pupils equal. Conjunctiva pale. HEENT: External appearance of nose and ears normal, oral cavity with dry. Nasal cannula NECK: JVD unable to assess; masses not palpable. HEART: First and second heart sounds are normal; gross edema including the upper and lower extremity LUNGS: Respiratory rate increased, decreased breath sounds. ABDOMEN: Soft, nontender, liver spleen not palpable, no masses palpable. PSYCH: Lethargic but arousable does answer questions NEUROLOGICAL: Cranial nerves grossly intact; no facial asymmetry, power lower extremity 1/5, DERMATOLOGICAL: Sacral decubiti ulcers. INVESTIGATIONS, reviewed in the clinical context: White count 18.3 hemoglobin 10.7 platelets 121 potassium 3.6 sodium 147.51 creatinine 3.49 UA positive, urine culture growing gram-negative bacilli Admission testing White count 12.2 hemoglobin 7.6 potassium 3.5 BUN 48 creatinine 3.51 Albumin 2.0 Assessment: -Acute hypoxic respiratory failure from noncardiogenic pulmonary edema likely third spacing from severe hyperlipidemia -Severe hypoalbuminemia from severe protein calorie malnutrition from poor oral intake, not improving -Chronic sacral decubitus ulcer, status post debridement per Dr. Puente -Hypernatremia due to intravascular free water deficit, with some improvement -Chronic kidney disease stage IV, from recent vancomycin induced injury, slow to respond -Lactic acidosis from sepsis -Normocytic anemia severe, symptomatic from malnutrition, required 2 units of blood -Hypotension from hypoalbuminemia -Chronic paraplegia from prior stroke -Medical debility -CODE STATUS DO NOT RESUSCITATE -Court appointed legal guardian Plan: Patient continues to do poorly. Getting IV Unasyn. IV fluids. Does not want feeding tube. Has gone from room air to 6 L of oxygen. Often takes off the oxygen. I had to personally put it back on twice.. I'm really concerned about her. Patient can history to poorly. Remains in the ICU. Did make a phone call and spoke to Xiomara legal guardian from the Court. Discussed the case. I was told to come in. So we can talk to the patient together. Advanced care planning: I called Xiomara the shoe caser the public guardian at telephone #[phone]. She came in with her store assistant Laine. When to the patient's bedside. I talked to the patient about her overall critical condition. And rapidly failing health. I did explain to her with her oxygen getting worse she she might require ventilator support and with a other medical problems she may need cardiac resuscitation. Patient was quite clear that she did not want the ventilator not the any chest compressions. She does not want a feeding tube. At this point I did tell Xiomara to get urgent hearing from Bryce Petersen so that we could address patient's CODE STATUS. I did get a call from the paddock judge's office and I presented patient's condition to the paddock judge and also informed him that my colleagues to work opinion that at least DO NOT RESUSCITATE and possibly hospice would be appropriate for the patient. We did get a court order for DO NOT RESUSCITATE. Total time spent for this was about 40 minutes
[2019-07-17] MEDS ORDERED: AMPICILLIN-SULBACTAM 3 GM in SODIUM CHLORIDE 0.9% 100 ML IVPB SCH (21:00)
--- NOTE | 2019-07-17 22:41 | P.PN ---
Subjective Progress Note Date: 07/17/19 73-year-old female who was hospitalized at this facility for 3 weeks through June to the first part of July regarding her progressive decline of her status. At the time of presentation she had septic shock related to the extensive necrotic and gangrenous pressure ulceration to her buttocks and coccyx. At first she was refusing any type of surgical intervention eventually she did agree for the extensive debridement to be performed. At the time of the surgery it was evident that she needed is significantly more care. She however did not want to go to another facility. The patient's rectum was in the midst of the extensive ulceration and she eventually did allow a diverting colostomy to allow the site to have some healing. She in general has not been doing very well. However there underlying sepsis to improve. Her renal function did markedly decline after her diverting colostomy occurred. Possibly multifactorial including HTN and vancomycin toxicity. If this time cultures are process in further information is requested. She is not eating and apparently he is eating only about 10% of was presented to her. This is an ongoing issue and does have significant protein calorie malnutrition which is not allowing any further improvement. During her last visit and at the current time discussion for PEG tube has been placed. She however has not wanted to have any type of feeding tube. She has had her hearing in public guardian has been assigned. Goal this point in time will be to have an appropriate CODE STATUS and determine if she does or does not want to have assisted feeding in the appropriateness of this. If this time she is still quite miserable. Fortunately with her stroke she does not have significant pain with the extensive wound to the coccyx but just feels very poorly overall. 07/17/2019 H discussed with the attending physician. He has successfully discussed the patient's status with the district associate judge and the guardian. She is now made DO NOT RESUSCITATE. She is comfortable but she's had emesis metastatic started to clean her up since it was all over the front of her. She otherwise is denying discomfort and denies shortness of breath although she is requiring increasing amounts of oxygen. Objective - Vital Signs Vital signs: Vital Signs Temp 98 F 07/17/19 20:00 Pulse 54 L 07/17/19 20:00 Resp 12 07/17/19 20:00 BP 80/48 07/17/19 20:00 Pulse Ox 97 07/17/19 20:00 Intake & Output 07/17/19 07/17/19 07/18/19 06:59 18:59 06:59 Intake Total 700 600 300 Output Total 356 377 77 Balance 344 223 223 Weight 78.8 kg Intake: IV 600 600 200 Dextrose 5% in Water 1, 600 600 200 000 ml @ 50 mls/hr IV . Q20H [facility] Rx#:[id number] Intake, IV Titration 100 100 Amount Ampicillin-Sulbactam 3 gm 100 In Sodium Chloride 0.9% 100 ml @ 200 mls/hr IVPB Q12HR [facility] Rx#:[id number] Ampicillin-Sulbactam 3 gm 100 In Sodium Chloride 0.9% 100 ml @ 200 mls/hr IVPB Q24H [facility] Rx#:[id number] Output: Urine 206 226 77 Stool 150 150 Urine/Stool Mix 1 Other: Voiding Method Indwelling Catheter Indwelling Catheter Indwelling Catheter # Bowel Movements 1 - Exam HEENT: Anicteric conjunctiva are pink and moist nasal mucosa grossly intact without significant lesions, there is no thrush. Poor dentition Neck: The neck is supple without significant lymphadenopathy or thyromegaly. Lungs: They're symmetrical bilateral air entry with only few basilar crackles no bronchial sounds all dullness or egophony Heart: The heart is mildly irregular with an audible S1 and S2 soft S4 no distinct murmur click or a PMI sinus fever thrill Abdomen: Positive bowel sounds soft and nontender without palpable masses or organomegaly. There was no guarding or rebound. The ostomy is functioning well just had an emesis nonbloody Extremities: The upper extremities have excellent pulses they are symmetric, no significant petechiae or telangiectasia. No splinter hemorrhages were noted. X-rays have improvement of the extensive bilateral lower extremity edema no significant ulcerations are seen Neuro: Awake alert oriented to person place and time. She has a profound generalized weakness from her recent illness and her prior strokes and has left- sided weakness likely from the prior stroke. The patient's mood remains poor, withdrawn, does not want to eat but also does not want intervention. Skin :please see the nursing documentation and photography regarding that extensive coccyx ulceration is considerably more clean than it was in the past. - Labs CBC & Chem 7: 07/17/19 05:04 07/17/19 05:04 Labs: Abnormal Lab Results - Last 24 Hours (Table) 07/17/19 07/17/19 07/17/19 Range/Units 02:00 05:04 05:04 WBC 18.3 H (3.8-10.6) k/uL RBC 3.44 L (3.80-5.40) m/uL Hgb 10.7 L D (11.4-16.0) gm/dL Hct 32.5 L (34.0-46.0) % RDW 21.5 H (11.5-15.5) % Plt Count 121 L (150-450) k/uL Neutrophils # 15.8 H (1.3-7.7) k/uL Sodium 147 H (137-145) mmol/L Chloride 118 H (98-107) mmol/L Carbon Dioxide 21 L (22-30) mmol/L BUN 51 H (7-17) mg/dL Creatinine 3.49 H (0.52-1.04) mg/dL Glucose 150 H (74-99) mg/dL Calcium 6.9 L (8.4-10.2) mg/dL Urine Appearance Turbid H (Clear) Urine Protein 2+ H (Negative) Urine Blood Large H (Negative) Ur Leukocyte Esterase Large H (Negative) Urine RBC >182 H (0-5) /hpf Urine WBC >182 H (0-5) /hpf Urine WBC Clumps Many H (None) /hpf Urine Bacteria Many H (None) /hpf Urine Yeast (Budding) Many H (None) /hpf Microbiology - Last 24 Hours (Table) 07/15/19 17:00 Urine Culture - Final Urine,Voided Pseudomonas aeruginosa 07/14/19 22:55 Blood Culture - Preliminary Blood No Growth after 48 hours Laboratory Results WBC 18.3 k/uL (3.8-10.6) H 07/17/19 05:04 RBC 3.44 m/uL (3.80-5.40) L 07/17/19 05:04 Hgb 10.7 gm/dL (11.4-16.0) L D 07/17/19 05:04 Hct 32.5 % (34.0-46.0) L 07/17/19 05:04 MCV 94.6 fL (80.0-100.0) D 07/17/19 05:04 MCH 31.0 pg (25.0-35.0) 07/17/19 05:04 MCHC 32.8 g/dL (31.0-37.0) 07/17/19 05:04 RDW 21.5 % (11.5-15.5) H 07/17/19 05:04 Plt Count 121 k/uL (150-450) L 07/17/19 05:04 Neutrophils % 86 % 07/17/19 05:04 Lymphocytes % 10 % 07/17/19 05:04 Monocytes % 3 % 07/17/19 05:04 Eosinophils % 0 % 07/17/19 05:04 Basophils % 0 % 07/17/19 05:04 Neutrophils # 15.8 k/uL (1.3-7.7) H 07/17/19 05:04 Lymphocytes # 1.8 k/uL (1.0-4.8) 07/17/19 05:04 Monocytes # 0.5 k/uL (0-1.0) 07/17/19 05:04 Eosinophils # 0.1 k/uL (0-0.7) 07/17/19 05:04 Basophils # 0.1 k/uL (0-0.2) 07/17/19 05:04 Manual Slide Review Performed 07/16/19 07:09 Toxic Granulation Present 07/16/19 07:09 Hypochromasia Slight 07/17/19 05:04 Poikilocytosis Slight 07/17/19 05:04 Poikilocytosis (manual Present 07/16/19 07:09 Anisocytosis Moderate 07/17/19 05:04 Macrocytosis Slight 07/17/19 05:04 PT 11.1 sec (9.0-12.0) 07/14/19 22:55 INR 1.1 (<1.2) 07/14/19 22:55 APTT 29.8 sec (22.0-30.0) 07/14/19 22:55 Sodium 147 mmol/L (137-145) H 07/17/19 05:04 Potassium 3.6 mmol/L (3.5-5.1) 07/17/19 05:04 Chloride 118 mmol/L (98-107) H 07/17/19 05:04 Carbon Dioxide 21 mmol/L (22-30) L 07/17/19 05:04 Anion Gap 8 mmol/L 07/17/19 05:04 BUN 51 mg/dL (7-17) H 07/17/19 05:04 Creatinine 3.49 mg/dL (0.52-1.04) H 07/17/19 05:04 Est GFR (CKD-EPI)AfAm 14 (>60 ml/min/1.73 sqM) 07/17/19 05:04 Est GFR (CKD-EPI)NonAf 13 (>60 ml/min/1.73 sqM) 07/17/19 05:04 Glucose 150 mg/dL (74-99) H 07/17/19 05:04 POC Glucose (mg/dL) 126 mg/dL (75-99) H 07/16/19 16:16 POC Glu Preventive Medicine Physician ID Xiomara Cazares 07/16/19 16:16 Lactic Ac Sepsis Rflx Y 07/15/19 00:46 Plasma Lactic Acid Jonathan 1.5 mmol/L (0.7-2.0) 07/15/19 06:00 Calcium 6.9 mg/dL (8.4-10.2) L 07/17/19 05:04 Magnesium 1.7 mg/dL (1.6-2.3) 07/14/19 22:55 Total Bilirubin 0.5 mg/dL (0.2-1.3) 07/16/19 07:09 AST 15 U/L (14-36) 07/16/19 07:09 ALT 20 U/L (9-52) 07/16/19 07:09 Alkaline Phosphatase 93 U/L (38-126) 07/16/19 07:09 Creatine Kinase 31 U/L (30-135) 07/14/19 22:55 Troponin I 0.027 ng/mL (0.000-0.034) 07/14/19 22:55 NT-Pro-B Natriuret Pep 2640 pg/mL 07/14/19 22:55 Total Protein 4.1 g/dL (6.3-8.2) L 07/16/19 07:09 Albumin 1.6 g/dL (3.5-5.0) L 07/16/19 07:09 Urine Color Light Red 07/17/19 02:00 Urine Appearance Turbid (Clear) H 07/17/19 02:00 Urine pH 5.5 (5.0-8.0) 07/17/19 02:00 Ur Specific [place] 1.020 (1.001-1.035) 07/17/19 02:00 Urine Protein 2+ (Negative) H 07/17/19 02:00 Urine Glucose (UA) Negative (Negative) 07/17/19 02:00 Urine Ketones Negative (Negative) 07/17/19 02:00 Urine Blood Large (Negative) H 07/17/19 02:00 Urine Nitrite Negative (Negative) 07/17/19 02:00 Urine Bilirubin Negative (Negative) 07/17/19 02:00 Urine Urobilinogen <2.0 mg/dL (<2.0) 07/17/19 02:00 Ur Leukocyte Esterase Large (Negative) H 07/17/19 02:00 Urine RBC >182 /hpf (0-5) H 07/17/19 02:00 Urine WBC >182 /hpf (0-5) H 07/17/19 02:00 Urine WBC Clumps Many /hpf (None) H 07/17/19 02:00 Urine Bacteria Many /hpf (None) H 07/17/19 02:00 Ur Yeast w Hyphae Few /hpf (None) 07/17/19 02:00 Urine Yeast (Budding) Many /hpf (None) H 07/17/19 02:00 Urine Eosinophils % 07/17/19 02:00 Blood Type O Positive 07/14/19 22:55 Blood Type Recheck O Pos 07/14/19 22:55 Bld Type Recheck Status No 07/14/19 22:55 Antibody Screen NEGATIVE 07/14/19 22:55 Crossmatch See Detail 07/14/19 22:55 Spec Expiration Date 07/17/2019 94407/14/19 22:55 Microbiology 07/15/19 17:00 Urine,Voided Urine Culture - Final Pseudomonas aeruginosa 07/14/19 22:55 Blood Blood Culture - Preliminary No Growth after 48 hours Assessment and Plan (1) Anemia Current Visit: Yes Status: Acute Code(s): D64.9 - ANEMIA, UNSPECIFIED SNOMED Code(s): 489604613 (2) Peripheral edema Current Visit: Yes Status: Acute Code(s): R60.9 - EDEMA, UNSPECIFIED SNOMED Code(s): 021652211 (3) Renal insufficiency Current Visit: Yes Status: Acute Code(s): N28.9 - DISORDER OF KIDNEY AND URETER, UNSPECIFIED SNOMED Code(s): 154791778 (4) Sacral decubitus ulcer, stage IV Narrative/Plan: 73-year-old woman who has a history of prior strokes with a extensively debilitating status. She was bedbound being cared for by the family home setting which was not going well. She developed a very extensive pressure ulceration to the coccyx is resulted in the very large area of debridement. There is noted if this is to heal she will need appropriate nutrition and eventually will need the site to be addressed by a plastic surgeon. Patient however is not eating and does not want to eat and is refusing a PEG tube. The psychosocial issues are being addressed she's had a guardian assigned in the be working with the courts as to what the next steps shall be. It is likely that she will become a hospice candidate. For now local wound care with the silver alginate dressing has been requested this can be changed every other day A specialty air mattress has been requested given the extensive nature of her pressure ulceration and her debility Surgery is being consulted for PEG tube placement and if agreed will be applied in the near future The patient's leukocytosis has worsened and she does develop some increased anemia. Concern for underlying infection driving both of these difficulties and consequently Unasyn is started which should be effective versus all of the prior isolate the pathogens that she has had. 07/17/2019 the patient is noted became more unstable with hypotension and ongoing leukocytosis and cousin was moved to the intensive care unit. She's had no further emesis. Denies abdominal pain. Continues to refuse the PEG tube. The attending physician was in contact with the district associate judge and guardian today the patient has been made DO NOT RESUSCITATE which is completely appropriate in this situation. The patient says is further declining if she does not want nutrition or other further interventions consideration for hospice Laboratory is now reporting that the urine culture is now positive for Pseudomonas and the Unasyn is transitioned to Zosyn. Current Visit: Yes Status: Acute Code(s): L89.154 - PRESSURE ULCER OF SACRAL REGION, STAGE 4 SNOMED Code(s): 814762268
[2019-07-17] MEDS: PIPERACILLIN-TAZOBACTAM 3.375 GM in SODIUM CHLORIDE 0.9% 100 ML IVPB SCH (23:49)
[2019-07-18] MEDS: DEXTROSE 5% IN WATER 1,000 ML IV SCH (02:15)
[2019-07-18 06:04] VITALS: BP 89/76
[2019-07-18 06:14] LABS: Calcium 6.8 mg/dL (8.4-10.2); Potassium 3.2 mmol/L (3.5-5.1)
[2019-07-18 06:29] LABS: Anisocytosis Moderate; Basophils % (A) 0 %; Eosinophils # (A) 0.1 k/uL (0-0.7); Eosinophils % (A) 1 %; HCT 33.1 % (34.0-46.0); HGB 10.3 gm/dL (11.4-16.0); Hypochromasia Marked; Lymphocytes # (A) 0.9 k/uL (1.0-4.8); Lymphocytes % (A) 8 %; MCH 30.6 pg (25.0-35.0); MCHC 31.1 g/dL (31.0-37.0); MCV 98.5 fL (80.0-100.0); Macrocytosis Moderate; Mean Platelet Volume 8.6; Monocytes # (A) 0.2 k/uL (0-1.0); Monocytes % (A) 1 %; Neutrophils # (A) 10.1 k/uL (1.3-7.7); Neutrophils % (A) 90 %; Poikilocytosis Slight; RBC 3.36 m/uL (3.80-5.40); RDW 21.5 % (11.5-15.5); WBC 11.2 k/uL (3.8-10.6)
[2019-07-18] MEDS: MIDODRINE 5 MG TAB PO SCH ×3 (06:49→12:08)
[2019-07-18] MEDS: POTASSIUM BICARBONATE/CIT AC 20 MEQ TABLET.EFF PO ONE ×2 (06:50→06:52)
[2019-07-18 06:59] LABS: Polychromasia Present
[2019-07-18 07:08] LABS: RBC Fragments Present
[2019-07-18 07:09] LABS: Large Platelets Present
[2019-07-18 07:10] LABS: Platelet Count 85 k/uL (150-450)
--- NOTE | 2019-07-18 07:59 | PN ---
PROGRESS NOTE PULMONARY/CRITICAL CARE PROGRESS NOTE DATE OF SERVICE: July 18, 2019 This is a 73-year-old female who was admitted on July 15. She was apparently brought to the emergency room on July 14 or from the detention. She apparently was in the emergency department the day prior. She apparently was discharged back to the detention on her first admission here because she was refusing care. The patient presents to the emergency room with complaints of weeping wounds from her extremities, particularly her arms and legs. She also had apparently no major complaints in the emergency room. She just was very vague about why she was in the emergency room. She apparently denied chest pain or discomfort. She denied any shortness of breath. Denied any headache. She still apparently does not want any treatment at this time. She is a DNR. She is receiving no supplemental oxygen. Her IV is D5W at 50 mL an hour. The patient apparently is going to be seen by hospice today. The patient was transferred to the ICU initially from the floor because of the hypotension. Here in the ICU she has not been hypotensive. She did not require any pressors. As I mentioned, she is not receiving any supplemental oxygen and only a basic IV of D5W at 50 mL an hour. She is a very poor historian when you speak to her. PHYSICAL EXAMINATION: VITAL SIGNS: Current vital signs are reviewed. Temperature 98.2, heart rate 87, respiratory rate 16, blood pressure 89/76, mean 80, room air saturation between 93% and 98%. GENERAL: Appears in no acute distress. HEENT: Examination is grossly unremarkable. Mucous membranes are moist. NECK: Supple. Full range of motion. No adenopathy, thyromegaly or neck vein distention. CARDIOVASCULAR: Examination reveals regular rhythm and rate. Heart rate in the mid 80s. S1, S2 normal. Heart sounds are distant. LUNGS: Reveal a few scattered rhonchi. No wheezes or crackles. ABDOMEN: Obese. Bowel sounds are heard. EXTREMITIES: Reveal significant edema. This includes both upper and lower extremities. No cyanosis or clubbing. SKIN: Without rash. Skin is very thin though. There is weeping of fluid from both the upper and lower extremities. NEUROLOGIC: Examination is difficult to assess. She does move all 4 extremities, although she is profoundly weak. LABS: Labs are reviewed. White count 11.2, hemoglobin 10.3, hematocrit 33.1, platelet count 85,000. Sodium 145, potassium 3.2, chloride 114, CO2 of 22. BUN and creatinine were 50 and 3.30. Anion gap is 9. Urine is showing what appears to be a urinary tract infection. Microbiology is showing Pseudomonas aeruginosa in the urine. I know Dr. Oro from Infectious Disease was consulted. Chest x-ray from yesterday shows evidence of cardiomegaly and some patchy bibasilar infiltrates and/or atelectasis. MEDICATIONS: Medications are reviewed. She is currently on Tylenol, Aranesp, Lovenox, Pepcid, Lasix, midodrine, multivitamins, Zosyn and potassium replacement. ASSESSMENT: 1. Pseudomonas aeruginosa urinary tract infection with associated hypotension, currently stable. 2. History of renal failure. 3. Anemia, status post transfusion. 4. History of cerebrovascular accident. 5. Paraplegia. 6. Hypertension. 7. Previous colostomy. 8. Profound hypoalbuminemia with general medical debility and poor nutrition. 9. Significant edema and anasarca. PLAN: The patient apparently can be transferred out to the general medical floor. The patient will see hospice today. No procedure is planned. Yesterday, there was some talk of a PEG tube. I think that would be inappropriate. Currently, she is receiving no supplemental oxygen. She is on D5W at 50 mL an hour. Additional recommendations and suggestions are forthcoming. Overall prognosis is very poor. MMODL / IJN: [id number] /
--- NOTE | 2019-07-18 08:39 | CDI ---
Documentation Clarification Form Date: 07/18/2019 7:52:00 AM From: Corinne Nova RN CCDS Admit Date: 07/15/2019 1:59:00 AM Patient Name: Em Luz Visit Number: [id number] Discharge Date: ATTENTION: The Clinical Documentation Specialists (CDI) and [facility] Coding Staff appreciate your assistance in clarifying documentation. Please respond to the clarification below the line at the bottom and electronically sign. The CDI & [facility] Coding staff will review the response and follow-up if needed. Please note: Queries are made part of the Legal Health Record. If you have any questions, please contact the author of this message via ITS. Dr. Ottoniel Marr UTI was documented in your progress noted 07/17/2019 History/Risk Factors: 73-year-old female presents to [facility] ED via EMS from [facility] for weeping wounds and peripheral edema. Per the Nephrology consult 07/16/2019 She has an indwelling Mon catheter, therefore, there is no underlying obstruction or urine retention. Clinical Indicators: Vital Signs: 07/14/2019 98/78 97 98.1 18 98% 4a WBC: 07/14/19 10.6; 07/15/19 12.2: Urine Culture: Culture Pseudomonas Aeruginosa Treatment Antibiotics 07/15/2019 Ampicillin ivpb Q 12 hrs changed 07/17/2019 Ampicillin ivpb Q 24 hr Discontinued 07/17/2019. 07/17/2019 Zosyn ivpb Q 12 hrs Please document the condition that these clinical indicators signify. * Pseudomonas Aeruginosa UTI with Sepsis due to Mon Catheter POA * Pseudomonas Aeruginosa UTI with Sepsis POA * Other, please specify * Unable to determine (Last Revision: July 2017) Pseudomonas aeruginosa UTI with sepsis due to Mon catheter, POA MTDD
[2019-07-18] MEDS ORDERED: DARBEPOETIN ALFA 40 MCG/0.4 ML SYRINGE SQ SCH (09:00)
[2019-07-18] MEDS: ENOXAPARIN 30 MG/0.3 ML SYRINGE SQ SCH (09:11)
[2019-07-18] MEDS: MULTIVITAMINS, THERA 1 EACH TAB PO SCH (09:12)
[2019-07-18] MEDS: FAMOTIDINE 20 MG TAB PO SCH (09:12)
[2019-07-18] MEDS: POTASSIUM CHLORIDE 10 MEQ in WATER FOR INJECTION 1 100ML.BAG IVPB SCH ×2 (09:16→10:47)
[2019-07-18 10:41] VITALS: PULSE 95; RESP 30; TEMP 98.1
[2019-07-18] MEDS: PIPERACILLIN-TAZOBACTAM 3.375 GM in SODIUM CHLORIDE 0.9% 100 ML IVPB SCH (10:48)
[2019-07-18 11:24] VITALS: BMI 31.1
--- NOTE | 2019-07-18 14:08 | P.PN ---
Progress Note - Text Progress Note Date: 07/18/19 Patient was made DNR yesterday. Hospice consult has been initiated. No plans for PEG tube placement. We will sign off. Please re-consult if needed.
--- NOTE | 2019-07-18 15:24 | P.DS ---
Providers Date of admission: 07/15/19 01:59 Expected date of discharge: 07/18/19 Attending physician: Ottoniel Marr Consults: 07/15/19 10:11 Consult Physician Routine Consulting Provider: Grey Puente Consult Reason/Comments: PEG tube Do you want consulting provider notified?: Yes Consult Physician Routine Consulting Provider: Keira Crow Consult Reason/Comments: CKD Do you want consulting provider notified?: Yes 07/15/19 10:12 Consult Physician Routine Consulting Provider: Harman Oro Consult Reason/Comments: decub wounds Do you want consulting provider notified?: Yes 07/16/19 15:03 Consult Physician Routine Consulting Provider: Lilian Pope Consult Reason/Comments: icu management Do you want consulting provider notified?: Yes Primary care physician: Charli Akbar MD Hospital Course: Hospital course: This is a pleasant [address] Charli Prieto of visiting physicians. Because of a prior stroke patient's paraplegic. . Patient's 3 g randdaughters were living with her for several years. Patient had been getting home care. For last 1 month patient developed sacral decubitus ulcers. Progressively getting worse. Patient initially presented to the hospital on June 15. And was here in the hospital July 11.Patient was admitted to the ICU. Was on fluids and levo fed. Levo fed was discontinued on June 16. Patient initially had refused any debridement of the wound. Finally agreed for the same. Patient was seen by psychiatry. Deemed competent to make the decisions. Because of initial refusal for treatment Ethics committee had been consulted. On June 21 patient was taken to the OR per Dr. Puente and he did carry her debridement after patient consented for the same. On June 23 diverting colostomy was done. Also has vancomycin induced acute kidney injury. Because of decreased oral intake Dr. Puente wanted to put in a PEG tube. Patient refusing the same. Plan the was also for patient to see Dr. Stern from plastic surgery for her decubitus wounds as an outpatient. This will be done down the road. Patient has a court hearing for guardianship on July 14. Patient was then discharged to the [facility]. Patient was then seen by multiple consultants. Including Dr. Carroll from psychiatry, Dr. Puente from general surgery, Dr. Oro from infectious disease, Dr. Crow from nephrology and Dr. Osborne from buffing machine operator. Patient's creatinine discharge was 2.94. Patient's oral intake was limited. Was having edema because of hypoalbuminemia. Patient sent to the [facility]. Patient 2 days ago got a court appointed guardian. Patient has been weeping from her wounds. And very edematous. Sent back to the hospital. Patient starting some diet. On July 16 hemoglobin dropped to 6.3. Blood pressures running low. Given 2 units of blood. And moved to the ICU. Patient was made DO NOT RESUSCITATE on July 17, following a hearing with cook helper Nicola. Today-patient continues to refuse treatment. Barely eating. Wants to be left alone. I spoke to Xiomara bingham from public guardian's office. They spoke to [employer]. Patient will be going back to the [facility]. Discussion and discharge planning more than 35 minutes Consultation: Dr. Puente from general surgery Dr. Oro for infectious disease Dr. Lock from buffing machine operator Physical examination: VITAL SIGNS: 98.1, 95, 20, 89/76, 96% room air GENERAL: Sitting up in bed, tired, anasarca, lethargic but arousable EYES: Pupils equal. Conjunctiva pale. HEENT: External appearance of nose and ears normal, oral cavity with dry. Nasal cannula NECK: JVD unable to assess; masses not palpable. HEART: First and second heart sounds are normal; gross edema including the upper and lower extremity LUNGS: Respiratory rate increased, decreased breath sounds. ABDOMEN: Soft, nontender, liver spleen not palpable, no masses palpable. PSYCH: Lethargic but arousable does answer questions NEUROLOGICAL: Cranial nerves grossly intact; no facial asymmetry, power lower extremity 1/5, DERMATOLOGICAL: Sacral decubiti ulcers. INVESTIGATIONS, reviewed in the clinical context: White count 18.3 hemoglobin 10.7 platelets 121 potassium 3.6 sodium 147.51 creatinine 3.49 UA positive, urine culture growing gram-negative bacilli Admission testing White count 12.2 hemoglobin 7.6 potassium 3.5 BUN 48 creatinine 3.51 Albumin 2.0 Discharge diagnosis: -Acute hypoxic respiratory failure from noncardiogenic pulmonary edema likely third spacing from severe hyperlipidemia -Severe hypoalbuminemia from severe protein calorie malnutrition from poor oral intake, not improving -Chronic sacral decubitus ulcer, status post debridement per Dr. Puente -Hypernatremia due to intravascular free water deficit, with some improvement -Chronic kidney disease stage IV, from recent vancomycin induced injury, slow to respond -Lactic acidosis from sepsis -Normocytic anemia severe, symptomatic from malnutrition, required 2 units of blood -Hypotension from hypoalbuminemia -Chronic paraplegia from prior stroke -Medical debility -Hospice -Court appointed legal guardian Disposition: [facility] [place] with hospice Patient Condition at Discharge: Poor Plan - Discharge Summary Discharge Rx Participant: No New Discharge Prescriptions: No Action hydrALAZINE HCL [Apresoline] 10 mg PO BID tab Enoxaparin [Lovenox] 30 mg SQ DAILY syringe Famotidine [Pepcid] 20 mg PO DAILY tab Furosemide [Lasix] 40 mg PO DAILY tab Multivitamins, Thera [Multivitamin (formulary)] 1 tab PO DAILY Ensure 1 can PO TID Pro-Stat 30 ml PO BID Acetaminophen Tab [Tylenol Tab] 650 mg PO Q6H PRN PRN Reason: Pain Sodium Bicarbonate 650 mg PO BID Acetaminophen Tab [Tylenol Tab] 650 mg PO Q6H Discharge Medication List Enoxaparin [Lovenox] 30 mg SQ DAILY syringe 07/07/19 [Rx] Famotidine [Pepcid] 20 mg PO DAILY tab 07/07/19 [Rx] hydrALAZINE HCL [Apresoline] 10 mg PO BID tab 07/07/19 [Rx] Furosemide [Lasix] 40 mg PO DAILY tab 07/11/19 [Rx] Ensure 1 can PO TID 07/13/19 [History] Multivitamins, Thera [Multivitamin (formulary)] 1 tab PO DAILY 07/13/19 [History] Acetaminophen Tab [Tylenol Tab] 650 mg PO Q6H PRN 07/14/19 [History] Pro-Stat 30 ml PO BID 07/14/19 [History] Sodium Bicarbonate 650 mg PO BID 07/14/19 [History] Acetaminophen Tab [Tylenol Tab] 650 mg PO Q6H 07/15/19 [History]
--- NOTE | 2019-07-18 16:14 | PN ---
PROGRESS NOTE Patient is seen for followup for acute kidney injury. She was admitted to the hospital with severe hypernatremia. Currently patient is being evaluated by Hospice. She refuses to eat or drink. She has an indwelling Mon catheter. Urine output has been low at about 10 mL/hour; however, patient's creatinine has improved. It is down to 3.3 from 3.49 yesterday. Patient remains on D5W at 50 mL/hour. On examination this morning, blood pressure was 89/76, heart rate 89 per minute. She is afebrile. EXAMINATION OF THE HEART: S1 and S2. EXAMINATION OF LUNGS: Decreased breath sounds at bases. ABDOMEN: Soft, non-tender. Examination of lower extremities shows chronic skin changes, chronic edema 1+ bilaterally, more in the right upper extremity. Labs show sodium 145, potassium 3.2, chloride 114, BUN 50, creatinine 5.3, hemoglobin 10.3 g/dL. ASSESSMENT: 1. Acute kidney injury secondary to hypotension as well as component of vancomycin toxicity from last admission, currently improving. 2. Urinary tract infection. Urine culture is growing gram-negative bacilli. 3. Significant edema and third spacing. Patient has been receiving IV Lasix. 4. Hypernatremia associated with free water deficit, currently improved with D5W. 5. Anemia, status post IV iron last admission for iron deficiency, status post packed RBCs transfusion as well on this admission. 6. Hypokalemia; being replaced. PLAN: Continue with D5W. Agree with options for hospice care. MMODL / IJN: [id number] /
== END 2019-07-18 18:47 | disposition hospice, inpatient (51) | DRG 698 ==
LOC: EEVIPCON 21:24 → EC 21:24 → 4MS4W 07-15 01:59 → 2SICU 07-16 16:10
PROVIDERS: ADMIT Hospitalist; ATTEND Hospitalist
DX: T83.511A Infection and inflammatory reaction due to indwelling urethral catheter, initial encounter (principal); A41.52 Sepsis due to Pseudomonas; E43 Unspecified severe protein-calorie malnutrition; J96.01 Acute respiratory failure with hypoxia; L89.154 Pressure ulcer of sacral region, stage 4; N17.0 Acute kidney failure with tubular necrosis; E87.0 Hyperosmolality and hypernatremia; N18.4 Chronic kidney disease, stage 4 (severe); G82.20 Paraplegia, unspecified; N39.0 Urinary tract infection, site not specified; I95.9 Hypotension, unspecified; D53.9 Nutritional anemia, unspecified; I69.398 Other sequelae of cerebral infarction; E78.5 Hyperlipidemia, unspecified; E87.6 Hypokalemia; I12.9 Hypertensive chronic kidney disease with stage 1 through stage 4 chronic kidney disease, or unspecified chronic kidney disease; T36.8X5A Adverse effect of other systemic antibiotics, initial encounter; R53.81 Other malaise; R60.0 Localized edema; E66.9 Obesity, unspecified; Z68.31 Body mass index [BMI] 31.0-31.9, adult; Z66 Do not resuscitate; Z74.01 Bed confinement status; Z79.899 Other long term (current) drug therapy; Z79.01 Long term (current) use of anticoagulants; Z93.3 Colostomy status; Z87.440 Personal history of urinary (tract) infections; Z82.49 Family history of ischemic heart disease and other diseases of the circulatory system; Y84.6 Urinary catheterization as the cause of abnormal reaction of the patient, or of later complication, without mention of misadventure at the time of the procedure
CPT/HCPCS: 36415; 71045; 71046; 76770; 80048; 80053; 81001; 82550; 83605; 83735; 83880; 84484; 85025; 85027; 85610; 85730; 86850; 86900; 86901; 86920; 87040; 87077; 87086; 87186; 87205; 93005; 96360; 96361; 99285